=== PATIENT | female | born 1940 | race Caucasian/White ===

== ENCOUNTER → 2018-05-07 15:26 | Outpatient (REF) | payer MEDICARE, SELFPAY ==
[2018-05-07 20:48] LABS: Anion Gap 9.5 mmol/L (3-11); BUN 23 mg/dL (7-18); CO2 28.5 mmol/L (21.0-32.0); CREATININE 1.16 mg/dL (0.55-1.02); Calcium 9.3 mg/dL (8.5-10.1); Chloride 103 mmol/L (98-107); Estimated GFR 45.07 (mL/min/1.73m2); Glucose 185 mg/dL (70-100); Sodium 141 mmol/L (136-145); TSH (W/Ref FT4) 1.12 uIU/mL (0.358-3.74)
== END ==
LOC: NCHCN 15:26
PROVIDERS: PCP Family Medicine; Visit Provider Family Medicine
DX: I10 Essential (primary) hypertension (principal); E03.9 Hypothyroidism, unspecified; Z98.890 Other specified postprocedural states
CPT/HCPCS: 80048; 84443

== ENCOUNTER 2018-11-26 19:49 | Outpatient (REF) | payer MEDICARE, SELFPAY ==
[2018-11-26 20:04] LABS: Abs Immature Grans 0.03 k/cumm (0.0-0.09); Absolute Basophil Count 0.03 k/cumm (0.0-0.2); Absolute Eosinophil Count 0.17 k/cumm (0.0-0.7); Absolute Lymphocyte Count 1.95 k/cumm (1.2-3.4); Absolute Monocyte Count 0.57 k/cumm (0.11-0.7); Absolute Neutrophil Count 3.49 k/cumm (1.2-6.7); Basophils % 0.5; Eosinophils % 2.7; HCT 40.4 % (36.0-46.0); HGB 13.2 g/dL (12.0-15.5); Immature Grans % 0.5; Lymphocytes % 31.3; Mean Corp. HGB Concentration 32.7 g/dL (32.0-36.0); Mean Corpuscular Hemoglobin 30.3 pg (27.0-33.0); Mean Corpuscular Volume 92.7 fL (80-95); Mean Platelet Volume 10.7 fL (8.0-11.0); Monocytes % 9.1; Neutrophils % 55.9; Platelet Count 187 x1000/uL (130-400); RBC 4.36 m/cumm (4.00-5.20); RBC Distribution Width 14.1 % (11.7-14.6); White Blood Cell Count 6.24 k/cumm (4.4-10.8)
[2018-11-26 20:16] LABS: ALT 17 U/L (12-78); AST 20 U/L (15-37); Albumin 3.9 g/dL (3.4-5.0); Alkaline Phosphatase 79 U/L (46-116); Anion Gap 8.4 mmol/L (3-11); BUN 14 mg/dL (7-18); Bilirubin, Total 0.5 mg/dL (0.2-1.0); CO2 29.6 mmol/L (21.0-32.0); CREATININE 1.07 mg/dL (0.55-1.02); Calcium 9.6 mg/dL (8.5-10.1); Chloride 101 mmol/L (98-107); Estimated GFR 49.34 (mL/min/1.73m2); Glucose 105 mg/dL (70-100); Lipase 37 U/L (73-393); Potassium 3.7 mmol/L (3.5-5.1); Sodium 139 mmol/L (136-145); TSH (W/Ref FT4) 1.06 uIU/mL (0.358-3.74)
[2018-11-26 20:29] LABS: Hemoglobin A1C 4.9 % (4.5-6.2)
== END 2018-11-26 20:09 ==
LOC: NCHCN 19:49
PROVIDERS: PCP Family Medicine; Visit Provider Family Medicine
DX: E03.9 Hypothyroidism, unspecified (principal); R73.09 Other abnormal glucose; R11.0 Nausea
CPT/HCPCS: 80053; 83690; 83036; 84443; 85025

== ENCOUNTER 2019-10-16 11:03 | Outpatient (CLI) | payer MEDICARE, SELFPAY ==
--- NOTE | 2019-10-16 09:40 | DI.RAD_ITS ---
EXAM: XR SACRUM CLINICAL HISTORY: RT LEG PAIN, M79.604, H/O OSTEOPOROSIS, NEW RT BUTTOCKS/LEG PAIN X 1 MO TECHNIQUE: COMPARISON: No exams were available for comparison FINDINGS: AP and lateral view of the sacrum obtained. Mild DJD of the SI joints noted. No sacral fracture see n. Marked anterior spondylolisthesis versus pseudo spondylolisthesis L5 on S1 noted, this is estimat ed at 30 percent of the vertebral width and was and is much more easily seen on lateral view of the sacrum than on lumbar spine films. Additional evaluation with lumbar spine MR suggested. IMPRESSION:
--- NOTE | 2019-10-16 09:42 | DI.RAD_ITS ---
EXAM: XR LUMBAR SPINE COMPLETE CLINICAL HISTORY: RT LEG PAIN, M79.604, H/O OSTEOPOROSIS, NEW RT BUTTOCKS/LEG PAIN X 1 MO TECHNIQUE: COMPARISON: No exams were available for comparison FINDINGS: Four views were obtained. Note is made of an aorto bi iliac stent. Left renal artery component also appears to be present. There are prominent hypertrophic degenerative changes of the facet joints an d to a lesser degree the vertebral endplates in the lumbar spine. Question slight pseudo spondylolis thesis of L5 on S1. No gross compression fracture seen. Mild DJD of the SI joints noted. IMPRESSION: Degenerative changes as described above. No evidence of acute fracture. If there is a clinical susp icion of neural impingement additional evaluation with MR of the lumbar spine may be obtained.
== END 2019-10-16 11:23 ==
PROVIDERS: PCP Family Medicine; Visit Provider Family Medicine
DX: M79.604 Pain in right leg (principal); M81.0 Age-related osteoporosis without current pathological fracture; M53.3 Sacrococcygeal disorders, not elsewhere classified; M43.17 Spondylolisthesis, lumbosacral region; M47.817 Spondylosis without myelopathy or radiculopathy, lumbosacral region
CPT/HCPCS: 72110; 72220

== ENCOUNTER 2019-10-23 01:30 | Outpatient (CLI) | payer MEDICARE, SELFPAY ==
--- NOTE | 2019-10-23 11:28 | DI.MRI_ITS ---
EXAM: MR LUMBAR SPINE WO CLINICAL HISTORY: SPONDYLOLISTHESIS L5-S1 M43.10, SEVER BUTTOCK PAIN 1 MO.. TECHNIQUE: Multiplanar multisequence MRI was performed. COMPARISON: No exams were available for comparison FINDINGS: MR examination lumbar spine was attempted. Severe metal artifact precludes interpretation. The exam ination will not be charged to the patient. IMPRESSION:
== END 2019-10-23 01:50 ==
PROVIDERS: PCP Family Medicine; Visit Provider Family Medicine
DX: M43.16 Spondylolisthesis, lumbar region (principal); M79.18 Myalgia, other site; Z18.10 Retained metal fragments, unspecified
CPT/HCPCS: 72148

== ENCOUNTER 2020-04-05 22:34 | Outpatient (REF) | payer MEDICARE, SELFPAY ==
[2020-04-05 19:53] LABS: Anion Gap 8.1 mmol/L (3-11); BUN 19 mg/dL (7-18); CO2 28.9 mmol/L (21.0-32.0); CREATININE 1.01 mg/dL (0.55-1.02); Calcium 9.1 mg/dL (8.5-10.1); Chloride 103 mmol/L (98-107); Estimated GFR 52.61 (mL/min/1.73m2); Glucose 159 mg/dL (74-106); Sodium 140 mmol/L (136-145); TSH (W/Ref FT4) 1.17 uIU/mL (0.36-3.74)
== END 2020-04-05 22:54 ==
LOC: NCHCN 22:34
PROVIDERS: PCP Family Medicine; Visit Provider Family Medicine
DX: E03.9 Hypothyroidism, unspecified (principal); I10 Essential (primary) hypertension
CPT/HCPCS: 80048; 84443

== ENCOUNTER 2021-02-13 18:25 | Outpatient (REF) | payer MEDICARE, SELFPAY ==
[2021-02-13 16:09] LABS: Abs Immature Grans 0.05 10^3/uL (0.0-0.06); Absolute Basophil Count 0.04 10^3/uL (0.0-0.2); Absolute Eosinophil Count 0.14 10^3/uL (0.0-0.7); Absolute Monocyte Count 0.63 10^3/uL (0.1-0.8); Absolute Neutrophil Count 3.92 10^3/uL (1.2-6.7); Basophils % 0.6; Eosinophils % 2.1; HCT 38.4 % (36.0-46.0); HGB 12.9 g/dL (11.2-15.7); Immature Grans % 0.7; Lymphocytes % 29.5; MCH 30.6 pg (27.0-33.0); MCHC 33.6 % (32.0-36.0); MPV 10.1 fL (8.0-11.0); Monocytes % 9.3; Neutrophils % 57.8; Nucleated RBC 0 %; Platelet Count 191 10^3/uL (130-400); RBC 4.22 10^6/uL (3.93-5.22); RDW 13.8 % (11.7-14.6); WBC 6.78 10^3/uL (4.4-10.8)
[2021-02-13 17:03] LABS: ALT 18 U/L (14-59); AST 18 U/L (15-37); Albumin 3.9 g/dL (3.4-5.0); Alkaline Phosphatase 69 U/L (46-116); Anion Gap 8.5 mmol/L (3-11); BUN 15 mg/dL (7-18); Bilirubin, Total 0.5 mg/dL (0.2-1.0); CO2 29.5 mmol/L (21.0-32.0); CREATININE 1.1 mg/dL (0.55-1.02); Calcium 9.4 mg/dL (8.5-10.1); Chloride 105 mmol/L (98-107); Estimated GFR 47.55 (mL/min/1.73m2); Glucose 99 mg/dL (74-106); Potassium 4.3 mmol/L (3.5-5.1); Sodium 143 mmol/L (136-145); TSH (W/Ref FT4) 2.44 uIU/mL (0.36-3.74); Total Protein 7.1 g/dL (6.4-8.2)
[2021-02-14 14:28] LABS: COVID-19 RT-PCR Result Not Detected ((See Note))
== END 2021-02-13 18:26 | disposition home or self-care (01) ==
LOC: LBN 18:25
PROVIDERS: PCP Family Medicine; Visit Provider Family Medicine
DX: N18.30 Chronic kidney disease, stage 3 unspecified (principal); R11.0 Nausea; I10 Essential (primary) hypertension; E03.9 Hypothyroidism, unspecified; R53.81 Other malaise
CPT/HCPCS: 80053; U0003; 84443; 85025

== ENCOUNTER 2021-05-23 09:25 | Outpatient (REF) | payer MEDICARE, SELFPAY ==
[2021-05-23 14:46] LABS: Anion Gap 8.1 mmol/L (3-11); BUN 15 mg/dL (7-18); CO2 29.9 mmol/L (21.0-32.0); CREATININE 1.1 mg/dL (0.55-1.02); Calcium 9.4 mg/dL (8.5-10.1); Chloride 99 mmol/L (98-107); Estimated GFR 47.55 (mL/min/1.73m2); Glucose 113 mg/dL (74-106); Potassium 4.7 mmol/L (3.5-5.1); Sodium 137 mmol/L (136-145)
[2021-05-24 14:00] LABS: COVID-19 RT-PCR UVMMC Result Negative (Negative)
== END 2021-05-23 09:26 | disposition home or self-care (01) ==
LOC: NCHCN 09:25
PROVIDERS: PCP Family Medicine; Visit Provider Family Medicine
DX: Z20.822 Contact with and (suspected) exposure to COVID-19 (principal); I10 Essential (primary) hypertension
CPT/HCPCS: 80048; U0003; U0005

== ENCOUNTER 2021-08-15 18:15 | Outpatient (REF) | payer MEDICARE, SELFPAY | END 2021-08-15 18:16 | disposition home or self-care (01) | LOC: LBN 18:15 | PROVIDERS: PCP Family Medicine; Visit Provider Student in an Organized Health Care Education/Training Program | DX: J44.9 Chronic obstructive pulmonary disease, unspecified (principal); B37.9 Candidiasis, unspecified | CPT/HCPCS: 82784; 82785; 82787 ==

== ENCOUNTER 2021-08-18 09:41 | Outpatient (CLI) | payer MEDICARE, SELFPAY ==
--- NOTE | 2021-08-18 11:00 | DI.RAD_ITS ---
Exam(s) XR CHEST 2V PA LATERAL EXAM: XR CHEST 2V PA LATERAL CLINICAL HISTORY: Dyspnea, cough, COPD, J44.9 TECHNIQUE: 2D digital imaging was performed. COMPARISON: CR CHEST 2 VIEWS PA,LAT from 06/09/2010 CR CHEST 2 VIEWS PA,LAT from 06/09/2010 CR,RF BARIUM SWALLOW UGI PA CXR from 12/06/2010 CR ABDOMEN 2 VIEW FLAT, UPRIGHT from 03/05/2016 FINDINGS: MEDIASTINUM: Normal. HEART: Normal. Aorta tortuous. PULMONARY VASCULATURE: Normal. LUNGS: Clear. PLEURAL SPACE: No pleural effusion or pneumothorax. BONE:Unremarkable for age. Abdominal aortic stents noted. IMPRESSION: No acute abnormality. DATA REPOSITORY: RADIATION DOSE DELIVERED:
== END 2021-08-18 10:01 ==
PROVIDERS: PCP Family Medicine; Visit Provider Student in an Organized Health Care Education/Training Program
DX: J44.9 Chronic obstructive pulmonary disease, unspecified (principal); R05.8 Other specified cough; R06.00 Dyspnea, unspecified
CPT/HCPCS: 71046

== ENCOUNTER 2021-09-29 01:52 | Outpatient (CLI) | payer MEDICARE, SELFPAY ==
[2021-09-29] MEDS: Inhaler, Assist Device 1 EACH MC (08:55)
[2021-09-29] MEDS: Albuterol HFA 18 GM 200 PUFF INH IH (08:55)
--- NOTE | 2021-09-29 12:08 | W.PFT ---
Date of service: 09/29/21 Time of Service: 08:04 Pulmonary Function Test Result Requesting Provider Chloe Indications: TERRAZAS Interpretation Spirometry: There is no airflow limitation. There is no significant bronchodilator effect. Lung Volumes: Lung volumes are normal. Diffusion Capacity: Diffusion is reduced. Airway Pressure: Airways resistance is normal. Impression Reduced diffusing capacity, with otherwise normal pulmonary function testing. Clinical Correlation therefore is recommended.
== END 2021-09-29 01:53 | disposition home or self-care (01) ==
LOC: RT 01:52
PROVIDERS: PCP Family Medicine; Visit Provider Student in an Organized Health Care Education/Training Program
DX: R06.09 Other forms of dyspnea (principal); R94.2 Abnormal results of pulmonary function studies; J44.9 Chronic obstructive pulmonary disease, unspecified
CPT/HCPCS: 94060; 94726; 94729

== ENCOUNTER 2021-10-08 09:38 | Inpatient (IN) | payer MEDICARE, SELFPAY ==
[2021-10-08] VITALS (39 sets, daily range): BP systolic 110–203; BP diastolic 56–118; PULSE 57–83; RESP 12–22; TEMP 35.8–37.1; O2SAT 84–100; BMI 29.5
--- NOTE | 2021-10-08 09:48 | ED.GENADUL_ITS ---
Discharge Plan Disposition Patient Disposition: [facility] INPATIENT Condition: Stable Discharge Details Clinical Impression: Fracture of femoral neck, right Admit Date/Time: 10/08/21 12:28 Admit Provider: Junior Ornelas Attending Provider: Junior Ornelas Primary Care Provider: Carlos Trinidad ED Provider: Mary Gonzalez Discharge Data Discharge Date/Time-TO BE ENTERED AT DEPARTURE: 10/08/21 13:00 Medical Decision Making 81-year-old female with a history of COPD, chronic cough, CKD, hypertension, hyperlipidemia, GERD, osteoarthritis presents for right hip pain status post fall outside onto her right hip when he slipped on ice. Patient given fentanyl in route per EMS and now complaining of nausea and with continued pain. Right lower extremity shortened and externally rotated. No evidence of trauma to chest, abdomen or back. Will refer for x-rays, give a dose of Dilaudid and Zofran. Xrays note a right femoral neck fracture. Chest x-ray negative for acute disease. Pt has a history of chronic cough noted to have frequent coughing while dry heaving. COVID negative. Case discussed with Dr. Leon. Will take patient to the OR this afternoon. Case discussed with hospitalist who accepts patient for admission. Family updated regarding plan. Medical Records Medical records reviewed: Yes I reviewed the patient's medical records. Imaging Data Radiologic Study: Radiologist's impression: XR Right Hip Exam date and time: 10/08/2021 10:08 AM Age: 81 years old Clinical indication: Injury or trauma; Other: S/P fall, R/O acute disease; Fracture of pelvis \T\ hip; Right; Traumatic fracture; Neck of femur; Not specified TECHNIQUE: Imaging protocol: XR Right hip. Views: 2 or 3 views hip with pelvis when performed. COMPARISON: XR SACRUM 10/16/2019 9:40 AM FINDINGS: Bones/joints: Displaced intertrochanteric right hip fracture. Soft tissues: Soft tissue swelling of the right hip IMPRESSION: Displaced intertrochanteric right hip fracture. XR Right Femur Exam date and time: 10/08/2021 10:08 AM Age: 81 years old Clinical indication: Injury or trauma; Fall; Blunt trauma; Hip; Right TECHNIQUE: Imaging protocol: XR Right femur. Views: 2 views. COMPARISON: CR XR HIP RT COMPLETE AP PELVIS 10/08/2021 10:40 AM FINDINGS: Bones/joints: No femoral shaft fracture. Soft tissues: Unremarkable. IMPRESSION: No femoral shaft fracture. XR Chest Exam date and time: 10/08/2021 10:10 AM Age: 81 years old Clinical indication: Injury or trauma; Fall; Blunt trauma (contusions or hematomas) TECHNIQUE: Imaging protocol: XR of the chest. Views: 1 view. COMPARISON: CR XR CHEST 2V PA LATERAL 08/18/2021 10:51 AM FINDINGS: Lungs: Hyperexpanded lung huitron consistent with COPD. Pleural spaces: Unremarkable. No pleural effusion. No pneumothorax. Heart/Mediastinum: Unremarkable. No cardiomegaly. Bones/joints: Unremarkable. IMPRESSION: Hyperexpanded lung huitron consistent with COPD. Lab Data Lab results reviewed: Yes I reviewed the patient's lab results. Labs: Laboratory Tests Range/Units 10/08/21 10/08/21 10:28 10:28 WBC (4.4-10.8) 10^3/uL 9.30 RBC (3.93-5.22) 10^6/uL 4.00 Hgb (11.2-15.7) g/dL 12.2 Hct (36.0-46.0) % 37.9 MCV (80-95) fL 94.8 MCH (27.0-33.0) pg 30.5 MCHC (32.0-36.0) % 32.2 RDW (11.7-14.6) % 13.2 Plt Count (130-400) 10^3/uL 182 MPV (8.0-11.0) fL 9.4 Immature Gran % 0.8 Neutrophils % 69.4 Lymphocytes % 19.5 Monocytes % 7.0 Eosinophils % 2.8 Basophils % 0.5 Nucleated RBC % % 0 Absolute Neutrophils (1.2-6.7) 10^3/uL 6.46 Absolute Lymphocytes (1.2-3.4) 10^3/uL 1.81 Absolute Monocytes (0.1-0.8) 10^3/uL 0.65 Absolute Eosinophils (0.0-0.7) 10^3/uL 0.26 Absolute Basophils (0.0-0.2) 10^3/uL 0.05 Sodium (136-145) mmol/L 135 L Potassium (3.5-5.1) mmol/L 4.2 Chloride (98-107) mmol/L 102 Carbon Dioxide (21.0-32.0) mmol/L 25.6 Anion Gap (3-11) mmol/L 7.4 BUN (7-18) mg/dL 15 Creatinine (0.55-1.02) mg/dL 1.0 Estimated GFR/1.73 m2 (mL/min/1.73m2) 52.95 Glucose (74-106) mg/dL 213 H Calcium (8.5-10.1) mg/dL 8.5 Total Bilirubin (0.2-1.0) mg/dL 0.6 AST (15-37) U/L 16 ALT (14-59) U/L 19 Alkaline Phosphatase (46-116) U/L 79 Total Protein (6.4-8.2) g/dL 6.9 Albumin (3.4-5.0) g/dL 3.5 ECG Data Attestation: I personally reviewed and interpreted this ECG (s) as follows: Interpretation: rate of 72, sinus, no acute ST elevation or depression. ID [id number]. QRS 73. QTc 452. HPI General Mode of arrival: EMS . Date/Time Provider Initiated Documentation: 10/08/21 09:48 . Limitations to Documentation: no limitations . Information obtained by: patient . HPI Narrative: Patient is a 81-year-old female with a history of COPD and chronic cough, CKD, hypertension, GERD and arthritis who presents from home for right hip pain after fall today. Patient states she was outside walking her dog when she slipped on ice and fell onto her right hip. She was given 125 mcg of fentanyl per EMS and now complains of some nausea and continued pain. She denies any other injuries. She denies head injury, chest pain, abdominal pain, neck pain, back pain or any other extremity pain or injury. Related Data Home Medications Medication Instructions Recorded Confirmed levothyroxine [Synthroid] 137 mcg PO QAM 03/04/16 10/08/21 albuterol sulfate 90 mcg/actuation 2 puff INHALATION Q6H PRN 05/15/21 08/15/21 aerosol inhaler ascorbate calcium (vitamin C) 500 1,000 mg PO DAILY 05/15/21 10/08/21 mg tablet aspirin 81 mg tablet,delayed 81 mg PO QAM 05/15/21 10/08/21 release omeprazole 20 mg capsule,delayed 20 mg PO QAM 05/15/21 10/08/21 release propranolol 60 mg capsule,24 60 mg PO DAILY 05/15/21 10/08/21 hr,extended release simethicone 80 mg chewable tablet 80 mg PO QID PRN tab 05/15/21 08/30/21 simvastatin 40 mg tablet 40 mg PO QPM 05/15/21 10/08/21 tiotropium 2.5 mcg-olodaterol 2.5 2 puff INHALATION DAILY #4 g 08/21/21 08/30/21 mcg/actuation mist for inhalation calcium carbonate [Calcium 500] 1,000 mg PO QPM 10/08/21 10/08/21 fluticasone propion-salmeterol 1 inh INHALATION BID 10/08/21 10/08/21 [Advair Diskus] losartan 50 mg PO QAM 10/08/21 10/08/21 Previous Rx's Medication Instructions Recorded tiotropium 2.5 mcg-olodaterol 2.5 2 puff INHALATION DAILY #4 g 08/21/21 mcg/actuation mist for inhalation Allergies Allergy/AdvReac Type Severity Reaction Status Date / Time clopidogrel Allergy Verified 10/08/21 09:57 bisulfate Allergy Uncoded 10/08/21 09:57 Review of Systems All systems reviewed & are unremarkable except as noted in HPI and below Constitutional Constitutional: Reports as per HPI, Denies chills and Denies fever(s) Eyes Eyes: Denies blurry vision ENT Ears, Nose, Mouth, and Throat: Denies dizziness, Denies sore throat and Denies throat swelling Cardiovascular Cardiovascular: Denies chest pain and Denies dyspnea Respiratory Respiratory: Denies cough and Denies dyspnea Gastrointestinal Gastrointestinal: Denies abdominal pain, Denies diarrhea and Denies vomiting Genitourinary Genitourinary: Denies hematuria and Denies dysuria Musculoskeletal Musculoskeletal: Denies back pain, Denies numbness and Reports other (R hip pain) Integumentary/Breasts Skin/Breast: Denies lesions and Denies rash Neurologic Neurologic: Denies dizziness, Denies localized weakness and Denies numbness Allergic/Immunologic Allergic/Immunologic: Denies throat swelling PFSH All Active Problems (Updated 10/08/21 @ 19:10 by Mary Gonzalez DO) Fracture of femoral neck, right (Acute) Basicervical fracture of neck of right femur (Acute 10/08/21) Chronic laryngitis (Acute) Thrush (Acute) COPD (chronic obstructive pulmonary disease) (Acute) Chronic cough (Acute) Globus sensation (Acute) Eczema (Acute) Impaired fasting glucose (Acute) Spondylisthesis (Acute) Insomnia (Acute) CKD (chronic kidney disease) (Chronic) Lesion of skin of scalp (Acute) Hearing impaired person (Acute) Abdominal pain (Acute) Lactose intolerance (Acute) Hiatal hernia (Chronic) Dysphagia (Acute) Hyperlipidemia (Acute) Hypertension (Chronic) Abdominal aortic aneurysm (Acute) GERD (gastroesophageal reflux disease) (Chronic) Hypothyroidism (Chronic) Arthritis (Acute) Osteoarthritis (Chronic) Surgical History H/O aortic aneurysm repair H/O colonoscopy H/O hand surgery History of esophagogastroduodenoscopy (EGD) History of Nila fundoplication History of renal stent Family History Father Cancer Mother Aneurysm Pneumonia Son No problems noted. Social History Smoking/Tobacco Use Status: Former Tobacco Use Smoking risk assessment performed?: Yes Alcohol Intake: never Drug use: Never Do you feel safe at home: Yes Do you feel safe in your relationship?: Yes Exam Const General: cooperative and no acute distress HENMT Head: normal to inspection Face and sinus: normal facial exam Eyes General: appearance normal, both eyes and all related structures Pupils: PERRL EOM: EOM intact bilaterally Neck Neck: normal visual inspection and No submandibular swelling Lymphatic: no lymphadenopathy noted Chest Chest: normal inspection of the chest and no tenderness Resp Effort & Inspection: normal respiratory effort and able to speak in complete sentences Auscultation: clear to auscultation bilaterally Cardio Rate: regular rate Rhythm: regular rhythm GI Inspection: normal to inspection Palpation: soft, not firm, not rigid and nontender Auscultation: normal bowel sounds Back/Spine/Pelvis Thoracic/Lumbar Spine: thoracic and lumbar spine normal to inspection Skin General skin exam: no rashes or lesions noted Neuro General: patient alert, patient awake and patient oriented x3 Cognition: normal cognition Speech: speech normal Motor: muscle tone normal throughout Sensory Exam: no sensory deficits noted Extrem Right lower extremity: hip/thigh Details: abnormal to inspection Details: foreshortened and externally rotated and abnormal ROM Details: held in an abnormal fashion Details: in external rotation and pain with active ROM during, knee Details: normal to inspection; no tenderness and no swelling, lower leg Details: normal to inspection, ankle Details: normal to inspection and foot Details: normal to inspection and vascular exam Details: dorsalis pedis pulse present and posterior tibial pulse present Left lower extremity: foot Details: vascular exam Details: dorsalis pedis pulse present and posterior tibial pulse present Psych Appearance: grossly normal Mental Status: mental status grossly normal Speech and Movement: speech and movement normal Affect: normal affect
--- NOTE | 2021-10-08 10:00 | DI.RAD_ITS ---
Exam(s) XR HIP RT COMPLETE AP PELVIS EXAM: XR HIP RT COMPLETE AP PELVIS CLINICAL HISTORY: right hip pain s/p fall, r/o fx. TECHNIQUE: 2D digital imaging was performed. COMPARISON: No exams were available for comparison FINDINGS: There is a mildly displaced intertrochanteric fracture of the right hip.. No other pelvic fractures. Aortic EVAR noted. IMPRESSION: DATA REPOSITORY: RADIATION DOSE DELIVERED:
--- NOTE | 2021-10-08 10:00 | DI.RAD_ITS ---
Exam(s) XR CHEST 1V IN DI DEPT EXAM: XR CHEST 1V IN DI DEPT CLINICAL HISTORY: s/p fall, r/o acute disease. TECHNIQUE: 2D digital imaging was performed. COMPARISON: CR XR CHEST 2V PA LATERAL from 08/18/2021 FINDINGS: Heart size is upper normal. The mediastinum is not widened. Some hyperinflation is again noted but no infiltrates nor pleural effusions. No pulmonary edema. IMPRESSION: No acute pulmonary findings on this single AP portable view of the chest. DATA REPOSITORY: RADIATION DOSE DELIVERED: All CT scans at this facility use at least one of these dose optimization techniques: automated exposure control; mA and/or kV adjustment per patient size (includes targeted e xams where dose is matched to clinical indication); or iterative reconstruction.
--- NOTE | 2021-10-08 10:00 | DI.RAD_ITS ---
Exam(s) XR FEMUR RT EXAM: XR FEMUR RT CLINICAL HISTORY: s/p fall, r/o fx. TECHNIQUE: 2D digital imaging was performed. COMPARISON: CR,XR XR HIP RT COMPLETE AP PELVIS from 10/08/2021 FINDINGS: In this patient has a right hip fracture there are no fractures at and below the subtrochanteric zachery on of the femur. No knee joint effusion evident. There is moderate narrowing of the medial compartm ent of the right knee noted. IMPRESSION: No right femur fracture below the level of the hip Please note that this patient also has an aortic EVAR. DATA REPOSITORY: RADIATION DOSE DELIVERED:
--- NOTE | 2021-10-08 10:00 | RT.EKG_ITS ---
APPROVED REPORT Exam: Resting ECG Reason for Exam: pre-op Patient Location: E HR:72 bpm ECG Measurements Heart Rate 72 AXIS KS 172 P 67 QRSd 73 QRS 17 QT 414 T 29 QTc 452 Conclusion Sinus rhythm...normal P axis, V-rate 60- 99. Sinus. No STEMI. I have reviewed and interpreted ECG and agree with software generated interpretation.
[2021-10-08] MEDS: Ondansetron 4 MG/2 ML VIAL IVP (10:19)
[2021-10-08] MEDS: HYDROmorphone 2 MG/ML VIAL 0.5 MG IVP ×4 (10:20→22:52)
[2021-10-08 10:33] LABS: Abs Immature Grans 0.07 10^3/uL (0.0-0.06); Absolute Basophil Count 0.05 10^3/uL (0.0-0.2); Absolute Eosinophil Count 0.26 10^3/uL (0.0-0.7); Absolute Lymphocyte Count 1.81 10^3/uL (1.2-3.4); Absolute Monocyte Count 0.65 10^3/uL (0.1-0.8); Absolute Neutrophil Count 6.46 10^3/uL (1.2-6.7); Basophils % 0.5; Eosinophils % 2.8; HCT 37.9 % (36.0-46.0); HGB 12.2 g/dL (11.2-15.7); Immature Grans % 0.8; Lymphocytes % 19.5; MCH 30.5 pg (27.0-33.0); MCHC 32.2 % (32.0-36.0); MCV 94.8 fL (80-95); MPV 9.4 fL (8.0-11.0); Neutrophils % 69.4; Nucleated RBC 0 %; Platelet Count 182 10^3/uL (130-400); RDW 13.2 % (11.7-14.6); RDW-SD 45.7 fL
[2021-10-08 10:50] LABS: ALT 19 U/L (14-59); AST 16 U/L (15-37); Albumin 3.5 g/dL (3.4-5.0); Alkaline Phosphatase 79 U/L (46-116); Anion Gap 7.4 mmol/L (3-11); BUN 15 mg/dL (7-18); Bilirubin, Total 0.6 mg/dL (0.2-1.0); CO2 25.6 mmol/L (21.0-32.0); Calcium 8.5 mg/dL (8.5-10.1); Chloride 102 mmol/L (98-107); Estimated GFR 52.95 (mL/min/1.73m2); Glucose 213 mg/dL (74-106); Potassium 4.2 mmol/L (3.5-5.1); Sodium 135 mmol/L (136-145); Total Protein 6.9 g/dL (6.4-8.2)
--- NOTE | 2021-10-08 10:59 | DI.VRAD_ITS ---
PROCEDURE INFORMATION: Exam: XR Right Hip Exam date and time: 10/08/2021 10:08 AM Age: 81 years old Clinical indication: Injury or trauma; Other: S/P fall, R/O acute disease; Fracture of pelvis \T\ hip; Right; Traumatic fracture; Neck of femur; Not specified TECHNIQUE: Imaging protocol: XR Right hip. Views: 2 or 3 views hip with pelvis when performed. COMPARISON: XR SACRUM 10/16/2019 9:40 AM FINDINGS: Bones/joints: Displaced intertrochanteric right hip fracture. Soft tissues: Soft tissue swelling of the right hip IMPRESSION: Displaced intertrochanteric right hip fracture. Dictated and Authenticated by: Hammad Hoffman MD. Ordering:ROXI Hernandez MD
--- NOTE | 2021-10-08 11:01 | DI.VRAD_ITS ---
PROCEDURE INFORMATION: Exam: XR Chest Exam date and time: 10/08/2021 10:10 AM Age: 81 years old Clinical indication: Injury or trauma; Fall; Blunt trauma (contusions or hematomas) TECHNIQUE: Imaging protocol: XR of the chest. Views: 1 view. COMPARISON: CR XR CHEST 2V PA LATERAL 08/18/2021 10:51 AM FINDINGS: Lungs: Hyperexpanded lung huitron consistent with COPD. Pleural spaces: Unremarkable. No pleural effusion. No pneumothorax. Heart/Mediastinum: Unremarkable. No cardiomegaly. Bones/joints: Unremarkable. IMPRESSION: Hyperexpanded lung huitron consistent with COPD. Dictated and Authenticated by: Hammad Hoffman MD. Ordering:ROXI Hernandez MD
--- NOTE | 2021-10-08 11:02 | DI.VRAD_ITS ---
PROCEDURE INFORMATION: Exam: XR Right Femur Exam date and time: 10/08/2021 10:08 AM Age: 81 years old Clinical indication: Injury or trauma; Fall; Blunt trauma; Hip; Right TECHNIQUE: Imaging protocol: XR Right femur. Views: 2 views. COMPARISON: CR XR HIP RT COMPLETE AP PELVIS 10/08/2021 10:40 AM FINDINGS: Bones/joints: No femoral shaft fracture. Soft tissues: Unremarkable. IMPRESSION: No femoral shaft fracture. Dictated and Authenticated by: Hammad Hoffman MD. Ordering:ROXI Hernandez MD
--- NOTE | 2021-10-08 11:31 | ANES.PREOP_ITS ---
General Info Date of Service Date Performed: 10/08/21 Height: 5 ft 1 in Weight: 71 kg Body Mass Index (BMI): 29.5 Meds Allergies and Home Medications Allergies Allergy/AdvReac Type Severity Reaction Status Date / Time clopidogrel Allergy Verified 10/08/21 09:57 bisulfate Allergy Uncoded 10/08/21 09:57 Home Medication Medication Instructions Recorded levothyroxine [Synthroid] 137 mcg PO QAM 03/04/16 albuterol sulfate 90 mcg/actuation 2 puff INHALATION Q6H PRN 05/15/21 aerosol inhaler ascorbate calcium (vitamin C) 500 1,000 mg PO DAILY 05/15/21 mg tablet aspirin 81 mg tablet,delayed 81 mg PO QAM 05/15/21 release omeprazole 20 mg capsule,delayed 20 mg PO QAM 05/15/21 release propranolol 60 mg capsule,24 60 mg PO DAILY 05/15/21 hr,extended release simethicone 80 mg chewable tablet 80 mg PO QID PRN tab 05/15/21 simvastatin 40 mg tablet 40 mg PO QPM 05/15/21 tiotropium 2.5 mcg-olodaterol 2.5 2 puff INHALATION DAILY #4 g 08/21/21 mcg/actuation mist for inhalation calcium carbonate [Calcium 500] 1,000 mg PO QPM 10/08/21 fluticasone propion-salmeterol 1 inh INHALATION BID 10/08/21 [Advair Diskus] losartan 50 mg PO QAM 10/08/21 Current Visit Medications: Current Medications Generic Name Dose Route Start Last Admin Trade Name Freq PRN Reason Stop Dose Admin Levothyroxine Sodium 137 mcg 10/09/21 08:30 Levothyroxine 25 Mcg Tab PO QAM REPLACED BY [facility] Losartan Potassium 50 mg 10/09/21 08:30 Losartan 50 Mg Tab PO QAM REPLACED BY [facility] Non-Formulary Medication 1 inh 10/08/21 20:00 Fluticasone Propion-Salmeterol IH BID REPLACED BY [facility] Non-Formulary Medication 2 puff 10/09/21 08:30 Tiotropium-Olodaterol IH DAILY REPLACED BY [facility] Propranolol HCl 60 mg 10/09/21 08:30 Propranolol 60 Mg Capcr PO DAILY REPLACED BY [facility] Simvastatin 40 mg 10/08/21 20:00 Simvastatin 40 Mg Tab PO QPM REPLACED BY [facility] PFS Active Problems Active Problems: Problem Status Onset Code Basicervical fracture of neck of right femur 10/08/21 S72.041A Chronic laryngitis J37.0 Thrush B37.0 COPD (chronic obstructive pulmonary disease) J44.9 Chronic cough R05 Globus sensation R09.89 Eczema L30.9 Impaired fasting glucose R73.01 Spondylisthesis M43.10 Insomnia G47.00 CKD (chronic kidney disease) N18.9 Lesion of skin of scalp L98.9 Hearing impaired person H91.90 Abdominal pain R10.9 Lactose intolerance E73.9 Hiatal hernia K44.9 Dysphagia R13.10 Hyperlipidemia E78.5 Hypertension I10 Abdominal aortic aneurysm I71.4 GERD (gastroesophageal reflux disease) K21.9 Hypothyroidism E03.9 Arthritis M19.90 Osteoarthritis M19.90 Medical History Active Problem List Thrush (Acute) COPD (chronic obstructive pulmonary disease) (Acute) Chronic cough (Acute) Globus sensation (Acute) Eczema (Acute) Impaired fasting glucose (Acute) Spondylisthesis (Acute) Insomnia (Acute) CKD (chronic kidney disease) (Chronic) Lesion of skin of scalp (Acute) Hearing impaired person (Acute) Abdominal pain (Acute) Lactose intolerance (Acute) Hiatal hernia (Chronic) Dysphagia (Acute) Hyperlipidemia (Acute) Hypertension (Chronic) Abdominal aortic aneurysm (Acute) GERD (gastroesophageal reflux disease) (Chronic) Hypothyroidism (Chronic) Arthritis (Acute) Osteoarthritis (Chronic) Surgical History Surgical History H/O aortic aneurysm repair H/O colonoscopy H/O hand surgery History of esophagogastroduodenoscopy (EGD) History of Nila fundoplication History of renal stent Tobacco Smoking/Tobacco Use Status: Former Tobacco Use Alcohol Alcohol Intake: never Substance Use Substance use: Never Vital Signs and Lab Results Vital Signs Most Recent Vital Signs in EMR: Most Recent Vital Signs Temp Pulse Resp BP Pulse Ox 36.6 C 70 16 184/76 H 87 L 10/08/21 09:41 10/08/21 10:10 10/08/21 09:41 10/08/21 10:10 10/08/21 11:28 Lab Results Result Diagrams: 10/08/21 10:28 10/08/21 10:28 Blood Type / Crossmatch: No Data to Display Complete Blood Count: White Blood Count 9.30 10^3/uL (4.4-10.8) 10/08/21 10:10/08/21 Red Blood Count 4.00 10^6/uL (3.93-5.22) 10/08/21 10:10/08/21 Hemoglobin 12.2 g/dL (11.2-15.7) 10/08/21 10:10/08/21 Hematocrit 37.9 % (36.0-46.0) 10/08/21 10:10/08/21 Platelet Count 182 10^3/uL (130-400) 10/08/21 10:10/08/21 Complete Metabolic Panel: Sodium Level 135 mmol/L (136-145) L 10/08/21 10:10/08/21 Potassium Level 4.2 mmol/L (3.5-5.1) 10/08/21 10:10/08/21 Chloride Level 102 mmol/L (98-107) 10/08/21 10:10/08/21 Carbon Dioxide Level 25.6 mmol/L (21.0-32.0) 10/08/21 10:10/08/21 Blood Urea Nitrogen 15 mg/dL (7-18) 10/08/21 10:10/08/21 Creatinine 1.0 mg/dL (0.55-1.02) 10/08/21 10:10/08/21 Estimated GFR/1.73 m2 52.95 (mL/min/1.73m2) 10/08/21 10:10/08/21 Calcium Level 8.5 mg/dL (8.5-10.1) 10/08/21 10:10/08/21 Albumin 3.5 g/dL (3.4-5.0) 10/08/21 10:10/08/21 Glucose Level 213 mg/dL (74-106) H 10/08/21 10:10/08/21 Liver Function Panel: Alanine Aminotransferase (ALT/SGPT) 19 U/L (14-59) 10/08/21 10:10/08/21 Aspartate Amino Transf (AST/SGOT) 16 U/L (15-37) 10/08/21 10:28 10/08/21 Coagulation Panel: No Data to Display Cardiac Panel: No Data to Display Arterial Blood Gas: No Data to Display Venous Blood Gas: No Data to Display Pancreas Panel: No Data to Display Thyroid Panel: No Data to Display Infectious Disease: Coronavirus 2019 Source Pending 10/08/21 10:16 10/08/21 Blood Cultures: No Data to Display Toxicology Panel: No Data to Display Imaging and Studies Imaging and Studies Study information below may be from another EMR and interpreted by another provider. Please see original notes in EMR for more complete details. Pulmonary Function Summary: Date of service: 09/29/21 Time of Service: 08:04 Pulmonary Function Test Result Requesting Provider Chloe Indications: TERRAZAS Interpretation Spirometry: There is no airflow limitation. There is no significant bronchodilator effect. Lung Volumes: Lung volumes are normal. Diffusion Capacity: Diffusion is reduced. Airway Pressure: Airways resistance is normal. Impression Reduced diffusing capacity, with otherwise normal pulmonary function testing. Clinical Correlation therefore is recommended. Anesthesia Assessment and Plan Anesthesia History Personal History: No History of Anesthesia Complications Family History: No Family History of Anesthesia Complications Exercise Tolerance Exercise Tolerance: Metabolic Equivalents>4 Pertinent Negatives Pertinent Negatives: No Symptoms of GERD Cardiac & Pulmonary Exam Cardiac Exam: Normal S1/S2 Heart Sounds Pulmonary Exam: Clear Bilateral Breath Sounds Implantable Cardiac Device Does patient have a Pacemaker or an ICD?: No Airway Exam Known Difficult Airway: No Mallampati Class: 3 Mouth Opening: Normal (> 3cm) Thyromental Distance: Greater than 3 cm Neck Range of Motion: Full ROM Neck Circumference: Normal Teeth Condition: Removable Dentures/Plates Upper and Removable Dentures/Plates Lower ASA Classification ASA Score: ASA 2 Emergency Case?: No NPO Status NPO Status: NPO Clears >2 hours, Solids >8 hours (8 hours at 1530) Anesthesia Plan Resuscitation Status: Full Code Anesthesia Technique: General Anesthesia Airway Planned: LMA Monitors Used: Standard Monitors
[2021-10-08 11:39] LABS: Source Nasal/Nares
--- NOTE | 2021-10-08 12:15 | DI.RAD_ITS ---
Exam(s) XR HIP RT IN OR EXAM: XR HIP RT IN OR CLINICAL HISTORY: Basicervical fracture of neck of right femur. TECHNIQUE: 2D digital imaging was performed. COMPARISON: CR,XR XR CHEST 1V IN DI DEPT from 10/08/2021 CR,XR XR FEMUR RT from 10/08/2021 CR,XR XR HIP RT COMPLETE AP PELVIS from 10/08/2021 FINDINGS: Fluoroscopy was provided intraoperatively during orthopedic procedure on the right hip. See procedur e report for details. Total fluoroscopy time 107 seconds. Total cumulative dose= 15.55mGy IMPRESSION: DATA REPOSITORY: RADIATION DOSE DELIVERED:
[2021-10-08 12:20] LABS: COVID-19 PCR Negative (Negative)
[2021-10-08] MEDS: Normal Saline Flush 10 ML SYR (13:39)
--- NOTE | 2021-10-08 13:56 | W.PM.HP.N ---
Date of service: 10/08/21 Time of Service: 13:59 Assessment and Plan Assessment and plan (1) Basicervical fracture of neck of right femur: Status: Acute Assessment and plan: Surgical repair planned for today. Pain control with IV dilaudid prn. Qualifiers: Encounter type: initial encounter Fracture type: closed Fracture alignment: displaced Qualified Code(s): S72.041A - Displaced fracture of base of neck of right femur, initial encounter for closed fracture (2) COPD (chronic obstructive pulmonary disease): Status: Acute Assessment and plan: Cont home Stiolto. Duoneb treatment prior to surgery then TID. Albuterol neb Q2H prn. IS (3) Chronic cough: Status: Acute Assessment and plan: No current coughing paroxysms. (4) Impaired fasting glucose: Status: Acute Assessment and plan: Random glucose elevated. Check A1c Glucose monitoring ACHS and SS insulin (sensitive). (5) CKD (chronic kidney disease): Status: Chronic Assessment and plan: Creatinine 1.0. Est GFR 54. Baseline (6) Hyperlipidemia: Status: Acute Assessment and plan: Cont Simvistatin. (7) Hypertension: Status: Chronic Assessment and plan: Cont Losartan. Monitor. (8) GERD (gastroesophageal reflux disease): Status: Chronic Assessment and plan: Cont omeprazole. (9) Hypothyroidism: Status: Chronic Assessment and plan: Cont levothyroxine. History of Present Illness History of Present Illness Chief Complaint: Right hip pain Narrative: This is an 81 yo female with a PMH of COPD, CKD, HTN, HLK, OA, prediabetes, hypothyroidism, GERD. She presented to the ED after falling on the ice while walking her dog. She had immediate pain in the right hip and could not move. Her son-in-law heard her cries for help. EMS called and they administered fentanyl en route. Xray showed a right intertrochanteric fx. Orthopedics consulted and plan to repair the fx on the day of admission. She did develop nausea in the ED; treated with phenergan. WBC count and Hgb normal. Lytes and creatinine normal. Glucose 213. No head or neck pain. No CP/Palpitations. Denies LOC, presyncope, syncope. Review of Systems All systems reviewed & are unremarkable except as noted in HPI and below PFSH All Active Problems Fracture of right hip (Acute) Basicervical fracture of neck of right femur (Acute 10/08/21) Chronic laryngitis (Acute) Thrush (Acute) COPD (chronic obstructive pulmonary disease) (Acute) Chronic cough (Acute) Globus sensation (Acute) Eczema (Acute) Impaired fasting glucose (Acute) Spondylisthesis (Acute) Insomnia (Acute) CKD (chronic kidney disease) (Chronic) Lesion of skin of scalp (Acute) Hearing impaired person (Acute) Abdominal pain (Acute) Lactose intolerance (Acute) Hiatal hernia (Chronic) Dysphagia (Acute) Hyperlipidemia (Acute) Hypertension (Chronic) Abdominal aortic aneurysm (Acute) GERD (gastroesophageal reflux disease) (Chronic) Hypothyroidism (Chronic) Arthritis (Acute) Osteoarthritis (Chronic) Surgical History H/O aortic aneurysm repair H/O colonoscopy H/O hand surgery History of esophagogastroduodenoscopy (EGD) History of Nila fundoplication History of renal stent Family History Father Cancer Mother Aneurysm Pneumonia Son No problems noted. Social History Smoking/Tobacco Use Status: Former Tobacco Use Smoking risk assessment performed?: Yes Alcohol Intake: never Drug use: Never Do you feel safe at home: Yes Do you feel safe in your relationship?: Yes Meds Allergies and Home Medications Allergies Allergy/AdvReac Type Severity Reaction Status Date / Time clopidogrel Allergy Verified 10/08/21 09:57 bisulfate Allergy Uncoded 10/08/21 09:57 Home Medications Medication Instructions Recorded Confirmed Type levothyroxine [Synthroid] 137 mcg PO QAM 03/04/16 10/08/21 History albuterol sulfate 90 mcg/actuation 2 puff INHALATION Q6H PRN 05/15/21 08/15/21 History aerosol inhaler ascorbate calcium (vitamin C) 500 1,000 mg PO DAILY 05/15/21 10/08/21 History mg tablet aspirin 81 mg tablet,delayed 81 mg PO QAM 05/15/21 10/08/21 History release omeprazole 20 mg capsule,delayed 20 mg PO QAM 05/15/21 10/08/21 History release propranolol 60 mg capsule,24 60 mg PO DAILY 05/15/21 10/08/21 History hr,extended release simethicone 80 mg chewable tablet 80 mg PO QID PRN tab 05/15/21 08/30/21 History simvastatin 40 mg tablet 40 mg PO QPM 05/15/21 10/08/21 History tiotropium 2.5 mcg-olodaterol 2.5 2 puff INHALATION DAILY #4 g 08/21/21 08/30/21 Rx mcg/actuation mist for inhalation calcium carbonate [Calcium 500] 1,000 mg PO QPM 10/08/21 10/08/21 History fluticasone propion-salmeterol 1 inh INHALATION BID 10/08/21 10/08/21 History [Advair Diskus] losartan 50 mg PO QAM 10/08/21 10/08/21 History Exam Const General: cooperative and no acute distress HENMT Head: normal to inspection Face and sinus: normal facial exam Eyes General: appearance normal, both eyes and all related structures Sclera: sclerae normal EOM: EOM intact bilaterally Neck Neck: normal visual inspection, no JVD and No submandibular swelling Chest Chest: normal inspection of the chest and no tenderness Resp Effort & Inspection: normal respiratory effort and able to speak in complete sentences Auscultation: clear to auscultation bilaterally Cardio Rate: regular rate Rhythm: regular rhythm GI Inspection: normal to inspection Palpation: soft, not firm, not rigid and nontender Auscultation: normal bowel sounds Skin General skin exam: no rashes or lesions noted Neuro General: patient alert, patient awake and patient oriented x3 Cognition: normal cognition Speech: speech normal Motor: muscle tone normal throughout Sensory Exam: no sensory deficits noted Extrem Right lower extremity: hip/thigh Details: abnormal to inspection Details: foreshortened and externally rotated and abnormal ROM Details: held in an abnormal fashion Details: in external rotation and pain with active ROM during, knee Details: normal to inspection; no tenderness and no swelling, lower leg Details: normal to inspection, ankle Details: normal to inspection and foot Details: normal to inspection and vascular exam Details: dorsalis pedis pulse present and posterior tibial pulse present Left lower extremity: foot Psych Appearance: grossly normal Mental Status: mental status grossly normal Speech and Movement: speech and movement normal Affect: normal affect Results Labs Result diagrams: 10/08/21 10:28 10/08/21 10:28 Labs: Laboratory Results - last 24 hr 10/08/21 10/08/21 10/08/21 10:28 10:28 11:22 WBC 9.30 RBC 4.00 Hgb 12.2 Hct 37.9 MCV 94.8 MCH 30.5 MCHC 32.2 RDW 13.2 Plt Count 182 MPV 9.4 Immature Gran % 0.8 Neutrophils % 69.4 Lymphocytes % 19.5 Monocytes % 7.0 Eosinophils % 2.8 Basophils % 0.5 Nucleated RBC % 0 Absolute Neutrophils 6.46 Absolute Lymphocytes 1.81 Absolute Monocytes 0.65 Absolute Eosinophils 0.26 Absolute Basophils 0.05 Sodium 135 L Potassium 4.2 Chloride 102 Carbon Dioxide 25.6 Anion Gap 7.4 BUN 15 Creatinine 1.0 Estimated GFR/1.73 m2 52.95 Glucose 213 H Calcium 8.5 Total Bilirubin 0.6 AST 16 ALT 19 Alkaline Phosphatase 79 Total Protein 6.9 Albumin 3.5 COVID-19 Source Nasal/Nares SARS-CoV-2 (PCR) Negative Last Vital Signs Temp 36.2 C L 10/08/21 13:12 Pulse 58 L 10/08/21 13:12 Resp 22 10/08/21 13:12 BP 180/84 H 10/08/21 13:12 Pulse Ox 90 L 10/08/21 13:37
[2021-10-08 15:06] LABS: Lab Add On Test DONE
--- NOTE | 2021-10-08 15:27 | W.ORTHOCONSU ---
Date of service: 10/08/21 Time of Service: 15:25 History of Present Illness Narrative: Right hip pain, inability to bear weight after fall mechanical earlier today. No pre-existing hip issues. No prior hip fracture. Community ambulator. Lives with a daughter. Consult Reason Displaced right hip fracture Assessment and Plan Assessment and plan (1) Basicervical fracture of neck of right femur: Status: Acute Assessment and plan: 81 year old female with displaced Right hip basicervical fracture Medical admission and optimization for surgery: Right hip intramedullary nailing. The risks, benefits, and alternatives were thoroughly discussed. Patient was counseled regarding pain management, expected postoperative course, and recovery timeline. All questions were answered. Informed consent was obtained. Agree and understand treatment plan. Hold chemo dvt ppx pending OR. Bedrest, NWB RLE, TEDs or SCDs BLE, Paredes, NPO, and IVF. ABX configuration management specialist to OR. Plan for surgery today 10/08/21 Will d/w medical team Qualifiers: Encounter type: initial encounter Fracture alignment: displaced Fracture type: closed Qualified Code(s): S72.041A - Displaced fracture of base of neck of right femur, initial encounter for closed fracture Review of Systems All systems reviewed & are unremarkable except as noted in HPI and below PFSH All Active Problems Fracture of right hip (Acute) Basicervical fracture of neck of right femur (Acute 10/08/21) Chronic laryngitis (Acute) Thrush (Acute) COPD (chronic obstructive pulmonary disease) (Acute) Chronic cough (Acute) Globus sensation (Acute) Eczema (Acute) Impaired fasting glucose (Acute) Spondylisthesis (Acute) Insomnia (Acute) CKD (chronic kidney disease) (Chronic) Lesion of skin of scalp (Acute) Hearing impaired person (Acute) Abdominal pain (Acute) Lactose intolerance (Acute) Hiatal hernia (Chronic) Dysphagia (Acute) Hyperlipidemia (Acute) Hypertension (Chronic) Abdominal aortic aneurysm (Acute) GERD (gastroesophageal reflux disease) (Chronic) Hypothyroidism (Chronic) Arthritis (Acute) Osteoarthritis (Chronic) Surgical History H/O aortic aneurysm repair H/O colonoscopy H/O hand surgery History of esophagogastroduodenoscopy (EGD) History of Nila fundoplication History of renal stent Family History Father Cancer Mother Aneurysm Pneumonia Son No problems noted. Social History Smoking/Tobacco Use Status: Former Tobacco Use Smoking risk assessment performed?: Yes Alcohol Intake: never Drug use: Never Do you feel safe at home: Yes Do you feel safe in your relationship?: Yes Exam Narrative Exam Narrative: Resting comfortably in hospital stretcher Isolated discomfort about right hip. No significant bruising edema. Compartments soft. Distally neurovascular intact. Gently tested logroll axial load elicits right hip discomfort. Remainder of extremities without deformity and demonstrates intact range of motion without difficulty. Results Last Vital Signs Temp 97.9 F 10/08/21 09:41 Pulse 70 10/08/21 10:10 Resp 16 10/08/21 09:41 BP 184/76 H 10/08/21 10:10 Pulse Ox 97 10/08/21 09:41 Labs Result diagrams: 10/08/21 10:28 10/08/21 10:28 Labs: Laboratory Results - last 24 hr 10/08/21 10/08/21 10:28 10:28 WBC 9.30 RBC 4.00 Hgb 12.2 Hct 37.9 MCV 94.8 MCH 30.5 MCHC 32.2 RDW 13.2 Plt Count 182 MPV 9.4 Immature Gran % 0.8 Neutrophils % 69.4 Lymphocytes % 19.5 Monocytes % 7.0 Eosinophils % 2.8 Basophils % 0.5 Nucleated RBC % 0 Absolute Neutrophils 6.46 Absolute Lymphocytes 1.81 Absolute Monocytes 0.65 Absolute Eosinophils 0.26 Absolute Basophils 0.05 Sodium 135 L Potassium 4.2 Chloride 102 Carbon Dioxide 25.6 Anion Gap 7.4 BUN 15 Creatinine 1.0 Estimated GFR/1.73 m2 52.95 Glucose 213 H Calcium 8.5 Total Bilirubin 0.6 AST 16 ALT 19 Alkaline Phosphatase 79 Total Protein 6.9 Albumin 3.5
--- NOTE | 2021-10-08 15:27 | W.PM.PROGNOT ---
Date of Service Date of service: 10/08/21 Time of Service: 16:53 Assessment and Plan Assessment and plan (1) Basicervical fracture of neck of right femur: Status: Acute Assessment and plan: 81-year-old female postop day #0 status post right Hip IMN Complete 24 hours postoperative antibiotics Discontinue Paredes catheter postop day #1 Pain control-Multimodal Physical therapy ordered: Weightbearing as tolerated with assist device May start chemical DVT prophylaxis tomorrow assuming hemodynamically stable Continue mechanical DVT prophylaxis with SCDs and/or JEANIE hose Discharge when medical appropriate Follow-up with Dr. Leon outpatient [facility] in 2 to 3 weeks Appreciate medical management Qualifiers: Encounter type: initial encounter Fracture alignment: displaced Fracture type: closed Qualified Code(s): S72.041A - Displaced fracture of base of neck of right femur, initial encounter for closed fracture Subjective Subjective Interval history since last seen: No complaints Exam Narrative Exam Narrative: Resting comfortably in PACU. Right hip dressing clean dry intact. Compartments soft. No significant bruising or swelling. Distal pulse palpable Objective Last Vital Signs Temp 97.2 F L 10/08/21 13:12 Pulse 58 L 10/08/21 13:12 Resp 22 10/08/21 13:12 BP 180/84 H 10/08/21 13:12 Pulse Ox 90 L 10/08/21 13:37 Laboratory Results - last 24 hr 10/08/21 10/08/21 10/08/21 10:28 10:28 10:28 WBC 9.30 RBC 4.00 Hgb 12.2 Hct 37.9 MCV 94.8 MCH 30.5 MCHC 32.2 RDW 13.2 Plt Count 182 MPV 9.4 Immature Gran % 0.8 Neutrophils % 69.4 Lymphocytes % 19.5 Monocytes % 7.0 Eosinophils % 2.8 Basophils % 0.5 Nucleated RBC % 0 Absolute Neutrophils 6.46 Absolute Lymphocytes 1.81 Absolute Monocytes 0.65 Absolute Eosinophils 0.26 Absolute Basophils 0.05 Sodium 135 L Potassium 4.2 Chloride 102 Carbon Dioxide 25.6 Anion Gap 7.4 BUN 15 Creatinine 1.0 Estimated GFR/1.73 m2 52.95 Glucose 213 H Hemoglobin A1c Calcium 8.5 Total Bilirubin 0.6 AST 16 ALT 19 Alkaline Phosphatase 79 Total Protein 6.9 Albumin 3.5 COVID-19 Source SARS-CoV-2 (PCR) Add-On Test Request DONE 10/08/21 10/08/21 10:28 11:22 WBC RBC Hgb Hct MCV MCH MCHC RDW Plt Count MPV Immature Gran % Neutrophils % Lymphocytes % Monocytes % Eosinophils % Basophils % Nucleated RBC % Absolute Neutrophils Absolute Lymphocytes Absolute Monocytes Absolute Eosinophils Absolute Basophils Sodium Potassium Chloride Carbon Dioxide Anion Gap BUN Creatinine Estimated GFR/1.73 m2 Glucose Hemoglobin A1c 6.0 H Calcium Total Bilirubin AST ALT Alkaline Phosphatase Total Protein Albumin COVID-19 Source Nasal/Nares SARS-CoV-2 (PCR) Negative Add-On Test Request
[2021-10-08] MEDS: Lactated Ringers 1,000 ML 30 ML IV (15:28)
[2021-10-08] MEDS: ceFAZolin 2 GM/50 ML BAG 50 GM (15:28)
--- NOTE | 2021-10-08 16:15 | PDOC.CMIN ---
- If Service Date Differs Date of service: 10/08/21 Time of Service: 16:16 Care Management Initial Assess REASON FOR HOSPITALIZATION:: Right intertrochanteric hip fracture PAST MEDICAL HISTORY/PAST SURGICAL HISTORY:: All Active Problems . Fracture of right hip (Acute). Basicervical fracture of neck of right femur (Acute 10/08/21). Chronic laryngitis (Acute). Thrush (Acute). COPD (chronic obstructive pulmonary disease) (Acute). Chronic cough (Acute). Globus sensation (Acute). Eczema (Acute). Impaired fasting glucose (Acute). Spondylisthesis (Acute). Insomnia (Acute). CKD (chronic kidney disease) (Chronic). Lesion of skin of scalp (Acute). Hearing impaired person (Acute). Abdominal pain (Acute). Lactose intolerance (Acute). Hiatal hernia (Chronic). Dysphagia (Acute). Hyperlipidemia (Acute). Hypertension (Chronic). Abdominal aortic aneurysm (Acute). GERD (gastroesophageal reflux disease) (Chronic). Hypothyroidism (Chronic). Arthritis (Acute). Osteoarthritis (Chronic). Surgical History . H/O aortic aneurysm repair. H/O colonoscopy. H/O hand surgery. History of esophagogastroduodenoscopy (EGD). History of Nila fundoplication. History of renal stent
--- NOTE | 2021-10-08 16:52 | W.PM.OP ---
Date of service: 10/08/21 Time of Service: 16:50 Operative Note Operative Note DATE OF PROCEDURE: 10/08/21 PRE-OP DIAGNOSIS: Right hip displaced intertrochanteric fracture POST-OP DIAGNOSIS: same PROCEDURE: [Right] hip intramedullary nail, CPT #76415 SURGEON: Greg Leon SURGERY SCHEDULING COORDINATOR: None None ANESTHESIA TYPE: Local By Surgeon and General LMA/ETT Refer to Anesthesia Record ESTIMATED BLOOD LOSS: 30 COMPLICATIONS: None Patient was transported to: PACU Patient's condition: stable Implants: Synthes TFNA [id number] 130 deg, 95 mm TFNA helical blade, 34 mm 5.0mm distal locking screw Indications: Please see medical record for details Procedure Description: In the operating room, general anesthesia was induced. The patient was transferred and positioned supine on the fracture table. All bony prominences were well padded. Pre-operative antibiotics were administered. C-arm fluoroscopy was used to confirm appropriate provisional fracture reduction with traction and internal rotation. The correct patient, procedure, and side of the procedure were all verified prior to incision. It was challenging to fully reduce the lesser trochanter with traction, abduction, and rotation without causing distraction through the remainder of the fracture site. Reduction was optimized as best possible. Lateral view showed excellent reduction with some medial calcar step off, but no varus. C-arm fluoroscopy was used to locate the appropriate start point for the guide wire on the tip of the greater trochanter. There was a comminuted fracture about the greater trochanter making entry point difficult. This guide wire was advanced centrally down the proximal femur to the level of the lessor trochanter. Lateral images confirmed appropriate start point on the trochanter. Next the incision was extended about the guide wire to accommodate the nailing jig and this incision was carried down through the fascia and spread apart for ease of future instrument passage. The entry reamer was inserted along with the soft tissue protection tube and this reamer was used to open the proximal femur. The entry reamer, soft tissue protector, and guidewire were removed from the proximal femur. The appropriately selected nail was assembled on the back table to the jig and tested to ensure proper passage of the cephalomedullary drill. This implant was manually inserted into the proximal femur and advanced to the appropriate level for cephalomedullary fixation. Another incision was made laterally to accommodate the cephalomedullary aiming tube and trochar, which was advanced down to bone. The guide wire was then advanced into the femoral neck and adjusted on AP and lateral fluoroscopy until it was placed near subchondral bone in the center-center position in the femoral head. The depth gauge was used to measure the helical blade length accommodating for depth of guidewire insertion. Next, the drill was used to open the lateral cortex and the helical blade was advanced to the appropriate depth by gentle mallet blows. The set screw was engaged and backed off 180 degrees to allow for rotationally-controlled sliding and compression. Traction was released, and the fracture was compressed appropriately via the buttress and compression nut on the jig. The cephalomedullary aiming guide was removed. The distal locking screw guide was inserted through another small incision down the bone. The drill was used to drill for this static locking screw and measure the length. The appropriate length screw was then inserted bicortically. The jig was removed from the nail. Final AP and lateral fluoroscopic images were taken and confirmed appropriate fracture reduction and implant placement. All wounds were copiously irrigated. Subcutaneous tissue was closed using 2-0 monocryl in a buried interrupted fashion. Skin glue was applied to all incisions. Incisions were covered with Mepilex bandages. The patient awoke from anesthesia without complication and was transferred to the recovery room in stable condition.
--- NOTE | 2021-10-08 17:11 | W.ANESPOSTOP ---
Postoperative Evaluation Date, Time and Location Date Performed: 10/08/21 Time Performed: 17:11 Patient Location: PACU Vital Signs Most Recent Imported Vital Signs: Most Recent Vital Signs Temp Pulse Resp BP Pulse Ox 36.1 C L 69 13 152/63 H 96 10/08/21 17:03 10/08/21 17:03 10/08/21 17:03 10/08/21 17:03 10/08/21 17:03 Pain Score Most Recent Pain Score: Most Recent Pain Score Pain Level 10 10/08/21 17:03 Assessment Mental Status: Arousable with meaningful communication Airway and Respiratory Function: Patent airway with normal (patient baseline) respiratory exam Cardiovascular Function: Hemodynamically Stable Hydration Status: Adequately Hydrated Nausea & Vomiting: No Nausea or Vomiting Pain: Pain is Moderate or Severe (VS are stable at basline, pt. calmly states she is 10/10 and then quickly falls back asleep. We made a plan to wait for now until she is more awake and she agrees with that plan. ) Postoperative Pain Management: Ongoing pain, patient will be managed as an inpatient Peripheral Nerve Block: Patient did not receive a nerve block Postoperative Comments:: No Sinus pauses noted in PACU. Will notify hospitalist and let them determine course if additional diagnostics needed.
[2021-10-08] MEDS: Insulin Aspart 300 UNITS/3 ML PEN SC (18:19)
[2021-10-08] MEDS: Simvastatin 40 MG TAB PO (20:09)
[2021-10-08] MEDS: Albuterol/Ipratropium 3 ML UPD VIAL UPD (20:09)
[2021-10-08] MEDS: Normal Saline Flush 10 ML SYR IVP (20:10)
[2021-10-08] MEDS: Acetaminophen 325 MG TAB PO (21:35)
[2021-10-08] MEDS: ceFAZolin 1 GM/50 ML BAG IV (22:53)
[2021-10-09] MEDS: HYDROmorphone 2 MG/ML VIAL 0.5 MG IVP ×3 (04:20→13:50)
[2021-10-09] MEDS: Normal Saline Flush 10 ML SYR IVP ×5 (04:23→20:35)
--- NOTE | 2021-10-09 04:38 | NUR.NOTE ---
Pt awake alert and moving the right foot in bed. minimal pain. repositioned with left hip on a pillow. PT given a cup of coffee and chatted for a few minutes. pain increased to 6/10 medication given Nursing Note:
[2021-10-09] MEDS: ceFAZolin 1 GM/50 ML BAG IV ×2 (05:36→13:54)
[2021-10-09] MEDS: Acetaminophen 325 MG TAB PO ×2 (05:45→11:49)
[2021-10-09 07:31] LABS: Abs Immature Grans 0.07 10^3/uL (0.0-0.06); Absolute Basophil Count 0.02 10^3/uL (0.0-0.2); Absolute Lymphocyte Count 1.63 10^3/uL (1.2-3.4); Absolute Monocyte Count 0.91 10^3/uL (0.1-0.8); Basophils % 0.2; HCT 30.8 % (36.0-46.0); Immature Grans % 0.6; Lymphocytes % 13.4; MCH 30.8 pg (27.0-33.0); MCHC 32.5 % (32.0-36.0); MCV 94.8 fL (80-95); MPV 9.8 fL (8.0-11.0); Monocytes % 7.5; Neutrophils % 78.3; Nucleated RBC 0 %; Platelet Count 183 10^3/uL (130-400); RBC 3.25 10^6/uL (3.93-5.22); RDW 13.5 % (11.7-14.6); RDW-SD 47.1 fL; WBC 12.15 10^3/uL (4.4-10.8)
[2021-10-09 07:35] LABS: Absolute Neutrophil Count 9.51 10^3/uL (1.2-6.7)
[2021-10-09 07:48] VITALS: PULSE 81; RESP 1; RESP 16; RESP 8; O2SAT 95
[2021-10-09] MEDS: Tiotropium/Olodaterol 10 PUFF INHALER 2 PUFF IH (07:48)
[2021-10-09] MEDS: Albuterol/Ipratropium 3 ML UPD VIAL UPD ×3 (07:48→20:21)
[2021-10-09 07:49] VITALS: PULSE 85; RESP 1; RESP 16; RESP 8; O2SAT 99
[2021-10-09 07:50] LABS: ALT 17 U/L (14-59); AST 21 U/L (15-37); Alkaline Phosphatase 68 U/L (46-116); Anion Gap 8.5 mmol/L (3-11); BUN 27 mg/dL (7-18); Bilirubin, Total 0.4 mg/dL (0.2-1.0); CO2 25.5 mmol/L (21.0-32.0); CREATININE 1.6 mg/dL (0.55-1.02); Calcium 8.5 mg/dL (8.5-10.1); Chloride 102 mmol/L (98-107); Estimated GFR 30.78 (mL/min/1.73m2); Glucose 162 mg/dL (74-106); Potassium 4.6 mmol/L (3.5-5.1); Sodium 136 mmol/L (136-145); Total Protein 6.2 g/dL (6.4-8.2)
[2021-10-09 07:56] VITALS: BP 109/64; PULSE 81; RESP 14; TEMP 36.9; O2SAT 94
--- NOTE | 2021-10-09 08:02 | W.PM.PROGNOT ---
Date of Service Date of service: 10/09/21 Time of Service: 08:02 Assessment and Plan Assessment and plan (1) Basicervical fracture of neck of right femur: Status: Acute Assessment and plan: Post op intertrochanteric fx repair. Pain control with IV dilaudid prn. Will initiate IV NS for maintenance and give 500ml NS bolus. Qualifiers: Encounter type: initial encounter Fracture alignment: displaced Fracture type: closed Qualified Code(s): S72.041A - Displaced fracture of base of neck of right femur, initial encounter for closed fracture (2) COPD (chronic obstructive pulmonary disease): Status: Acute Assessment and plan: Cont home Stiolto. Duoneb treatment prior to surgery then TID. Albuterol neb Q2H prn. IS (3) Chronic cough: Status: Acute Assessment and plan: No current coughing paroxysms. (4) Impaired fasting glucose: Status: Acute Assessment and plan: Random glucose elevated. Check A1c Glucose monitoring ACHS and SS insulin (sensitive). Diabetic diet. (5) CKD (chronic kidney disease): Status: Chronic Assessment and plan: Creatinine 1.0. on admission. Est GFR 54. Creatinine now 1.6. IV NS bolus and maintenance fluids initiated (6) Hyperlipidemia: Status: Acute Assessment and plan: Cont Simvistatin. (7) Hypertension: Status: Chronic Assessment and plan: Cont Losartan. Monitor. (8) GERD (gastroesophageal reflux disease): Status: Chronic Assessment and plan: Cont omeprazole. (9) Hypothyroidism: Status: Chronic Assessment and plan: Cont levothyroxine. Subjective Subjective Patient reports: no new complaints, tolerating a regular diet (Oral intake though is poor), bowel movement and afebrile; denies nausea and vomiting Interval history since last seen: Post-op Day #1. Pain controlled while not moving. Exam Const General: cooperative and no acute distress HENMT Head: normal to inspection Face and sinus: normal facial exam Eyes General: appearance normal, both eyes and all related structures Sclera: sclerae normal EOM: EOM intact bilaterally Neck Neck: normal visual inspection, no JVD and No submandibular swelling Chest Chest: normal inspection of the chest and no tenderness Resp Effort & Inspection: normal respiratory effort and able to speak in complete sentences Auscultation: clear to auscultation bilaterally Cardio Rate: regular rate Rhythm: regular rhythm GI Inspection: normal to inspection Palpation: soft, not firm, not rigid and nontender Auscultation: normal bowel sounds Skin General skin exam: no rashes or lesions noted Neuro General: patient alert, patient awake and patient oriented x3 Cognition: normal cognition Speech: speech normal Motor: muscle tone normal throughout Sensory Exam: no sensory deficits noted Extrem Right lower extremity: hip/thigh, knee, lower leg, ankle and foot Details: vascular exam Left lower extremity: foot Psych Appearance: grossly normal Mental Status: mental status grossly normal Speech and Movement: speech and movement normal Affect: normal affect Objective Last Vital Signs Temp 36.9 C 10/09/21 07:56 Pulse 81 10/09/21 07:56 Resp 14 10/09/21 07:56 BP 109/64 10/09/21 07:56 Pulse Ox 94 10/09/21 07:56 Laboratory Results - last 24 hr 10/08/21 10/08/21 10/08/21 10:28 10:28 10:28 WBC 9.30 RBC 4.00 Hgb 12.2 Hct 37.9 MCV 94.8 MCH 30.5 MCHC 32.2 RDW 13.2 Plt Count 182 MPV 9.4 Immature Gran % 0.8 Neutrophils % 69.4 Lymphocytes % 19.5 Monocytes % 7.0 Eosinophils % 2.8 Basophils % 0.5 Nucleated RBC % 0 Absolute Neutrophils 6.46 Absolute Lymphocytes 1.81 Absolute Monocytes 0.65 Absolute Eosinophils 0.26 Absolute Basophils 0.05 Sodium 135 L Potassium 4.2 Chloride 102 Carbon Dioxide 25.6 Anion Gap 7.4 BUN 15 Creatinine 1.0 Estimated GFR/1.73 m2 52.95 Glucose 213 H Hemoglobin A1c Calcium 8.5 Total Bilirubin 0.6 AST 16 ALT 19 Alkaline Phosphatase 79 Total Protein 6.9 Albumin 3.5 COVID-19 Source SARS-CoV-2 (PCR) Add-On Test Request DONE 10/08/21 10/08/21 10/09/21 10:28 11:22 06:50 WBC RBC Hgb Hct MCV MCH MCHC RDW Plt Count MPV Immature Gran % Neutrophils % Lymphocytes % Monocytes % Eosinophils % Basophils % Nucleated RBC % Absolute Neutrophils Absolute Lymphocytes Absolute Monocytes Absolute Eosinophils Absolute Basophils Sodium 136 Potassium 4.6 Chloride 102 Carbon Dioxide 25.5 Anion Gap 8.5 BUN 27 H D Creatinine 1.6 H Estimated GFR/1.73 m2 30.78 Glucose 162 H Hemoglobin A1c 6.0 H Calcium 8.5 Total Bilirubin 0.4 AST 21 ALT 17 Alkaline Phosphatase 68 Total Protein 6.2 L Albumin 3.0 L COVID-19 Source Nasal/Nares SARS-CoV-2 (PCR) Negative Add-On Test Request 10/09/21 06:50 WBC 12.15 H D RBC 3.25 L Hgb 10.0 L D Hct 30.8 L MCV 94.8 MCH 30.8 MCHC 32.5 RDW 13.5 Plt Count 183 MPV 9.8 Immature Gran % 0.6 Neutrophils % 78.3 Lymphocytes % 13.4 Monocytes % 7.5 Eosinophils % 0.0 Basophils % 0.2 Nucleated RBC % 0 Absolute Neutrophils 9.51 H Absolute Lymphocytes 1.63 Absolute Monocytes 0.91 H Absolute Eosinophils 0.00 Absolute Basophils 0.02 Sodium Potassium Chloride Carbon Dioxide Anion Gap BUN Creatinine Estimated GFR/1.73 m2 Glucose Hemoglobin A1c Calcium Total Bilirubin AST ALT Alkaline Phosphatase Total Protein Albumin COVID-19 Source SARS-CoV-2 (PCR) Add-On Test Request
[2021-10-09] MEDS: Propranolol 60 MG CAPCR PO (08:15)
[2021-10-09] MEDS: Omeprazole 20 MG CAPCR PO (08:16)
[2021-10-09] MEDS: Insulin Aspart 300 UNITS/3 ML PEN SC ×3 (08:17→16:50)
[2021-10-09] MEDS: Normal Saline 1,000 ML 80 ML IV ×2 (08:17→17:56)
--- NOTE | 2021-10-09 10:07 | W.PALLCONSUL ---
Date of service: 10/09/21 Time of Service: 09:07 History of Present Illness History of Present Illness Chief Complaint: hip fx Narrative: Ammy is an 81-year-old woman who lives with her child. She tripped over a dog broke her hip. This was recently repaired. I was asked to come in to see Ammy to talk to her about her CODE STATUS. Ammy was very clear when I initially began my conversation she said I do not want to be resuscitated I do not want CPR. She said that she had an old advanced directive but clearly states that (I actually looked up the old advanced directive and it says that she does want CPR, but she states now she does not.) She is feeling so much better but really does like the pain medication as it does take the edge off. She is interested in physical therapy today. She plans to go home and feels that her family can help her care for herself Consults Consult date: 10/09/21 Requesting physician: Junior Ornelas Assessment and Plan Assessment and plan (1) Fracture of femoral neck, right: Status: Acute (2) COPD (chronic obstructive pulmonary disease): Status: Acute (3) Palliative care patient: Status: Acute Assessment and plan: Ammy was very very clear as to what she wanted. She does want to go home. She is very happy with her hip. She feels like she is getting excellent care. The hospital. At the same time she does not want resuscitation. She understood the words and actually said the words before I completed my introduction. She and I completed the COLST form together. She got the original and a copy will go to Dr. Deshpande. Review of Systems Narrative: She admits that she is in some pain. She just received a payment pill and plans to ask for it when pain escalates. She is hoping to get out of bed today. She feels like she is breathing fine. [facility] All Active Problems (Updated 10/09/21 @ 13:01 by Yeni Jensen MD, [place]) Palliative care patient (Acute) Fracture of femoral neck, right (Acute) Basicervical fracture of neck of right femur (Acute 10/08/21) Chronic laryngitis (Acute) Thrush (Acute) COPD (chronic obstructive pulmonary disease) (Acute) Chronic cough (Acute) Globus sensation (Acute) Eczema (Acute) Impaired fasting glucose (Acute) Spondylisthesis (Acute) Insomnia (Acute) CKD (chronic kidney disease) (Chronic) Lesion of skin of scalp (Acute) Hearing impaired person (Acute) Abdominal pain (Acute) Lactose intolerance (Acute) Hiatal hernia (Chronic) Dysphagia (Acute) Hyperlipidemia (Acute) Hypertension (Chronic) Abdominal aortic aneurysm (Acute) GERD (gastroesophageal reflux disease) (Chronic) Hypothyroidism (Chronic) Arthritis (Acute) Osteoarthritis (Chronic) Surgical History H/O aortic aneurysm repair H/O colonoscopy H/O hand surgery History of esophagogastroduodenoscopy (EGD) History of Nila fundoplication History of renal stent Family History Father Cancer Mother Aneurysm Pneumonia Son No problems noted. Social History Smoking/Tobacco Use Status: Former Tobacco Use Smoking risk assessment performed?: Yes Alcohol Intake: never Drug use: Never Do you feel safe at home: Yes Do you feel safe in your relationship?: Yes Exam Resp Effort & Inspection: normal respiratory effort and able to speak in complete sentences Auscultation: clear to auscultation bilaterally Cardio Rate: regular rate Heart Sounds: murmur Psych Mental Status: mental status grossly normal Speech and Movement: speech clear Results Last Vital Signs Temp 98.4 F 10/09/21 07:56 Pulse 81 10/09/21 07:56 Resp 14 10/09/21 07:56 BP 109/64 10/09/21 07:56 Pulse Ox 94 10/09/21 07:56 Labs Result diagrams: 10/09/21 06:50 10/09/21 06:50 Labs: Laboratory Results - last 24 hr 10/08/21 10/08/21 10/08/21 10:28 10:28 10:28 WBC 9.30 RBC 4.00 Hgb 12.2 Hct 37.9 MCV 94.8 MCH 30.5 MCHC 32.2 RDW 13.2 Plt Count 182 MPV 9.4 Immature Gran % 0.8 Neutrophils % 69.4 Lymphocytes % 19.5 Monocytes % 7.0 Eosinophils % 2.8 Basophils % 0.5 Nucleated RBC % 0 Absolute Neutrophils 6.46 Absolute Lymphocytes 1.81 Absolute Monocytes 0.65 Absolute Eosinophils 0.26 Absolute Basophils 0.05 Sodium 135 L Potassium 4.2 Chloride 102 Carbon Dioxide 25.6 Anion Gap 7.4 BUN 15 Creatinine 1.0 Estimated GFR/1.73 m2 52.95 Glucose 213 H Hemoglobin A1c Calcium 8.5 Total Bilirubin 0.6 AST 16 ALT 19 Alkaline Phosphatase 79 Total Protein 6.9 Albumin 3.5 COVID-19 Source SARS-CoV-2 (PCR) Add-On Test Request DONE 10/08/21 10/08/21 10/09/21 10:28 11:22 06:50 WBC RBC Hgb Hct MCV MCH MCHC RDW Plt Count MPV Immature Gran % Neutrophils % Lymphocytes % Monocytes % Eosinophils % Basophils % Nucleated RBC % Absolute Neutrophils Absolute Lymphocytes Absolute Monocytes Absolute Eosinophils Absolute Basophils Sodium 136 Potassium 4.6 Chloride 102 Carbon Dioxide 25.5 Anion Gap 8.5 BUN 27 H D Creatinine 1.6 H Estimated GFR/1.73 m2 30.78 Glucose 162 H Hemoglobin A1c 6.0 H Calcium 8.5 Total Bilirubin 0.4 AST 21 ALT 17 Alkaline Phosphatase 68 Total Protein 6.2 L Albumin 3.0 L COVID-19 Source Nasal/Nares SARS-CoV-2 (PCR) Negative Add-On Test Request 10/09/21 06:50 WBC 12.15 H D RBC 3.25 L Hgb 10.0 L D Hct 30.8 L MCV 94.8 MCH 30.8 MCHC 32.5 RDW 13.5 Plt Count 183 MPV 9.8 Immature Gran % 0.6 Neutrophils % 78.3 Lymphocytes % 13.4 Monocytes % 7.5 Eosinophils % 0.0 Basophils % 0.2 Nucleated RBC % 0 Absolute Neutrophils 9.51 H Absolute Lymphocytes 1.63 Absolute Monocytes 0.91 H Absolute Eosinophils 0.00 Absolute Basophils 0.02 Sodium Potassium Chloride Carbon Dioxide Anion Gap BUN Creatinine Estimated GFR/1.73 m2 Glucose Hemoglobin A1c Calcium Total Bilirubin AST ALT Alkaline Phosphatase Total Protein Albumin COVID-19 Source SARS-CoV-2 (PCR) Add-On Test Request
--- NOTE | 2021-10-09 11:11 | W.PM.PROGNOT ---
Date of Service Date of service: 10/09/21 Time of Service: 11:00 Assessment and Plan Assessment and plan (1) Basicervical fracture of neck of right femur: Status: Acute Assessment and plan: 81 year old female post-op day #1 s/p right hip TFNA. Doing well with no acute concerns. Pain well controlled - sore with motion - expresses feeling much better. Happy with and grateful for hospital care. Continue working with PT -WBAT with assistive device -Barriers at home are 13 stairs into home. Paredes Catheter was discontinued. Start DVT prophylaxis today as patient remains hemodynamically stable. Discharge when medical appropriate. Follow-up with Dr. Leon outpatient [facility] in 2 to 3 weeks Qualifiers: Encounter type: initial encounter Fracture alignment: displaced Fracture type: closed Qualified Code(s): S72.041A - Displaced fracture of base of neck of right femur, initial encounter for closed fracture Subjective Subjective Patient reports: no new complaints, feels better and pain is less Exam Const General: cooperative, healthy appearing and comfortable Nutritional Appearance: average body habitus Orientation: alert and awake Resp Effort & Inspection: normal respiratory effort, able to speak in complete sentences, no audible wheezes, no grunting, not labored and no nasal flaring Neuro General: patient alert, patient awake and moves all extremities Speech: speech normal Extrem Other: Right Hip Inspection: localized ecchymosis and edema to surgical area, bandage note removed - intact without drainage or signs of soiling. moves extremity in FF wiggles toes Distal brisk capillary refill, dorsalis pedis pulses intact and equal bilaterally. Psych Appearance: grossly normal Mental Status: mental status grossly normal Speech and Movement: speech and movement normal Affect: normal affect Attitude: cooperative Thought Process: normal Thought Content: normal Insight: insight good Judgment: judgment good Objective Last Vital Signs Temp 98.4 F 10/09/21 07:56 Pulse 81 10/09/21 07:56 Resp 14 10/09/21 07:56 BP 109/64 10/09/21 07:56 Pulse Ox 94 10/09/21 07:56 Laboratory Results - last 24 hr 10/08/21 10/08/21 10/08/21 10:28 10:28 11:22 WBC RBC Hgb Hct MCV MCH MCHC RDW Plt Count MPV Immature Gran % Neutrophils % Lymphocytes % Monocytes % Eosinophils % Basophils % Nucleated RBC % Absolute Neutrophils Absolute Lymphocytes Absolute Monocytes Absolute Eosinophils Absolute Basophils Sodium Potassium Chloride Carbon Dioxide Anion Gap BUN Creatinine Estimated GFR/1.73 m2 Glucose Hemoglobin A1c 6.0 H Calcium Total Bilirubin AST ALT Alkaline Phosphatase Total Protein Albumin COVID-19 Source Nasal/Nares SARS-CoV-2 (PCR) Negative Add-On Test Request DONE 10/09/21 10/09/21 06:50 06:50 WBC 12.15 H D RBC 3.25 L Hgb 10.0 L D Hct 30.8 L MCV 94.8 MCH 30.8 MCHC 32.5 RDW 13.5 Plt Count 183 MPV 9.8 Immature Gran % 0.6 Neutrophils % 78.3 Lymphocytes % 13.4 Monocytes % 7.5 Eosinophils % 0.0 Basophils % 0.2 Nucleated RBC % 0 Absolute Neutrophils 9.51 H Absolute Lymphocytes 1.63 Absolute Monocytes 0.91 H Absolute Eosinophils 0.00 Absolute Basophils 0.02 Sodium 136 Potassium 4.6 Chloride 102 Carbon Dioxide 25.5 Anion Gap 8.5 BUN 27 H D Creatinine 1.6 H Estimated GFR/1.73 m2 30.78 Glucose 162 H Hemoglobin A1c Calcium 8.5 Total Bilirubin 0.4 AST 21 ALT 17 Alkaline Phosphatase 68 Total Protein 6.2 L Albumin 3.0 L COVID-19 Source SARS-CoV-2 (PCR) Add-On Test Request
--- NOTE | 2021-10-09 11:48 | PDOC.CMIN ---
- If Service Date Differs Date of service: 10/09/21 Time of Service: 11:48 Care Management Initial Assess REASON FOR HOSPITALIZATION:: Right intertrochanteric hip fracture PAST MEDICAL HISTORY/PAST SURGICAL HISTORY:: All Active Problems. Fracture of right hip (Acute). Basicervical fracture of neck of right femur (Acute 10/08/21). Chronic laryngitis (Acute). Thrush (Acute). COPD (chronic obstructive pulmonary disease) (Acute). Chronic cough (Acute). Globus sensation (Acute). Eczema (Acute). Impaired fasting glucose (Acute). Spondylisthesis (Acute). Insomnia (Acute). CKD (chronic kidney disease) (Chronic). Lesion of skin of scalp (Acute). Hearing impaired person (Acute). Abdominal pain (Acute). Lactose intolerance (Acute). Hiatal hernia (Chronic). Dysphagia (Acute). Hyperlipidemia (Acute). Hypertension (Chronic). Abdominal aortic aneurysm (Acute). GERD (gastroesophageal reflux disease) (Chronic). Hypothyroidism (Chronic). Arthritis (Acute). Osteoarthritis (Chronic). Surgical History. H/O aortic aneurysm repair. H/O colonoscopy. H/O hand surgery. History of esophagogastroduodenoscopy (EGD). History of Nila fundoplication. History of renal stent PREVIOUS FUNCTIONAL STATUS/SOCIAL/FAMILY SUPPORTS:: Ammy lives with her daughter, Shena, and son in law, Grayson. Her other daughter, Gay is supportive and lives nearby. She is , and also lost her son last year, which was very traumatic for her. She is independent at baseline. CURRENT FUNCTIONAL STATUS:: Ammy was sitting up in her chair when CM met with her. She reported that she is still having a lot of pain today. CM discussed options for her discharge plan, and Ammy agreed to short term rehab, as PT is recommending it prior to returning home. CM will send referrals at her request. Ammy stated that she is thinking about changing her HCA, which CM can assist with. She will be seen by Palliative care this afternoon. CM will continue to follow. ADVANCE DIRECTIVES:: AD on file, Gay Harvey listed as agent. Has patient been provided with info about the portal/API?: Yes Did the patient sign up for the portal?: No CODE STATUS:: DNR/DNI INSURANCE COVERAGE / FINANCIAL ISSUES:: [facility]/ [employer] CURRENT HOME/COMMUNITY SERVICES/EQUIPMENT:: No known services or equipment. PRIMARY CARE PHYSICIAN:: Carlos Trinidad POTENTIAL DISCHARGE NEEDS:: Evaluations for further needs, follow up appointments. PATIENT/FAMILY EDUCATION NEEDS:: Review discharge instructions and limitations, discussion of self care needs including ask me three and goals of care. ANTICIPATED BARRIERS TO DISCHARGE:: None identified at this time. TRANSPORTATION:: Via private vehicle by family. PLAN:: Ammy went to the OR yesterday for a hip fx repair. Evaluations will determine her disposition, which will be home with HH services vs SNF for short term rehab if indicated. Her transportation will depend on her mobility at the time of discharge, likely via private vehicle by family. She will follow up with her PCP and discharge plan of care. CM will continue to follow.
--- NOTE | 2021-10-09 12:34 | IN_ITS ---
Date of service: 10/09/21 Time of Service: 09:36 PT Notes Visit Reasons: Right Intertrochanteric hip fracture Physical Therapy Inpatient Initial Evaluation Date: 10/09/21 Referring Doctor: Greg Leon MD PT Orders: PT CONSULT: s/p ortho surgery Precautions: Fall. Standard. WBAT right LE with assistive device Patient Profile/Admitting Diagnosis: Ammy is an 81 up female that fell outside of her home on ice yesterday resulting in basicervical fracture of right femoral neck. She underwent surgery for TFNA yesterday and is currently POD #1. Independent at baseline. PMHX: All Active Problems (Updated 10/08/21 @ 19:10 by Mary Gonzalez DO) Fracture of femoral neck, right (Acute) Basicervical fracture of neck of right femur (Acute 10/08/21) Chronic laryngitis (Acute) Thrush (Acute) COPD (chronic obstructive pulmonary disease) (Acute) Chronic cough (Acute) Globus sensation (Acute) Eczema (Acute) Impaired fasting glucose (Acute) Spondylisthesis (Acute) Insomnia (Acute) CKD (chronic kidney disease) (Chronic) Lesion of skin of scalp (Acute) Hearing impaired person (Acute) Abdominal pain (Acute) Lactose intolerance (Acute) Hiatal hernia (Chronic) Dysphagia (Acute) Hyperlipidemia (Acute) Hypertension (Chronic) Abdominal aortic aneurysm (Acute) GERD (gastroesophageal reflux disease) (Chronic) Hypothyroidism (Chronic) Arthritis (Acute) Osteoarthritis (Chronic) Surgical History H/O aortic aneurysm repair H/O colonoscopy H/O hand surgery History of esophagogastroduodenoscopy (EGD) History of Nila fundoplication History of renal stent Social History/Home Situation: Lives with daughter and son in law in 2 level home, [address]. She reports providing care for her daughter whom is home bound. Patient is typically independent and does not use assistive device. Equipment Owned/DME: None Subjective: Cleared by nursing to see patient and patient is agreeable to PT. Patient is resting in bed at time of consult and connected to IV and stoner catheter. She reports some dizziness and nausea with getting up. Pain in right hip. Objective: General Observation: Non distressed Mental Status: A&O x3 Pain: Right hip, not rated ROM: Right Upper Extremity: Shoulder Flexion WFL. Shoulder abduction WFL. Elbow flexion WFL. Wrist flexion WFL. Opening and closing of hand WFL. Left Upper Extremity: Shoulder Flexion WFL. Shoulder abduction WFL. Elbow flexion WFL. Wrist flexion WFL. Opening and closing of hand WFL. Right Lower Extremity: Hip flexion impaired. Hip abduction impaired. Knee flexion WFL. Ankle dorsiflexion WFL. Ankle plantarflexion WFL. Left Lower Extremity: Hip flexion WFL. Hip abduction WFL. Knee flexion WFL. Ankle dorsiflexion WFL. Ankle plantarflexion WFL. Strength: Right Upper Extremity: Shoulder flexors 5/5. Shoulder abductors 5/5. Elbow flexors 5/5. Elbow extensors 5/5. Systems Software Designer strong. Left Upper Extremity: Shoulder flexors 5/5. Shoulder abductors 5/5. Elbow fle xors 5/5. Elbow extensors 5/5. Systems Software Designer strong. Right Lower Extremity: Hip flexors 2+/5. Hip abductors 3/5. Knee flexors 4+/5. Knee extensors 4+/5. Ankle dorsiflexors 5/5. Ankle plantarflexors 5/5. Left Lower Extremity: Hip flexors 5/5. Hip abductors 5/5. Knee flexors 4+/5. Knee extensors 5/5. Ankle dorsiflexors 5/5. Ankle plantarflexors 5/5. Sensation: Intact as to pain and pressure on bilateral lower extremities. Bed Mobility/Transfers: Supine to sit: 2 person mod A Sit to stand: 2 person mod A initially, then min A Stand to sit: Min A Bed to chair: Min A - cues needed Gait: Ambulated 6 feet in room with FWW, CGA - WBAT - diminished weight on right LE, decreased step through on left Balance: Static Sitting: Fair Dynamic Sitting: Poor Static Standing: Poor Dynamic Standing: Poor Special Tests: Mobility Limitations Standardized Measure [facility] 6 clicks Basic Mobility Inpatient Short Form: Raw Score: 11 CMS Score: 72.57% Informed Consent/Education: Patient instructed in purpose of PT consult and plan of care. Assessment: Patient presents with clinical signs and symptoms consistent with current/admitting diagnoses that have resulted to mobility limitations, gait instability, generalized weakness, and impairment of motor control as demonstrated by the following impairment level findings: 1. Decreased strength to right lowe extremity major muscle groups 2. Impaired sitting/standing balance 3. Impaired activity tolerance 4. Limitation of joint range of motion in right hip Impairments are contributing to the following functional limitations: 1. Dependent bed mobility skills 2. Increased dependence with transfers 3. Inability to safely ambulate without assistive device and physical assistance 4. Increase completion time for mobility ADL performance 5. Increased fall risk 6. Inability to negotiate steps alone safely Patient is assessed as a Moderate complexity based on the following: History: 81 year old female with impairment level findings, functional limitations, and past medical history as indicated above Examination: Demonstrable impairment in strength, balance, and mobility level with underlying impairments and functional limitations as documented above Presentation: Evolving Decision Making: Moderate complexity Goals: Goals x1 week 1. Supine-Sit: independent 2. Sit-Supine: independent 3. Sit-Stand: independent 4. Stand-Sit: independent 5. Bed-Chair: independent 6. Chair-Bed: independent 7. Independent gait on level surface with use of least restrictive device for at least 50 feet without report of pain nor dyspnea 8. Independent stair negotiation while holding onto bilateral rails for at least 5 steps without report of pain nor dyspnea 9. Independent with home exercise program 10. Good static and dynamic standing balance/tolerance Plan of Care/Treatment Plan: 1-2x/day, 7 days/week x 1 week. Plan of care has been reviewed with the MEMBERSHIP SALES REPRESENTATIVE providing the service under Physical Therapy direction. Initiate Physical Therapy intervention for strengthening, bed mobility, transfers, gait, stairs, balance training, and use of assistive device. Discharge Plan DISCHARGE RECOMMENDATIONS: SNF for continued rehabilitation for safe independence at home VS home with assist and home health PT; will monitor progress TREATMENT CODE/TIME: 9:36-10:15 (39 minutes), [id number], [id number] Thank you for the opportunity to participate in the care of this patient. Judith Vuong, PT, DPT, OCS [facility] [place], [place]
--- NOTE | 2021-10-09 15:03 | PT.INTREAT ---
Date of service: 10/09/21 Time of Service: 14:23 PT Notes Visit Reasons: Right Intertrochanteric Hip Fracture Inpatient Physical Therapy Treatment Note [facility] Date: 10/09/2021 PRECAUTIONS: Fall, WBAT R SUBJECTIVE: Ammy states that she just got back to bed and is feeling very tired. She is agreeable to participating in bed-level exercises. OBJECTIVE: PAIN: Patient c/o R hip pain with ther ex BED MOBILITY/TRANSFERS/GAIT: Deferred THEREX: Patient was instructed in a LE strengthening and stabilization, completed in a supine position, as per flow sheet. ASSESSMENT: Patient tolerated ther ex program with c/o increased R hip pain. She was falling asleep and reportedly feeling drowsy due to medication she had received. PLAN: Continue with LE strengthening and gait and transfer training for improved mobility and activity tolerance. TREATMENT CODE/TIME: 10 minutes; [id number] (14:34)
[2021-10-09 16:35] VITALS: BP 116/66; PULSE 73; RESP 12; TEMP 36.5; O2SAT 92
[2021-10-09] MEDS: Normal Saline 500 ML IV (17:05)
[2021-10-09] MEDS: Simvastatin 40 MG TAB PO (20:05)
[2021-10-09] MEDS: Aspirin 81 MG CHEW PO (20:17)
[2021-10-10] VITALS: BP 102/78; PULSE 78; RESP 20; TEMP 36.7; O2SAT 92
--- NOTE | 2021-10-10 | DI.RAD_ITS ---
Exam(s) XR PORTABLE CHEST AP EXAM: XR PORTABLE CHEST AP CLINICAL HISTORY: post-op fever TECHNIQUE: COMPARISON: CR,XR XR CHEST 1V IN DI DEPT from 10/08/2021 FINDINGS: Portable upright chest at 2300 hours. The heart is not enlarged. There is mild obscuration of the l eft hemidiaphragm and there are questionable streaky and patchy subtle pulmonary radiodensities seen bilaterally most marked in the left lower lobe. No gross consolidation seen. No pleural effusion on this frontal film. IMPRESSION: Possible lower lobe pneumonia, predominantly on the left. Follow-up PA and lateral chest recommended . RADIATION DOSE DELIVERED: Total DLP
[2021-10-10] MEDS: HYDROmorphone 2 MG/ML VIAL 0.5 MG IVP ×2 (00:20→07:01)
[2021-10-10] MEDS: Ondansetron 4 MG/2 ML VIAL IVP ×2 (00:20→07:11)
[2021-10-10] MEDS: Normal Saline 1,000 ML 80 ML IV ×2 (07:01→19:56)
[2021-10-10] MEDS: Omeprazole 20 MG CAPCR PO (07:11)
[2021-10-10] MEDS: Normal Saline Flush 10 ML SYR IVP (07:12)
[2021-10-10 07:21] LABS: Abs Immature Grans 0.09 10^3/uL (0.0-0.06); Absolute Basophil Count 0.02 10^3/uL (0.0-0.2); Absolute Eosinophil Count 0.07 10^3/uL (0.0-0.7); Absolute Lymphocyte Count 1.92 10^3/uL (1.2-3.4); Absolute Monocyte Count 1.01 10^3/uL (0.1-0.8); Absolute Neutrophil Count 6.11 10^3/uL (1.2-6.7); Basophils % 0.2; Eosinophils % 0.8; HCT 25.4 % (36.0-46.0); HGB 8.2 g/dL (11.2-15.7); Lymphocytes % 20.8; MCH 30.6 pg (27.0-33.0); MCHC 32.3 % (32.0-36.0); MCV 94.8 fL (80-95); Neutrophils % 66.2; Nucleated RBC 0 %; Platelet Count 145 10^3/uL (130-400); RBC 2.68 10^6/uL (3.93-5.22); RDW 13.8 % (11.7-14.6); RDW-SD 47.9 fL; WBC 9.22 10^3/uL (4.4-10.8)
[2021-10-10 07:42] LABS: Anion Gap 6.5 mmol/L (3-11); BUN 23 mg/dL (7-18); CO2 25.5 mmol/L (21.0-32.0); CREATININE 1.3 mg/dL (0.55-1.02); Calcium 7.8 mg/dL (8.5-10.1); Chloride 102 mmol/L (98-107); Estimated GFR 39.12 (mL/min/1.73m2); Glucose 133 mg/dL (74-106); Sodium 134 mmol/L (136-145)
[2021-10-10 08:00] VITALS: BP 109/69; PULSE 84; RESP 18; TEMP 37.7; O2SAT 93
[2021-10-10] MEDS: Acetaminophen 325 MG TAB PO ×2 (08:15→13:14)
[2021-10-10] MEDS: Propranolol 60 MG CAPCR PO (08:15)
[2021-10-10] MEDS: Losartan 50 MG TAB PO (08:15)
[2021-10-10] MEDS: Aspirin 81 MG CHEW PO ×2 (08:15→19:55)
[2021-10-10] MEDS: Insulin Aspart 300 UNITS/3 ML PEN SC ×2 (08:16→11:48)
[2021-10-10] MEDS: Albuterol/Ipratropium 3 ML UPD VIAL UPD ×3 (08:17→19:55)
[2021-10-10] MEDS: Tiotropium/Olodaterol 10 PUFF INHALER 2 PUFF IH (11:06)
--- NOTE | 2021-10-10 13:35 | PGE_ITS ---
Date of Service Date of service: 10/10/21 Time of Service: 13:35 Assessment and Plan Assessment and plan (1) Basicervical fracture of neck of right femur: Status: Acute Assessment and plan: Post op intertrochanteric fx repair. Pain control; oxycodone 5mg Q6h prn and prn IV diluadid (dilaudid causes some excessive drowsiness). Oral intake poor and was started on IV NS for maintenance and given 500ml NS bolus yesterday. Urine output improved. Qualifiers: Encounter type: initial encounter Fracture type: closed Fracture alignment: displaced Qualified Code(s): S72.041A - Displaced fracture of base of neck of right femur, initial encounter for closed fracture (2) COPD (chronic obstructive pulmonary disease): Status: Acute Assessment and plan: Cont home Stiolto. Duoneb treatment prior to surgery then TID. Albuterol neb Q2H prn. IS (3) Chronic cough: Status: Acute Assessment and plan: No current coughing paroxysms. (4) Impaired fasting glucose: Status: Acute Assessment and plan: Random glucose elevated. Check A1c Glucose monitoring [facility] and insulin (sensitive). Diabetic diet. (5) CKD (chronic kidney disease): Status: Chronic Assessment and plan: Creatinine 1.0. on admission. Est GFR 54. Creatinine now 1.6; pre-renal d/t poor fluid intake. IV NS bolus and maintenance fluids initiated yesterday and creatinine now 1.3. Encourage oral intake. (6) Hyperlipidemia: Status: Acute Assessment and plan: Cont Simvistatin. (7) Hypertension: Status: Chronic Assessment and plan: Cont Losartan. Monitor. (8) GERD (gastroesophageal reflux disease): Status: Chronic Assessment and plan: Cont omeprazole. (9) Hypothyroidism: Status: Chronic Assessment and plan: Cont levothyroxine. (10) Discharge planning issues: Status: Acute Assessment and plan: When appropriate, plan to d/c to SNF for further rehab efforts. Subjective Subjective Patient reports: no new complaints, still having pain, tolerating a regular diet (appetite is poor) and afebrile; denies nausea, vomiting and shortness of breath Exam Const General: cooperative and no acute distress HENMT Head: normal to inspection Face and sinus: normal facial exam Eyes General: appearance normal, both eyes and all related structures Sclera: sclerae normal EOM: EOM intact bilaterally Neck Neck: normal visual inspection, no JVD and No submandibular swelling Chest Chest: normal inspection of the chest and no tenderness Resp Effort & Inspection: normal respiratory effort and able to speak in complete sentences Auscultation: clear to auscultation bilaterally Cardio Rate: regular rate Rhythm: regular rhythm GI Inspection: normal to inspection Palpation: soft, not firm, not rigid and nontender Auscultation: normal bowel sounds Skin General skin exam: no rashes or lesions noted Neuro General: patient alert, patient awake and patient oriented x3 Cognition: normal cognition Speech: speech normal Motor: muscle tone normal throughout Sensory Exam: no sensory deficits noted Extrem General: no pedal edema and no calf tenderness Right lower extremity: hip/thigh (surgical site clean/dry) Psych Appearance: grossly normal Mental Status: mental status grossly normal Speech and Movement: speech and movement normal Affect: normal affect Objective Last Vital Signs Temp 37.7 C H 10/10/21 08:00 Pulse 84 10/10/21 08:00 Resp 18 10/10/21 08:00 BP 109/69 10/10/21 08:00 Pulse Ox 93 10/10/21 08:00 Laboratory Results - last 24 hr 10/10/21 10/10/21 06:30 06:30 WBC 9.22 RBC 2.68 L Hgb 8.2 L Hct 25.4 L MCV 94.8 MCH 30.6 MCHC 32.3 RDW 13.8 Plt Count 145 MPV 10.0 Immature Gran % 1.0 Neutrophils % 66.2 Lymphocytes % 20.8 Monocytes % 11.0 Eosinophils % 0.8 Basophils % 0.2 Nucleated RBC % 0 Absolute Neutrophils 6.11 Absolute Lymphocytes 1.92 Absolute Monocytes 1.01 H Absolute Eosinophils 0.07 Absolute Basophils 0.02 Sodium 134 L Potassium 4.0 Chloride 102 Carbon Dioxide 25.5 Anion Gap 6.5 BUN 23 H Creatinine 1.3 H Estimated GFR/1.73 m2 39.12 Glucose 133 H Calcium 7.8 L
[2021-10-10 15:30] VITALS: BP 120/69; PULSE 82; RESP 16; TEMP 37.8; O2SAT 94
--- NOTE | 2021-10-10 15:39 | PT.INTREAT ---
Date of service: 10/10/21 Time of Service: 07:41 PT Notes Visit Reasons: Right Intertrochanteric Hip Fracture Inpatient Physical Therapy Treatment Note [facility] Date: 10/10/2021 PRECAUTIONS: Fall, WBAT R SUBJECTIVE: Ammy is pleasant and agreeable to participating in PT. She acknowledges that she will likely require SNF placement for ST rehab prior to returning to home. OBJECTIVE: PAIN: Patient c/o R hip pain with gait training, ther ex and transfers BED MOBILITY/TRANSFERS Supine-sit: Min A with HOB at 40 degrees in a.m.; SBA with use of leg airplane flight attendant and HOB at 40 degrees in p.m. Sit-stand: CGA x2 Stand-sit: CGA x2 Bed-chair: Min A + CGA in a.m.; CGA x2 in p.m. GAIT Assistive Device: FWW Weight bearing: WBAT R Assist: Min A-CGA in a.m.; CGA in p.m. Distance: 6' in a.m.; 10' in p.m. Deviation: Assist with L foot advancement in a.m., cueing and assist for FWW management, increased pain THEREX: Patient was instructed in a LE strengthening program, completed in a long-sitting position in both a.m. and p.m., as per flow sheet. ASSESSMENT: Patient tolerated session with c/o increased R hip pain with gait training, ther ex and transfers. She utilizes a step-to gait pattern and requires assist with FWW management and L foot advancement due to pain. PLAN: Continue with LE strengthening and gait and transfer training for improved mobility and activity tolerance. TREATMENT CODE/TIME: Session 1: 26 minutes; [id number], [id number] (07:41) Session 2: 28 minutes; [id number], [id number] (13:12)
--- NOTE | 2021-10-10 16:32 | CMPROGNOTE_ITS ---
- If Service Date Differs Date of service: 10/10/21 Time of Service: 16:32 Care Management Progress Note S/O: Ammy was sitting up in bed when CM met with her. She reported that she worked with PT, but does not think she is improving quickly. CM discussed discharge options, including short term rehab, and at that time she reported that she does not want to go to a rehab facility. She stated that she lives with her daughter and son in law, and they can care for her at home. CM encouraged her to discuss this with her family, as her care needs will have greatly increased since her surgery. Later, BRIDGETTE met with Ammy after she spoke to her family, and she stated that she will go to short term rehab, as she knows that she needs to be stronger in order to return home. CM sent a referral to [facility], at her request, and she was offered a bed, once she is medically cleared. CM will continue to follow. A: Ammy is an 81 year old female admitted to [facility] on 10/09/21 for R hip fracture. P: Ammy will go to SNF for short term rehab prior to returning home. She has a bed offer at [facility]. She will likely transport via facility w/c van. She will follow up with her PCP and discharge plan of care. CM will continue to follow.
--- NOTE | 2021-10-10 16:52 | CHAPLAIN ---
Ammy had a visitor when I stopped in. It was a brief visit. Ammy was up in her chair. I introduced myself, explained role and offered support.
[2021-10-10 17:30] VITALS: TEMP 37.7
[2021-10-10] MEDS: oxyCODONE 5 MG TAB PO (19:55)
[2021-10-10] MEDS: Simvastatin 40 MG TAB PO (19:56)
[2021-10-10 23:20] VITALS: BP 117/71; PULSE 64; RESP 19; TEMP 38.4; O2SAT 91
[2021-10-11] VITALS (10 sets, daily range): BP systolic 98–103; BP diastolic 60–65; PULSE 73–78; RESP 16–18; TEMP 36.6–38.8; O2SAT 91–96
[2021-10-11] MEDS: Acetaminophen 325 MG TAB PO ×2 (00:10→04:52)
--- NOTE | 2021-10-11 00:22 | DI.VRAD_ITS ---
PROCEDURE INFORMATION: Exam: XR Chest Exam date and time: 10/10/2021 11:47 PM Age: 81 years old Clinical indication: Other: P/o fever TECHNIQUE: Imaging protocol: XR of the chest. Views: 1 view. COMPARISON: XR CHEST 1V IN DI DEPT 10/08/2021 10:42 AM FINDINGS: Lungs: Mild multifocal airspace opacity is present, new or increased from previous. Mild opacity obscures the left lung base. Pleural spaces: Unremarkable. No pleural effusion. No pneumothorax. Heart/Mediastinum: Unremarkable. No cardiomegaly. Bones/joints: Unremarkable. IMPRESSION: Multifocal pneumonia and/or edema, progressed from previous. Dictated and Authenticated by: Jag Last MD. Ordering:ROBIN Hall MD
[2021-10-11 01:02] LABS: Bilirubin Negative (Negative); Blood Moderate (Negative); Clarity Clear (Clear); Glucose Negative (Negative); Ketones Negative (Negative); Leukocyte Esterase Negative (Negative); Nitrite Negative (Negative); Urobilinogen 0.2 EU/dL (Up TO 0.2); pH 5.5 (5-8)
[2021-10-11 01:15] LABS: Epithelial Cells Negative HPF (Negative); WBC 0-2 HPF (0-5)
[2021-10-11 01:16] LABS: Bacteria Rare HPF (Negative); C & S Indicated? No; Casts Negative LPF (Negative); Crystals Negative HPF (Negative); Mucus Negative (Negative)
[2021-10-11 02:45] LABS: Source Nasopharynx
[2021-10-11 03:13] LABS: NT-proBNP 1499 pg/mL (<300)
[2021-10-11 03:21] LABS: Procalcitonin < 0.1 ng/mL
[2021-10-11 03:28] LABS: COVID-19 PCR Negative (Negative); Influenza A PCR Negative (Negative); Influenza B PCR Negative (Negative); RSV PCR Negative (Negative)
[2021-10-11] MEDS: PIPERACILLIN/TAZO 3.375 GM in Normal Saline 50 ML IVPB (04:44)
[2021-10-11] MEDS: VANCOMYCIN 1,000 MG in Normal Saline 250 ML 166.6666 MG IVPB (05:49)
[2021-10-11] MEDS: Losartan 50 MG TAB PO (07:00)
[2021-10-11 07:10] LABS: Abs Immature Grans 0.08 10^3/uL (0.0-0.06); Absolute Basophil Count 0.03 10^3/uL (0.0-0.2); Absolute Lymphocyte Count 1.85 10^3/uL (1.2-3.4); Absolute Monocyte Count 1.05 10^3/uL (0.1-0.8); Absolute Neutrophil Count 5.62 10^3/uL (1.2-6.7); Basophils % 0.3; Eosinophils % 1.1; HCT 23.8 % (36.0-46.0); HGB 7.6 g/dL (11.2-15.7); Immature Grans % 0.9; Lymphocytes % 21.2; MCH 30.6 pg (27.0-33.0); MCHC 31.9 % (32.0-36.0); MPV 9.8 fL (8.0-11.0); Neutrophils % 64.5; Nucleated RBC 0 %; Platelet Count 136 10^3/uL (130-400); RBC 2.48 10^6/uL (3.93-5.22); RDW 14.1 % (11.7-14.6); RDW-SD 49.1 fL; WBC 8.73 10^3/uL (4.4-10.8)
[2021-10-11] MEDS: Furosemide 20 MG/2 ML VIAL IVP (07:12)
[2021-10-11] MEDS: Albuterol/Ipratropium 3 ML UPD VIAL UPD ×3 (07:12→19:38)
[2021-10-11] MEDS: Aspirin 81 MG CHEW PO ×2 (07:13→19:38)
[2021-10-11] MEDS: Omeprazole 20 MG CAPCR PO (07:13)
[2021-10-11] MEDS: Propranolol 60 MG CAPCR PO (07:13)
[2021-10-11] MEDS: oxyCODONE 5 MG TAB PO (07:13)
[2021-10-11] MEDS: Normal Saline Flush 10 ML SYR IVP ×2 (07:13→19:38)
[2021-10-11 07:20] LABS: Anion Gap 6.9 mmol/L (3-11); BUN 16 mg/dL (7-18); CO2 24.1 mmol/L (21.0-32.0); CREATININE 1.2 mg/dL (0.55-1.02); Calcium 7.9 mg/dL (8.5-10.1); Chloride 106 mmol/L (98-107); Glucose 132 mg/dL (74-106); Magnesium 1.9 mg/dL (1.8-2.4); Potassium 4.2 mmol/L (3.5-5.1); Sodium 137 mmol/L (136-145)
[2021-10-11 07:33] LABS: Diff Comment Diff Reviewed; Hypochromasia 2+; Polychromasia Present
[2021-10-11 07:57] LABS: C-Reactive Protein 12.17 mg/dL (0.0-0.3)
[2021-10-11 08:19] LABS: Ferritin 77 ng/mL (8-252)
[2021-10-11] MEDS: Tiotropium/Olodaterol 10 PUFF INHALER 2 PUFF IH (09:28)
[2021-10-11] MEDS: Ondansetron 4 MG/2 ML VIAL IVP (10:06)
[2021-10-11] MEDS: Acetaminophen 325 MG TAB 650 MG PO ×3 (10:07→22:56)
[2021-10-11] MEDS: Milk of Magnesia 30 ML CUP PO (11:26)
[2021-10-11] MEDS: Polyethylene Glycol 3350 17 GM PACKET PO ×2 (11:27→19:38)
[2021-10-11] MEDS: Senna TAB 2 TAB PO (12:35)
--- NOTE | 2021-10-11 13:28 | W.PM.PROGNOT ---
Date of Service Date of service: 10/11/21 Time of Service: 13:29 Assessment and Plan Assessment and plan (1) Basicervical fracture of neck of right femur: Status: Acute Assessment and plan: Post op intertrochanteric fx repair. Pain control; oxycodone 5mg Q6h prn and prn IV diluadid (dilaudid causes some excessive drowsiness). Oral intake poor and was started on IV NS for maintenance and given 500ml NS bolus yesterday. Urine output improved. Qualifiers: Encounter type: initial encounter Fracture type: closed Fracture alignment: displaced Qualified Code(s): S72.041A - Displaced fracture of base of neck of right femur, initial encounter for closed fracture (2) COPD (chronic obstructive pulmonary disease): Status: Acute Assessment and plan: Cont home Stiolto. Duoneb treatment prior to surgery then TID. Albuterol neb Q2H prn. IS (3) Chronic cough: Status: Acute Assessment and plan: No current coughing paroxysms. (4) Impaired fasting glucose: Status: Acute Assessment and plan: Random glucose elevated. Check A1c Glucose monitoring [facility] and insulin (sensitive). Diabetic diet. (5) CKD (chronic kidney disease): Status: Chronic Assessment and plan: Creatinine 1.0. on admission. Est GFR 54. Creatinine increased to 1.6; pre-renal d/t poor fluid intake. Creatinine improved to 1.2. IV NS bolus and maintenance fluids initiated yesterday and creatinine now 1.3. Encourage oral intake. Given lasix 20mg po last PM for questionable pulmonary edema vs atelectasis. Basal NS was d/c'd. (6) Hyperlipidemia: Status: Acute Assessment and plan: Cont Simvistatin. (7) Hypertension: Status: Chronic Assessment and plan: Cont Losartan. Monitor. (8) GERD (gastroesophageal reflux disease): Status: Chronic Assessment and plan: Cont omeprazole. (9) Hypothyroidism: Status: Chronic Assessment and plan: Cont levothyroxine. (10) Discharge planning issues: Status: Acute Assessment and plan: When appropriate, plan to d/c to SNF for further rehab efforts. (11) Fever: Status: Acute Assessment and plan: Tem 38.3 last PM CXR showed atelectesis vs pulmonary edema. Lasix 20mg IV given last PM. IS use encouraged. Procal negative. WBC count normal. Doubt pneumonia. (12) Constipation: Status: Acute Assessment and plan: Nausea today. No BM since admission. MIralax given this AM. Administer 2 senna tabs. Increase Miralax to BID. Encouraging ambulation. Subjective Subjective Patient reports: nausea and afebrile; denies diarrhea, vomiting and shortness of breath Interval history since last seen: She endorses no BM since admission. Exam Narrative Exam Narrative: Sitting in chair. Const General: cooperative and no acute distress HENCT Head: normal to inspection Face and sinus: normal facial exam Eyes General: appearance normal, both eyes and all related structures Sclera: sclerae normal Neck Neck: normal visual inspection, no JVD and No submandibular swelling Chest Chest: normal inspection of the chest and no tenderness Resp Effort & Inspection: normal respiratory effort and able to speak in complete sentences Auscultation: clear to auscultation bilaterally Cardio Rate: regular rate Rhythm: regular rhythm GI Inspection: normal to inspection Palpation: soft, not firm, not rigid and nontender Auscultation: normal bowel sounds Skin General skin exam: no rashes or lesions noted Neuro General: patient alert, patient awake and patient oriented x3 Cognition: normal cognition Speech: speech normal Motor: muscle tone normal throughout Sensory Exam: no sensory deficits noted Extrem General: no pedal edema and no calf tenderness Right lower extremity: hip/thigh (surgical site clean/dry) Psych Appearance: grossly normal Mental Status: mental status grossly normal Speech and Movement: speech and movement normal Affect: normal affect Objective Last Vital Signs Temp 36.6 C 10/11/21 10:08 Pulse 78 10/11/21 10:08 Resp 16 10/11/21 10:08 BP 103/65 10/11/21 10:08 Pulse Ox 94 10/11/21 10:08 Laboratory Results - last 24 hr 10/11/21 10/11/21 10/11/21 00:30 01:27 02:25 WBC RBC Hgb Hct MCV MCH MCHC RDW Plt Count MPV Immature Gran % Neutrophils % Lymphocytes % Monocytes % Eosinophils % Basophils % Nucleated RBC % Absolute Neutrophils Absolute Lymphocytes Absolute Monocytes Absolute Eosinophils Absolute Basophils RBC Morphology Polychromasia Hypochromasia Sodium Potassium Chloride Carbon Dioxide Anion Gap BUN Creatinine Estimated GFR/1.73 m2 Glucose Calcium Magnesium Ferritin C-Reactive Protein NT-Pro-B Natriuret Pep 1499 H Procalcitonin Urine Color Yellow Urine Clarity Clear Urine pH 5.5 Ur Specific [place] 1.020 Urine Protein Negative Urine Ketones Negative Urine Blood Moderate H Urine Nitrite Negative Urine Bilirubin Negative Urine Urobilinogen 0.2 Ur Leukocyte Esterase Negative Urine RBC 5-10 H Urine WBC 0-2 Ur Epithelial Cells Negative Urine Crystals Negative Urine Bacteria Rare Urine Casts Negative Urine Mucus Negative Ur Culture Indicated? No Urine Glucose Negative COVID-19 Source Nasopharynx SARS-CoV-2 (PCR) Negative Influenza Type A (PCR) Negative Influenza Type B (PCR) Negative RSV (PCR) Negative 10/11/21 10/11/21 10/11/21 02:25 05:35 06:35 WBC RBC Hgb Hct MCV MCH MCHC RDW Plt Count MPV Immature Gran % Neutrophils % Lymphocytes % Monocytes % Eosinophils % Basophils % Nucleated RBC % Absolute Neutrophils Absolute Lymphocytes Absolute Monocytes Absolute Eosinophils Absolute Basophils RBC Morphology Polychromasia Hypochromasia Sodium Potassium Chloride Carbon Dioxide Anion Gap BUN Creatinine Estimated GFR/1.73 m2 Glucose Calcium Magnesium Ferritin 77 C-Reactive Protein 12.17 H NT-Pro-B Natriuret Pep Cancelled Procalcitonin < 0.1 Urine Color Urine Clarity Urine pH Ur Specific [place] Urine Protein Urine Ketones Urine Blood Urine Nitrite Urine Bilirubin Urine Urobilinogen Ur Leukocyte Esterase Urine RBC Urine WBC Ur Epithelial Cells Urine Crystals Urine Bacteria Urine Casts Urine Mucus Ur Culture Indicated? Urine Glucose COVID-19 Source SARS-CoV-2 (PCR) Influenza Type A (PCR) Influenza Type B (PCR) RSV (PCR) 10/11/21 10/11/21 06:40 06:40 WBC 8.73 RBC 2.48 L Hgb 7.6 L Hct 23.8 L MCV 96.0 H MCH 30.6 MCHC 31.9 L RDW 14.1 Plt Count 136 MPV 9.8 Immature Gran % 0.9 Neutrophils % 64.5 Lymphocytes % 21.2 Monocytes % 12.0 Eosinophils % 1.1 Basophils % 0.3 Nucleated RBC % 0 Absolute Neutrophils 5.62 Absolute Lymphocytes 1.85 Absolute Monocytes 1.05 H Absolute Eosinophils 0.10 Absolute Basophils 0.03 RBC Morphology See Below Polychromasia Present Hypochromasia 2+ Sodium 137 Potassium 4.2 Chloride 106 Carbon Dioxide 24.1 Anion Gap 6.9 BUN 16 D Creatinine 1.2 H Estimated GFR/1.73 m2 42.90 Glucose 132 H Calcium 7.9 L Magnesium 1.9 Ferritin C-Reactive Protein NT-Pro-B Natriuret Pep Procalcitonin Urine Color Urine Clarity Urine pH Ur Specific [place] Urine Protein Urine Ketones Urine Blood Urine Nitrite Urine Bilirubin Urine Urobilinogen Ur Leukocyte Esterase Urine RBC Urine WBC Ur Epithelial Cells Urine Crystals Urine Bacteria Urine Casts Urine Mucus Ur Culture Indicated? Urine Glucose COVID-19 Source SARS-CoV-2 (PCR) Influenza Type A (PCR) Influenza Type B (PCR) RSV (PCR)
--- NOTE | 2021-10-11 14:37 | PT.INTREAT ---
Date of service: 10/11/21 Time of Service: 10:50 PT Notes Visit Reasons: Right Intertrochanteric Hip Fracture Inpatient Physical Therapy Treatment Note [facility] Date: 10/11/2021 PRECAUTIONS: Fall, WBAT R SUBJECTIVE: Ammy is pleasant and agreeable to participating in PT. She reports that she hasn't been feeling well. She states that she did not sleep well overnight due to nausea and continues to have an upset stomach this morning and into the afternoon. OBJECTIVE: PAIN: Patient c/o R hip pain with gait training, ther ex and transfers BED MOBILITY/TRANSFERS Supine-sit: S with use of leg money room supervisor with HOB at 40 degrees Sit-supine: Min A with use of leg money room supervisor with HOB flat Sit-stand: CGA Stand-sit: SBA Bed-chair: CGA Chair-ed: SBA GAIT Assistive Device: FWW Weight bearing: WBAT R Assist: CGA Distance: 6' in a.m.; 6' in p.m. Deviation: Decreased pain in R hip compared to previous sessions, slow, minimal weight bearing through R LE. THEREX: Patient was instructed in a LE strengthening program, completed in a long-sitting position in a.m. and in a seated position in p.m., as per flow sheet. She requires assist with exercises due to R hip pain and weakness. ASSESSMENT: Patient tolerated session with c/o increased R hip pain with gait training, ther ex and transfers. She utilizes a step-to gait pattern although no longer requires assist with FWW management and L foot advancement. PLAN: Continue with LE strengthening and gait and transfer training for improved mobility and activity tolerance. Recommend SNF placement for ST rehab when medically cleared. TREATMENT CODE/TIME: Session 1: 19 minutes; 46354 (10:50) Session 2: 15 minutes; [id number] (13:49)
--- NOTE | 2021-10-11 15:43 | CMPROGNOTE_ITS ---
- If Service Date Differs Date of service: 10/11/21 Time of Service: 15:43 Care Management Progress Note S/O: Ammy was sitting up in her chair when CM met with her. She stated that she did not feel well today. Per report, she had a fever overnight. CM met with her and her daughter, Gay, again, later in the day, and they asked that her referral also be sent to [facility]. Ammy's grand daughter works as an RN in [place], and would like her close by, if possible. Ammy is agreeable to accepting the bed offer at [facility] if [facility] is not available. CM sent the referral today. CM will continue to follow. A: Ammy is an 81 year old female admitted to [facility] on 10/09/21 for R hip fracture. P: Ammy will go to SNF for short term rehab prior to returning home. She has a bed offer at [facility], and a pending referral at [facility]. She will likely transport via facility w/c van. She will follow up with her PCP and discharge plan of care. CM will continue to follow.
[2021-10-11] MEDS: Simvastatin 40 MG TAB PO (19:38)
[2021-10-12] MEDS: Acetaminophen 325 MG TAB 650 MG PO ×3 (05:53→17:01)
[2021-10-12 07:31] VITALS: BP 111/69; PULSE 83; RESP 16; TEMP 37.2; O2SAT 90
[2021-10-12] MEDS: oxyCODONE 5 MG TAB PO ×2 (07:41→14:04)
[2021-10-12] MEDS: Albuterol/Ipratropium 3 ML UPD VIAL UPD ×3 (08:16→20:04)
[2021-10-12] MEDS: Aspirin 81 MG CHEW PO ×2 (08:16→20:05)
[2021-10-12] MEDS: Losartan 50 MG TAB PO (08:16)
[2021-10-12] MEDS: Polyethylene Glycol 3350 17 GM PACKET PO ×2 (08:16→20:05)
[2021-10-12] MEDS: Omeprazole 20 MG CAPCR PO (08:17)
[2021-10-12] MEDS: Propranolol 60 MG CAPCR PO (08:17)
[2021-10-12] MEDS: Normal Saline Flush 10 ML SYR IVP ×2 (08:17→16:16)
[2021-10-12] MEDS: Insulin Aspart 300 UNITS/3 ML PEN SC ×3 (08:18→17:01)
[2021-10-12] MEDS: Tiotropium/Olodaterol 10 PUFF INHALER 2 PUFF IH (08:18)
[2021-10-12 08:46] VITALS: RESP 1
[2021-10-12 09:01] LABS: Abs Immature Grans 0.15 10^3/uL (0.0-0.06); Absolute Basophil Count 0.04 10^3/uL (0.0-0.2); Absolute Eosinophil Count 0.27 10^3/uL (0.0-0.7); Absolute Lymphocyte Count 1.87 10^3/uL (1.2-3.4); Absolute Monocyte Count 0.75 10^3/uL (0.1-0.8); Absolute Neutrophil Count 7.01 10^3/uL (1.2-6.7); Basophils % 0.4; Eosinophils % 2.7; HGB 8.2 g/dL (11.2-15.7); Immature Grans % 1.5; Lymphocytes % 18.5; MCH 31.1 pg (27.0-33.0); MCHC 31.5 % (32.0-36.0); MCV 98.5 fL (80-95); MPV 9.3 fL (8.0-11.0); Monocytes % 7.4; Neutrophils % 69.5; Nucleated RBC 0 %; Platelet Count 175 10^3/uL (130-400); RBC 2.64 10^6/uL (3.93-5.22); RDW-SD 50.3 fL; WBC 10.09 10^3/uL (4.4-10.8)
--- NOTE | 2021-10-12 14:12 | PT.INTREAT ---
Date of service: 10/12/21 Time of Service: 10:59 PT Notes Visit Reasons: Right Intertrochanteric Hip Fracture Inpatient Physical Therapy Treatment Note [facility] Date: 10/12/2021 PRECAUTIONS: Fall, WBAT R SUBJECTIVE: Ammy is pleasant and agreeable to participating in PT. She states that she is feeling better this morning, and that she is moving better. OBJECTIVE: PAIN: Patient c/o R hip pain with gait training and ther ex BED MOBILITY/TRANSFERS Sit-stand: SBA Stand-sit: SBA GAIT Assistive Device: FWW Weight bearing: WBAT R Assist: SBA Distance: 12' in a.m.; 30' in p.m. Deviation: C/o R hip pain, step-to pattern, slow, minimal weight bearing through R LE. THEREX: Patient was instructed in a LE strengthening program, completed in a seated position in both a.m. and p.m., as per flow sheet. She requires assist with some exercises to complete full ROM due to R hip pain and weakness. ASSESSMENT: Patient tolerated session with c/o increased R hip pain with gait training and ther ex. She utilizes a step-to gait pattern although no longer requires assist with FWW management and L foot advancement. PLAN: Continue with LE strengthening and gait and transfer training for improved mobility and activity tolerance. Recommend SNF placement for ST rehab when medically cleared. TREATMENT CODE/TIME: Session 1: 16 minutes; [id number] (10:59) Session 2: 17 minutes; [id number] (14:30)
--- NOTE | 2021-10-12 14:25 | W.PM.PROGNOT ---
Date of Service Date of service: 10/12/21 Time of Service: 14:25 Assessment and Plan Assessment and plan (1) Basicervical fracture of neck of right femur: Status: Acute Assessment and plan: Post op intertrochanteric fx repair. Pain control; oxycodone 5mg Q6h prn and prn IV diluadid (dilaudid causes some excessive drowsiness). Now on minimal pain meds; states acetaminophen has been helpful. Qualifiers: Encounter type: initial encounter Fracture type: closed Fracture alignment: displaced Qualified Code(s): S72.041A - Displaced fracture of base of neck of right femur, initial encounter for closed fracture (2) COPD (chronic obstructive pulmonary disease): Status: Acute Assessment and plan: Cont home Stiolto. Duoneb treatment prior to surgery then TID. Albuterol neb Q2H prn. IS (3) Chronic cough: Status: Acute Assessment and plan: No current coughing paroxysms. (4) Impaired fasting glucose: Status: Acute Assessment and plan: A1c 6.0 Glucose monitoring [facility] and insulin (sensitive). Diabetic diet. (5) CKD (chronic kidney disease): Status: Chronic Assessment and plan: Creatinine 1.0. on admission. Est GFR 54. Creatinine increased to 1.6; pre-renal d/t poor fluid intake. Creatinine improved to 1.2. Encouraging oral intake. Given lasix 20mg po last PM for questionable pulmonary edema vs atelectasis. Basal NS was d/c'd. (6) Hyperlipidemia: Status: Acute Assessment and plan: Cont Simvistatin. (7) Hypertension: Status: Chronic Assessment and plan: Cont Losartan. Monitor. (8) GERD (gastroesophageal reflux disease): Status: Chronic Assessment and plan: Cont omeprazole. (9) Hypothyroidism: Status: Chronic Assessment and plan: Cont levothyroxine. (10) Discharge planning issues: Status: Acute Assessment and plan: When appropriate, plan to d/c to SNF for further rehab efforts. (11) Fever: Status: Acute Assessment and plan: Tem 38.3 last PM CXR showed atelectesis vs pulmonary edema. Lasix 20mg IV given last PM. IS use encouraged. Procal negative. WBC count normal. Doubt pneumonia. (12) Constipation: Status: Acute Assessment and plan: Nausea today. No BM since admission. MIralax given this AM. Administer 2 senna tabs. Increase Miralax to BID. Encouraging ambulation. (13) DVT (deep venous thrombosis): Status: Chronic Assessment and plan: ASA 81mg BID per ortho recommendation for post-op. Subjective Subjective Patient reports: no new complaints and feels better; denies nausea and vomiting Exam Narrative Exam Narrative: Sitting in chair. Const General: cooperative and no acute distress HENMT Head: normal to inspection Face and sinus: normal facial exam Eyes General: appearance normal, both eyes and all related structures Sclera: sclerae normal Neck Neck: normal visual inspection and no JVD Resp Effort & Inspection: normal respiratory effort and able to speak in complete sentences Auscultation: clear to auscultation bilaterally Cardio Rate: regular rate Rhythm: regular rhythm GI Inspection: normal to inspection Palpation: soft, not firm, not rigid and nontender Auscultation: normal bowel sounds Skin General skin exam: no rashes or lesions noted Neuro General: patient alert, patient awake and patient oriented x3 Cognition: normal cognition Speech: speech normal Extrem General: no pedal edema and no calf tenderness Right lower extremity: hip/thigh (surgical site clean/dry) Details: abnormal to inspection Details: foreshortened and externally rotated and abnormal ROM Details: held in an abnormal fashion Details: in external rotation and pain with active ROM during Left lower extremity: foot Psych Appearance: grossly normal Mental Status: mental status grossly normal Speech and Movement: speech and movement normal Affect: normal affect Objective Last Vital Signs Temp 37.2 C 10/12/21 07:31 Pulse 83 10/12/21 07:31 Resp 16 10/12/21 07:31 BP 111/69 10/12/21 07:31 Pulse Ox 90 L 10/12/21 07:31 Laboratory Results - last 24 hr 10/12/21 08:55 WBC 10.09 RBC 2.64 L Hgb 8.2 L Hct 26.0 L MCV 98.5 H MCH 31.1 MCHC 31.5 L RDW 14.0 Plt Count 175 MPV 9.3 Immature Gran % 1.5 Neutrophils % 69.5 Lymphocytes % 18.5 Monocytes % 7.4 Eosinophils % 2.7 Basophils % 0.4 Nucleated RBC % 0 Absolute Neutrophils 7.01 H Absolute Lymphocytes 1.87 Absolute Monocytes 0.75 Absolute Eosinophils 0.27 Absolute Basophils 0.04
[2021-10-12 14:33] VITALS: RESP 1
[2021-10-12 15:10] VITALS: BP 129/72; PULSE 77; RESP 17; TEMP 37; O2SAT 94
--- NOTE | 2021-10-12 16:06 | CMPROGNOTE_ITS ---
- If Service Date Differs Date of service: 10/12/21 Time of Service: 16:06 Care Management Progress Note S/O: Ammy was sitting up in her chair when CM met with her. She reported that she was feeling better today than yesterday, but she still had not had a bowel movement. CM contacted [facility] today to determine if they have offered her a bed, with no response. Per MD, she is not yet medically cleared, but likely will be tomorrow. Ammy has a bed offer at [facility], if [facility] is not able to accept her for tomorrow. CM will continue to follow. A: Ammy is an 81 year old female admitted to [facility] on 10/09/21 for R hip fracture. P: Ammy will go to SNF for short term rehab prior to returning home. She has a bed offer at [facility], and a pending referral at [facility]. She will likely transport via facility w/c van. She will follow up with her PCP and discharge plan of care. CM will continue to follow.
[2021-10-12] MEDS: Ondansetron 4 MG/2 ML VIAL IVP (16:16)
[2021-10-12] MEDS: Bisacodyl 10 MG SUPP PR (18:11)
[2021-10-12] MEDS: Simvastatin 40 MG TAB PO (20:05)
[2021-10-12 23:00] VITALS: BP 102/63; PULSE 78; RESP 17; TEMP 37.9; O2SAT 91
[2021-10-12 23:05] VITALS: TEMP 36.5
[2021-10-13] MEDS: Acetaminophen 325 MG TAB 650 MG PO ×3 (00:20→11:17)
[2021-10-13] MEDS: Milk of Magnesia 30 ML CUP PO (06:04)
[2021-10-13 07:40] VITALS: BP 123/76; PULSE 80; RESP 17; TEMP 37.5; O2SAT 93
[2021-10-13] MEDS: Aspirin 81 MG CHEW PO (07:43)
[2021-10-13] MEDS: Losartan 50 MG TAB PO (07:44)
[2021-10-13] MEDS: Omeprazole 20 MG CAPCR PO (07:44)
[2021-10-13] MEDS: Polyethylene Glycol 3350 17 GM PACKET PO (07:45)
[2021-10-13] MEDS: Propranolol 60 MG CAPCR PO (07:45)
[2021-10-13] MEDS: Insulin Aspart 300 UNITS/3 ML PEN SC ×2 (07:55→11:18)
[2021-10-13 08:53] VITALS: RESP 2; RESP 20; RESP 8; O2SAT 93
[2021-10-13] MEDS: Albuterol/Ipratropium 3 ML UPD VIAL UPD (08:53)
[2021-10-13] MEDS: Tiotropium/Olodaterol 10 PUFF INHALER 2 PUFF IH (08:54)
[2021-10-13] MEDS: Senna TAB 1 TAB PO (09:36)
[2021-10-13] MEDS: Ondansetron 4 MG/2 ML VIAL IVP (10:08)
[2021-10-13] MEDS: oxyCODONE 5 MG TAB PO (10:08)
--- NOTE | 2021-10-13 11:01 | PT.INTREAT ---
Date of service: 10/13/21 Time of Service: 10:40 PT Notes Visit Reasons: Right Intertrochanteric Hip Fracture Inpatient Physical Therapy Treatment Note [facility] Date: 10/13/2021 PRECAUTIONS: Fall, WBAT R SUBJECTIVE: Ammy states that she is nauseous again today. She reports having a significant BM this morning. She is agreeable to seated exercise, but reports that she has been walking a lot this morning to and from the bathroom. OBJECTIVE: PAIN: Patient c/o R hip pain ther ex BED MOBILITY/TRANSFERS/GAIT: Declined to perform THEREX: Patient was instructed in a LE strengthening program, completed in a seated position, as per flow sheet. She was able to tolerate a slight progression in her ther ex program today, tolerating increased reps. ASSESSMENT: Patient tolerated session with c/o increased R hip pain with ther ex. Session was limited due to upset stomach. PLAN: Patient will discharge to SNF-level rehab later today, per provider. TREATMENT CODE/TIME: 15 minutes; [id number] (10:40)
--- NOTE | 2021-10-13 11:05 | W.PM.DS.N ---
Date of service: 10/13/21 Time of Service: 11:05 DS: Diagnosis Discharge Diagnosis (1) Basicervical fracture of neck of right femur: Status: Acute (2) COPD (chronic obstructive pulmonary disease): Status: Acute (3) Chronic cough: Status: Acute (4) Impaired fasting glucose: Status: Acute (5) CKD (chronic kidney disease): Status: Chronic (6) Hyperlipidemia: Status: Acute (7) Hypertension: Status: Chronic (8) GERD (gastroesophageal reflux disease): Status: Chronic (9) Hypothyroidism: Status: Chronic (10) Discharge planning issues: Status: Acute (11) Fever: Status: Acute (12) Constipation: Status: Acute (13) DVT (deep venous thrombosis): Status: Chronic Discharge Plan Disposition Patient Disposition: SNF (LEVEL 1) HL & REHAB Condition: Stable Discharge Details Reason For Visit: Right Intertrochanteric Hip Fracture Admit Date/Time: 10/08/21 11:28 Admit Provider: Junior Ornelas Attending Provider: Junior Ornelas Primary Care Provider: Carlos Trinidad [facility] Course Hospital Course: This is an 81 yo female with a PMH of COPD, CKD, HTN, HLK, OA, prediabetes, hypothyroidism, GERD. She presented to the ED after falling on the ice while walking her dog. She had immediate pain in the right hip and could not move. Her son-in-law heard her cries for help. EMS called and they administered fentanyl en route. Xray showed a right intertrochanteric fx. Orthopedics consulted and plan to repair the fx on the day of admission. She did develop nausea in the ED; treated with phenergan. WBC count and Hgb normal. Lytes and creatinine normal. Glucose 213. No head or neck pain. No CP/Palpitations. Denies LOC, presyncope, syncope. She underwent a successful repair of her fx. She underwent physical therapy and was advancing. Pain controlled with acetaminophen and occasional oxycodone. Her blood glucose levels were controlled with small prn correction doses of insulin. Glipizide 2.5 ER initiated. Recommend a carb controlled diet. Follow up with Dr Leon in 2-3 weeks. Home Meds and New Rx's Prescriptions: New Acetaminophen [Tylenol] 650 mg PO Q6H Qty: 0 RF: 0 ipratropium-albuterol 0.5 mg-3 mg(2.5 mg base)/3 mL Solution For Nebulization 3 ml UPD Q6H PRN PRNQty: 0 RF: 0 polyethylene glycol 3350 17 gram Powder In Packet 17 g PO BID Qty: 0 RF: 0 aspirin 81 mg Tablet,Chewable 81 mg PO BID 30 Days Qty: 0 RF: 0 Stiolto Respimat 2.5-2.5 mcg/actuation Mist 2 puff inhalation DAILY Qty: 4 RF: 0 oxycodone 5 mg Tablet 5 mg PO Q6H PRN PRNQty: 10 RF: 0 glipizide 2.5 mg tablet extended release 24 hr 2.5 mg PO DAILY Qty: 30 RF: 0 Continued simvastatin 40 mg tablet 40 mg PO QPM RF: 0 albuterol sulfate 90 mcg/actuation HFA aerosol inhaler 1 - 2 puff inhalation Q6H PRN PRNRF: 0 omeprazole 20 mg capsule,delayed release(DR/EC) 20 mg PO QAM RF: 0 simethicone [Gas Relief (simethicone)] 80 mg tablet,chewable 80 mg PO QID PRNRF: 0 propranolol [Inderal LA] 60 mg capsule,extended release 24 hr 60 mg PO DAILY RF: 0 ascorbate calcium (vitamin C) 500 mg tablet 1,000 mg PO DAILY RF: 0 levothyroxine [Synthroid] 25 MCG tablet 68.5 mcg PO QAM RF: 0 losartan 50 mg tablet 50 mg PO QAM RF: 0 calcium carbonate 500 mg calcium (1,250 mg) Tablet 1,000 mg PO QPM RF: 0 Anoro Ellipta 62.5-25 mcg/actuation blister with device 1 inh INHALATION DAILY RF: 0 Discontinued aspirin [Adult Aspirin Regimen] 81 mg tablet,delayed release (DR/EC) 81 mg PO QAM RF: 0 Discharge Instructions Instructions: Constipation (DC), Deep Vein Thrombosis (DC) Stand Alone Forms: Nursing Discharge Form Referrals: Carlos Trinidad [Primary Care Provider] - (Call for an Appointment in the next 2-3 weeks ) Activity:: per PT Equipment/Supplies:: No Equipment Needed Diet:: diabetic diet Discharge Orders Discharge Orders: Discharge Order (Routine); Ordered 10/13/21 Ordered By: Junior Ornelas DS: Summary Time Spent with Patient providing and/or coordinating discharge services: Greater than 30 minutes Status at Discharge Functional status at discharge: uses cane/walker Overall status at discharge: patient is progressing back to baseline Mental Status: mental status grossly normal Speech and Movement: speech and movement normal Mood: congruent mood Affect: normal affect Exam Narrative Exam Narrative: Sitting in chair. Const General: cooperative and no acute distress HENMT Head: normal to inspection Face and sinus: normal facial exam Eyes General: appearance normal, both eyes and all related structures Sclera: sclerae normal EOM: EOM intact bilaterally Neck Neck: normal visual inspection and no JVD Chest Chest: normal inspection of the chest and no tenderness Resp Effort & Inspection: normal respiratory effort and able to speak in complete sentences Auscultation: clear to auscultation bilaterally Cardio Rate: regular rate Rhythm: regular rhythm GI Inspection: normal to inspection Palpation: soft, not firm, not rigid and nontender Auscultation: normal bowel sounds Skin General skin exam: no rashes or lesions noted Neuro General: patient alert, patient awake and patient oriented x3 Cognition: normal cognition Speech: speech normal Motor: muscle tone normal throughout Sensory Exam: no sensory deficits noted Extrem General: no pedal edema and no calf tenderness Right lower extremity: hip/thigh (surgical site clean/dry) Details: abnormal to inspection Details: foreshortened and externally rotated and abnormal ROM Details: held in an abnormal fashion Details: in external rotation and pain with active ROM during Left lower extremity: foot Psych Appearance: grossly normal Mental Status: mental status grossly normal Speech and Movement: speech and movement normal Mood: congruent mood Affect: normal affect DS: Data Vitals/I&O Vitals and I&O: Vital Signs Temperature 37.5 C 10/13/21 07:40 Temperature Source Tympanic 10/13/21 07:40 Pulse 80 10/13/21 07:40 Pulse Rhythm Regular 10/13/21 09:38 Respiratory Rate 20 10/13/21 08:53 Respiratory Effort Non-Labored 10/13/21 09:38 Respiratory Depth Normal 10/13/21 09:38 Respiratory Pattern Normal 10/13/21 09:38 Blood Pressure 123/76 10/13/21 07:40 Blood Pressure Mean 79 10/08/21 12:16 Pulse Oximetry 93 10/13/21 08:53 Respiratory End-tidal CO2 30 10/08/21 17:18 Oxygen Delivery Method Room Air 10/13/21 08:53 Oxygen Flow Rate 0 10/13/21 08:53 Fraction of Inspired Oxygen (FIO2) 21 10/13/21 08:53 Pain Level 0 10/13/21 07:40 Comment 10/12/21 23:05 Intake & Output 10/12/21 10/12/21 10/13/21 11:59 23:59 11:59 Intake Total 480 / 850 370 / 850 Output Total 200 / 750 550 / 750 1150 / 1150 Balance 280 / 100 -180 / 100 -1150 / -1150 Intake: Oral 480 / 850 370 / 850 Output: Urine 200 / 750 550 / 750 1150 / 1150 Other: Urine Color Light Rachel Pale Yellow Straw Urine Appearance Clear Clear Sediment Stool Size Copious Stool Characteristics Liquid Data Completed and Pending Labs on day of discharge: Preliminary micro results at discharge 10/11/21 02:35 Blood Culture - Preliminary Blood NO GROWTH 48 HOURS 10/11/21 02:25 Blood Culture - Preliminary Blood NO GROWTH 48 HOURS PFSH All Active Problems DVT (deep venous thrombosis) (Chronic) Constipation (Acute) Fever (Acute) Discharge planning issues (Acute) Palliative care patient (Acute) Fracture of femoral neck, right (Acute) Basicervical fracture of neck of right femur (Acute 10/08/21) Chronic laryngitis (Acute) Thrush (Acute) COPD (chronic obstructive pulmonary disease) (Acute) Chronic cough (Acute) Globus sensation (Acute) Eczema (Acute) Impaired fasting glucose (Acute) Spondylisthesis (Acute) Insomnia (Acute) CKD (chronic kidney disease) (Chronic) Lesion of skin of scalp (Acute) Hearing impaired person (Acute) Abdominal pain (Acute) Lactose intolerance (Acute) Hiatal hernia (Chronic) Dysphagia (Acute) Hyperlipidemia (Acute) Hypertension (Chronic) Abdominal aortic aneurysm (Acute) GERD (gastroesophageal reflux disease) (Chronic) Hypothyroidism (Chronic) Arthritis (Acute) Osteoarthritis (Chronic) Surgical History H/O aortic aneurysm repair H/O colonoscopy H/O hand surgery History of esophagogastroduodenoscopy (EGD) History of Nila fundoplication History of renal stent Family History Father Cancer Mother Aneurysm Pneumonia Son No problems noted. Social History Smoking/Tobacco Use Status: Former Tobacco Use Smoking risk assessment performed?: Yes Alcohol Intake: never Drug use: Never Do you feel safe at home: Yes Do you feel safe in your relationship?: Yes
--- NOTE | 2021-10-13 13:58 | INDS_ITS ---
Date of service: 10/13/21 PT Notes Visit Reasons: Right Intertrochanteric Hip Fracture Physical Therapy Inpatient Discharge Summary Date: 10/13/21 Dates of service: 10/09/2019 through 10/12/2021 This is a clinical summary of care provided for the duration of dates listed abo ve. No charge was made in the completion of this documentation. Referring Doctor: Greg Leon MD PT Orders: PT CONSULT: s/p ortho surgery Precautions: Fall. Standard. WBAT right LE with assistive device Patient Profile/Admitting Diagnosis: Ammy is an 81 up female that fell outside of her home on ice yesterday resulting in basicervical fracture of right femoral neck. She underwent surgery for TFNA yesterday and is currently POD #1. Independent at baseline. PMHX: All Active Problems (Updated 10/08/21 @ 19:10 by Mary Gonzalez DO) Fracture of femoral neck, right (Acute) Basicervical fracture of neck of right femur (Acute 10/08/21) Chronic laryngitis (Acute) Thrush (Acute) COPD (chronic obstructive pulmonary disease) (Acute) Chronic cough (Acute) Globus sensation (Acute) Eczema (Acute) Impaired fasting glucose (Acute) Spondylisthesis (Acute) Insomnia (Acute) CKD (chronic kidney disease) (Chronic) Lesion of skin of scalp (Acute) Hearing impaired person (Acute) Abdominal pain (Acute) Lactose intolerance (Acute) Hiatal hernia (Chronic) Dysphagia (Acute) Hyperlipidemia (Acute) Hypertension (Chronic) Abdominal aortic aneurysm (Acute) GERD (gastroesophageal reflux disease) (Chronic) Hypothyroidism (Chronic) Arthritis (Acute) Osteoarthritis (Chronic) Surgical History H/O aortic aneurysm repair H/O colonoscopy H/O hand surgery History of esophagogastroduodenoscopy (EGD) History of Nial fundoplication History of renal stent Social History/Home Situation: Lives with daughter and son in law in 2 level home, [address]. She reports providing care for her daughter whom is home bound. Patient is typically independent and does not use assistive device. Equipment Owned/DME: None Subjective: NT. See most recent PROJECT SYSTEMS ENGINEER notes. Objective: General Observation: NT. See most recent PROJECT SYSTEMS ENGINEER notes. Mental Status: NT. See most recent PROJECT SYSTEMS ENGINEER notes. Pain: NT. See most recent PROJECT SYSTEMS ENGINEER notes. ROM: Right Upper Extremity: Shoulder Flexion WFL. Shoulder abduction WFL. Elbow flexion WFL. Wrist flexion WFL. Opening and closing of hand WFL. Left Upper Extremity: Shoulder Flexion WFL. Shoulder abduction WFL. Elbow flexion WFL. Wrist flexion WFL. Opening and closing of hand WFL. Right Lower Extremity: Hip flexion impaired. Hip abduction impaired. Knee flexion WFL. Ankle dorsiflexion WFL. Ankle plantarflexion WFL. Left Lower Extremity: Hip flexion WFL. Hip abduction WFL. Knee flexion WFL. Ankle dorsiflexion WFL. Ankle plantarflexion WFL. Strength: Right Upper Extremity: Shoulder flexors 5/5. Shoulder abductors 5/5. Elbow flexors 5/5. Elbow extensors 5/5. Blanket Cutter Hand strong. Left Upper Extremity: Shoulder flexors 5/5. Shoulder abductors 5/5. Elbow flexors 5/5. Elbow extensors 5/5. Blanket Cutter Hand strong. Right Lower Extremity: Hip flexors 2+/5. Hip abductors 3/5. Knee flexors 4+/5. Knee extensors 4+/5. Ankle dorsiflexors 5/5. Ankle plantarflexors 5/5. Left Lower Extremity: Hip flexors 5/5. Hip abductors 5/5. Knee flexors 4+/5. Knee extensors 5/5. Ankle dorsiflexors 5/5. Ankle plantarflexors 5/5. Sensation: Intact as to pain and pressure on bilateral lower extremities. Bed Mobility/Transfers: Supine to sit: stand by assist Sit to stand: stand by assist Stand to sit: stand by assist Bed to chair: stand by assist Gait: Ambulated 30 feet in room with FWW, SBA - WBAT - diminished weight on right LE, decreased step through on left. Decreased nithin. Balance: Static Sitting: Fair Dynamic Sitting: Poor Static Standing: Poor Dynamic Standing: Poor Assessment: Patient presents with clinical signs and symptoms consistent with current/admitting diagnoses that have resulted to mobility limitations, gait instability, generalized weakness, and impairment of motor control as demonstrated by the following impairment level findings: 1. Decreased strength to right lowe extremity major muscle groups 2. Impaired sitting/standing balance 3. Impaired activity tolerance 4. Limitation of joint range of motion in right hip Impairments are contributing to the following functional limitations: 1. Dependent bed mobility skills 2. Increased dependence with transfers 3. Inability to safely ambulate without assistive device and physical assistance 4. Increase completion time for mobility ADL performance 5. Increased fall risk 6. Inability to negotiate steps alone safely Goals: Goals x1 week 1. Supine-Sit: independent NOT MET 2. Sit-Supine: independent NOT MET 3. Sit-Stand: independent NOT MET 4. Stand-Sit: independent NOT MET 5. Bed-Chair: independent NOT MET 6. Chair-Bed: independent NOT MET 7. Independent gait on level surface with use of least restrictive device for at least 50 feet without report of pain nor dyspnea NOT MET 8. Independent stair negotiation while holding onto bilateral rails for at least 5 steps without report of pain nor dyspnea NOT MET 9. Independent with home exercise program NOT MET 10. Good static and dynamic standing balance/tolerance NOT MET Discharge Plan DISCHARGE RECOMMENDATIONS: SNF for continued rehabilitation for safe independence at home VS home with assist and home health PT; will monitor progress TREATMENT CODE/TIME: NC Thank you for the opportunity to participate in the care of this patient. Josette Moffett PT, DPT, CLT [facility] [place], [place]
--- NOTE | 2021-10-13 16:37 | PDOC.CMDIS ---
- If Service Date Differs Date of service: 10/13/21 Time of Service: 16:37 LACE Index Scoring Tool - Questions: Length of Stay (in days): 4 - 6 Acuity (Admit via E.D.?): Yes Comorbidities: Chronic Pulmonary Disease, Liver or Renal Disease E.D. Visits: 1 - Answers: Total Score: 13 Risk of Readmission: High Risk Care Management Discharge Reason for Hospitalization: Right intertrochanteric hip fracture Discharge Plan: Ammy transferred to [facility] for short term rehab prior to returning home. Her daugther transported her via private vehicle. She will follow up with her PCP and discharge plan of care. She is happy to have rehab, and is looking forward to returning home as soon as she is able. Patient/Family Education Needs: Review discharge instructions regarding activity levels and medications, discussion of self care needs including ask me three. Services Needed at Discharge: [facility] ([facility])
== END 2021-10-13 11:58 | disposition skilled nursing facility (03) | DRG 482 ==
LOC: ER 11:47 → MS 12:59
PROVIDERS: Internal Medicine; Student in an Organized Health Care Education/Training Program; Admitting Provider Family Medicine; Emergency Provider Physician Assistant; PCP Family Medicine; Visit Provider Family Medicine
PROC: 0QS606Z Reposition Right Upper Femur with Intramedullary Internal Fixation Device, Open Approach (ICD-10-PCS; CPT 27236; principal; 2021-10-08 15:30)
DX: S72.041A Displaced fracture of base of neck of right femur, initial encounter for closed fracture (principal); J44.9 Chronic obstructive pulmonary disease, unspecified; R05.3 Chronic cough; N18.9 Chronic kidney disease, unspecified; I12.9 Hypertensive chronic kidney disease with stage 1 through stage 4 chronic kidney disease, or unspecified chronic kidney disease; E78.5 Hyperlipidemia, unspecified; K21.9 Gastro-esophageal reflux disease without esophagitis; E03.9 Hypothyroidism, unspecified; K59.00 Constipation, unspecified; R50.9 Fever, unspecified; R73.03 Prediabetes; W00.0XXA Fall on same level due to ice and snow, initial encounter; J37.0 Chronic laryngitis; L30.9 Dermatitis, unspecified; M43.10 Spondylolisthesis, site unspecified; G47.00 Insomnia, unspecified; K44.9 Diaphragmatic hernia without obstruction or gangrene; I71.4 Abdominal aortic aneurysm, without rupture
CPT/HCPCS: 27236; 36410; 36415; 73552; 80048; 80053; 84145; 87040; 87081; 87635; 87637; 93005; 94640; 96365; 96375; 97110; 97162; 97530; 99222; 99285; 71045; 73501; 73502; 81003; 81015; 82728; 83036; 83735; 83880; 85025; 86140; 87086; 93010; 99223; 99232; 99233; 99239; J0690; J1100; J1885; J1941; J2405; J2543; J3490; J7620

== ENCOUNTER 2021-11-01 10:18 | Outpatient (CLI) | payer MEDICARE, SELFPAY ==
--- NOTE | 2021-11-01 09:45 | DI.RAD_ITS ---
Exam(s) XR HIP RT AP LAT ONLY EXAM: XR HIP RT AP LAT ONLY CLINICAL HISTORY: post op. TECHNIQUE: 2D digital imaging was performed. COMPARISON: No previous exams were available for comparison FINDINGS: There has been open reduction internal fixation of low femoral neck-intertrochanteric fracture. Fracture fragments appear to be in satisfactory position. Fracture line still faintly visible. On one of the images there is a nondisplaced fracture line evident in the medullary cavity of the fe mur at and extending for a distance of 4 cm below the inferior stem component IMPRESSION: DATA REPOSITORY: RADIATION DOSE DELIVERED:
== END 2021-11-01 10:19 | disposition home or self-care (01) ==
LOC: DIORS 10:18
PROVIDERS: PCP Family Medicine; Referring Provider Family Medicine; Visit Provider Student in an Organized Health Care Education/Training Program
DX: S72.041A Displaced fracture of base of neck of right femur, initial encounter for closed fracture; X58.XXXA Exposure to other specified factors, initial encounter
CPT/HCPCS: 73502

== ENCOUNTER 2021-11-29 11:46 | Outpatient (CLI) | payer MEDICARE, SELFPAY ==
--- NOTE | 2021-11-29 10:00 | DI.RAD_ITS ---
Exam(s) XR HIP RT AP LAT ONLY EXAM: XR HIP RT AP LAT ONLY CLINICAL HISTORY: femur fx f/u TECHNIQUE: COMPARISON: CR XR HIP RT AP LAT ONLY from 11/01/2021 FINDINGS: Three views were obtained. Previously described gamma nail is again noted in position in the right f emur. Previously described femoral fracture again noted, no gross interval change in alignment in co mparison with examination of November 01. Linear lucency is again noted extending distal to the joseluis ma nail in mid femur. IMPRESSION: RADIATION DOSE DELIVERED: Total DLP
== END 2021-11-29 11:47 | disposition home or self-care (01) ==
LOC: DIORS 11:46
PROVIDERS: PCP Family Medicine; Referring Provider Family Medicine; Visit Provider Student in an Organized Health Care Education/Training Program
DX: S72.041D Displaced fracture of base of neck of right femur, subsequent encounter for closed fracture with routine healing; M97.8XXD Periprosthetic fracture around other internal prosthetic joint, subsequent encounter; X58.XXXD Exposure to other specified factors, subsequent encounter; Z96.641 Presence of right artificial hip joint
CPT/HCPCS: 73502

== ENCOUNTER 2021-12-26 11:38 | Outpatient (CLI) | payer MEDICARE, SELFPAY ==
--- NOTE | 2021-12-26 11:15 | DI.RAD_ITS ---
Exam(s) XR HIP RT AP LAT ONLY EXAM: XR HIP RT AP LAT ONLY CLINICAL HISTORY: RIGHT HIP FX F/U. TECHNIQUE: 2D digital imaging was performed of the right hip. Three images were obtained. AP and la teral views were obtained. COMPARISON: CR XR HIP RT AP LAT ONLY from 11/29/2021 FINDINGS: BONES: There has been no change in alignment of the intertrochanteric fracture of the right femur or the intramedullary sierra transfixing the fracture. No new fractures identified. No bony destructive l esion is seen. JOINTS: No dislocation present. SOFT TISSUE: Normal. IMPRESSION: Stable postsurgical changes of the right femur. DATA REPOSITORY: RADIATION DOSE DELIVERED:
== END 2021-12-26 11:39 | disposition home or self-care (01) ==
LOC: DIORS 11:38
PROVIDERS: PCP Family Medicine; Referring Provider Family Medicine; Visit Provider Student in an Organized Health Care Education/Training Program
DX: S72.041D Displaced fracture of base of neck of right femur, subsequent encounter for closed fracture with routine healing (principal); M97.8XXD Periprosthetic fracture around other internal prosthetic joint, subsequent encounter; X58.XXXD Exposure to other specified factors, subsequent encounter; Z96.641 Presence of right artificial hip joint
CPT/HCPCS: 73502

== ENCOUNTER 2022-01-02 10:31 | Outpatient (REF) | payer MEDICARE, SELFPAY ==
[2022-01-02 15:58] LABS: Abs Immature Grans 0.07 10^3/uL (0.0-0.06); Absolute Basophil Count 0.07 10^3/uL (0.0-0.2); Absolute Eosinophil Count 0.41 10^3/uL (0.0-0.7); Absolute Lymphocyte Count 2.31 10^3/uL (1.2-3.4); Absolute Monocyte Count 0.73 10^3/uL (0.1-0.8); Absolute Neutrophil Count 3.85 10^3/uL (1.2-6.7); Basophils % 0.9; Eosinophils % 5.5; HCT 37.7 % (36.0-46.0); HGB 12.3 g/dL (11.2-15.7); Immature Grans % 0.9; MCH 30.4 pg (27.0-33.0); MCHC 32.6 % (32.0-36.0); MCV 93.1 fL (80-95); MPV 10.3 fL (8.0-11.0); Monocytes % 9.8; Neutrophils % 51.9; Nucleated RBC 0 %; Platelet Count 209 10^3/uL (130-400); RBC 4.05 10^6/uL (3.93-5.22); RDW 13.8 % (11.7-14.6); RDW-SD 47.6 fL; WBC 7.44 10^3/uL (4.4-10.8)
[2022-01-02 16:35] LABS: ALT 18 U/L (14-59); AST 17 U/L (15-37); Albumin 3.9 g/dL (3.4-5.0); Alkaline Phosphatase 94 U/L (46-116); Anion Gap 10.8 mmol/L (3-11); BUN 20 mg/dL (7-18); Bilirubin, Total 0.5 mg/dL (0.2-1.0); CO2 25.2 mmol/L (21.0-32.0); Calcium 9.6 mg/dL (8.5-10.1); Chloride 100 mmol/L (98-107); Estimated GFR 52.95 (mL/min/1.73m2); Glucose 116 mg/dL (74-106); Potassium 4.8 mmol/L (3.5-5.1); Sodium 136 mmol/L (136-145); TSH (W/Ref FT4) 3.65 uIU/mL (0.36-3.74); Total Protein 6.9 g/dL (6.4-8.2)
== END 2022-01-02 10:32 | disposition home or self-care (01) ==
LOC: NCHCN 10:31
PROVIDERS: PCP Family Medicine; Visit Provider Family Medicine
DX: E03.9 Hypothyroidism, unspecified (principal); D50.0 Iron deficiency anemia secondary to blood loss (chronic); R06.02 Shortness of breath; N18.30 Chronic kidney disease, stage 3 unspecified
CPT/HCPCS: 80053; 84443; 85025

== ENCOUNTER 2022-01-05 00:23 | Outpatient (CLI) | payer MEDICARE, SELFPAY ==
--- NOTE | 2022-01-05 15:30 | DI.CT_ITS ---
Exam(s) CT CHEST W EXAM: CT CHEST W CLINICAL HISTORY: SHORTNESS OF BREATH, R06.02, RECURRENT BOUTS, WHEEZING, COUGH TECHNIQUE: Imaging Protocol: Axial computed tomography images with coronal and sagittal reformatted images were created and reviewed CONTRAST MATERIAL: Intravenous: Omnipaque 350 Contrast volume:70 mL. COMPARISON: CR,XR XR PORTABLE CHEST AP from 10/10/2021 FINDINGS: Tracheobronchial tree: Patent where visualized. Pulmonary parenchyma: There is a 1 x 1.3 cm nodule in the right middle lobe. There is a 0.8 x 0.8 cm nodule in the left upper lobe. There is a 0.9 cm peripheral nodule in the right lower lobe. There is a 2.4 x 2.0 cm mass in the anterior medial aspect of the left upper lobe. Mild emphysematous mcguire ges. Mediastinum and Anita: No dominant adenopathy or fluid collection. The esophagus is unremarkable. Sma ll hiatal hernia. Thyroid gland: Unremarkable. Pleura: No effusion or pneumothorax. Heart: The heart is not dilated. Coronary artery calcifications are present. No pericardial effusion . Aorta: Ectasia of the thoracic aorta. Atherosclerosis is present. Pulmonary arteries: The pulmonary arteries are inadequately opacified for evaluation of pulmonary emb quincy. Upper abdomen: Right renal cysts. The proximal portion of an endovascular aortic stent is seen. Th ere is fatty atrophy of the pancreas. Lymph nodes: Mildly enlarged lymph nodes are seen in the left axilla. The largest measures 2.1 x 1.3 . Bones: Within normal limits for the patient's age. Soft tissues: There is moderate thickening of the scan of the left breast. There is a 2.6 x 1.6 cm m ass in the inferior left breast. IMPRESSION: 1. 2.6 x 1.6 cm mass in the inferior left breast. There is some thickening of the skin of the left b reast. Mildly enlarged lymph nodes are seen in the left axilla. Findings raise a question of breast carcinoma. Follow-up as clinically appropriate. 2. Several pulmonary nodules. The findings are suspicious for metastatic disease. 3. Mild pulmonary emphysema. RADIATION DOSE DELIVERED: 504.53mGy.cm Total DLP DATA REPOSITORY: All CT scans at this facility are submitted to the National Radiology Data Registry (NRDR) Dose Index Registry (DIR) with the [employer] (ACR). RADIATION OPTIMIZATION: All CT scans at this facility use at least one of these dose optimization te chniques: automated exposure control; mA and/or kV adjustment per patient size (includes targeted exa ms where dose is matched to clinical indication); or iterative reconstruction.
[2022-01-05] MEDS: Omnipaque 350 MG/ML 100 ML BTL 70 ML IJ (15:38)
[2022-01-05] MEDS: Normal Saline Flush 10 ML SYR IVP (15:39)
== END 2022-01-05 00:43 ==
PROVIDERS: PCP Family Medicine; Visit Provider Family Medicine
DX: R06.02 Shortness of breath (principal); R06.2 Wheezing; R05.8 Other specified cough; R91.8 Other nonspecific abnormal finding of lung field; R59.0 Localized enlarged lymph nodes; N63.20 Unspecified lump in the left breast, unspecified quadrant; J43.8 Other emphysema
CPT/HCPCS: 71260; J3490

== ENCOUNTER 2022-01-26 01:37 | Outpatient (CLI) | payer MEDICARE, SELFPAY ==
[2022-01-26] MEDS: Gastrografin 120 ML BTL PO (07:14)
[2022-01-26] MEDS: Breeza Beverage 473 ML BTL PO ×2 (07:14→07:15)
--- NOTE | 2022-01-26 08:45 | DI.CT_ITS ---
Exam(s) CT ABDOMEN PELVIS W EXAM: CT ABDOMEN PELVIS W CLINICAL HISTORY: LT BREAST CA, C50.912, Z17.0; LUNG NODULE ON CHEST CT 01/05/22, R91.1. TECHNIQUE: Imaging Protocol: Axial computed tomography images with coronal and sagittal reformatted images were created and reviewed CONTRAST MATERIAL: Intravenous: Omnipaque 100cc Oral: Yes COMPARISON: CT CT CHEST W from 01/05/2022 FINDINGS: VISUALIZED LUNG BASES: Appears to be a biopsy marker in a left breast nodule.. Uppermost images this abdominal study reveal 12 millimeters subpleural nodule in the lateral segment of the right middle lobe which has slightly increased in size 15 is suspicious for metastatic disease . Other finding seen on prior chest CT scan are above the level of the field of view of this abdomin al study. There are no pleural effusions ABDOMEN: There is no ascites. LIVER: There is focal hypodensity in the right hepatic lobe subcapsular just above the gallbladder fo ssa region. This possibly represents focal fatty change, possible hemangioma, or possibly cannot rul e out metastatic disease. GALLBLADDER/BILIARY: Subtle density in the gallbladder lumen are probably gallstones. CBD is not dil ated. PANCREAS: Pancreas is somewhat atrophic. There is no discrete focal pancreatic mass nor dilatation o f the pancreatic duct. SPLEEN: Spleen is not enlarged. No obvious intrasplenic lesions. Splenic and portal veins are paten t. ADRENALS: There are no significant adrenal masses. KIDNEYS:There is 2.6 cm benign cyst in the superior pole the right kidney. No other focal renal find ings. No solid lesions, calculi, or hydronephrosis. No hydroureter. Urinary bladder is collapsed.. ABDOMINAL AORTA: There is an aortic EVAR. There is also left renal ostial stent. Cannot active asse ss for EVAR endoleak on this type of study. There is also aneurysmal dilatation upper abdominal aort a above the EVAR level, exhibiting diameter of 3.5 cm at this level above the celiac takeoff point LYMPH NODES:There is no retroperitoneal nor paraaortic adenopathy. ABDOMINAL WALL: No evidence of significant anterior abdominal wall nor inguinal hernia. GI: There is no evidence of bowel obstruction, free air, nor abscess. PELVIS: GI: No evidence of appendicitis.There is extensive sigmoid diverticulosis. No obvious acute divertic ulitis. LYMPH NODES: There is no intrapelvic nor inguinal adenopathy. REPRODUCTIVE: Age appropriate. No abnormal adnexal masses free fluid pelvis URINARY BLADDER: Collapsed and difficult to evaluate but no radiopaque calculi seen therein. OSSEOUS: No significant osseous lesions. Right hip hardware. Advanced disc space narrowing at L5-S1 level and degenerative anterolisthesis of L5 upon S1. IMPRESSION: 1. Uppermost images of this abdominal study reveal a 12 millimeter enlarging nodule in the right midd le lobe which is suspicious for metastatic disease. No pleural effusions. 2. Cholelithiasis. No obvious acute cholecystitis. No dilatation of the biliary tree, both intra an d extrahepatic. 3. Aortic EVAR, as described above. 3.5 cm aneurysmal dilatation above this level. 4. Extensive sigmoid diverticulosis. No obvious acute diverticulitis. Degenerative anterolisthesis L5 upon S1. No lytic osseous lesions identified. RADIATION DOSE DELIVERED: 885.08mGy.cm Total DLP DATA REPOSITORY: All CT scans at this facility are submitted to the National Radiology Data Registry (NRDR) Dose Index Registry (DIR) with the [employer] (ACR). RADIATION OPTIMIZATION: All CT scans at this facility use at least one of these dose optimization te chniques: automated exposure control; mA and/or kV adjustment per patient size (includes targeted exa ms where dose is matched to clinical indication); or iterative reconstruction.
[2022-01-26] MEDS: Omnipaque 350 MG/ML 100 ML BTL IJ (08:48)
== END 2022-01-26 01:57 ==
PROVIDERS: PCP Family Medicine; Visit Provider Internal Medicine Medical Oncology
DX: C50.912 Malignant neoplasm of unspecified site of left female breast (principal); Z17.0 Estrogen receptor positive status [ER+]; R91.1 Solitary pulmonary nodule; K76.89 Other specified diseases of liver; K80.20 Calculus of gallbladder without cholecystitis without obstruction; N28.1 Cyst of kidney, acquired; K57.30 Diverticulosis of large intestine without perforation or abscess without bleeding
CPT/HCPCS: 74177; J3490

== ENCOUNTER 2022-02-21 14:34 | Outpatient (CLI) | payer MEDICARE, SELFPAY ==
--- NOTE | 2022-02-21 14:30 | DI.RAD_ITS ---
Exam(s) XR HIP RT AP LAT ONLY EXAM: XR HIP RT AP LAT ONLY CLINICAL HISTORY: femur fx f/u TECHNIQUE: COMPARISON: CR XR HIP RT AP LAT ONLY from 12/26/2021 FINDINGS: Five views were obtained. Note is again made of a previously described intertrochanteric fracture of femur with gamma nail in place. Alignment appears essentially unchanged comparison with prior exami nation of December 26. IMPRESSION: RADIATION DOSE DELIVERED: Total DLP
== END 2022-02-21 14:35 | disposition home or self-care (01) ==
LOC: DIORS 14:34
PROVIDERS: PCP Family Medicine; Referring Provider Family Medicine; Visit Provider Student in an Organized Health Care Education/Training Program
DX: M97.8XXA Periprosthetic fracture around other internal prosthetic joint, initial encounter (principal); S72.041A Displaced fracture of base of neck of right femur, initial encounter for closed fracture; Z96.649 Presence of unspecified artificial hip joint; X58.XXXA Exposure to other specified factors, initial encounter
CPT/HCPCS: 99213; 73502

== ENCOUNTER 2022-04-04 11:04 | Outpatient (CLI) | payer MEDICARE, SELFPAY ==
--- NOTE | 2022-04-04 10:45 | DI.RAD_ITS ---
Exam(s) XR HIP RT AP LAT ONLY EXAM: XR HIP RT AP LAT ONLY CLINICAL HISTORY: FEMUR FX F/U. TECHNIQUE: 2D digital imaging was performed. COMPARISON: CR XR HIP RT AP LAT ONLY from 02/21/2022 FINDINGS: Two views Stable position alignment of the hardware. Intertrochanteric fracture site is stable, unchanged from 02/21/2022. No radiographic evidence hardware loosening nor osteomyelitis. IMPRESSION: DATA REPOSITORY: RADIATION DOSE DELIVERED:
== END 2022-04-04 11:05 | disposition home or self-care (01) ==
LOC: DIORS 11:04
PROVIDERS: PCP Family Medicine; Referring Provider Family Medicine; Visit Provider Student in an Organized Health Care Education/Training Program
DX: M97.8XXA Periprosthetic fracture around other internal prosthetic joint, initial encounter (principal); Z96.649 Presence of unspecified artificial hip joint
CPT/HCPCS: 99213; 73502

== ENCOUNTER 2022-06-26 09:04 | Outpatient (CLI) | payer MEDICARE, SELFPAY ==
--- NOTE | 2022-06-26 09:00 | DI.RAD_ITS ---
Exam(s) XR FEMUR RT EXAM: XR FEMUR RT CLINICAL HISTORY: Right femur f/u. TECHNIQUE: 2D digital imaging was performed. COMPARISON: CR,XR XR FEMUR RT from 10/08/2021 XR HIP RT IN OR from 10/08/2021 FINDINGS: Five views: Stable positional of the right hip hardware comprised of a compression screw secured by intramedullar y sierra. The intertrochanteric fracture site appears relatively stable. No hardware loosening. No ra diographic evidence of osteomyelitis. Remainder of the femur appears unremarkable. No knee joint ef fusion noted. Vascular calcification noted in the popliteal artery. IMPRESSION: Stable appearance DATA REPOSITORY: RADIATION DOSE DELIVERED:
== END 2022-06-26 09:05 | disposition home or self-care (01) ==
LOC: DIORS 09:04
PROVIDERS: PCP Family Medicine; Referring Provider Family Medicine; Visit Provider Student in an Organized Health Care Education/Training Program
DX: M97.8XXA Periprosthetic fracture around other internal prosthetic joint, initial encounter (principal); Z96.641 Presence of right artificial hip joint; S72.041A Displaced fracture of base of neck of right femur, initial encounter for closed fracture; X58.XXXA Exposure to other specified factors, initial encounter
CPT/HCPCS: 73552; 99213

== ENCOUNTER → 2022-07-04 01:44 | Outpatient (CLI) | payer MEDICARE, SELFPAY ==
--- NOTE | 2022-07-04 07:00 | DI.CT_ITS ---
Exam(s) CT LOWER EXTREMITY RT WO EXAM: CT LOWER EXTREMITY RT WO CLINICAL HISTORY: Continued pain hip thigh,PERIPROSTHETIC FX,BASICERVICAL FX,M97.8XXA, TECHNIQUE: COMPARISON: CT CT ABDOMEN PELVIS W from 01/26/2022 CR XR HIP RT AP LAT ONLY from 04/04/2022 FINDINGS: CT examination of the right femur was performed. There is gamma nail in place transfixing fracture f ragments proximal femoral fracture which is comminuted. Comparison with prior abdominal pelvic CT of January 26 shows no significant interval change in alignmen t of the fracture fragments or the hardware in comparison with the prior examination. No new fractur e identified. No evidence of loosening of the fixation components. IMPRESSION: Stable appearance of gamma nail fixated proximal right femoral comminuted fracture. RADIATION DOSE DELIVERED: 513.71mGy.cm Total DLP !Error CTDIvol DATA REPOSITORY: All CT scans at this facility are submitted to the National Radiology Data Registry (NRDR) Dose Index Registry (DIR) with the [employer] (ACR). RADIATION OPTIMIZATION: All CT scans at this facility use at least one of these dose optimization te chniques: automated exposure control; mA and/or kV adjustment per patient size (includes targeted exa ms where dose is matched to clinical indication); or iterative reconstruction.
== END ==
PROVIDERS: PCP Family Medicine; Visit Provider Student in an Organized Health Care Education/Training Program
DX: M97.8XXA Periprosthetic fracture around other internal prosthetic joint, initial encounter (principal); S72.041A Displaced fracture of base of neck of right femur, initial encounter for closed fracture
CPT/HCPCS: 73700

== ENCOUNTER → 2022-07-10 14:03 | Outpatient (BNVA) | payer MEDICARE, SELFPAY | PROVIDERS: PCP Family Medicine; Referring Provider Family Medicine; Visit Provider Student in an Organized Health Care Education/Training Program | DX: X58.XXXD Exposure to other specified factors, subsequent encounter (principal); Z96.641 Presence of right artificial hip joint; S72.401K Unspecified fracture of lower end of right femur, subsequent encounter for closed fracture with nonunion | CPT/HCPCS: 99214 ==

== ENCOUNTER 2022-07-25 04:08 | Outpatient (CLI) | payer MEDICARE, SELFPAY ==
[2022-07-25 11:32] LABS: ESR 16 mm/hr (0-30)
[2022-07-25 11:33] LABS: Abs Immature Grans 0.11 10^3/uL (0.0-0.06); Absolute Basophil Count 0.07 10^3/uL (0.0-0.2); Absolute Eosinophil Count 0.27 10^3/uL (0.0-0.7); Absolute Lymphocyte Count 1.98 10^3/uL (1.2-3.4); Absolute Monocyte Count 0.81 10^3/uL (0.1-0.8); Absolute Neutrophil Count 4.14 10^3/uL (1.2-6.7); Basophils % 0.9; Eosinophils % 3.7; HCT 35.3 % (36.0-46.0); HGB 11.3 g/dL (11.2-15.7); Immature Grans % 1.5; Lymphocytes % 26.8; MCH 30.1 pg (27.0-33.0); MCV 94 fL (80-95); MPV 9.1 fL (8.0-11.0); Neutrophils % 56.1; Platelet Count 212 10^3/uL (130-400); RBC 3.76 10^6/uL (3.93-5.22); RDW 13.9 % (11.7-14.6); RDW-SD 46.5 fL; WBC 7.38 10^3/uL (4.4-10.8)
[2022-07-25 12:11] LABS: ALT 10 U/L (14-59); AST 14 U/L (15-37); Albumin 3.8 g/dL (3.4-5.0); Alkaline Phosphatase 86 U/L (46-116); Anion Gap 5.7 mmol/L (3-11); BUN 19 mg/dL (7-18); Bilirubin, Total 0.4 mg/dL (0.2-1.0); C-Reactive Protein 0.15 mg/dL (0.0-0.3); CO2 29.3 mmol/L (21.0-32.0); CREATININE 1.2 mg/dL (0.55-1.02); Calcium 9.3 mg/dL (8.5-10.1); Chloride 103 mmol/L (98-107); Estimated GFR 44.91 (mL/min/1.73m2); Glucose 98 mg/dL (74-106); Magnesium 1.9 mg/dL (1.8-2.4); PHOSPHORUS 3.8 mg/dL (2.6-4.7); Potassium 3.9 mmol/L (3.5-5.1); Sodium 138 mmol/L (136-145); Total Protein 7.4 g/dL (6.4-8.2)
[2022-07-25 12:31] LABS: Vitamin D 25 Total 20.4 ng/mL (30-100)
[2022-07-25 19:08] LABS: Parathyroid Hormone,Intact 55 pg/mL (19-88)
== END 2022-07-25 04:09 | disposition home or self-care (01) ==
LOC: LBO 04:08
PROVIDERS: PCP Family Medicine; Visit Provider Student in an Organized Health Care Education/Training Program
DX: S72.041 Displaced fracture of base of neck of right femur; R09.89 Other specified symptoms and signs involving the circulatory and respiratory systems
CPT/HCPCS: 36415; 80053; 82306; 85652; 83735; 83970; 84100; 84443; 85025; 86140

== ENCOUNTER → 2022-10-02 09:15 | Outpatient (BNVA) | payer MEDICARE, SELFPAY | PROVIDERS: PCP Family Medicine; Visit Provider Student in an Organized Health Care Education/Training Program ==

== ENCOUNTER 2022-11-12 02:28 | Outpatient (RCR) | payer MEDICARE, SELFPAY ==
[2022-11-12 09:27] LABS: Abs Immature Grans 0.04 10^3/uL (0.0-0.06); Absolute Basophil Count 0.05 10^3/uL (0.0-0.2); Absolute Eosinophil Count 0.25 10^3/uL (0.0-0.7); Absolute Lymphocyte Count 1.39 10^3/uL (1.2-3.4); Absolute Monocyte Count 0.42 10^3/uL (0.1-0.8); Absolute Neutrophil Count 3.35 10^3/uL (1.2-6.7); Basophils % 0.9; Eosinophils % 4.5; HCT 36.2 % (36.0-46.0); HGB 11.7 g/dL (11.2-15.7); Immature Grans % 0.7; Lymphocytes % 25.3; MCH 29.8 pg (27.0-33.0); MCHC 32.3 % (32.0-36.0); MCV 92 fL (80-95); MPV 9.3 fL (8.0-11.0); Monocytes % 7.6; Platelet Count 153 10^3/uL (130-400); RBC 3.92 10^6/uL (3.93-5.22); RDW 14.6 % (11.7-14.6); RDW-SD 48.8 fL
[2022-11-12] MEDS: Normal Saline Flush 10 ML SYR IVP (09:27)
[2022-11-12 09:50] LABS: ALT 14 U/L (14-59); AST 17 U/L (15-37); Albumin 3.9 g/dL (3.4-5.0); Alkaline Phosphatase 83 U/L (46-116); Anion Gap 8.8 mmol/L (3-11); BUN 18 mg/dL (7-18); Bilirubin, Total 0.6 mg/dL (0.2-1.0); CO2 27.2 mmol/L (21.0-32.0); CREATININE 1.2 mg/dL (0.55-1.02); Calcium 9.4 mg/dL (8.5-10.1); Chloride 103 mmol/L (98-107); Estimated GFR 44.64 (mL/min/1.73m2); Glucose 151 mg/dL (74-106); Magnesium 1.8 mg/dL (1.8-2.4); Potassium 4.1 mmol/L (3.5-5.1); Sodium 139 mmol/L (136-145); TSH 3.35 uIU/mL (0.36-3.74); Total Protein 7.2 g/dL (6.4-8.2)
== END 2022-11-20 23:59 | disposition home or self-care (01) ==
LOC: INF 02:28
PROVIDERS: PCP Family Medicine; Visit Provider Internal Medicine Medical Oncology
DX: C50.812 Malignant neoplasm of overlapping sites of left female breast (principal); Z79.899 Other long term (current) drug therapy
CPT/HCPCS: 36591; 80053; 83735; 84439; 84443; 85025

== ENCOUNTER 2022-11-12 16:38 | Outpatient (REF) | payer MEDICARE, SELFPAY ==
[2022-11-12 11:57] LABS: Bilirubin Negative (Negative); Blood Moderate (Negative); Clarity Sl Cloudy (Clear); Glucose Negative (Negative); Ketones Trace mg/dL (Negative); Leukocyte Esterase Large (Negative); Nitrite Positive (Negative); Specific Gravity 1.025 (1.005-1.025)
[2022-11-12 12:04] LABS: Bacteria Moderate HPF (Negative); C & S Indicated? Yes; Casts Negative LPF (Negative); Crystals Few Calcium Oxalate HPF (Negative); Epithelial Cells Few HPF (Negative); Mucus Trace (Negative); WBC 20-50 HPF (0-5)
== END 2022-11-12 16:39 | disposition home or self-care (01) ==
LOC: LBN 16:38
PROVIDERS: PCP Family Medicine; Visit Provider Nurse Practitioner Family
DX: R35.0 Frequency of micturition (principal)
CPT/HCPCS: 87077; 81003; 81015; 87086; 87186

== ENCOUNTER 2022-11-23 00:54 | Outpatient (CLI) | payer MEDICARE, SELFPAY ==
--- NOTE | 2022-11-23 09:30 | DI.DEXA_ITS ---
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 COMPARISON: CT CT ABDOMEN PELVIS W from 01/26/2022 Prior DEXA scan performed May 2007 FINDINGS: Performed on a [employer] unit. Lateral image: No compression fracture evident. Anterolisthesis L5 upon S1 and disc space narrowing at this level noted. This was also evident on abdominal CT scan January 2022. Aortic EVAR also again no jose. Lumbar Spine total T-score: -1.1. Previous 2006 reading was -3.2 Hip total T-score:-1.8. Previous reading in 2006 was -1.7 Independent reading at the level of the femoral neck yields T-score of -2.2 Forearm total T-score: -3.8 IMPRESSION: Bone mineral density measures in the osteopenia-osteoporosis range. Spine and hip readings are in os teopenia range. Forearm reading is in osteoporosis range. Fracture risk is moderate-high. Note: Any spine fracture indicates 5x risk for subsequent spine fracture and 2x risk for subsequent h ip fracture. World Health Organization criteria for BMD interpretation classify patients: Normal...... T- Score at or above -1.0 Osteopenic... T- Score between -1.0 and -2.5 Osteoporosis... T-Score at or below -2.5"
== END 2022-11-23 01:14 ==
LOC: DI 00:55
PROVIDERS: PCP Family Medicine; Visit Provider Student in an Organized Health Care Education/Training Program
DX: Z79.811 Long term (current) use of aromatase inhibitors (principal); C50.812 Malignant neoplasm of overlapping sites of left female breast; M81.0 Age-related osteoporosis without current pathological fracture; M85.88 Other specified disorders of bone density and structure, other site
CPT/HCPCS: 77080

== ENCOUNTER 2022-12-21 01:04 | Outpatient (CLI) | payer MEDICARE, SELFPAY ==
[2022-12-21] MEDS: Normal Saline - Diluent 50 ML VIAL IJ (08:19)
[2022-12-21] MEDS: Omnipaque 350 MG/ML 500 ML BTL-Imaging package IJ (08:45)
[2022-12-21] MEDS: Normal Saline Flush 10 ML SYR IJ (08:48)
--- NOTE | 2022-12-21 08:56 | DI.CT_ITS ---
Exam(s) CT CHEST W EXAM: CT CHEST W CLINICAL HISTORY: STAGE IV LUNG CA, RT, C34.91, METASTATIC, ASSESS TREATMENT TECHNIQUE: Imaging Protocol: Axial computed tomography images with coronal and sagittal reformatted images were created and reviewed CONTRAST MATERIAL: Intravenous: Omnipaque 350 Contrast volume:70 ml. COMPARISON: CT CT CHEST W from 01/05/2022 FINDINGS: Pulmonary parenchyma: Improvement in previously noted multiple of densities in the medial left upper lobe which now has the appearance of mild nodular scarring. No significant change in nodule posterio r right lower lobe. Marked decreased in size lateral right middle lobe nodule. Underlying mild emph ysematous changes. Tracheobronchial tree: No bronchiectasis or mucous plugging. Mediastinum and Anita: No dominant adenopathy or fluid collection. Pleura: No effusion or pneumothorax. Heart: The heart is not dilated. Moderate coronary artery calcifications are seen. Aorta: Thoracic aorta non-dilated. Heavily calcified at arch and upper abdomen. Stent noted and up per abdominal aorta.. Upper abdomen: Atrophic pancreas. Right renal cyst. Small hiatal hernia. Bones: Mild degenerative changes. No compression fractures or lytic or blastic lesions. Soft tissues: Port over left upper chest. Now status post left mastectomy. Previously noted left ax illary lymph nodes no longer present. Likely axillary dissection. IMPRESSION: Marked interval improvement in previously noted bilateral pulmonary nodules. Status post left mastectomy. RADIATION DOSE DELIVERED: 446.79mGy.cm Total DLP DATA REPOSITORY: All CT scans at this facility are submitted to the National Radiology Data Registry (NRDR) Dose Index Registry (DIR) with the [employer] (ACR). RADIATION OPTIMIZATION: All CT scans at this facility use at least one of these dose optimization te chniques: automated exposure control; mA and/or kV adjustment per patient size (includes targeted exa ms where dose is matched to clinical indication); or iterative reconstruction.
== END 2022-12-21 01:24 ==
LOC: DI 01:04
PROVIDERS: PCP Family Medicine; Visit Provider Nurse Practitioner Family
DX: J43.8 Other emphysema; Z90.12 Acquired absence of left breast and nipple; C34.31 Malignant neoplasm of lower lobe, right bronchus or lung
CPT/HCPCS: 36591; 80053; 71260; 83735; 84439; 84443; 85025

== ENCOUNTER 2022-12-21 08:00 | Outpatient (RCR) | payer MEDICARE, SELFPAY ==
[2022-12-03] MEDS: Normal Saline Flush 10 ML SYR IVP (08:59)
[2022-12-03 09:20] LABS: Abs Immature Grans 0.04 10^3/uL (0.0-0.06); Absolute Basophil Count 0.04 10^3/uL (0.0-0.2); Absolute Eosinophil Count 0.35 10^3/uL (0.0-0.7); Absolute Lymphocyte Count 1.42 10^3/uL (1.2-3.4); Absolute Monocyte Count 0.53 10^3/uL (0.1-0.8); Absolute Neutrophil Count 2.76 10^3/uL (1.2-6.7); Basophils % 0.8; Eosinophils % 6.8; HCT 34.6 % (36.0-46.0); HGB 11.8 g/dL (11.2-15.7); Immature Grans % 0.8; Lymphocytes % 27.6; MCH 31.1 pg (27.0-33.0); MCHC 34.1 % (32.0-36.0); MCV 91 fL (80-95); MPV 9.2 fL (8.0-11.0); Monocytes % 10.3; Neutrophils % 53.7; Platelet Count 156 10^3/uL (130-400); RBC 3.79 10^6/uL (3.93-5.22); RDW 14.7 % (11.7-14.6); WBC 5.14 10^3/uL (4.4-10.8)
[2022-12-03 09:46] LABS: ALT 18 U/L (14-59); AST 14 U/L (15-37); Albumin 3.8 g/dL (3.4-5.0); Alkaline Phosphatase 74 U/L (46-116); Anion Gap 8.1 mmol/L (3-11); BUN 18 mg/dL (7-18); Bilirubin, Total 0.5 mg/dL (0.2-1.0); CO2 28.9 mmol/L (21.0-32.0); CREATININE 1.3 mg/dL (0.55-1.02); Calcium 9.5 mg/dL (8.5-10.1); Chloride 100 mmol/L (98-107); Estimated GFR 40.55 (mL/min/1.73m2); FREE T4 1.19 ng/dL (0.76-1.46); Glucose 136 mg/dL (74-106); Magnesium 1.8 mg/dL (1.8-2.4); Sodium 137 mmol/L (136-145); TSH 4.11 uIU/mL (0.36-3.74); Total Protein 7.1 g/dL (6.4-8.2)
[2022-12-21 08:23] LABS: Abs Immature Grans 0.05 10^3/uL (0.0-0.06); Absolute Basophil Count 0.05 10^3/uL (0.0-0.2); Absolute Eosinophil Count 0.31 10^3/uL (0.0-0.7); Absolute Lymphocyte Count 1.26 10^3/uL (1.2-3.4); Absolute Monocyte Count 0.45 10^3/uL (0.1-0.8); Absolute Neutrophil Count 2.98 10^3/uL (1.2-6.7); Eosinophils % 6.1; HCT 35.9 % (36.0-46.0); Lymphocytes % 24.7; MCH 30.9 pg (27.0-33.0); MCHC 33.4 % (32.0-36.0); MCV 93 fL (80-95); MPV 9.3 fL (8.0-11.0); Monocytes % 8.8; Neutrophils % 58.4; Platelet Count 158 10^3/uL (130-400); RBC 3.88 10^6/uL (3.93-5.22); RDW 14.2 % (11.7-14.6); RDW-SD 48.1 fL
[2022-12-21] MEDS: Normal Saline Flush 10 ML SYR IVP (08:29)
[2022-12-21 08:56] LABS: ALT 15 U/L (14-59); AST 16 U/L (15-37); Albumin 3.9 g/dL (3.4-5.0); Alkaline Phosphatase 69 U/L (46-116); Anion Gap 8.1 mmol/L (3-11); BUN 17 mg/dL (7-18); Bilirubin, Total 0.5 mg/dL (0.2-1.0); CO2 26.9 mmol/L (21.0-32.0); CREATININE 1.1 mg/dL (0.55-1.02); Calcium 9.3 mg/dL (8.5-10.1); Chloride 101 mmol/L (98-107); Estimated GFR 49.55 (mL/min/1.73m2); FREE T4 1.23 ng/dL (0.76-1.46); Glucose 159 mg/dL (74-106); Magnesium 1.8 mg/dL (1.8-2.4); Potassium 3.9 mmol/L (3.5-5.1); Sodium 136 mmol/L (136-145); TSH 4.59 uIU/mL (0.36-3.74); Total Protein 7.2 g/dL (6.4-8.2)
== END 2022-12-21 23:59 | disposition home or self-care (01) ==
LOC: INF 08:00
PROVIDERS: PCP Family Medicine; Visit Provider Internal Medicine Medical Oncology
DX: Z79.899 Other long term (current) drug therapy (principal); C50.812 Malignant neoplasm of overlapping sites of left female breast; Z45.2 Encounter for adjustment and management of vascular access device
CPT/HCPCS: 36591; 80053; 83735; 84439; 84443; 85025

== ENCOUNTER 2023-01-14 01:16 | Outpatient (RCR) | payer MEDICARE, SELFPAY ==
[2023-01-14] MEDS: Normal Saline Flush 10 ML SYR IVP (09:02)
[2023-01-14 09:13] LABS: Abs Immature Grans 0.05 10^3/uL (0.0-0.06); Absolute Basophil Count 0.06 10^3/uL (0.0-0.2); Absolute Eosinophil Count 0.29 10^3/uL (0.0-0.7); Absolute Lymphocyte Count 1.33 10^3/uL (1.2-3.4); Absolute Monocyte Count 0.49 10^3/uL (0.1-0.8); Absolute Neutrophil Count 4.97 10^3/uL (1.2-6.7); Basophils % 0.8; HCT 36.3 % (36.0-46.0); HGB 12.2 g/dL (11.2-15.7); Immature Grans % 0.7; Lymphocytes % 18.5; MCH 30.7 pg (27.0-33.0); MCHC 33.6 % (32.0-36.0); MCV 91 fL (80-95); MPV 8.5 fL (8.0-11.0); Monocytes % 6.8; Neutrophils % 69.2; Platelet Count 156 10^3/uL (130-400); RBC 3.98 10^6/uL (3.93-5.22); RDW 13.7 % (11.7-14.6); RDW-SD 46.5 fL; WBC 7.19 10^3/uL (4.4-10.8)
[2023-01-14 09:36] LABS: ALT 18 U/L (14-59); AST 13 U/L (15-37); Albumin 3.9 g/dL (3.4-5.0); Alkaline Phosphatase 72 U/L (46-116); Anion Gap 7.7 mmol/L (3-11); BUN 17 mg/dL (7-18); Bilirubin, Total 0.5 mg/dL (0.2-1.0); CO2 26.3 mmol/L (21.0-32.0); CREATININE 1.3 mg/dL (0.55-1.02); Calcium 9.7 mg/dL (8.5-10.1); Chloride 98 mmol/L (98-107); Estimated GFR 40.55 (mL/min/1.73m2); FREE T4 1.33 ng/dL (0.76-1.46); Glucose 162 mg/dL (74-106); Magnesium 1.8 mg/dL (1.8-2.4); Potassium 4.4 mmol/L (3.5-5.1); Sodium 132 mmol/L (136-145); TSH 2.37 uIU/mL (0.36-3.74); Total Protein 7.4 g/dL (6.4-8.2)
== END 2023-01-20 23:59 | disposition home or self-care (01) ==
LOC: INF 01:16
PROVIDERS: PCP Family Medicine; Visit Provider Internal Medicine Medical Oncology
DX: Z79.899 Other long term (current) drug therapy (principal); C50.812 Malignant neoplasm of overlapping sites of left female breast; Z45.2 Encounter for adjustment and management of vascular access device
CPT/HCPCS: 36591; 80053; 83735; 84439; 84443; 85025

== ENCOUNTER 2023-01-15 10:04 | Outpatient (CLI) | payer MEDICARE, SELFPAY ==
--- NOTE | 2023-01-15 09:00 | DI.RAD_ITS ---
Exam(s) XR HIP RT AP LAT ONLY EXAM: XR HIP RT AP LAT ONLY CLINICAL HISTORY: f/u fx. TECHNIQUE: 2D digital imaging was performed of the right hip. Two images were obtained. AP pelvis a nd lateral right hip views were obtained. COMPARISON: CR,XR XR HIP RT COMPLETE AP PELVIS from 10/08/2021 CR,XR XR FEMUR RT from 10/08/2021 CR XR HIP RT AP LAT ONLY from 12/26/2021 CR XR HIP RT AP LAT ONLY from 02/21/2022 CR XR HIP RT AP LAT ONLY from 04/04/2022 FINDINGS: BONES: There is again seen an intramedullary sierra and screw transfixing the right femoral fracture. T he fracture line appears to be well healed. No new fracture or dislocation is seen. No lucencies ar e seen in or about the orthopedic hardware. No bony destructive lesion is seen. JOINTS: No dislocation present. SOFT TISSUE: Normal. IMPRESSION: Findings of a healed right femoral fracture. No acute abnormality. DATA REPOSITORY: RADIATION DOSE DELIVERED:
== END 2023-01-15 10:05 | disposition home or self-care (01) ==
LOC: DIORS 10:04
PROVIDERS: PCP Family Medicine; Referring Provider Family Medicine; Visit Provider Student in an Organized Health Care Education/Training Program
DX: S72.041D Displaced fracture of base of neck of right femur, subsequent encounter for closed fracture with routine healing (principal); Z96.641 Presence of right artificial hip joint; X58.XXXD Exposure to other specified factors, subsequent encounter; M70.61 Trochanteric bursitis, right hip; M97.8XXD Periprosthetic fracture around other internal prosthetic joint, subsequent encounter
CPT/HCPCS: 20610; 99213; 73502; J1030

== ENCOUNTER 2023-02-06 02:38 | Outpatient (RCR) | payer MEDICARE, SELFPAY ==
[2023-02-06] MEDS: Normal Saline Flush 10 ML SYR IVP (10:32)
[2023-02-06 10:44] LABS: Abs Immature Grans 0.04 10^3/uL (0.0-0.06); Absolute Basophil Count 0.04 10^3/uL (0.0-0.2); Absolute Eosinophil Count 0.17 10^3/uL (0.0-0.7); Absolute Lymphocyte Count 0.91 10^3/uL (1.2-3.4); Absolute Monocyte Count 0.42 10^3/uL (0.1-0.8); Absolute Neutrophil Count 2.99 10^3/uL (1.2-6.7); Basophils % 0.9; Eosinophils % 3.7; HCT 35.3 % (36.0-46.0); HGB 12.1 g/dL (11.2-15.7); Immature Grans % 0.9; Lymphocytes % 19.9; MCH 31.2 pg (27.0-33.0); MCHC 34.3 % (32.0-36.0); MCV 91 fL (80-95); MPV 8.7 fL (8.0-11.0); Monocytes % 9.2; Neutrophils % 65.4; Platelet Count 174 10^3/uL (130-400); RBC 3.88 10^6/uL (3.93-5.22); RDW 13.9 % (11.7-14.6); RDW-SD 46.5 fL; WBC 4.57 10^3/uL (4.4-10.8)
[2023-02-06 11:13] LABS: ALT 19 U/L (14-59); AST 16 U/L (15-37); Albumin 3.8 g/dL (3.4-5.0); Alkaline Phosphatase 72 U/L (46-116); Anion Gap 7.3 mmol/L (3-11); BUN 15 mg/dL (7-18); Bilirubin, Total 0.5 mg/dL (0.2-1.0); CO2 26.7 mmol/L (21.0-32.0); CREATININE 1.2 mg/dL (0.55-1.02); Calcium 9.5 mg/dL (8.5-10.1); Chloride 96 mmol/L (98-107); Estimated GFR 44.64 (mL/min/1.73m2); FREE T4 1.25 ng/dL (0.76-1.46); Glucose 124 mg/dL (74-106); Magnesium 1.8 mg/dL (1.8-2.4); Potassium 4.4 mmol/L (3.5-5.1); Sodium 130 mmol/L (136-145); TSH 2.14 uIU/mL (0.36-3.74)
== END 2023-02-20 23:59 | disposition home or self-care (01) ==
LOC: INF 02:38
PROVIDERS: PCP Family Medicine; Visit Provider Internal Medicine Medical Oncology
DX: Z79.899 Other long term (current) drug therapy (principal); C50.812 Malignant neoplasm of overlapping sites of left female breast; Z45.2 Encounter for adjustment and management of vascular access device
CPT/HCPCS: 36591; 80053; 83735; 84439; 84443; 85025

== ENCOUNTER 2023-02-22 00:48 | Outpatient (CLI) | payer MEDICARE, SELFPAY ==
--- NOTE | 2023-02-22 | DI.CT_ITS ---
Exam(s) CT CHEST W EXAM: CT CHEST W CLINICAL HISTORY: RT LUNG CA,C34.81,ASSESS TREATMENT RESPONSE TECHNIQUE: Imaging Protocol: Axial computed tomography images with coronal and sagittal reformatted images were created and reviewed CONTRAST MATERIAL: Intravenous: Omnipaque 350 Contrast volume:100 ml. COMPARISON: CT CT CHEST W from 12/21/2022 FINDINGS: Pulmonary parenchyma: No consolidation. Stable area of nodularity the at the posterior right lower lo be. Areas of mild residual scarring seen in the right upper lobe. Scarring with mild nodularity aga in noted in the anterior left upper lobe. Scarring lateral right middle lobe. No new masses. Under lying mild emphysematous changes. Tracheobronchial tree: No bronchiectasis or mucous plugging. Mediastinum and Anita: No dominant adenopathy or fluid collection. Pleura: No effusion or pneumothorax. Heart: The heart is not dilated. Moderate coronary artery calcifications are seen. Stent upper abdo yuridia aorta Aorta: Thoracic aorta non-dilated. Atherosclerotic calcifications. Upper abdomen: Pancreas is atrophic. Small hiatal hernia. Right renal cyst. Bones: Mild degenerative changes. Soft tissues: Port over left upper chest. Status post left mastectomy. IMPRESSION: Continued improvement of appearance of previously noted nodules, now with residual scarring. No new abnormalities. RADIATION DOSE DELIVERED: 385.25mGy.cm Total DLP DATA REPOSITORY: All CT scans at this facility are submitted to the National Radiology Data Registry (NRDR) Dose Index Registry (DIR) with the [employer] (ACR). RADIATION OPTIMIZATION: All CT scans at this facility use at least one of these dose optimization te chniques: automated exposure control; mA and/or kV adjustment per patient size (includes targeted exa ms where dose is matched to clinical indication); or iterative reconstruction.
[2023-02-22] MEDS: Omnipaque 350 MG/ML 100 ML BTL IJ (09:18)
[2023-02-22] MEDS: Normal Saline - Diluent 50 ML VIAL IJ (09:18)
== END 2023-02-22 01:08 ==
LOC: DI 00:48
PROVIDERS: PCP Family Medicine; Visit Provider Nurse Practitioner Family
DX: C34.81 Malignant neoplasm of overlapping sites of right bronchus and lung (principal)
CPT/HCPCS: 36591; 80053; 71260; 83735; 84439; 84443; 85025; J3490

== ENCOUNTER 2023-03-18 02:49 | Outpatient (RCR) | payer MEDICARE, SELFPAY ==
[2023-02-22] MEDS: Normal Saline Flush 10 ML SYR IVP (09:07)
[2023-02-22] MEDS: Heparin 500 UNITS/5 ML SYRINGE IV (09:07)
[2023-02-22 09:16] LABS: Abs Immature Grans 0.04 10^3/uL (0.0-0.06); Absolute Basophil Count 0.04 10^3/uL (0.0-0.2); Absolute Eosinophil Count 0.18 10^3/uL (0.0-0.7); Absolute Lymphocyte Count 1.15 10^3/uL (1.2-3.4); Absolute Monocyte Count 0.47 10^3/uL (0.1-0.8); Absolute Neutrophil Count 3.01 10^3/uL (1.2-6.7); Basophils % 0.8; Eosinophils % 3.7; HCT 35.8 % (36.0-46.0); HGB 12.2 g/dL (11.2-15.7); Immature Grans % 0.8; Lymphocytes % 23.5; MCH 31.2 pg (27.0-33.0); MCHC 34.1 % (32.0-36.0); MCV 92 fL (80-95); MPV 8.8 fL (8.0-11.0); Monocytes % 9.6; Neutrophils % 61.6; Platelet Count 158 10^3/uL (130-400); RBC 3.91 10^6/uL (3.93-5.22); RDW 14.2 % (11.7-14.6); RDW-SD 47.6 fL; WBC 4.89 10^3/uL (4.4-10.8)
[2023-02-22 09:40] LABS: ALT 20 U/L (14-59); AST 17 U/L (15-37); Alkaline Phosphatase 68 U/L (46-116); Anion Gap 7.5 mmol/L (3-11); BUN 14 mg/dL (7-18); Bilirubin, Total 0.6 mg/dL (0.2-1.0); CO2 26.5 mmol/L (21.0-32.0); CREATININE 1.1 mg/dL (0.55-1.02); Calcium 9.3 mg/dL (8.5-10.1); Chloride 98 mmol/L (98-107); Estimated GFR 49.55 (mL/min/1.73m2); FREE T4 1.45 ng/dL (0.76-1.46); Glucose 170 mg/dL (74-106); Magnesium 1.8 mg/dL (1.8-2.4); Potassium 3.6 mmol/L (3.5-5.1); Sodium 132 mmol/L (136-145); TSH 3.88 uIU/mL (0.36-3.74); Total Protein 7.2 g/dL (6.4-8.2)
[2023-03-18 14:20] LABS: Abs Immature Grans 0.05 10^3/uL (0.0-0.06); Absolute Basophil Count 0.05 10^3/uL (0.0-0.2); Absolute Eosinophil Count 0.32 10^3/uL (0.0-0.7); Absolute Lymphocyte Count 1.28 10^3/uL (1.2-3.4); Absolute Neutrophil Count 3.52 10^3/uL (1.2-6.7); Basophils % 0.9; Eosinophils % 5.7; HCT 33.7 % (36.0-46.0); HGB 11.3 g/dL (11.2-15.7); Immature Grans % 0.9; Lymphocytes % 22.8; MCH 31.3 pg (27.0-33.0); MCHC 33.5 % (32.0-36.0); MCV 93 fL (80-95); MPV 8.9 fL (8.0-11.0); Monocytes % 7.1; Neutrophils % 62.6; Platelet Count 154 10^3/uL (130-400); RBC 3.61 10^6/uL (3.93-5.22); RDW-SD 47.7 fL; WBC 5.62 10^3/uL (4.4-10.8)
[2023-03-18 14:53] LABS: ALT 17 U/L (14-59); AST 15 U/L (15-37); Albumin 3.6 g/dL (3.4-5.0); Alkaline Phosphatase 79 U/L (46-116); Anion Gap 10.7 mmol/L (3-11); BUN 18 mg/dL (7-18); Bilirubin, Total 0.6 mg/dL (0.2-1.0); CO2 26.3 mmol/L (21.0-32.0); CREATININE 1.2 mg/dL (0.55-1.02); Chloride 102 mmol/L (98-107); Estimated GFR 44.64 (mL/min/1.73m2); FREE T4 1.33 ng/dL (0.76-1.46); Glucose 147 mg/dL (74-106); Magnesium 1.7 mg/dL (1.8-2.4); Potassium 3.8 mmol/L (3.5-5.1); Sodium 139 mmol/L (136-145); TSH 2.22 uIU/mL (0.36-3.74); Total Protein 6.8 g/dL (6.4-8.2)
== END 2023-03-22 23:59 | disposition home or self-care (01) ==
LOC: INF 02:49
PROVIDERS: PCP Family Medicine; Visit Provider Internal Medicine Medical Oncology
DX: Z79.899 Other long term (current) drug therapy (principal); Z45.2 Encounter for adjustment and management of vascular access device; C50.812 Malignant neoplasm of overlapping sites of left female breast
CPT/HCPCS: 36591; 80053; 83735; 84439; 84443; 85025

== ENCOUNTER 2023-03-18 18:24 | Outpatient (REF) | payer MEDICARE, SELFPAY | END 2023-03-18 18:25 | disposition home or self-care (01) | LOC: LBN 18:24 | PROVIDERS: PCP Family Medicine; Visit Provider Family Medicine | DX: R39.15 Urgency of urination (principal) | CPT/HCPCS: 87077; 87086; 87186 ==

== ENCOUNTER 2023-04-08 04:02 | Outpatient (RCR) | payer MEDICARE, SELFPAY ==
[2023-04-08] MEDS: Normal Saline Flush 10 ML SYR IVP (07:43)
[2023-04-08 07:44] LABS: Abs Immature Grans 0.05 10^3/uL (0.0-0.06); Absolute Basophil Count 0.04 10^3/uL (0.0-0.2); Absolute Eosinophil Count 0.33 10^3/uL (0.0-0.7); Absolute Lymphocyte Count 1.32 10^3/uL (1.2-3.4); Absolute Monocyte Count 0.44 10^3/uL (0.1-0.8); Absolute Neutrophil Count 2.57 10^3/uL (1.2-6.7); Basophils % 0.8; Eosinophils % 6.9; HGB 11.1 g/dL (11.2-15.7); Immature Grans % 1.1; Lymphocytes % 27.8; MCH 31.3 pg (27.0-33.0); MCHC 33.6 % (32.0-36.0); MCV 93 fL (80-95); MPV 9.1 fL (8.0-11.0); Monocytes % 9.3; Neutrophils % 54.1; Platelet Count 148 10^3/uL (130-400); RBC 3.55 10^6/uL (3.93-5.22); RDW 13.9 % (11.7-14.6); RDW-SD 47.6 fL; WBC 4.75 10^3/uL (4.4-10.8)
[2023-04-08 08:08] LABS: ALT 16 U/L (14-59); AST 15 U/L (15-37); Albumin 3.7 g/dL (3.4-5.0); Alkaline Phosphatase 73 U/L (46-116); Anion Gap 8.3 mmol/L (3-11); BUN 16 mg/dL (7-18); Bilirubin, Total 0.5 mg/dL (0.2-1.0); CO2 27.7 mmol/L (21.0-32.0); CREATININE 1.1 mg/dL (0.55-1.02); Calcium 9.2 mg/dL (8.5-10.1); Chloride 103 mmol/L (98-107); Estimated GFR 49.55 (mL/min/1.73m2); Glucose 124 mg/dL (74-106); Magnesium 1.8 mg/dL (1.8-2.4); Sodium 139 mmol/L (136-145); TSH 1.95 uIU/mL (0.36-3.74); Total Protein 6.8 g/dL (6.4-8.2)
== END 2023-04-22 23:59 | disposition home or self-care (01) ==
LOC: INF 04:02
PROVIDERS: PCP Family Medicine; Visit Provider Internal Medicine Medical Oncology
DX: Z79.899 Other long term (current) drug therapy (principal); C50.812 Malignant neoplasm of overlapping sites of left female breast; Z45.2 Encounter for adjustment and management of vascular access device
CPT/HCPCS: 36591; 80053; 83735; 84439; 84443; 85025

== ENCOUNTER → 2023-04-29 01:33 | Outpatient (CLI) | payer MEDICARE, SELFPAY ==
--- NOTE | 2023-04-29 | DI.CT_ITS ---
Exam(s) CT CHEST W EXAM: CT CHEST W CLINICAL HISTORY: LUNG CANCER C34.91 ASSESS TREATMENT RESPONSE TECHNIQUE: Imaging Protocol: Axial computed tomography images with coronal and sagittal reformatted images were created and reviewed CONTRAST MATERIAL: Intravenous: Omnipaque 350 Contrast volume:70 ml. COMPARISON: CT CT CHEST W from 01/05/[address] CHEST W from 02/22/2023 FINDINGS: Pulmonary parenchyma: Stable minimal scarring anterior right upper lobe. Stable peripheral nodule po sterior right lower lobe. Stable tiny areas of nodularity in the lateral right middle lobe. Areas o f scarring on in the anterior left upper lobe peripherally appear unchanged. Scarring left lung base . No new nodules. No consolidation. Mild underlying emphysematous changes. Tracheobronchial tree: No bronchiectasis or mucous plugging. Mediastinum and Anita: No dominant adenopathy or fluid collection. Pleura: No effusion or pneumothorax. Heart: The heart is not dilated. Moderate coronary artery calcifications are seen. Aorta: Thoracic aorta non-dilated. Heavily calcified. Stent upper abdominal aorta. Upper abdomen: Pancreas again appears atrophic. Small hiatal hernia. Stable right renal cyst. Bones: Degenerative changes in the spine. Soft tissues: Port over upper left chest. Status post left mastectomy. IMPRESSION: Stable appearance of bilateral mild areas of residual scarring and small nodules. No new abnormaliti es. RADIATION DOSE DELIVERED: 424.2mGy.cm Total DLP DATA REPOSITORY: All CT scans at this facility are submitted to the National Radiology Data Registry (NRDR) Dose Index Registry (DIR) with the [employer] (ACR). RADIATION OPTIMIZATION: All CT scans at this facility use at least one of these dose optimization te chniques: automated exposure control; mA and/or kV adjustment per patient size (includes targeted exa ms where dose is matched to clinical indication); or iterative reconstruction.
[2023-04-29] MEDS: Omnipaque 350 MG/ML 100 ML BTL IJ (11:18)
[2023-04-29] MEDS: Normal Saline - Diluent 50 ML VIAL IJ (11:19)
[2023-04-29] MEDS: Normal Saline Flush 10 ML SYR IVP (11:20)
== END ==
PROVIDERS: PCP Family Medicine; Visit Provider Nurse Practitioner Family
DX: C34.91 Malignant neoplasm of unspecified part of right bronchus or lung (principal)
CPT/HCPCS: 36591; 80053; 71260; 83735; 84439; 84443; 85025; J3490

== ENCOUNTER 2023-05-20 02:05 | Outpatient (RCR) | payer MEDICARE, SELFPAY ==
[2023-04-29] MEDS: Normal Saline Flush 10 ML SYR IVP (11:19)
[2023-04-29 11:32] LABS: Abs Immature Grans 0.06 10^3/uL (0.0-0.06); Absolute Basophil Count 0.05 10^3/uL (0.0-0.2); Absolute Eosinophil Count 0.31 10^3/uL (0.0-0.7); Absolute Lymphocyte Count 1.49 10^3/uL (1.2-3.4); Absolute Monocyte Count 0.52 10^3/uL (0.1-0.8); Absolute Neutrophil Count 3.51 10^3/uL (1.2-6.7); Basophils % 0.8; Eosinophils % 5.2; HCT 34.2 % (36.0-46.0); HGB 11.5 g/dL (11.2-15.7); Lymphocytes % 25.1; MCH 31.3 pg (27.0-33.0); MCHC 33.6 % (32.0-36.0); MCV 93 fL (80-95); MPV 9.2 fL (8.0-11.0); Monocytes % 8.8; Neutrophils % 59.1; Platelet Count 169 10^3/uL (130-400); RBC 3.68 10^6/uL (3.93-5.22); RDW 13.4 % (11.7-14.6); RDW-SD 45.5 fL; WBC 5.94 10^3/uL (4.4-10.8)
[2023-04-29 12:00] LABS: ALT 16 U/L (14-59); AST 15 U/L (15-37); Albumin 3.7 g/dL (3.4-5.0); Alkaline Phosphatase 75 U/L (46-116); Anion Gap 7.5 mmol/L (3-11); BUN 18 mg/dL (7-18); Bilirubin, Total 0.7 mg/dL (0.2-1.0); CO2 27.5 mmol/L (21.0-32.0); Calcium 9.3 mg/dL (8.5-10.1); Chloride 102 mmol/L (98-107); Estimated GFR 55.55 (mL/min/1.73m2); FREE T4 1.11 ng/dL (0.76-1.46); Glucose 112 mg/dL (74-106); Magnesium 1.9 mg/dL (1.8-2.4); Potassium 4.4 mmol/L (3.5-5.1); Sodium 137 mmol/L (136-145); TSH 2.85 uIU/mL (0.36-3.74)
[2023-05-20] MEDS: Normal Saline Flush 10 ML SYR IVP (12:41)
[2023-05-20 12:52] LABS: Abs Immature Grans 0.07 10^3/uL (0.0-0.06); Absolute Basophil Count 0.04 10^3/uL (0.0-0.2); Absolute Eosinophil Count 0.36 10^3/uL (0.0-0.7); Absolute Monocyte Count 0.59 10^3/uL (0.1-0.8); Basophils % 0.6; Eosinophils % 5.6; HCT 34.4 % (36.0-46.0); HGB 11.5 g/dL (11.2-15.7); Immature Grans % 1.1; Lymphocytes % 26.3; MCH 31.3 pg (27.0-33.0); MCHC 33.4 % (32.0-36.0); MCV 94 fL (80-95); MPV 9.1 fL (8.0-11.0); Monocytes % 9.1; Neutrophils % 57.3; Platelet Count 168 10^3/uL (130-400); RBC 3.68 10^6/uL (3.93-5.22); RDW 13.4 % (11.7-14.6); RDW-SD 46.1 fL; WBC 6.46 10^3/uL (4.4-10.8)
[2023-05-20 13:16] LABS: ALT 14 U/L (14-59); AST 14 U/L (15-37); Albumin 3.8 g/dL (3.4-5.0); Alkaline Phosphatase 78 U/L (46-116); Anion Gap 9.8 mmol/L (3-11); BUN 23 mg/dL (7-18); Bilirubin, Total 0.4 mg/dL (0.2-1.0); CO2 25.2 mmol/L (21.0-32.0); CREATININE 1.2 mg/dL (0.55-1.02); Calcium 9.3 mg/dL (8.5-10.1); Chloride 103 mmol/L (98-107); Estimated GFR 44.64 (mL/min/1.73m2); FREE T4 1.14 ng/dL (0.76-1.46); Glucose 100 mg/dL (74-106); Potassium 4.2 mmol/L (3.5-5.1); Sodium 138 mmol/L (136-145); TSH 3.35 uIU/mL (0.36-3.74)
== END 2023-05-23 23:59 | disposition home or self-care (01) ==
LOC: INF 02:05
PROVIDERS: PCP Family Medicine; Visit Provider Internal Medicine Medical Oncology
DX: C50.812 Malignant neoplasm of overlapping sites of left female breast (principal); Z17.0 Estrogen receptor positive status [ER+]; Z79.899 Other long term (current) drug therapy; Z45.2 Encounter for adjustment and management of vascular access device
CPT/HCPCS: 36591; 80053; 83735; 84439; 84443; 85025

== ENCOUNTER 2023-06-10 04:11 | Outpatient (RCR) | payer MEDICARE, SELFPAY ==
[2023-06-10] MEDS: Normal Saline Flush 10 ML SYR IVP (08:43)
[2023-06-10 08:53] LABS: Abs Immature Grans 0.07 10^3/uL (0.0-0.06); Absolute Basophil Count 0.05 10^3/uL (0.0-0.2); Absolute Eosinophil Count 0.34 10^3/uL (0.0-0.7); Absolute Lymphocyte Count 1.36 10^3/uL (1.2-3.4); Absolute Monocyte Count 0.41 10^3/uL (0.1-0.8); Absolute Neutrophil Count 3.61 10^3/uL (1.2-6.7); Basophils % 0.9; Eosinophils % 5.8; HCT 35.8 % (36.0-46.0); Immature Grans % 1.2; Lymphocytes % 23.3; MCH 31.2 pg (27.0-33.0); MCHC 33.5 % (32.0-36.0); MCV 93 fL (80-95); MPV 8.7 fL (8.0-11.0); Neutrophils % 61.8; Platelet Count 154 10^3/uL (130-400); RBC 3.85 10^6/uL (3.93-5.22); RDW 13.4 % (11.7-14.6); RDW-SD 45.9 fL; WBC 5.84 10^3/uL (4.4-10.8)
[2023-06-10 09:20] LABS: ALT 16 U/L (14-59); AST 18 U/L (15-37); Albumin 3.7 g/dL (3.4-5.0); Alkaline Phosphatase 77 U/L (46-116); Anion Gap 8.5 mmol/L (3-11); BUN 19 mg/dL (7-18); Bilirubin, Total 0.4 mg/dL (0.2-1.0); CO2 27.5 mmol/L (21.0-32.0); CREATININE 1.2 mg/dL (0.55-1.02); Calcium 10.3 mg/dL (8.5-10.1); Chloride 96 mmol/L (98-107); Estimated GFR 44.64 (mL/min/1.73m2); FREE T4 1.13 ng/dL (0.76-1.46); Glucose 184 mg/dL (74-106); Magnesium 1.8 mg/dL (1.8-2.4); Potassium 4.3 mmol/L (3.5-5.1); Sodium 132 mmol/L (136-145); TSH 4.65 uIU/mL (0.36-3.74); Total Protein 7.2 g/dL (6.4-8.2)
== END 2023-06-22 23:59 | disposition home or self-care (01) ==
LOC: INF 04:11
PROVIDERS: PCP Family Medicine; Visit Provider Internal Medicine Medical Oncology
DX: C50.812 Malignant neoplasm of overlapping sites of left female breast (principal); Z79.899 Other long term (current) drug therapy; Z17.0 Estrogen receptor positive status [ER+]; Z45.2 Encounter for adjustment and management of vascular access device
CPT/HCPCS: 36591; 80053; 83735; 84439; 84443; 85025

== ENCOUNTER 2023-07-22 03:00 | Outpatient (RCR) | payer MEDICARE, SELFPAY ==
[2023-07-03] MEDS: Normal Saline Flush 10 ML SYR IVP (09:26)
[2023-07-03 09:38] LABS: Abs Immature Grans 0.04 10^3/uL (0.0-0.06); Absolute Basophil Count 0.05 10^3/uL (0.0-0.2); Absolute Eosinophil Count 0.48 10^3/uL (0.0-0.7); Absolute Lymphocyte Count 1.12 10^3/uL (1.2-3.4); Absolute Monocyte Count 0.58 10^3/uL (0.1-0.8); Absolute Neutrophil Count 4.21 10^3/uL (1.2-6.7); Basophils % 0.8; Eosinophils % 7.4; HCT 34.3 % (36.0-46.0); HGB 11.7 g/dL (11.2-15.7); Immature Grans % 0.6; Lymphocytes % 17.3; MCH 31.2 pg (27.0-33.0); MCHC 34.1 % (32.0-36.0); MCV 92 fL (80-95); MPV 8.8 fL (8.0-11.0); Neutrophils % 64.9; Platelet Count 175 10^3/uL (130-400); RBC 3.75 10^6/uL (3.93-5.22); RDW 13.5 % (11.7-14.6); RDW-SD 45.8 fL; WBC 6.48 10^3/uL (4.4-10.8)
[2023-07-03 10:05] LABS: ALT 18 U/L (14-59); AST 18 U/L (15-37); Albumin 3.6 g/dL (3.4-5.0); Alkaline Phosphatase 77 U/L (46-116); Anion Gap 8.6 mmol/L (3-11); BUN 13 mg/dL (7-18); Bilirubin, Total 0.5 mg/dL (0.2-1.0); CO2 25.4 mmol/L (21.0-32.0); CREATININE 1.2 mg/dL (0.55-1.02); Chloride 95 mmol/L (98-107); Estimated GFR 44.64 (mL/min/1.73m2); FREE T4 1.16 ng/dL (0.76-1.46); Glucose 168 mg/dL (74-106); Magnesium 1.8 mg/dL (1.8-2.4); Potassium 4.1 mmol/L (3.5-5.1); Sodium 129 mmol/L (136-145); TSH 4.99 uIU/mL (0.36-3.74); Total Protein 7.4 g/dL (6.4-8.2)
[2023-07-22] MEDS: Normal Saline Flush 10 ML SYR IVP (09:04)
[2023-07-22 09:28] LABS: Abs Immature Grans 0.08 10^3/uL (0.0-0.06); Absolute Basophil Count 0.07 10^3/uL (0.0-0.2); Absolute Eosinophil Count 0.33 10^3/uL (0.0-0.7); Absolute Lymphocyte Count 1.17 10^3/uL (1.2-3.4); Absolute Monocyte Count 0.58 10^3/uL (0.1-0.8); Absolute Neutrophil Count 4.46 10^3/uL (1.2-6.7); Eosinophils % 4.9; HCT 35.6 % (36.0-46.0); HGB 11.9 g/dL (11.2-15.7); Immature Grans % 1.2; Lymphocytes % 17.5; MCH 30.5 pg (27.0-33.0); MCHC 33.4 % (32.0-36.0); MCV 91 fL (80-95); MPV 8.8 fL (8.0-11.0); Monocytes % 8.7; Neutrophils % 66.7; Platelet Count 213 10^3/uL (130-400); RDW 13.6 % (11.7-14.6); RDW-SD 45.4 fL; WBC 6.69 10^3/uL (4.4-10.8)
[2023-07-22 09:59] LABS: ALT 19 U/L (14-59); AST 18 U/L (15-37); Albumin 3.6 g/dL (3.4-5.0); Alkaline Phosphatase 86 U/L (46-116); BUN 14 mg/dL (7-18); Bilirubin, Total 0.7 mg/dL (0.2-1.0); CREATININE 1.1 mg/dL (0.55-1.02); Calcium 10.2 mg/dL (8.5-10.1); Chloride 97 mmol/L (98-107); Estimated GFR 49.55 (mL/min/1.73m2); FREE T4 1.54 ng/dL (0.76-1.46); Glucose 140 mg/dL (74-106); Potassium 4.2 mmol/L (3.5-5.1); Sodium 133 mmol/L (136-145); TSH 1.26 uIU/mL (0.36-3.74); Total Protein 7.5 g/dL (6.4-8.2)
== END 2023-07-23 23:59 | disposition home or self-care (01) ==
LOC: INF 03:00
PROVIDERS: PCP Family Medicine; Visit Provider Internal Medicine Medical Oncology
DX: C50.812 Malignant neoplasm of overlapping sites of left female breast (principal); Z79.899 Other long term (current) drug therapy; Z17.0 Estrogen receptor positive status [ER+]; Z45.2 Encounter for adjustment and management of vascular access device
CPT/HCPCS: 36591; 80053; 83735; 84439; 84443; 85025

== ENCOUNTER → 2023-08-07 01:43 | Outpatient (CLI) | payer MEDICARE, SELFPAY ==
--- NOTE | 2023-08-07 | DI.CT_ITS ---
Exam(s) CT CHEST W EXAM: CT CHEST W CLINICAL HISTORY: METASTATIC LUNG CA,ON IMMUNOTHERAPY,RESTAGING EXAM. TECHNIQUE: Multi planar reconstructions were performed. CONTRAST MATERIAL: Omnipaque 350; 75 cc COMPARISON: CT CT CHEST W from 04/29/2023 FINDINGS: CHEST: Again noted is evidence of prior left mastectomy. LUNGS: Sub pleural infiltrate in the anterior aspect of the left upper lobe has increased from previo us. This may be related to radiation therapy for ipsilateral breast cancer. No other new significan t left lung findings. In the opposite-right lung there is a stable small stellate nodular infiltrate in the upper lobe. In the posterior aspect of the right lower lobe there is an unchanged partially cavitated subpleural no dular infiltrate measuring approximately 1.2 x 1.2 cm. Other subpleural stellate density in the late ral segment of the right middle lobe appears slightly larger than previous, presently measuring appro ximately 7 mm and previously measuring 5 mm. No pleural effusions. MEDIASTINUM: There is no hilar nor mediastinal adenopathy. CARDIAC: Heart size is normal. There is no pericardial effusion.Caliber of the thoracic aorta is wit hin normal limits. VISUALIZED UPPER ABDOMEN:Thickening of the adrenal glands is unchanged. Aortic and left renal artery stents again noted. Benign cyst in superior pole right kidney again noted. No ascites. OSSEOUS: No new significant osseous lesions. No fractures. IMPRESSION: 1. Compared to prior CT scan of 04/29/2023 there has been increase in subpleural infiltrate in the an terior segment of the left upper lobe, this subjacent to the left mastectomy site and possibly relate d to radiation treatment. 2. Other lung findings are stable with the exception of a small stellate nodular density in the later al segment of the right middle lobe which appears to have slightly increased in size, presently measu ring 7 mm and previously measured 5 mm. 3. No pleural effusions nor intrathoracic adenopathy. RADIATION DOSE DELIVERED: Total DLP DATA REPOSITORY: All CT scans at this facility are submitted to the National Radiology Data Registry (NRDR) Dose Index Registry (DIR) with the [employer] (ACR). RADIATION OPTIMIZATION: All CT scans at this facility use at least one of these dose optimization te chniques: automated exposure control; mA and/or kV adjustment per patient size (includes targeted exa ms where dose is matched to clinical indication); or iterative reconstruction.
[2023-08-07] MEDS: Omnipaque 350 MG/ML 100 ML BTL IJ (13:10)
[2023-08-07] MEDS: Normal Saline - Diluent 50 ML VIAL IJ (13:12)
[2023-08-07] MEDS: Normal Saline Flush 10 ML SYR IVP (13:14)
== END ==
PROVIDERS: PCP Family Medicine; Visit Provider Internal Medicine Medical Oncology
DX: C34.91 Malignant neoplasm of unspecified part of right bronchus or lung (principal)
CPT/HCPCS: 96523; 71260; J1642; J3490

== ENCOUNTER 2023-08-12 03:58 | Outpatient (RCR) | payer MEDICARE, SELFPAY ==
[2023-08-07] MEDS: Heparin 500 UNITS/5 ML SYRINGE IV (12:47)
[2023-08-07] MEDS: Normal Saline Flush 10 ML SYR IVP (12:47)
[2023-08-12 10:49] LABS: Abs Immature Grans 0.05 10^3/uL (0.0-0.06); Absolute Basophil Count 0.05 10^3/uL (0.0-0.2); Absolute Eosinophil Count 0.32 10^3/uL (0.0-0.7); Absolute Lymphocyte Count 1.31 10^3/uL (1.2-3.4); Absolute Monocyte Count 0.66 10^3/uL (0.1-0.8); Absolute Neutrophil Count 4.56 10^3/uL (1.2-6.7); Basophils % 0.7; Eosinophils % 4.6; HCT 36.7 % (36.0-46.0); HGB 12.3 g/dL (11.2-15.7); Immature Grans % 0.7; Lymphocytes % 18.8; MCH 30.4 pg (27.0-33.0); MCHC 33.5 % (32.0-36.0); MCV 91 fL (80-95); MPV 9.1 fL (8.0-11.0); Monocytes % 9.5; Neutrophils % 65.7; Platelet Count 195 10^3/uL (130-400); RBC 4.05 10^6/uL (3.93-5.22); RDW 13.5 % (11.7-14.6); RDW-SD 44.8 fL; WBC 6.95 10^3/uL (4.4-10.8)
[2023-08-12 11:19] LABS: ALT 23 U/L (14-59); AST 21 U/L (15-37); Albumin 3.5 g/dL (3.4-5.0); Alkaline Phosphatase 77 U/L (46-116); Anion Gap 4.8 mmol/L (3-11); BUN 16 mg/dL (7-18); Bilirubin, Total 0.6 mg/dL (0.2-1.0); CO2 27.2 mmol/L (21.0-32.0); Calcium 9.1 mg/dL (8.5-10.1); Chloride 101 mmol/L (98-107); Estimated GFR 55.55 (mL/min/1.73m2); FREE T4 1.45 ng/dL (0.76-1.46); Glucose 112 mg/dL (74-106); Magnesium 2.1 mg/dL (1.8-2.4); Potassium 4.3 mmol/L (3.5-5.1); Sodium 133 mmol/L (136-145); TSH 1.37 uIU/mL (0.36-3.74); Total Protein 7.1 g/dL (6.4-8.2)
[2023-08-12] MEDS: Normal Saline Flush 10 ML SYR IVP (11:44)
== END 2023-08-22 23:59 | disposition home or self-care (01) ==
LOC: INF 03:58
PROVIDERS: PCP Family Medicine; Visit Provider Internal Medicine Medical Oncology
DX: C50.812 Malignant neoplasm of overlapping sites of left female breast (principal); Z17.0 Estrogen receptor positive status [ER+]; Z79.899 Other long term (current) drug therapy; Z45.2 Encounter for adjustment and management of vascular access device
CPT/HCPCS: 36591; 80053; 96523; 83735; 84439; 84443; 85025; J1642

== ENCOUNTER 2023-09-02 04:01 | Outpatient (RCR) | payer MEDICARE, SELFPAY ==
[2023-09-02] MEDS: Normal Saline Flush 10 ML SYR IVP (09:07)
[2023-09-02 09:21] LABS: Abs Immature Grans 0.03 10^3/uL (0.0-0.06); Absolute Basophil Count 0.05 10^3/uL (0.0-0.2); Absolute Eosinophil Count 0.39 10^3/uL (0.0-0.7); Absolute Lymphocyte Count 1.21 10^3/uL (1.2-3.4); Absolute Monocyte Count 0.58 10^3/uL (0.1-0.8); Absolute Neutrophil Count 3.07 10^3/uL (1.2-6.7); Basophils % 0.9; Eosinophils % 7.3; HCT 34.9 % (36.0-46.0); HGB 11.6 g/dL (11.2-15.7); Immature Grans % 0.6; Lymphocytes % 22.7; MCHC 33.2 % (32.0-36.0); MCV 90 fL (80-95); MPV 8.6 fL (8.0-11.0); Monocytes % 10.9; Neutrophils % 57.6; Platelet Count 162 10^3/uL (130-400); RBC 3.87 10^6/uL (3.93-5.22); RDW 13.6 % (11.7-14.6); RDW-SD 44.6 fL; WBC 5.33 10^3/uL (4.4-10.8)
[2023-09-02 09:48] LABS: ALT 20 U/L (14-59); AST 18 U/L (15-37); Albumin 3.4 g/dL (3.4-5.0); Alkaline Phosphatase 76 U/L (46-116); Anion Gap 6.3 mmol/L (3-11); BUN 15 mg/dL (7-18); Bilirubin, Total 0.6 mg/dL (0.2-1.0); CO2 28.7 mmol/L (21.0-32.0); CREATININE 1.1 mg/dL (0.55-1.02); Calcium 9.5 mg/dL (8.5-10.1); Chloride 100 mmol/L (98-107); Estimated GFR 49.55 (mL/min/1.73m2); Glucose 131 mg/dL (74-106); Magnesium 1.8 mg/dL (1.8-2.4); Potassium 4.3 mmol/L (3.5-5.1); Sodium 135 mmol/L (136-145); TSH 0.03 uIU/mL (0.36-3.74); Total Protein 7.1 g/dL (6.4-8.2)
== END 2023-09-22 23:59 | disposition home or self-care (01) ==
LOC: INF 04:01
PROVIDERS: PCP Family Medicine; Visit Provider Internal Medicine Medical Oncology
DX: C34.91 Malignant neoplasm of unspecified part of right bronchus or lung (principal); C50.812 Malignant neoplasm of overlapping sites of left female breast; Z79.899 Other long term (current) drug therapy; Z17.0 Estrogen receptor positive status [ER+]; Z45.2 Encounter for adjustment and management of vascular access device
CPT/HCPCS: 36591; 80053; 83735; 84439; 84443; 85025

== ENCOUNTER → 2023-10-01 01:47 | Outpatient (CLI) | payer MEDICARE, SELFPAY ==
--- NOTE | 2023-10-01 | DI.US_ITS ---
APPROVED REPORT EXAM: Comprehensive 2D, Doppler, and color-flow Echocardiogram Patient Location: Out-Patient Dance Professor: Jose L Gilbert RDCS (AE) Other Information Study Quality: Good Conclusion 1.Mildly dilated left atrium,other chambers normal sizes 2. Normal LV systolic function without wall motion abnormality,EF 55-60%.Normal RV systolic function. 3.Anatomically normal valves, Mild to moderate MR,TR.No pulmonary hypertension. 4.No intracardiac shunt. 5.No pericardial effusion. Wall motion Left Ventricle The left ventricle is normal size. Left ventricular systolic function is borderline. There is normal left ventricular wall thickness. There is mild global hypokinesis of the left ventricle. There is no ventricular septal defect visualized. LVEF is 47-52%. Right Ventricle The right ventricle is normal size. Right ventricular systolic function is grossly normal. Atria The left atrium size is normal. The right atrium size is normal. The interatrial septum is intact wit h no evidence for an atrial septal defect. Aortic Valve The Aortic valve is sclerotic. There is no aortic valvular stenosis. No aortic regurgitation is prese nt. Mitral Valve The mitral valve is normal in structure. No evidence of mitral valve stenosis. Moderate mitral regurg itation. Tricuspid Valve The tricuspid valve is normal in structure. There is no tricuspid valve stenosis. Moderate tricuspid regurgitation. The RVSP is 23.6 mmHg. Pulmonic Valve The pulmonary valve is normal in structure. There is no pulmonic valvular stenosis. Mild pulmonic reg urgitation. Great Vessels The aortic root is normal in size. The ascending aorta is normal in size. Aortic arch is not well vis ualized. IVC is normal in size and collapses >50% with inspiration. Pericardium There is no pericardial effusion. 2D Dimensions IVSD d PLAX 0.73 cm F: 0.6-1.0 Ao Root d 2.74 cm F: 2.7 - 3.3 LVPW d PLAX 0.76 cm F: 0.6 - 1.0 Ao Asc Diam d 3.07 cm F: 2.3 - 3.1 LVID d PLAX 4.31 cm F: 3.8 - 5.2 LVDs 3.19 cm F: 2.2 - 3.5 LV EF Teichholz 51.5 % FS 26.12 % LV EDV (Teich) 83.7 mL LV ESV (Teich) 40.5 mL Stroke Vol Index (Teich) 26.30 M-Mode TAPSE 1.58 cm (M/F) >1.7 Auto EF LV EDV A4C 76.8 mL LV EDV A2C 52.5 mL LV EDV BP LV ESV A4C 40.6 mL LV ESV A2C 26.2 mL LV ESV BP LVEF(%) A4C 47.2 % LVEF(%) A2C 50.2 % LVEF(%) BP LV SV A4C 36.2 ml LV SV A2C 26.4 ml LV SV BP LV CO A4C 2.3 L/min LV CO A2C 1.8 L/min LV CO BP HR A4C 62.40 BPM HR A2C 66.77 BPM LV EDV Index (BP) LA Volume LA Length A4C 5.5 cm LA Length A2C 5.3 cm LA Area A4C s 8.65 cm2 LA Area A2C s 16.93 cm2 LA Vol A4C A-L 11.52 mL LA Vol A2C A-L 45.92 mL LA Vol Biplane A-L 23.5 mL LA Vol/BSA A4C A-L LA Vol/BSA A2C A-L LA Vol/BSA BP A-L 14.3 mL/m2 LA Vol A4C MOD 10.8 mL LA Vol A2C MOD 43.6 mL LA Vol BP MOD 22.0 mL RA Volume RA Area A4C 11.1 cm2 RA ESV A4C (A-L) 27.0mL RA Vol/BSA A4C A-L RA Length A4C 3.9 cm RA ESV A4C (MOD) 25.4mL LV Diastology MV E' medial 0.046 (>0.07 m/s) MV E Vmax 0.70 (0.4-1.3 m/s) MV E/E' MED 15.15 (<14) MV A Vmax 1.15 (0.4-1.3 m/s) MV E' lateral 0.074 (>0.1 m/s) E/A Ratio 0.6 MV E/E' LAT 9.38 (<14) MV E' Average 0.060 m/s MV E/E'(average) 11.59 Aortic Valve AoV Vmax 1.47 m/s LVOT Vmax 1.00 m/s AoV Peak Grad 8.6 mmHg LVOT Peak Grad 4.0 mmHg AoV Area (Vmax) 1.17 cm2 LVOT VTI 0.245 m AoV VTI 0.352 m LVOT Mean Grad 2.2 mmHg AoV Mean Elder. 1.04 m/s LVOT SV 41.86 mL AoV Mean Grad 4.8 mmHg LVOT Diam s 1.45 cm AoV Area (VTI) 1.19 cm2 Velocity Ratio 0.68 Mitral Valve MV DT 358 (160-240 msec) MV Vmax TIPS 1.01 m/s MV Mean Grad 1.3 (<2mmHg) MV VTI 0.319 m Pulmonary Valve PV Vmax 0.80 (0.5-1.5 m/s) RVOT Vmax 0.51 m/s PV Peak Grad 2.5 mmHg RVOT Peak Gr. 1.0 mmHg PV Mean Elder 0.55 m/s RVOT VTI 0.124 m PV Mean Grad 1.4 mmHg RVOT Mean Gr. 0.6 mmHg Tricuspid Valve RA Pressure 3.00 mmHg TR Vmax 2.27 m/s TR Peak Grad 20.6 mmHg RVSP (TR) 23.6 mmHg
== END ==
PROVIDERS: PCP Family Medicine; Visit Provider Internal Medicine Medical Oncology
DX: Z79.899 Other long term (current) drug therapy (principal)
CPT/HCPCS: 93306

== ENCOUNTER 2023-10-14 03:44 | Outpatient (RCR) | payer MEDICARE, SELFPAY ==
[2023-09-24] MEDS: Normal Saline Flush 10 ML SYR IVP (11:02)
[2023-09-24 11:18] LABS: Abs Immature Grans 0.04 10^3/uL (0.0-0.06); Absolute Basophil Count 0.04 10^3/uL (0.0-0.2); Absolute Eosinophil Count 0.48 10^3/uL (0.0-0.7); Absolute Lymphocyte Count 1.18 10^3/uL (1.2-3.4); Absolute Monocyte Count 0.65 10^3/uL (0.1-0.8); Absolute Neutrophil Count 4.25 10^3/uL (1.2-6.7); Basophils % 0.6; Eosinophils % 7.2; HCT 34.8 % (36.0-46.0); HGB 11.4 g/dL (11.2-15.7); Immature Grans % 0.6; Lymphocytes % 17.8; MCH 28.9 pg (27.0-33.0); MCHC 32.8 % (32.0-36.0); MCV 88 fL (80-95); MPV 9.1 fL (8.0-11.0); Monocytes % 9.8; Platelet Count 176 10^3/uL (130-400); RBC 3.94 10^6/uL (3.93-5.22); RDW 13.6 % (11.7-14.6); RDW-SD 44.2 fL; WBC 6.64 10^3/uL (4.4-10.8)
[2023-09-24 11:45] LABS: ALT 23 U/L (14-59); AST 24 U/L (15-37); Albumin 3.1 g/dL (3.4-5.0); Alkaline Phosphatase 73 U/L (46-116); Anion Gap 8.7 mmol/L (3-11); BUN 15 mg/dL (7-18); Bilirubin, Total 0.7 mg/dL (0.2-1.0); CO2 25.3 mmol/L (21.0-32.0); CREATININE 0.9 mg/dL (0.55-1.02); Calcium 8.7 mg/dL (8.5-10.1); Chloride 101 mmol/L (98-107); Estimated GFR 62.65 (mL/min/1.73m2); FREE T4 2.02 ng/dL (0.76-1.46); Glucose 127 mg/dL (74-106); Magnesium 1.8 mg/dL (1.8-2.4); Potassium 4.2 mmol/L (3.5-5.1); Sodium 135 mmol/L (136-145); TSH 0.02 uIU/mL (0.36-3.74); Total Protein 6.4 g/dL (6.4-8.2)
[2023-10-14] MEDS: Normal Saline Flush 10 ML SYR IVP (09:56)
[2023-10-14 10:26] LABS: Abs Immature Grans 0.04 10^3/uL (0.0-0.06); Absolute Basophil Count 0.04 10^3/uL (0.0-0.2); Absolute Eosinophil Count 0.51 10^3/uL (0.0-0.7); Absolute Lymphocyte Count 1.22 10^3/uL (1.2-3.4); Absolute Monocyte Count 0.51 10^3/uL (0.1-0.8); Absolute Neutrophil Count 3.47 10^3/uL (1.2-6.7); Basophils % 0.7; Eosinophils % 8.8; HCT 34.8 % (36.0-46.0); HGB 11.5 g/dL (11.2-15.7); Immature Grans % 0.7; Lymphocytes % 21.1; MCV 88 fL (80-95); MPV 8.6 fL (8.0-11.0); Monocytes % 8.8; Neutrophils % 59.9; Platelet Count 173 10^3/uL (130-400); RBC 3.96 10^6/uL (3.93-5.22); RDW 13.8 % (11.7-14.6); RDW-SD 44.7 fL; WBC 5.79 10^3/uL (4.4-10.8)
[2023-10-14 10:55] LABS: ALT 17 U/L (14-59); AST 18 U/L (15-37); Albumin 3.4 g/dL (3.4-5.0); Alkaline Phosphatase 77 U/L (46-116); Anion Gap 9.1 mmol/L (3-11); BUN 13 mg/dL (7-18); Bilirubin, Total 0.6 mg/dL (0.2-1.0); CO2 26.9 mmol/L (21.0-32.0); Calcium 9.5 mg/dL (8.5-10.1); Chloride 100 mmol/L (98-107); Estimated GFR 55.21 (mL/min/1.73m2); FREE T4 1.86 ng/dL (0.76-1.46); Glucose 125 mg/dL (74-106); Magnesium 1.8 mg/dL (1.8-2.4); Potassium 4.2 mmol/L (3.5-5.1); Sodium 136 mmol/L (136-145); TSH 0.01 uIU/mL (0.36-3.74); Total Protein 6.9 g/dL (6.4-8.2)
== END 2023-10-23 23:59 | disposition home or self-care (01) ==
LOC: INF 03:44
PROVIDERS: Nurse Practitioner Family; PCP Family Medicine; Visit Provider Internal Medicine Medical Oncology
DX: C34.91 Malignant neoplasm of unspecified part of right bronchus or lung (principal); C50.812 Malignant neoplasm of overlapping sites of left female breast; Z17.0 Estrogen receptor positive status [ER+]; Z79.899 Other long term (current) drug therapy; Z45.2 Encounter for adjustment and management of vascular access device
CPT/HCPCS: 36591; 80053; 83735; 84439; 84443; 85025

== ENCOUNTER → 2023-10-29 02:55 | Outpatient (CLI) | payer MEDICARE, SELFPAY ==
[2023-10-29] MEDS: Omnipaque 350 MG/ML 100 ML BTL 70 ML IJ (10:24)
[2023-10-29] MEDS: Normal Saline - Diluent 50 ML VIAL IJ (10:24)
--- NOTE | 2023-10-29 10:40 | DI.CT_ITS ---
Exam(s) CT CHEST W EXAM: CT CHEST W CLINICAL HISTORY: C34.91 RT LUNG CA, ASSESS TREATMENT RESPONSE TECHNIQUE: Imaging Protocol: Axial computed tomography images with coronal and sagittal reformatted images were created and reviewed CONTRAST MATERIAL: Intravenous: Omnipaque 350 Contrast volume:structured data ml. COMPARISON: CT CT CHEST W from 02/22/[address] CHEST W from 08/07/2023 FINDINGS: Pulmonary parenchyma: No consolidation. Interstitial changes again noted. Subpleural scarring anterio r left upper lobe.Stable densities at anterior left lung base. Stable 6 millimeter nodule anterior right upper lobe. Stable nodule with small cavity posterior right lower lobe. Slight interval increase in size of peripheral right middle lobe nodule, now measuring 6 x 9 millimeters compared to 7 millimeters on prior. Tracheobronchial tree: No bronchiectasis or mucous plugging. Mediastinum and Anita: Stable small mediastinal lymph nodes. Pleura: No effusion. No pneumothorax. Heart: The heart is not dilated. Severe coronary artery calcifications are seen. Aorta: Thoracic aorta non-dilated. Severe atherosclerotic changes. Stent in upper abdominal aorta. Upper abdomen: No acute findings.. Small hiatal hernia. Bones: Mild degenerative changes in the spine. No lytic or blastic lesions. Soft tissues: Left mastectomy. Skin thickening right breast, similar to prior. Port over right ch est. IMPRESSION: Mild interval increase in size of right middle lobe nodule. Remaining lung findings are stable. RADIATION DOSE DELIVERED: 447.53mGy.cm Total DLP DATA REPOSITORY: All CT scans at this facility are submitted to the National Radiology Data Registry (NRDR) Dose Index Registry (DIR) with the [employer] (ACR). RADIATION OPTIMIZATION: All CT scans at this facility use at least one of these dose optimization te chniques: automated exposure control; mA and/or kV adjustment per patient size (includes targeted exa ms where dose is matched to clinical indication); or iterative reconstruction.
== END ==
PROVIDERS: PCP Family Medicine; Visit Provider Nurse Practitioner Family
DX: R91.1 Solitary pulmonary nodule (principal)
CPT/HCPCS: 96523; 71260; J3490

== ENCOUNTER 2023-11-04 02:35 | Outpatient (RCR) | payer MEDICARE, SELFPAY ==
[2023-10-29] MEDS: Normal Saline Flush 10 ML SYR IVP (10:25)
[2023-11-04] MEDS: Normal Saline Flush 10 ML SYR IVP (10:01)
[2023-11-04 10:06] LABS: Abs Immature Grans 0.05 10^3/uL (0.0-0.06); Absolute Basophil Count 0.06 10^3/uL (0.0-0.2); Absolute Eosinophil Count 0.61 10^3/uL (0.0-0.7); Absolute Lymphocyte Count 1.31 10^3/uL (1.2-3.4); Absolute Monocyte Count 0.57 10^3/uL (0.1-0.8); Absolute Neutrophil Count 4.07 10^3/uL (1.2-6.7); Basophils % 0.9; Eosinophils % 9.1; HCT 35.5 % (36.0-46.0); HGB 11.7 g/dL (11.2-15.7); Immature Grans % 0.7; Lymphocytes % 19.6; MCH 28.7 pg (27.0-33.0); MCV 87 fL (80-95); MPV 9.4 fL (8.0-11.0); Monocytes % 8.5; Neutrophils % 61.2; Platelet Count 171 10^3/uL (130-400); RBC 4.07 10^6/uL (3.93-5.22); RDW 14.1 % (11.7-14.6); RDW-SD 44.9 fL; WBC 6.67 10^3/uL (4.4-10.8)
[2023-11-04 10:30] LABS: ALT 28 U/L (14-59); AST 24 U/L (15-37); Albumin 3.3 g/dL (3.4-5.0); Alkaline Phosphatase 94 U/L (46-116); Anion Gap 9.4 mmol/L (3-11); BUN 13 mg/dL (7-18); Bilirubin, Total 0.6 mg/dL (0.2-1.0); CO2 25.6 mmol/L (21.0-32.0); CREATININE 1.1 mg/dL (0.55-1.02); Calcium 9.2 mg/dL (8.5-10.1); Chloride 100 mmol/L (98-107); Estimated GFR 49.24 (mL/min/1.73m2); FREE T4 1.34 ng/dL (0.76-1.46); Glucose 168 mg/dL (74-106); Magnesium 1.9 mg/dL (1.8-2.4); Potassium 4.4 mmol/L (3.5-5.1); Sodium 135 mmol/L (136-145); TSH 0.07 uIU/mL (0.36-3.74); Total Protein 6.8 g/dL (6.4-8.2)
== END 2023-11-21 23:59 | disposition home or self-care (01) ==
LOC: INF 02:35
PROVIDERS: PCP Family Medicine; Visit Provider Internal Medicine Medical Oncology
DX: C34.91 Malignant neoplasm of unspecified part of right bronchus or lung (principal); C50.812 Malignant neoplasm of overlapping sites of left female breast; Z17.0 Estrogen receptor positive status [ER+]; Z79.899 Other long term (current) drug therapy; Z45.2 Encounter for adjustment and management of vascular access device
CPT/HCPCS: 36591; 80053; 96523; 83735; 84439; 84443; 85025

== ENCOUNTER 2023-12-18 04:30 | Outpatient (RCR) | payer MEDICARE, SELFPAY ==
[2023-12-09] MEDS: Normal Saline Flush 10 ML SYR IVP (09:21)
[2023-12-09 09:39] LABS: Abs Immature Grans 0.06 10^3/uL (0.0-0.06); Absolute Basophil Count 0.07 10^3/uL (0.0-0.2); Absolute Eosinophil Count 0.61 10^3/uL (0.0-0.7); Absolute Lymphocyte Count 1.46 10^3/uL (1.2-3.4); Absolute Monocyte Count 0.49 10^3/uL (0.1-0.8); Absolute Neutrophil Count 3.57 10^3/uL (1.2-6.7); Basophils % 1.1; Eosinophils % 9.7; HCT 36.7 % (36.0-46.0); Lymphocytes % 23.3; MCH 28.8 pg (27.0-33.0); MCHC 32.7 % (32.0-36.0); MCV 88 fL (80-95); Monocytes % 7.8; Neutrophils % 57.1; Platelet Count 158 10^3/uL (130-400); RBC 4.16 10^6/uL (3.93-5.22); RDW-SD 47.9 fL; WBC 6.26 10^3/uL (4.4-10.8)
[2023-12-09 10:14] LABS: ALT 25 U/L (14-59); AST 25 U/L (15-37); Albumin 3.4 g/dL (3.4-5.0); Alkaline Phosphatase 101 U/L (46-116); Anion Gap 8.1 mmol/L (3-11); BUN 17 mg/dL (7-18); Bilirubin, Total 0.6 mg/dL (0.2-1.0); CO2 26.9 mmol/L (21.0-32.0); CREATININE 1.3 mg/dL (0.55-1.02); Chloride 100 mmol/L (98-107); FREE T4 1.45 ng/dL (0.76-1.46); Glucose 144 mg/dL (74-106); Magnesium 2.1 mg/dL (1.8-2.4); Potassium 4.4 mmol/L (3.5-5.1); Sodium 135 mmol/L (136-145); TSH 0.26 uIU/Ml (0.36-3.74); Total Protein 6.9 g/dL (6.4-8.2)
[2023-12-18 08:24] LABS: Abs Immature Grans 0.16 10^3/uL (0.0-0.06); Absolute Basophil Count 0.07 10^3/uL (0.0-0.2); Absolute Eosinophil Count 0.44 10^3/uL (0.0-0.7); Absolute Lymphocyte Count 1.35 10^3/uL (1.2-3.4); Absolute Monocyte Count 0.65 10^3/uL (0.1-0.8); Absolute Neutrophil Count 7.04 10^3/uL (1.2-6.7); Basophils % 0.7; Eosinophils % 4.5; HCT 36.8 % (36.0-46.0); HGB 12.3 g/dL (11.2-15.7); Immature Grans % 1.6; Lymphocytes % 13.9; MCH 29.1 pg (27.0-33.0); MCHC 33.4 % (32.0-36.0); MCV 87 fL (80-95); MPV 9.3 fL (8.0-11.0); Monocytes % 6.7; Neutrophils % 72.6; Platelet Count 162 10^3/uL (130-400); RBC 4.23 10^6/uL (3.93-5.22); RDW 15.3 % (11.7-14.6); RDW-SD 48.6 fL; WBC 9.71 10^3/uL (4.4-10.8)
[2023-12-18 08:54] LABS: ALT 27 U/L (14-59); AST 23 U/L (15-37); Albumin 3.2 g/dL (3.4-5.0); Alkaline Phosphatase 93 U/L (46-116); Anion Gap 8.1 mmol/L (3-11); BUN 20 mg/dL (7-18); Bilirubin, Total 0.8 mg/dL (0.2-1.0); CO2 25.9 mmol/L (21.0-32.0); CREATININE 1.2 mg/dL (0.55-1.02); Calcium 8.8 mg/dL (8.5-10.1); Chloride 98 mmol/L (98-107); Estimated GFR 44.36 (mL/min/1.73m2); FREE T4 1.35 ng/dL (0.76-1.46); Glucose 156 mg/dL (74-106); Magnesium 2.1 mg/dL (1.8-2.4); Potassium 4.3 mmol/L (3.5-5.1); Sodium 132 mmol/L (136-145); TSH 0.97 uIU/Ml (0.36-3.74); Total Protein 6.8 g/dL (6.4-8.2)
[2023-12-18] MEDS: Normal Saline Flush 10 ML SYR IVP (10:12)
== END 2023-12-22 23:59 | disposition home or self-care (01) ==
LOC: INF 04:30
PROVIDERS: Nurse Practitioner Family; PCP Family Medicine; Visit Provider Internal Medicine Medical Oncology
DX: C34.91 Malignant neoplasm of unspecified part of right bronchus or lung (principal); C50.812 Malignant neoplasm of overlapping sites of left female breast; Z79.899 Other long term (current) drug therapy; Z17.0 Estrogen receptor positive status [ER+]; Z45.2 Encounter for adjustment and management of vascular access device
CPT/HCPCS: 36591; 80053; 83735; 84439; 84443; 85025

== ENCOUNTER → 2024-01-14 03:47 | Outpatient (CLI) | payer MEDICARE, SELFPAY ==
--- NOTE | 2024-01-14 | DI.US_ITS ---
APPROVED REPORT EXAM: Comprehensive 2D, Doppler, and color-flow Echocardiogram Patient Location: Out-Patient Canal Boat Captain: Erlinda Washington RDCS ([facility]) Indications: Breast Cancer, High risk medication use, s/p Chemo Other Information Study Quality: Adequate Conclusion Normal left ventricular wall thickness and chamber size. EF is 52 %. There are no segmental wall trevor on abnormalities Normal right ventricular size and function Both atria are normal in sizwe The aorti cvalve is sclerotic and trileaflet without stenosis or regurgitation Mild mitral and tricuspid regurgitation Estimated right ventricular systolic pressure is 32 mmHg Wall motion Left Ventricle The left ventricle is normal size. The left ventricular systolic function is normal. The left ventric ular ejection fraction is within the normal range. There is normal left ventricular wall thickness. T here is normal LV segmental wall motion. There is no ventricular septal defect visualized. LVEF is 52 %. Right Ventricle The right ventricle is normal size. The right ventricular systolic function is normal. Atria The left atrium size is normal. The right atrium size is normal. The interatrial septum is intact wit h no evidence for an atrial septal defect. Aortic Valve The Aortic valve is sclerotic. Aortic valve is trileaflet. There is no aortic valvular stenosis. No a ortic regurgitation is present. Mitral Valve The mitral valve is normal in structure. No evidence of mitral valve stenosis. Mild mitral regurgitat ion. Tricuspid Valve The tricuspid valve is normal in structure. There is no tricuspid valve stenosis. Mild tricuspid regu rgitation. The RVSP is 32.6 mmHg. Pulmonic Valve The pulmonary valve is normal in structure. There is no pulmonic valvular stenosis. Trace pulmonic re gurgitation. Great Vessels The aortic root is normal in size. The ascending aorta is normal Aortic arch is normal in caliber. IV C is normal in size and collapses >50% with inspiration. Pericardium There is no pericardial effusion. 2D Dimensions IVSD d PLAX 0.60 cm F: 0.6-1.0 Ao Root d 2.74 cm F: 2.7 - 3.3 LVPW d PLAX 0.65 cm F: 0.6 - 1.0 Ao Asc Diam d 3.25 cm F: 2.3 - 3.1 LVID d PLAX 4.47 cm F: 3.8 - 5.2 LVDs 3.29 cm F: 2.2 - 3.5 LV EF Teichholz 52.0 % FS 26.48 % LV EDV (Teich) 91.0 mL LV ESV (Teich) 43.7 mL M-Mode TAPSE 2.34 cm (M/F) >1.7 Auto EF LV EDV A4C 82.2 mL LV EDV A2C 58.9 mL LV EDV BP 71.8 mL LV ESV A4C 40.6 mL LV ESV A2C 29.3 mL LV ESV BP 34.5 mL LVEF(%) A4C 50.6 % LVEF(%) A2C 50.2 % LVEF(%) BP 51.9 % LV SV A4C 41.6 ml LV SV A2C 29.5 ml LV SV BP 37.3 ml LV CO A4C 2.8 L/min LV CO A2C 1.9 L/min LV CO BP 2.4 L/min HR A4C 67.30 BPM HR A2C 65.94 BPM LV EDV Index (BP) LV Strain Long Pk Overal Avg (s) 16.35 RV Strain Global Peak Long. Strain A4C 21.95 Global Peak Long. Strain A4C FW 29.57 LA Volume LA Length A4C 5.5 cm LA Length A2C 4.4 cm LA Area A4C s 15.55 cm2 LA Area A2C s 11.59 cm2 LA Vol A4C A-L 37.58 mL LA Vol A2C A-L 26.09 mL LA Vol Biplane A-L 35.0 mL LA Vol/BSA A4C A-L LA Vol/BSA A2C A-L LA Vol/BSA BP A-L 21.3 mL/m2 LA Vol A4C MOD 33.4 mL LA Vol A2C MOD 24.5 mL LA Vol BP MOD 31.8 mL RA Volume RA Area A4C 15.2 cm2 RA ESV A4C (A-L) 45.0mL RA Vol/BSA A4C A-L RA Length A4C 4.4 cm RA ESV A4C (MOD) 42.1mL LV Diastology MV E' medial 0.079 (>0.07 m/s) MV E Vmax 0.84 (0.4-1.3 m/s) MV E/E' MED 10.74 (<14) MV A Vmax 1.20 (0.4-1.3 m/s) MV E' lateral 0.108 (>0.1 m/s) E/A Ratio 0.7 MV E/E' LAT 7.81 (<14) MV E' Average 0.093 m/s MV E/E'(average) 9.04 Aortic Valve AoV Vmax 1.50 m/s LVOT Vmax 1.23 m/s AoV Peak Grad 9.0 mmHg LVOT Peak Grad 6.0 mmHg AoV Area (Vmax) 2.55 cm2 LVOT VTI 0.251 m AoV VTI 0.277 m LVOT Mean Grad 2.9 mmHg AoV Mean Elder. 1.01 m/s LVOT SV 78.21 mL AoV Mean Grad 4.7 mmHg LVOT Diam s 1.95 cm AoV Area (VTI) 2.82 cm2 Velocity Ratio 0.82 Mitral Valve MV DT 313 (160-240 msec) MV Vmax TIPS 1.26 m/s MV Mean Grad 2.6 (<2mmHg) MV VTI 0.323 m Pulmonary Valve PV Vmax 0.72 (0.5-1.5 m/s) RVOT Vmax 0.44 m/s PV Peak Grad 2.1 mmHg RVOT Peak Gr. 0.8 mmHg PV Mean Elder 0.53 m/s RVOT VTI 0.102 m PV Mean Grad 1.3 mmHg RVOT Mean Gr. 0.5 mmHg Tricuspid Valve RA Pressure 3.00 mmHg TR Vmax 2.72 m/s TV S' 0.12 m/s TR Peak Grad 29.5 mmHg RVSP (TR) 32.6 mmHg
--- NOTE | 2024-01-14 | DI.NM_ITS ---
Exam(s) NM BONE SCAN WHOLE BODY GRP EXAM: NM BONE SCAN WHOLE BODY GRP CLINICAL HISTORY: LUNG CANCER C34.91 BREAST CANCER C50.919. TECHNIQUE: Injected Dose: 25 mCi Tc-99m MDP Delayed Images: 2-3 hours. COMPARISON: CT CT LOWER EXTREMITY RT WO from 07/04/2022 CR XR HIP RT AP LAT ONLY from 01/15/[address] CHEST W from 10/29/2023 FINDINGS: There is focal uptake in the right-side of the midcervical spine which is probably degenerative. Jason e focal uptake is seen at the 1st carpometacarpal joints in both hands-wrist consistent with degenera tive changes. There is normal uptake in the region of the right hip which is probably related to the hardware at th is level/repair of intertrochanteric fracture. Most prominent uptake in the right hip is at the leve l of the lesser trochanter and this was fractured, as seen on prior CT scan. No abnormal uptake else where in the skeleton. There is some increased uptake seen in the right breast. Left chest reflects prior left mastectomy IMPRESSION: 1. No evidence of obvious metastatic disease. The uptake seen in the right hip is most probably relat ed to the healing intertrochanteric fracture site. 2. Noted in the right breast diffusely which may be in the skin-subcutaneous tissues. Correlation w ith clinical findings recommended. There appears to been previous left mastectomy. DATA REPOSITORY:
== END ==
PROVIDERS: PCP Family Medicine; Visit Provider Nurse Practitioner Family
DX: Z79.899 Other long term (current) drug therapy (principal); C50.919 Malignant neoplasm of unspecified site of unspecified female breast; Z92.21 Personal history of antineoplastic chemotherapy; C34.91 Malignant neoplasm of unspecified part of right bronchus or lung
CPT/HCPCS: 78306; 93306

== ENCOUNTER → 2024-01-16 04:08 | Outpatient (CLI) | payer MEDICARE, SELFPAY ==
--- NOTE | 2024-01-16 | DI.CT_ITS ---
Exam(s) CT CHEST/ABD/PEL W EXAM: CT CHEST/ABD/PEL W CLINICAL HISTORY: LUNG CA,C34.91,BREAST CA. TECHNIQUE: Imaging Protocol: Axial computed tomography images with coronal and sagittal reformatted images were created and reviewed CONTRAST MATERIAL: Intravenous: Omnipaque 350 Contrast volume:100 ml Oral: Yes. Oral contrast was also administered for bowel opacification. COMPARISON: CT CT ABDOMEN PELVIS W from 01/26/[address] CHEST W from 10/29/2023 FINDINGS: CHEST: LUNGS: Previously described pleural based chronic appearing infiltrate in the anterior segment of th e left upper lobe remains unchanged and is probably related to post radiation changes in this patient who has had prior left mastectomy. Mild increased markings in the inferior lingular segment left cameron ng again noted. There are no new focal left lung findings. No pleural effusion. In the opposite-right lung there are 3 findings again noted. The size of the peripherally located right middle lobe nodule nodular spiculated infiltrate is unchan ged from 10/29/2023. The spiculated nodular density in the right upper lobe measures 7-8 mm, also similar to the previous 10/29/2023 study. The subpleural nodular infiltrate in the right lower lobe also exhibits similar size. There are no n ew right lung nodules and there is no pleural effusion. MEDIASTINUM: There are few slightly prominent lymph nodes in the right hilum. Left hilum unremarkabl e. No subcarinal adenopathy. No adenopathy in the anterior mediastinal fat. CARDIAC: Heart size is normal. There is no pericardial effusion.Caliber of the thoracic aorta is wit hin normal limits. OSSEOUS: No significant osseous lesions.No fractures. ABDOMEN: There is no ascites. LIVER: There is again noted an area of focal hypodensity in the right hepatic lobe subcapsular area j ust above the gallbladder fossa region, similar to 01/26/2022. Suspect that this is either focal fat ty change or benign lesion such as hemangioma, given that it has not increased in size, presently aria suring approximately 2.3 by 1.3 cm. No new a for lesions identified. No dilated intrahepatic ducts. GALLBLADDER/BILIARY: No obvious acute gallbladder pathology. CBD is not dilated. PANCREAS: Atrophic appearing pancreas again noted. No pancreatic mass evident. No dilatation of the pancreatic duct. SPLEEN: Spleen is not enlarged. There are no intrasplenic lesions. Splenic and portal veins are pascual nt. ADRENALS: There are no significant new adrenal masses. KIDNEYS: Left kidney unremarkable. Benign cyst again noted in superior pole of the right kidney doug uring 3 by 2.5 cm, not requiring further workup.. No solid renal masses nor calculi nor hydronephros is on either side and no obvious findings in the urinary bladder, realizing the bladder is mostly col lapsed making evaluation of the bladder lumen difficult. ABDOMINAL AORTA: There is an aortic EVAR endo graft again noted as well as a left renal artery ostial stent again evident. The size of the chitina aortic sac is unchanged, with maximum diameter 3.2 cm,. Cannot assess for EVAR endoleak on this type of study. No evidence of obvious anastomosis (iliac l evel) leak. LYMPH NODES: There is no retroperitoneal nor paraaortic adenopathy. ABDOMINAL WALL: No evidence of significant anterior abdominal wall nor inguinal hernia. GI: There is no evidence of bowel obstruction.There are no ischemic appearing bowel loops. PELVIS: LYMPH NODES: There is no intrapelvic nor inguinal adenopathy. GI: No evidence of appendicitis.No evidence of sigmoid diverticulitis. URINARY BLADDER: No calculi nor masses evident REPRODUCTIVE: Age-appropriate. There are some dilated left periuterine veins which drain into a prominent nonthrombosed left gonadal vein which itself drains into the pre aortic left renal vein. OSSEOUS: Right hip ORIF hardware. No fractures. No significant osseous lesions there is degenerativ e anterolisthesis L5 upon S1 as well as advanced disc space narrowing at this level. Other disc exhi bit normal height and no slippage. There are no pars defects evident. IMPRESSION: 1. Three nodular infiltrates in the right lung are unchanged from CT scan of 10/29/2023. No new lung nodules, infiltrates, nor pleural effusions in either lung field. 2. Stable appearance of area of abnormal hypodensity in the liver adjacent to the gallbladder fossa. This finding is most probably benign given absence of change from CT scan of 2021. 3. Stable appearance of the aortic EVAR. No increasing size of the surrounding chitina aortic sac 4. Other findings as above. RADIATION DOSE DELIVERED: 1,321.25mGy.cm Total DLP DATA REPOSITORY: All CT scans at this facility are submitted to the National Radiology Data Registry (NRDR) Dose Index Registry (DIR) with the [employer] (ACR). RADIATION OPTIMIZATION: All CT scans at this facility use at least one of these dose optimization te chniques: automated exposure control; mA and/or kV adjustment per patient size (includes targeted exa ms where dose is matched to clinical indication); or iterative reconstruction.
[2024-01-16] MEDS: Barium Sulfate 2% W/V-Berry Smoothie 450 ML BTL PO ×2 (09:42→09:43)
[2024-01-16] MEDS: Normal Saline - Diluent 50 ML VIAL IJ (11:14)
[2024-01-16] MEDS: Omnipaque 350 MG/ML 500 ML BTL-Imaging package IJ (11:15)
== END ==
PROVIDERS: PCP Family Medicine; Visit Provider Nurse Practitioner Family
DX: R91.1 Solitary pulmonary nodule (principal); R93.2 Abnormal findings on diagnostic imaging of liver and biliary tract; I71.40 Abdominal aortic aneurysm, without rupture, unspecified
CPT/HCPCS: 74177; 96523; 71260

== ENCOUNTER 2024-01-20 05:26 | Outpatient (RCR) | payer MEDICARE, SELFPAY ==
[2024-01-16] MEDS: Normal Saline Flush 10 ML SYR IVP (08:38)
[2024-01-20] MEDS: Normal Saline Flush 10 ML SYR IVP (10:36)
[2024-01-20 11:21] LABS: Abs Immature Grans 0.06 10^3/uL (0.0-0.06); Absolute Basophil Count 0.07 10^3/uL (0.0-0.2); Absolute Eosinophil Count 0.69 10^3/uL (0.0-0.7); Absolute Monocyte Count 0.53 10^3/uL (0.1-0.8); Absolute Neutrophil Count 3.61 10^3/uL (1.2-6.7); Basophils % 1.1; Eosinophils % 10.7; HCT 36.6 % (36.0-46.0); HGB 12.1 g/dL (11.2-15.7); Immature Grans % 0.9; Lymphocytes % 23.2; MCH 29.1 pg (27.0-33.0); MCHC 33.1 % (32.0-36.0); MCV 88 fL (80-95); MPV 9.1 fL (8.0-11.0); Monocytes % 8.2; Neutrophils % 55.9; Platelet Count 167 10^3/uL (130-400); RBC 4.16 10^6/uL (3.93-5.22); RDW 15.3 % (11.7-14.6); RDW-SD 49.3 fL; WBC 6.46 10^3/uL (4.4-10.8)
[2024-01-20 12:06] LABS: ALT 28 U/L (14-59); AST 26 U/L (15-37); Albumin 3.5 g/dL (3.4-5.0); Alkaline Phosphatase 95 U/L (46-116); Anion Gap 8.6 mmol/L (3-11); BUN 13 mg/dL (7-18); Bilirubin, Total 0.5 mg/dL (0.2-1.0); CO2 25.4 mmol/L (21.0-32.0); CREATININE 1.1 mg/dL (0.55-1.02); Calcium 8.9 mg/dL (8.5-10.1); Chloride 98 mmol/L (98-107); Estimated GFR 49.24 (mL/min/1.73m2); FREE T4 1.25 ng/dL (0.76-1.46); Glucose 146 mg/dL (74-106); Potassium 4.6 mmol/L (3.5-5.1); Sodium 132 mmol/L (136-145); TSH 1.88 uIU/Ml (0.36-3.74); Total Protein 7.1 g/dL (6.4-8.2)
== END 2024-01-21 23:59 | disposition home or self-care (01) ==
LOC: INF 05:26
PROVIDERS: PCP Family Medicine; Visit Provider Internal Medicine Medical Oncology
DX: C34.91 Malignant neoplasm of unspecified part of right bronchus or lung (principal); E03.9 Hypothyroidism, unspecified
CPT/HCPCS: 36591; 80053; 96523; 83735; 84439; 84443; 85025

== ENCOUNTER 2024-02-19 04:56 | Outpatient (RCR) | payer MEDICARE, SELFPAY ==
[2024-02-19] MEDS: Normal Saline Flush 10 ML SYR IVP (08:22)
[2024-02-19 08:43] LABS: Abs Immature Grans 0.04 10^3/uL (0.0-0.06); Absolute Basophil Count 0.04 10^3/uL (0.0-0.2); Absolute Lymphocyte Count 1.28 10^3/uL (1.2-3.4); Absolute Monocyte Count 0.47 10^3/uL (0.1-0.8); Absolute Neutrophil Count 3.48 10^3/uL (1.2-6.7); Basophils % 0.7 %; Eosinophils % 10.2 %; HCT 36.6 % (36.0-46.0); Immature Grans % 0.7 %; Lymphocytes % 21.7 %; MCH 28.7 pg (27.0-33.0); MCHC 32.8 % (32.0-36.0); MCV 88 fL (80-95); MPV 8.8 fL (8.0-11.0); Neutrophils % 58.7 %; Platelet Count 163 10^3/uL (130-400); RBC 4.18 10^6/uL (3.93-5.22); RDW 14.9 % (11.7-14.6); WBC 5.91 10^3/uL (4.4-10.8)
[2024-02-19 09:07] LABS: ALT 28 U/L (14-59); AST 21 U/L (15-37); Albumin 3.4 g/dL (3.4-5.0); Alkaline Phosphatase 91 U/L (46-116); Anion Gap 9.1 mmol/L (3-11); BUN 11 mg/dL (7-18); Bilirubin, Total 0.6 mg/dL (0.2-1.0); CO2 24.9 mmol/L (21.0-32.0); CREATININE 1.1 mg/dL (0.55-1.02); Calcium 8.9 mg/dL (8.5-10.1); Chloride 98 mmol/L (98-107); Estimated GFR 49.24 (mL/min/1.73m2); FREE T4 1.32 ng/dL (0.76-1.46); Glucose 140 mg/dL (74-106); Magnesium 1.8 mg/dL (1.8-2.4); Potassium 4.5 mmol/L (3.5-5.1); Sodium 132 mmol/L (136-145); TSH 1.52 uIU/Ml (0.36-3.74); Total Protein 6.8 g/dL (6.4-8.2)
== END 2024-02-21 23:59 | disposition home or self-care (01) ==
LOC: INF 04:56
PROVIDERS: Nurse Practitioner Family; PCP Family Medicine; Visit Provider Internal Medicine Medical Oncology
DX: C34.91 Malignant neoplasm of unspecified part of right bronchus or lung (principal); E03.9 Hypothyroidism, unspecified; Z79.899 Other long term (current) drug therapy; Z45.2 Encounter for adjustment and management of vascular access device
CPT/HCPCS: 36591; 80053; 83735; 84439; 84443; 85025

== ENCOUNTER → 2024-03-10 03:05 | Outpatient (CLI) | payer MEDICARE, SELFPAY ==
--- NOTE | 2024-03-10 | DI.CT_ITS ---
Exam(s) CT CHEST/ABD/PEL W EXAM: CT CHEST/ABD/PEL W CLINICAL HISTORY: Stage IV rt lung CA, C34.91, Lt breast malignant neoplasm, overlapping site. 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 No pleural effusion. Small nodular infiltrate laterally in the left upper lobe is also unchanged. In the opposite-right lung the spiculated nodular density in the right upper lobe again measures 7 mm , unchanged. The pleural based nodular infiltrate in the right lower lobe also appears unchanged as does the subpleural nodular infiltrate in the lateral segment of the right middle lobe. There are no new right lung findings and no pleural effusion. MEDIASTINUM: No new hilar nor mediastinal adenopathy. These areas appear stable. There is no axilla ry adenopathy. There is no supraclavicular adenopathy. CARDIAC: Heart size upper normal. There is no pericardial effusion.Caliber of the thoracic aorta is within normal limits with the exception of the lower most thoracic aorta which again becomes aneurysm al at the level of the diaphragm sondra. OSSEOUS: No significant osseous lesions.No fractures.. ABDOMEN: ABDOMINAL AORTA: There is again noted is abdominal aortic evar which starts just below the takeoff po int of the and superior mesenteric artery. There is a left renal artery ostial stent also seen. The maximum diameter of the [place] aortic sac is unchanged, at 3.2 cm. Cannot assess accurately for end oleak on this type of study. LIVER: The previously described subcapsular area of hypodensity in the liver just above the gallbladd er fossa is again noted, and still unchanged from January 2022. Probably represent benign process such as focal fatty change or hemangioma given its lack of change. There are no dilated intrahepatic ducts. GALLBLADDER/BILIARY: There are small gallstones now on noted on the dependent wall the gallbladder. No gallbladder wall edema nor pericholecystic fluid. CBD is not dilated. PANCREAS: Pancreas is again noted to be atrophic. No evidence of mass. No peripancreatic fluid breann ection. SPLEEN: Spleen is not enlarged. There are no intrasplenic lesions. Splenic and portal veins are pascual nt. ADRENALS: There are no significant adrenal masses. KIDNEYS: Benign cyst in the superior pole of the right kidney measuring 3 cm again noted. Does not r equire further workup. No other focal renal findings. No calculi. No hydronephrosis nor hydrourete r.. LYMPH NODES: There is no retroperitoneal nor paraaortic adenopathy. ABDOMINAL WALL: No evidence of significant anterior abdominal wall nor inguinal hernia. GI: There is no evidence of bowel obstruction. PELVIS: LYMPH NODES: There is no intrapelvic nor inguinal adenopathy. GI: No evidence of appendicitis.Sigmoid diverticulosis but without evidence of acute diverticulitis. URINARY BLADDER: No calculi nor masses evident REPRODUCTIVE: Uterus and adnexal regions unremarkable the exception of some pelvic congestion syndrom e dilated veins in both adnexal regions. No free fluid in the pelvis. OSSEOUS: No significant osseous lesions. No fractures. There is degenerative anterolisthesis of L5 upon S1 by approximately 1 cm and there is significant disc space narrowing at this level. Right hip ORIF hardware noted. IMPRESSION: 1. No new intrathoracic findings. Previously described nodular densities bilaterally as well subpleu ral infiltrate in the anterior segment of the left upper lobes adjacent to the mastectomy site are un changed. There are no new lung nodules, new infiltrates nor pleural effusions. No new intrathoracic adenopathy. 2. Cholelithiasis evident. Small gallstones are seen layering on the dependent wall the gallbladder. There is no evidence of acute cholecystitis nor dilatation of the CBD and intrahepatic ducts. 3. Stable appearance of area of abnormal hypodensity in the liver adjacent to the gallbladder fossa, most probably a benign process given that is unchanged from CT scan of 2021. 4. Stable appearance of the aortic EVAR and left renal artery stent, as well as no increasing size of the surrounding [place] aortic sac. 5. Other findings as above. RADIATION DOSE DELIVERED: 1,518.64mGy.cm Total DLP DATA REPOSITORY: All CT scans at this facility are submitted to the National Radiology Data Registry (NRDR) Dose Index Registry (DIR) with the [employer] (ACR). RADIATION OPTIMIZATION: All CT scans at this facility use at least one of these dose optimization te chniques: automated exposure control; mA and/or kV adjustment per patient size (includes targeted exa ms where dose is matched to clinical indication); or iterative reconstruction.
[2024-03-10] MEDS: Barium Sulfate 2% W/V-Berry Smoothie 450 ML BTL PO (11:58)
[2024-03-10] MEDS: Barium Sulfate 2% W/V-Creamy Vanilla Smoothie 450 ML BTL PO (11:59)
[2024-03-10] MEDS: Omnipaque 350 MG/ML 100 ML BTL IJ (12:56)
[2024-03-10] MEDS: Normal Saline - Diluent 50 ML VIAL IJ (12:57)
== END ==
PROVIDERS: PCP Family Medicine; Visit Provider Nurse Practitioner Family
DX: C34.91 Malignant neoplasm of unspecified part of right bronchus or lung (principal)
CPT/HCPCS: 74177; 96523; 71260; J3490

== ENCOUNTER 2024-03-16 02:44 | Outpatient (RCR) | payer MEDICARE, SELFPAY ==
[2024-03-10] MEDS: Normal Saline Flush 10 ML SYR IVP (10:37)
[2024-03-16] MEDS: Normal Saline Flush 10 ML SYR IVP (08:31)
[2024-03-16 08:55] LABS: Abs Immature Grans 0.09 10^3/uL (0.0-0.06); Absolute Basophil Count 0.07 10^3/uL (0.0-0.2); Absolute Eosinophil Count 0.63 10^3/uL (0.0-0.7); Absolute Lymphocyte Count 1.15 10^3/uL (1.2-3.4); Absolute Monocyte Count 0.49 10^3/uL (0.1-0.8); Basophils % 1.2 %; Eosinophils % 10.4 %; HCT 35.8 % (36.0-46.0); HGB 11.6 g/dL (11.2-15.7); Immature Grans % 1.5 %; Lymphocytes % 19.1 %; MCH 28.9 pg (27.0-33.0); MCHC 32.4 % (32.0-36.0); MCV 89 fL (80-95); MPV 8.9 fL (8.0-11.0); Monocytes % 8.1 %; Neutrophils % 59.7 %; Platelet Count 156 10^3/uL (130-400); RBC 4.01 10^6/uL (3.93-5.22); WBC 6.03 10^3/uL (4.4-10.8)
[2024-03-16 09:25] LABS: ALT 24 U/L (14-59); AST 22 U/L (15-37); Albumin 3.5 g/dL (3.4-5.0); Alkaline Phosphatase 88 U/L (46-116); Anion Gap 8.5 mmol/L (3-11); BUN 15 mg/dL (7-18); Bilirubin, Total 0.48 mg/dL (0.2-1.0); CO2 26.5 mmol/L (21.0-32.0); CREATININE 1.3 mg/dL (0.55-1.02); Chloride 102 mmol/L (98-107); FREE T4 1.37 ng/dL (0.76-1.46); Glucose 126 mg/dL (74-106); Magnesium 1.9 mg/dL (1.8-2.4); Potassium 4.5 mmol/L (3.5-5.1); Sodium 137 mmol/L (136-145); TSH 1.08 uIU/Ml (0.36-3.74); Total Protein 6.6 g/dL (6.4-8.2)
== END 2024-03-22 23:59 | disposition home or self-care (01) ==
LOC: INF 02:44
PROVIDERS: Nurse Practitioner Family; PCP Family Medicine; Visit Provider Internal Medicine Medical Oncology
DX: E03.9 Hypothyroidism, unspecified (principal); Z45.2 Encounter for adjustment and management of vascular access device; C34.91 Malignant neoplasm of unspecified part of right bronchus or lung
CPT/HCPCS: 36591; 80053; 96523; 83735; 84439; 84443; 85025

== ENCOUNTER 2024-04-13 01:35 | Outpatient (RCR) | payer MEDICARE, SELFPAY ==
[2024-04-13] MEDS: Normal Saline Flush 10 ML SYR IVP (09:06)
[2024-04-13 09:30] LABS: Abs Immature Grans 0.07 10^3/uL (0.0-0.06); Absolute Basophil Count 0.06 10^3/uL (0.0-0.2); Absolute Eosinophil Count 0.56 10^3/uL (0.0-0.7); Absolute Lymphocyte Count 1.33 10^3/uL (1.2-3.4); Absolute Monocyte Count 0.47 10^3/uL (0.1-0.8); Eosinophils % 9.2 %; HCT 35.6 % (36.0-46.0); HGB 11.6 g/dL (11.2-15.7); Immature Grans % 1.1 %; Lymphocytes % 21.8 %; MCH 29.2 pg (27.0-33.0); MCHC 32.6 % (32.0-36.0); MCV 90 fL (80-95); MPV 8.9 fL (8.0-11.0); Monocytes % 7.7 %; Neutrophils % 59.2 %; Platelet Count 145 10^3/uL (130-400); RBC 3.97 10^6/uL (3.93-5.22); RDW 15.2 % (11.7-14.6); RDW-SD 49.5 fL; WBC 6.09 10^3/uL (4.4-10.8)
[2024-04-13 09:52] LABS: ALT 27 U/L (14-59); AST 27 U/L (15-37); Albumin 3.4 g/dL (3.4-5.0); Alkaline Phosphatase 86 U/L (46-116); Anion Gap 9.9 mmol/L (3-11); BUN 13 mg/dL (7-18); Bilirubin, Total 0.57 mg/dL (0.2-1.0); CO2 26.1 mmol/L (21.0-32.0); CREATININE 1.3 mg/dL (0.55-1.02); Calcium 9.3 mg/dL (8.5-10.1); Chloride 99 mmol/L (98-107); FREE T4 1.35 ng/dL (0.76-1.46); Glucose 173 mg/dL (74-106); Magnesium 1.8 mg/dL (1.8-2.4); Potassium 4.4 mmol/L (3.5-5.1); Sodium 135 mmol/L (136-145); TSH 1.73 uIU/Ml (0.36-3.74); Total Protein 6.8 g/dL (6.4-8.2)
== END 2024-04-22 23:59 | disposition home or self-care (01) ==
LOC: INF 01:35
PROVIDERS: Nurse Practitioner Family; PCP Family Medicine; Visit Provider Internal Medicine Medical Oncology
DX: E03.9 Hypothyroidism, unspecified (principal); C34.91 Malignant neoplasm of unspecified part of right bronchus or lung; Z45.2 Encounter for adjustment and management of vascular access device
CPT/HCPCS: 36591; 80053; 83735; 84439; 84443; 85025

== ENCOUNTER 2024-05-11 03:12 | Outpatient (RCR) | payer MEDICARE, SELFPAY ==
[2024-05-11 09:21] LABS: Abs Immature Grans 0.08 10^3/uL (0.0-0.06); Absolute Basophil Count 0.05 10^3/uL (0.0-0.2); Absolute Eosinophil Count 0.46 10^3/uL (0.0-0.7); Absolute Lymphocyte Count 1.14 10^3/uL (1.2-3.4); Absolute Monocyte Count 0.48 10^3/uL (0.1-0.8); Absolute Neutrophil Count 3.93 10^3/uL (1.2-6.7); Basophils % 0.8 %; Eosinophils % 7.5 %; HCT 36.8 % (36.0-46.0); HGB 12.1 g/dL (11.2-15.7); Immature Grans % 1.3 %; Lymphocytes % 18.6 %; MCH 29.5 pg (27.0-33.0); MCHC 32.9 % (32.0-36.0); MCV 90 fL (80-95); MPV 9.2 fL (8.0-11.0); Monocytes % 7.8 %; Platelet Count 163 10^3/uL (130-400); RDW 15.1 % (11.7-14.6); RDW-SD 49.4 fL; WBC 6.14 10^3/uL (4.4-10.8)
[2024-05-11 09:44] LABS: ALT 22 U/L (14-59); AST 24 U/L (15-37); Albumin 3.5 g/dL (3.4-5.0); Alkaline Phosphatase 88 U/L (46-116); BUN 12 mg/dL (7-18); Bilirubin, Total 0.62 mg/dL (0.2-1.0); CREATININE 1.2 mg/dL (0.55-1.02); Calcium 9.4 mg/dL (8.5-10.1); Chloride 98 mmol/L (98-107); Estimated GFR 44.36 (mL/min/1.73m2); FREE T4 1.42 ng/dL (0.76-1.46); Glucose 147 mg/dL (74-106); Magnesium 1.9 mg/dL (1.8-2.4); Potassium 4.6 mmol/L (3.5-5.1); Sodium 133 mmol/L (136-145); TSH 3.45 uIU/Ml (0.36-3.74); Total Protein 7.1 g/dL (6.4-8.2)
== END 2024-05-23 23:59 | disposition home or self-care (01) ==
LOC: INF 03:12
PROVIDERS: PCP Family Medicine; Visit Provider Internal Medicine Medical Oncology
DX: C34.91 Malignant neoplasm of unspecified part of right bronchus or lung (principal); E03.9 Hypothyroidism, unspecified; Z45.2 Encounter for adjustment and management of vascular access device
CPT/HCPCS: 36591; 80053; 83735; 84439; 84443; 85025

== ENCOUNTER 2024-05-28 08:06 | Outpatient (REF) | payer MEDICARE, SELFPAY ==
[2024-05-28 13:31] LABS: Bilirubin Negative (Negative); Blood Moderate (Negative); Clarity Cloudy (Clear); Glucose Negative (Negative); Ketones Negative (Negative); Leukocyte Esterase Moderate (Negative); Nitrite Positive (Negative); pH 7.5 (5-8)
[2024-05-28 13:34] LABS: C & S Indicated? No
[2024-05-28 13:38] LABS: WBC >50 HPF (0-5)
== END 2024-05-28 08:07 | disposition home or self-care (01) ==
LOC: LBN 08:06
PROVIDERS: PCP Family Medicine; Visit Provider Nurse Practitioner Family
DX: R30.0 Dysuria (principal)
CPT/HCPCS: 87077; 81003; 81015; 87086; 87186

== ENCOUNTER 2024-06-05 00:34 | Outpatient (CLI) | payer MEDICARE, SELFPAY ==
--- NOTE | 2024-06-05 08:30 | DI.US_ITS ---
APPROVED REPORT EXAM: Comprehensive 2D, Doppler, and color-flow Echocardiogram Patient Location: Out-Patient Jet Man: Erlinda Washington RDCS (AE) Other Information Study Quality: Adequate. Technically limited study due to body habitus. Conclusion Normal left ventricular wall thickness and chamber size. Ejection fraction is 50% Normal right ventricular size and function Both atria are normal in size Aortic valve is sclerotic and trileaflet without stenosis or regurgitation Normal mitral valve with mild to moderate regurgitation Wall motion Left Ventricle The left ventricle is normal size. Left ventricular systolic function is mildly decreased. The left ventricular systolic function is mildly reduced There is normal left ventricular wall thickness. No segmental wall motion abnormalities There is no ventricular septal defect visualized. LVEF is 50%. Right Ventricle The right ventricle is normal size. The right ventricular systolic function is normal. Atria The left atrium size is normal. The right atrium size is normal. The interatrial septum is intact wit h no evidence for an atrial septal defect. Aortic Valve The Aortic valve is sclerotic. Aortic valve is trileaflet. There is no aortic valvular stenosis. No a ortic regurgitation is present. Mitral Valve The mitral valve is normal in structure. No evidence of mitral valve stenosis. Mild to moderate bethel l regurgitation. Tricuspid Valve The tricuspid valve is normal in structure. There is no tricuspid valve stenosis. Mild tricuspid regu rgitation. The RVSP is 27.4 mmHg. Pulmonic Valve The pulmonary valve is normal in structure. There is no pulmonic valvular stenosis. Trace pulmonic re gurgitation. Great Vessels The aortic root is normal in size. The ascending aorta is normal in size. Aortic arch is not well vis ualized. IVC is normal in size and collapses >50% with inspiration. Pericardium There is no pericardial effusion. 2D Dimensions IVSD d PLAX 0.59 cm F: 0.6-1.0 Ao Root d 2.86 cm F: 2.7 - 3.3 LVPW d PLAX 0.59 cm F: 0.6 - 1.0 Ao Asc Diam d 3.17 cm F: 2.3 - 3.1 LVID d PLAX 4.56 cm F: 3.8 - 5.2 LVDs 3.54 cm F: 2.2 - 3.5 LV EF Teichholz 45.2 % FS 22.36 % LV EDV (Teich) 95.2 mL LV ESV (Teich) 52.2 mL M-Mode TAPSE 1.76 cm (M/F) >1.7 Auto EF LV EDV A4C 78.3 mL LV EDV A2C 77.5 mL LV EDV BP 78.2 mL LV ESV A4C 48.1 mL LV ESV A2C 44.1 mL LV ESV BP 45.5 mL LVEF(%) A4C 38.6 % LVEF(%) A2C 43.2 % LVEF(%) BP 41.8 % LV SV A4C 30.2 ml LV SV A2C 33.5 ml LV SV BP 32.7 ml LV CO A4C 1.9 L/min LV CO A2C 2.2 L/min LV CO BP 2.0 L/min HR A4C 61.96 BPM HR A2C 64.99 BPM LV EDV Index (BP) LV Strain Long Pk Overal Avg (s) 16.05 LA Volume LA Length A4C 5.6 cm LA Length A2C 5.1 cm LA Area A4C s 18.39 cm2 LA Area A2C s 15.73 cm2 LA Vol A4C A-L 51.01 mL LA Vol A2C A-L 40.94 mL LA Vol Biplane A-L 47.9 mL LA Vol/BSA A4C A-L LA Vol/BSA A2C A-L LA Vol/BSA BP A-L 29.2 mL/m2 LA Vol A4C MOD 45.7 mL LA Vol A2C MOD 38.6 mL LA Vol BP MOD 43.8 mL RA Volume RA Area A4C 15.1 cm2 RA ESV A4C (A-L) 41.1mL RA Vol/BSA A4C A-L RA Length A4C 4.7 cm RA ESV A4C (MOD) 39.5mL LV Diastology MV E' medial 0.054 (>0.07 m/s) MV E Vmax 0.73 (0.4-1.3 m/s) MV E/E' MED 13.65 (<14) MV A Vmax 1.05 (0.4-1.3 m/s) MV E' lateral 0.062 (>0.1 m/s) E/A Ratio 0.7 MV E/E' LAT 11.87 (<14) MV E' Average 0.058 m/s MV E/E'(average) 12.69 Aortic Valve AoV Vmax 1.31 m/s LVOT Vmax 1.04 m/s AoV Peak Grad 6.9 mmHg LVOT Peak Grad 4.3 mmHg AoV Area (Vmax) 2.14 cm2 LVOT VTI 0.226 m AoV VTI 0.324 m LVOT Mean Grad 2.5 mmHg AoV Mean Elder. 0.95 m/s LVOT SV 60.78 mL AoV Mean Grad 4.1 mmHg LVOT Diam s 1.85 cm AoV Area (VTI) 1.87 cm2 AV Regurg Peak Gr. 6.87 mmHg Velocity Ratio 0.79 Mitral Valve MV DT 205 (160-240 msec) MV Vmax TIPS 1.13 m/s MV Mean Grad 2.4 (<2mmHg) MV VTI 0.312 m Pulmonary Valve PV Vmax 0.75 (0.5-1.5 m/s) RVOT Vmax 0.52 m/s PV Peak Grad 2.2 mmHg RVOT Peak Gr. 1.1 mmHg PV Mean Elder 0.53 m/s RVOT VTI 0.131 m PV Mean Grad 1.3 mmHg RVOT Mean Gr. 0.7 mmHg Tricuspid Valve RA Pressure 3.00 mmHg TR Vmax 2.47 m/s TV S' 0.08 m/s TR Peak Grad 24.3 mmHg RVSP (TR) 27.4 mmHg
[2024-06-05] MEDS: Barium Sulfate 2% W/V-Berry Smoothie 450 ML BTL PO ×2 (11:31→11:33)
[2024-06-05] MEDS: Normal Saline - Diluent 50 ML VIAL IJ (11:34)
[2024-06-05] MEDS: Omnipaque 350 MG/ML 100 ML BTL IJ (11:36)
--- NOTE | 2024-06-05 11:44 | DI.CT_ITS ---
Exam(s) CT CHEST/ABD/PEL W EXAM: CT CHEST/ABD/PEL W CLINICAL HISTORY: STAGE IV LUNG CA, RECURRENT BREAST CA, C34.91, C50.919. TECHNIQUE: Imaging Protocol: Axial computed tomography images with coronal and sagittal reformatted images were created and reviewed CONTRAST MATERIAL: Intravenous: Omnipaque 350 Contrast volume:100 ml Oral: yes / COMPARISON: CT CT CHEST/ABD/PEL W from 03/10/2024 FINDINGS: CHEST: Tracheobronchial tree: Patent. Pulmonary parenchyma: Interval increase in size of right upper lobe nodule, now 9 millimeter diameter . Stable small nodular densities anterior lateral left upper lobe. Mild increase in size of posteri or right lower lobe mass now measuring 17 x 12 millimeters compared to 14 x 10 prior exam. There is now significant atelectasis involving the right middle lobe. The previously noted mass in the right middle lobe is obscured by the atelectasis. Postradiation changes again noted in the anterior left u pper lobe. Pleura: No effusion or pneumothorax. Mediastinum: Small hiatal hernia. Aorta: Thoracic portion non-dilated. Atherosclerotic changes. Pulmonary arteries: No visible emboli. Heart: Moderately enlarged. No pericardial effusion. Bones: Unremarkable for age. No lytic or blastic lesions.No compression fractures. Soft tissues: Left mastectomy. Port over right chest. ABDOMEN and PELVIS: Liver: Normal density. Stable low-density lesion at the inferior anterior right lobe of the liver. Gallbladder and biliary tract: Small gallstones. No biliary dilatation. Pancreas: Atrophic. No abnormal calcifications or inflammatory process. Spleen: Normal. Kidneys: Normal size, contour and axis. No radiodense stones. No obstructive uropathy. Stable cyst upper pole right kidney. No suspicious masses seen. Left renal artery stent Adrenal glands: No masses seen. Vasculature:: EVAR. Bilateral common iliac artery stents. Left renal stent. Lymph nodes: Within normal limits. Soft tissues: Unremarkable. Bladder: Unremarkable. Sigmoid diverticulosis. Bowel: No obstruction or bowel wall thickening. Large quantity of stool seen from cecum through spl enic flexure. Peritoneal cavity: No ascites. No focal collection. No mesenteric inflammatory response. No free ai r. Bones: Hardware right femur. Degenerative changes greatest at L5-S1. Reproductive organs: Within normal limits. Prominent pelvic veins again noted. IMPRESSION: Mild interval increase in size of the pulmonary nodules. There is now atelectasis of the right midd le lobe. Stable liver lesion. RADIATION DOSE DELIVERED: 431.35mGy.cm Total DLP DATA REPOSITORY: All CT scans at this facility are submitted to the National Radiology Data Registry (NRDR) Dose Index Registry (DIR) with the [employer] (ACR). RADIATION OPTIMIZATION: All CT scans at this facility use at least one of these dose optimization te chniques: automated exposure control; mA and/or kV adjustment per patient size (includes targeted exa ms where dose is matched to clinical indication); or iterative reconstruction.
== END 2024-06-05 00:54 ==
LOC: DI 00:34
PROVIDERS: PCP Family Medicine; Visit Provider Nurse Practitioner Family
DX: Z51.81 Encounter for therapeutic drug level monitoring (principal); C34.91 Malignant neoplasm of unspecified part of right bronchus or lung; C50.912 Malignant neoplasm of unspecified site of left female breast
CPT/HCPCS: 36591; 74177; 80053; 93306; 71260; 83735; 84439; 84443; 85025; J3490

== ENCOUNTER 2024-06-05 01:04 | Outpatient (RCR) | payer MEDICARE, SELFPAY ==
[2024-06-05] MEDS: Normal Saline Flush 10 ML SYR IVP (08:05)
[2024-06-05 08:52] LABS: Abs Immature Grans 0.06 10^3/uL (0.0-0.06); Absolute Basophil Count 0.05 10^3/uL (0.0-0.2); Absolute Eosinophil Count 0.55 10^3/uL (0.0-0.7); Absolute Lymphocyte Count 1.41 10^3/uL (1.2-3.4); Absolute Monocyte Count 0.41 10^3/uL (0.1-0.8); Absolute Neutrophil Count 4.15 10^3/uL (1.2-6.7); Basophils % 0.8 %; Eosinophils % 8.3 %; HCT 35.8 % (36.0-46.0); HGB 12.1 g/dL (11.2-15.7); Immature Grans % 0.9 %; Lymphocytes % 21.3 %; MCH 30.3 pg (27.0-33.0); MCHC 33.8 % (32.0-36.0); MCV 90 fL (80-95); MPV 9.2 fL (8.0-11.0); Monocytes % 6.2 %; Neutrophils % 62.5 %; Platelet Count 173 10^3/uL (130-400); RDW 14.8 % (11.7-14.6); RDW-SD 48.2 fL; WBC 6.63 10^3/uL (4.4-10.8)
[2024-06-05 09:25] LABS: ALT 24 U/L (14-59); AST 24 U/L (15-37); Albumin 3.5 g/dL (3.4-5.0); Alkaline Phosphatase 90 U/L (46-116); Anion Gap 6.7 mmol/L (3-11); BUN 13 mg/dL (7-18); Bilirubin, Total 0.58 mg/dL (0.2-1.0); CO2 27.3 mmol/L (21.0-32.0); CREATININE 1.1 mg/dL (0.55-1.02); Calcium 9.7 mg/dL (8.5-10.1); Chloride 101 mmol/L (98-107); Estimated GFR 49.24 (mL/min/1.73m2); FREE T4 1.22 ng/dL (0.76-1.46); Glucose 121 mg/dL (74-106); Potassium 4.2 mmol/L (3.5-5.1); Sodium 135 mmol/L (136-145); TSH 2.53 uIU/Ml (0.36-3.74); Total Protein 7.2 g/dL (6.4-8.2)
== END 2024-06-22 23:59 | disposition home or self-care (01) ==
LOC: INF 01:04
PROVIDERS: PCP Family Medicine; Visit Provider Internal Medicine Medical Oncology
DX: C34.91 Malignant neoplasm of unspecified part of right bronchus or lung (principal); E03.9 Hypothyroidism, unspecified
CPT/HCPCS: 36591; 80053; 83735; 84439; 84443; 85025

== ENCOUNTER 2024-06-16 09:45 | Outpatient (CLI) | payer MEDICARE, SELFPAY ==
[2024-06-16 10:03] LABS: Anion Gap 8.8 mmol/L (3-11); BUN 11 mg/dL (7-18); CO2 28.2 mmol/L (21.0-32.0); CREATININE 1.2 mg/dL (0.55-1.02); Calcium 9.5 mg/dL (8.5-10.1); Chloride 99 mmol/L (98-107); Estimated GFR 44.36 (mL/min/1.73m2); Glucose 120 mg/dL (74-106); Potassium 4.3 mmol/L (3.5-5.1); Sodium 136 mmol/L (136-145)
[2024-06-16 10:36] LABS: D-Dimer > 7500 ng/mlFEU (<500)
[2024-06-16 12:03] LABS: TSH (W/Ref FT4) 2.73 uIU/mL (0.36-3.74)
== END 2024-06-16 09:46 | disposition home or self-care (01) ==
LOC: LBO 09:46
PROVIDERS: PCP Family Medicine; Visit Provider Student in an Organized Health Care Education/Training Program
DX: E03.9 Hypothyroidism, unspecified (principal)
CPT/HCPCS: 36415; 80048; 83735; 84443; 85379

== ENCOUNTER 2024-06-16 10:59 | Emergency (ER) | payer MEDICARE, SELFPAY ==
[2024-06-16 11:01] VITALS: BP 137/73; PULSE 73; RESP 18; TEMP 34.4; O2SAT 94
--- NOTE | 2024-06-16 11:15 | DI.US_ITS ---
Exam(s) US LOWER EXTREMITY VENOUS LT EXAM: US LOWER EXTREMITY VENOUS LT CLINICAL HISTORY: elevated dimer, pain TECHNIQUE: Left lower extremity venous ultrasound performed using grayscale, color-flow, and spectra l Doppler analysis. COMPARISON: No exams were available for comparison FINDINGS: The left common femoral, femoral and popliteal veins demonstrate normal compressibility, augmentation , and color Doppler. The posterior tibial veins are patent. The saphenofemoral junction is unremarka ble. There is no evidence of a Feliz cyst. The soft tissues are unremarkable. IMPRESSION: No evidence of a left lower extremity DVT. DATA REPOSITORY:
[2024-06-16 11:18] VITALS: RESP 14
[2024-06-16 11:25] VITALS: TEMP 36.7
[2024-06-16] MEDS: Omnipaque 350 MG/ML 100 ML BTL IJ (12:01)
[2024-06-16] MEDS: Normal Saline - Diluent 50 ML VIAL IJ (12:02)
--- NOTE | 2024-06-16 12:02 | DI.CT_ITS ---
Exam(s) CT ABD AORTA CTA W RUNOFF EXAM: CT ABD AORTA CTA W RUNOFF CLINICAL HISTORY: cool extremities, no pt pulses palp, evar hx. TECHNIQUE: Imaging Protocol: Axial CT angiography was performed with multi-slice acquisition and mu lti-planar and/or 3D reconstructions. CONTRAST MATERIAL: Intravenous: Omnipaque 350 Contrast volume:100 mL Oral: No COMPARISON: CT CT LOWER EXTREMITY RT WO from 07/04/[address] CHEST/ABD/PEL W from 06/05/2024 FINDINGS: Vascular Structures: Abdomen and pelvis: Celiac Cordova/SMA: No evidence of occlusion or significant stenosis. Renal Arteries: No evidence of occlusion or significant stenosis. Aorta: There is a aorta bi-iliac stent. Atherosclerotic calcification is present. There is an infr arenal abdominal aortic aneurysm. No dissection. Iliac Arteries: No evidence of occlusion or significant stenosis. Atherosclerotic calcification is p resent. Lower extremities: Right: Femoral: No evidence of occlusion or significant stenosis. Mild atherosclerotic calcification. Deep Femoral Artery: No evidence of occlusion or significant stenosis. Popliteal: Atherosclerotic calcification is seen in the popliteal artery. There is resultant 70-80 p ercent stenosis. Knee Trifurcation: No evidence of occlusion or significant stenosis. Anterior Tibial: No evidence of occlusion or significant stenosis. Posterior Tibial: No evidence of occlusion or significant stenosis. Peroneal:Peroneal artery is visualized until just proximal to the ankle joint. Dorsalis Pedis: No evidence of occlusion or significant stenosis. Left: Femoral: No evidence of occlusion or significant stenosis. Deep femoral artery: No evidence of occlusion or significant stenosis. Popliteal: No evidence ofocclusion or significant stenosis. Knee Trifurcation: No evidence of occlusion or significant stenosis. Anterior tibial: No evidence of occlusion or significant stenosis. Posterior Tibial: No evidence of occlusion or significant stenosis. Peroneal: The peroneal artery is visualized and tilt just proximal to the ankle joint. Dorsalis Pedis: No evidence of occlusion or significant stenosis. Soft Tissues: Lung bases: The areas of nodularity in the lower lobes are unchanged. No new infiltrates are seen in the lung bases. Liver: Normal density. The previously seen area of decreased attenuation in the caudal aspect of the liver is not well visualized on this current examination. No discrete hepatic mass is seen currently . Gallbladder and biliary tract: There is a gallstone. No biliary ductal dilatation is seen. Pancreas: There is diffuse fatty infiltration of the pancreas. No pancreatic mass or peripancreatic fluid collection is present. Spleen: Normal. Kidneys: Normal size, contour and axis. No radiodense stones or obstructive uropathy. There is a stab le cyst in the superior pole of the right kidney. No follow-up is recommended. Adrenal glands: No masses seen. Aorta: Atherosclerotic calcification is present. There is an aorto bi-iliac stent in place. The yfn nt appears intact. Atherosclerotic calcification is present. Bladder: The urinary bladder is grossly unremarkable. Portions of the bladder are obscured by artifa ct from the patient's right femoral intramedullary sierra. Bowel: There is diverticulosis of the colon. No evidence of acute diverticulitis is present. The mary jo wel shows no evidence of obstruction or bowel wall thickening. No evidence of appendicitis. Peritoneal cavity: No ascites, collection or mesenteric inflammatory response. No free air. Bones: Within normal limits for the patient's age. There is an intramedullary sierra again seen in the proximal right femur. IMPRESSION: 1. The distal peroneal arteries are not visualized bilaterally. There are visualized until just prox imal to the ankle joints bilaterally. 2. 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 3. Incidental findings in the abdomen and pelvis as described above. 4. No acute abdominal or pelvic process. 5. Stable findings in the lung bases. 6. Distal abdominal aortic aneurysm with endovascular aorto bi-iliac stent. RADIATION DOSE DELIVERED: 649.8mGy.cm Total DLP 649.8mGy.cm Total DLP DATA REPOSITORY: All CT scans at this facility are submitted to the National Radiology Data Registry (NRDR) Dose Index Registry (DIR) with the [employer] (ACR). RADIATION OPTIMIZATION: All CT scans at this facility use at least one of these dose optimization te chniques: automated exposure control; mA and/or kV adjustment per patient size (includes targeted exa ms where dose is matched to clinical indication); or iterative reconstruction.
[2024-06-16 12:06] LABS: Abs Immature Grans 0.04 10^3/uL (0.0-0.06); Absolute Basophil Count 0.05 10^3/uL (0.0-0.2); Absolute Eosinophil Count 0.45 10^3/uL (0.0-0.7); Absolute Lymphocyte Count 1.34 10^3/uL (1.2-3.4); Absolute Monocyte Count 0.45 10^3/uL (0.1-0.8); Absolute Neutrophil Count 3.27 10^3/uL (1.2-6.7); Basophils % 0.9 %; HCT 37.1 % (36.0-46.0); HGB 12.1 g/dL (11.2-15.7); Immature Grans % 0.7 %; Lymphocytes % 23.9 %; MCH 29.8 pg (27.0-33.0); MCHC 32.6 % (32.0-36.0); MCV 91 fL (80-95); Neutrophils % 58.5 %; Platelet Count 168 10^3/uL (130-400); RBC 4.06 10^6/uL (3.93-5.22); RDW 14.7 % (11.7-14.6); RDW-SD 49.4 fL
[2024-06-16 12:29] LABS: ALT 23 U/L (14-59); AST 22 U/L (15-37); Albumin 3.5 g/dL (3.4-5.0); Alkaline Phosphatase 92 U/L (46-116); Bilirubin, Total 0.57 mg/dL (0.2-1.0); Total Protein 7.1 g/dL (6.4-8.2)
[2024-06-16 13:01] LABS: Bilirubin, Direct 0.2 mg/dL (0.0-0.2)
--- NOTE | 2024-06-16 14:28 | W.ED.GENAD ---
Discharge Plan Disposition Patient Disposition: Home Discharge Details Clinical Impression: Peripheral neuropathy, Popliteal artery stenosis, right Primary Care Provider: Carlos Trinidad ED Provider: Melanie Spann Home Meds and New Rx's Prescriptions: New gabapentin [Neurontin] 100 mg capsule 200 mg PO QHS Qty: 14 0RF Continued simvastatin 40 mg tablet 40 mg PO QPM omeprazole 20 mg capsule,delayed release(DR/EC) 20 mg PO QAM simethicone [Gas Relief (simethicone)] 80 mg tablet,chewable 80 mg PO QID PRN propranolol [Inderal LA] 60 mg capsule,extended release 24 hr 60 mg PO DAILY ascorbate calcium (vitamin C) 500 mg tablet 1,000 mg PO DAILY Bevespi Aerosphere 9-4.8 mcg HFA aerosol inhaler 2 puff inhalation BID Qty: 10.7 5RF levothyroxine [Synthroid] 25 mcg tablet 137 mcg PO QAM losartan 50 mg tablet 50 mg PO QAM Patient Comments: TAKE 1 TABLET BY MOUTH EVERY DAY calcium carbonate 500 mg calcium (1,250 mg) Tablet 1,000 mg PO QPM Acetaminophen [Tylenol] 650 mg PO Q6H Qty: 0 0RF ipratropium-albuterol 0.5 mg-3 mg(2.5 mg base)/3 mL Solution For Nebulization 3 ml UPD Q6H PRN PRNQty: 0 0RF glipizide 2.5 mg tablet extended release 24 hr 2.5 mg PO DAILY Qty: 30 0RF metoprolol succinate 50 mg tablet extended release 24 hr 50 mg PO DAILY Patient Comments: Take 1 tablet by mouth once a day for blood pressure and tremor letrozole 2.5 mg tablet 2.5 mg PO DAILY aspirin [Adult Low Dose Aspirin] 81 mg tablet,delayed release (DR/EC) 81 mg PO DAILY Discharge Instructions Instructions: Peripheral Neuropathy (DC) Additional Instructions: Please follow-up with the vascular doctor at [facility] for some narrowing you have in your popliteal artery in your right leg Take 2 tablets of the Neurontin at night as needed for discomfort, this medication can make you tired so use caution with ambulating Please follow-up with your primary care physician in 24 to 48 hours for reassessment and return earlier should you have any new or worsening complaints Referrals: Carlos Trinidad [Primary Care Provider] - 1 day HPI General Date/Time Provider Initiated Documentation: 06/16/24 11:17. HPI Narrative: This 83-year-old female presenting in no acute distress. States she has had pain for the past few months that is worsening in bilateral lower extremities. History of breast cancer and receiving monthly infusions of immunotherapy per patient. Denies any falls or injuries. Denies history of coagulopathy in the past. Denies chest pain or shortness of breath. Denies any dizziness weakness or headaches. Related Data Home Medications ?Medication ?Instructions ?Recorded ?Confirmed ascorbate calcium (vitamin C) 500 1,000 mg PO DAILY 05/15/21 06/16/24 mg tablet omeprazole 20 mg capsule,delayed 20 mg PO QAM 05/15/21 06/16/24 release propranolol 60 mg capsule,24 60 mg PO DAILY 05/15/21 01/15/23 hr,extended release (Inderal LA) simethicone 80 mg chewable tablet 80 mg PO QID PRN 05/15/21 01/15/23 (Gas Relief (simethicone)) simvastatin 40 mg tablet 40 mg PO QPM 05/15/21 06/16/24 calcium carbonate 1,000 mg PO QPM 10/08/21 06/16/24 losartan 50 mg tablet 50 mg PO QAM 10/08/21 06/16/24 Acetaminophen [Tylenol] 650 mg PO Q6H ##0 10/13/21 06/16/24 glipizide 2.5 mg tablet, extended 2.5 mg PO DAILY #30 tabs 10/13/21 06/16/24 release 24 hr ipratropium 0.5 mg-albuterol 3 mg 3 ml UPD Q6H PRN PRN #0 mL 10/13/21 06/16/24 (2.5 mg base)/3 mL nebulization soln levothyroxine 25 mcg tablet 137 mcg PO QAM 11/01/21 06/16/24 (Synthroid) glycopyrrolate 9 mcg-formoterol 2 puff inhalation BID #10.7 grams 11/21/21 06/16/24 4.8 mcg HFA aerosol inhaler (Bevespi Aerosphere) aspirin 81 mg tablet,delayed 81 mg PO DAILY 06/16/24 06/16/24 release (Adult Low Dose Aspirin) gabapentin 100 mg capsule 200 mg (2 x 100 mg) PO QHS #14 caps 06/16/24 (Neurontin) letrozole 2.5 mg tablet 2.5 mg PO DAILY 06/16/24 06/16/24 metoprolol succinate 50 mg 50 mg PO DAILY 06/16/24 06/16/24 tablet,extended release 24 hr Previous Rx's ?Medication ?Instructions ?Recorded Acetaminophen [Tylenol] 650 mg PO Q6H ##0 10/13/21 glipizide 2.5 mg tablet, extended 2.5 mg PO DAILY #30 tabs 10/13/21 release 24 hr ipratropium 0.5 mg-albuterol 3 mg 3 ml UPD Q6H PRN PRN #0 mL 10/13/21 (2.5 mg base)/3 mL nebulization soln glycopyrrolate 9 mcg-formoterol 2 puff inhalation BID #10.7 grams 11/21/21 4.8 mcg HFA aerosol inhaler (Bevespi Aerosphere) gabapentin 100 mg capsule 200 mg (2 x 100 mg) PO QHS #14 caps 06/16/24 (Neurontin) Allergies Allergy/AdvReac Type Severity Reaction Status Date / Time clopidogrel Allergy Unknown Verified 06/16/24 11:04 bisulfate Allergy Unknown Uncoded 06/16/24 11:04 General Stated Complaint: Vascular HARPER: 3 Exam Narrative Exam Narrative: This 83-year-old female is presenting with bilateral lower foot pain, dorsalis pedis pulses intact bilaterally but unable to palpate posterior tibialis pulses. Diffuse tenderness and cool bilateral feet. Cap refill slightly delayed, left calf tenderness, mild swelling. No abdominal tenderness, bilateral upper extremity pulses intact, cardiac rate rhythm regular, lungs clear to auscultation, alert and oriented x 4, no acute distress Course Vital Signs Vital signs: Vital Signs Temperature 34.4 C L 06/16/24 11:01 Pulse 73 06/16/24 11:01 Respiratory Rate 18 06/16/24 11:01 Blood Pressure 137/73 06/16/24 11:01 Pulse Oximetry 94 06/16/24 11:01 Temperature 36.7 C 06/16/24 11:25 Temperature Source Oral 06/16/24 11:25 Pulse 73 06/16/24 11:01 Respiratory Rate 14 06/16/24 11:18 Respiratory Effort Normal, Non-Labored 06/16/24 11:18 Respiratory Depth Normal 06/16/24 11:18 Respiratory Pattern Normal 06/16/24 11:18 Blood Pressure 137/73 06/16/24 11:01 Blood Pressure Position Sitting 06/16/24 11:01 Pulse Oximetry 94 06/16/24 11:01 Oxygen Delivery Method Room Air 06/16/24 11:01 Oxygen Flow Rate 0 06/16/24 11:01 Lab/Test Results Lab/Test Results: Laboratory Tests Range/Units 06/16/24 06/16/24 06/16/24 11:28 11:40 11:45 WBC (4.4-10.8) 10^3/uL 5.60 RBC (3.93-5.22) 10^6/uL 4.06 Hgb (11.2-15.7) g/dL 12.1 Hct (36.0-46.0) % 37.1 MCV (80-95) fL 91 MCH (27.0-33.0) pg 29.8 MCHC (32.0-36.0) % 32.6 RDW (11.7-14.6) % 14.7 H Plt Count (130-400) 10^3/uL 168 MPV (8.0-11.0) fL 9.0 Immature Gran % % 0.7 Neutrophils % % 58.5 Lymphocytes % % 23.9 Monocytes % % 8.0 Eosinophils % % 8.0 Basophils % % 0.9 Nucleated RBC % (0.0-0.3) % 0.0 Absolute Neutrophils (1.2-6.7) 10^3/uL 3.27 Absolute Lymphocytes (1.2-3.4) 10^3/uL 1.34 Absolute Monocytes (0.1-0.8) 10^3/uL 0.45 Absolute Eosinophils (0.0-0.7) 10^3/uL 0.45 Absolute Basophils (0.0-0.2) 10^3/uL 0.05 Sodium Cancelled Potassium Cancelled Chloride Cancelled Carbon Dioxide Cancelled Anion Gap Cancelled BUN Cancelled Creatinine Cancelled Est GFR (CKD-EPI 2020) Cancelled Glucose Cancelled Calcium Cancelled Magnesium Cancelled Total Bilirubin Cancelled 0.57 Conjugated Bilirubin (0.0-0.2) mg/dL 0.2 AST Cancelled 22 ALT Cancelled 23 Alkaline Phosphatase Cancelled 92 Total Protein Cancelled 7.1 Albumin Cancelled 3.5 Medical Decision Making 83-year-old female presenting in no acute distress. Bilateral lower extremity tenderness, CTA was ordered secondary to diminished pulses and cool extremities, there is evidence of right popliteal stenosis 70 to 80%, patient's endovascular aortic aneurysm repair appears to be patent, she is referred to vascular at [facility] for reassessment of the stenosis however I do not suspect is necessarily contributing to her symptoms today. Her ultrasound DVT of her left lower extremity does not show evidence of DVT, I am unsure as to why her D-dimer is elevated however I have low suspicion that this is a pulmonary embolism. She is given 200 mg of Neurontin that she may take at night as needed for pain to treat as though she has peripheral neuropathy which could very well be occurring in the presence of immunotherapy dosing. She is encouraged to follow-up with primary care physician in the outpatient setting and return immediately should she have new or worsening complaints. Discharged home in stable condition with stable vitals with return precautions reviewed. Quality:SDOH Health Related Social Needs: No Data to Display PFSH All Active Problems (Updated 06/16/24 @ 14:31 by DANIELA Meyers) Popliteal artery stenosis, right (Acute) Peripheral neuropathy (Acute) Trochanteric bursitis, right hip (Acute) corticosteroid injection 01/15/23 No-show for appointment (Acute) Periprosthetic fracture of femur at tip of prosthesis (Acute) Basicervical fracture of neck of right femur (Acute 10/08/21) Chronic laryngitis (Acute) Thrush (Acute) COPD (chronic obstructive pulmonary disease) (Acute) Chronic cough (Acute) Globus sensation (Acute) Eczema (Acute) Impaired fasting glucose (Acute) Spondylisthesis (Acute) Insomnia (Acute) CKD (chronic kidney disease) (Chronic) Lesion of skin of scalp (Acute) Hearing impaired person (Acute) Abdominal pain (Acute) Lactose intolerance (Acute) Hiatal hernia (Chronic) Dysphagia (Acute) Hyperlipidemia (Acute) Hypertension (Chronic) Abdominal aortic aneurysm (Acute) GERD (gastroesophageal reflux disease) (Chronic) Hypothyroidism (Chronic) Arthritis (Acute) Osteoarthritis (Chronic) Medical History (Updated 06/16/24 @ 14:31 by DANIELA Meyers) Palliative care patient Surgical History H/O colonoscopy History of esophagogastroduodenoscopy (EGD) History of renal stent H/O aortic aneurysm repair H/O hand surgery History of Nila fundoplication Family History Father Cancer Mother Aneurysm Pneumonia Son No problems noted. Social History Smoking/Tobacco Use Status: Former Tobacco Use Smoking risk assessment performed?: Yes Alcohol Intake: never Drug use: Never Substance use type: does not use Current gender identity: female Do you feel safe at home: Yes Do you feel safe in your relationship?: Yes
[2024-06-16 14:52] VITALS: BP 148/78; PULSE 71; RESP 20; O2SAT 97
== END 2024-06-16 15:03 | disposition home or self-care (01) ==
PROVIDERS: Emergency Provider Physician Assistant; PCP Family Medicine
DX: G62.9 Polyneuropathy, unspecified (principal); I70.219 Atherosclerosis of native arteries of extremities with intermittent claudication, unspecified extremity; I10 Essential (primary) hypertension; E78.5 Hyperlipidemia, unspecified; Z79.84 Long term (current) use of oral hypoglycemic drugs; Z79.82 Long term (current) use of aspirin; Z87.891 Personal history of nicotine dependence
CPT/HCPCS: 36415; 75635; 80048; 80053; 80076; 99285; 83735; 84443; 85025; 85379; 93971; 99284; J3490

== ENCOUNTER 2024-06-19 19:06 | Outpatient (REF) | payer MEDICARE, SELFPAY ==
[2024-06-19 16:02] LABS: C & S Indicated? C&S Done As Ordered; WBC >50 HPF (0-5)
== END 2024-06-19 19:07 | disposition home or self-care (01) ==
LOC: LBN 19:06
PROVIDERS: PCP Family Medicine; Visit Provider Physician Assistant Medical
DX: N39.0 Urinary tract infection, site not specified (principal); B96.29 Other Escherichia coli [E. coli] as the cause of diseases classified elsewhere; R82.89 Other abnormal findings on cytological and histological examination of urine
CPT/HCPCS: 87077; 81015; 87086; 87186

== ENCOUNTER 2024-07-06 02:17 | Outpatient (RCR) | payer MEDICARE, SELFPAY ==
[2024-07-06 10:18] LABS: Abs Immature Grans 0.05 10^3/uL (0.0-0.06); Absolute Basophil Count 0.07 10^3/uL (0.0-0.2); Absolute Lymphocyte Count 1.49 10^3/uL (1.2-3.4); Absolute Monocyte Count 0.53 10^3/uL (0.1-0.8); Basophils % 1.1 %; Eosinophils % 9.3 %; HCT 36.6 % (36.0-46.0); HGB 12.1 g/dL (11.2-15.7); Immature Grans % 0.8 %; Lymphocytes % 23.1 %; MCH 29.8 pg (27.0-33.0); MCHC 33.1 % (32.0-36.0); MCV 90 fL (80-95); Monocytes % 8.2 %; Neutrophils % 57.5 %; Platelet Count 173 10^3/uL (130-400); RBC 4.06 10^6/uL (3.93-5.22); RDW 14.3 % (11.7-14.6); RDW-SD 47.6 fL; WBC 6.44 10^3/uL (4.4-10.8)
[2024-07-06] MEDS: Normal Saline Flush 10 ML SYR IVP (10:26)
[2024-07-06 10:41] LABS: ALT 23 U/L (14-59); AST 23 U/L (15-37); Albumin 3.3 g/dL (3.4-5.0); Alkaline Phosphatase 102 U/L (46-116); Anion Gap 7.1 mmol/L (3-11); BUN 11 mg/dL (7-18); Bilirubin, Total 0.54 mg/dL (0.2-1.0); CO2 27.9 mmol/L (21.0-32.0); CREATININE 1.2 mg/dL (0.55-1.02); Calcium 9.5 mg/dL (8.5-10.1); Chloride 99 mmol/L (98-107); Estimated GFR 44.36 (mL/min/1.73m2); FREE T4 1.02 ng/dL (0.76-1.46); Glucose 147 mg/dL (74-106); Magnesium 1.9 mg/dL (1.8-2.4); Potassium 4.5 mmol/L (3.5-5.1); Sodium 134 mmol/L (136-145); TSH 6.56 uIU/mL (0.36-3.74)
== END 2024-07-23 23:59 | disposition home or self-care (01) ==
LOC: INF 02:17
PROVIDERS: Nurse Practitioner Family; PCP Student in an Organized Health Care Education/Training Program; Visit Provider Internal Medicine Medical Oncology
DX: C34.91 Malignant neoplasm of unspecified part of right bronchus or lung (principal); E03.9 Hypothyroidism, unspecified; Z45.2 Encounter for adjustment and management of vascular access device
CPT/HCPCS: 36591; 80053; 96523; 83735; 84439; 84443; 85025

== ENCOUNTER 2024-08-03 10:07 | Outpatient (RCR) | payer MEDICARE, SELFPAY ==
[2024-08-03] MEDS: Normal Saline Flush 10 ML SYR IVP (10:24)
[2024-08-03 10:37] LABS: Abs Immature Grans 0.05 10^3/uL (0.0-0.06); Absolute Basophil Count 0.04 10^3/uL (0.0-0.2); Absolute Eosinophil Count 0.09 10^3/uL (0.0-0.7); Absolute Lymphocyte Count 1.37 10^3/uL (1.2-3.4); Absolute Monocyte Count 0.34 10^3/uL (0.1-0.8); Absolute Neutrophil Count 5.12 10^3/uL (1.2-6.7); Basophils % 0.6 %; Eosinophils % 1.3 %; HCT 33.6 % (36.0-46.0); HGB 11.1 g/dL (11.2-15.7); Immature Grans % 0.7 %; Lymphocytes % 19.5 %; MCH 29.5 pg (27.0-33.0); MCV 89 fL (80-95); MPV 8.9 fL (8.0-11.0); Monocytes % 4.9 %; Platelet Count 158 10^3/uL (130-400); RBC 3.76 10^6/uL (3.93-5.22); RDW 14.9 % (11.7-14.6); RDW-SD 48.7 fL; WBC 7.01 10^3/uL (4.4-10.8)
[2024-08-03 11:03] LABS: ALT 23 U/L (14-59); AST 22 U/L (15-37); Albumin 3.3 g/dL (3.4-5.0); Alkaline Phosphatase 93 U/L (46-116); Anion Gap 8.9 mmol/L (3-11); BUN 15 mg/dL (7-18); Bilirubin, Total 0.61 mg/dL (0.2-1.0); CO2 27.1 mmol/L (21.0-32.0); CREATININE 1.2 mg/dL (0.55-1.02); Calcium 9.2 mg/dL (8.5-10.1); Chloride 98 mmol/L (98-107); Estimated GFR 44.36 (mL/min/1.73m2); Glucose 168 mg/dL (74-106); Magnesium 1.9 mg/dL (1.8-2.4); Potassium 4.6 mmol/L (3.5-5.1); Sodium 134 mmol/L (136-145); TSH 2.26 uIU/mL (0.36-3.74)
[2024-08-03 11:21] LABS: FREE T4 1.04 ng/dL (0.76-1.46)
== END 2024-08-22 23:59 | disposition home or self-care (01) ==
LOC: INF 10:07
PROVIDERS: Nurse Practitioner Family; PCP Student in an Organized Health Care Education/Training Program; Visit Provider Internal Medicine Medical Oncology
DX: C34.91 Malignant neoplasm of unspecified part of right bronchus or lung (principal); E03.9 Hypothyroidism, unspecified; Z45.2 Encounter for adjustment and management of vascular access device
CPT/HCPCS: 36591; 80053; 83735; 84439; 84443; 85025

== ENCOUNTER 2024-09-15 03:22 | Outpatient (RCR) | payer MEDICARE, SELFPAY ==
[2024-08-31] MEDS: Normal Saline Flush 10 ML SYR IVP (09:25)
[2024-08-31 10:20] LABS: Abs Immature Grans 0.05 10^3/uL (0.0-0.06); Absolute Basophil Count 0.06 10^3/uL (0.0-0.2); Absolute Eosinophil Count 0.43 10^3/uL (0.0-0.7); Absolute Lymphocyte Count 1.36 10^3/uL (1.2-3.4); Absolute Neutrophil Count 3.64 10^3/uL (1.2-6.7); Eosinophils % 7.1 %; HCT 36.4 % (36.0-46.0); Immature Grans % 0.8 %; Lymphocytes % 22.5 %; MCH 29.5 pg (27.0-33.0); MCV 89 fL (80-95); MPV 9.1 fL (8.0-11.0); Monocytes % 8.3 %; Neutrophils % 60.3 %; Platelet Count 176 10^3/uL (130-400); RBC 4.07 10^6/uL (3.93-5.22); RDW 15.4 % (11.7-14.6); WBC 6.04 10^3/uL (4.4-10.8)
[2024-08-31 10:49] LABS: ALT 19 U/L (14-59); AST 21 U/L (15-37); Albumin 3.1 g/dL (3.4-5.0); Alkaline Phosphatase 88 U/L (46-116); Anion Gap 7.9 mmol/L (3-11); BUN 13 mg/dL (7-18); Bilirubin, Total 0.65 mg/dL (0.2-1.0); CO2 30.1 mmol/L (21.0-32.0); CREATININE 1.4 mg/dL (0.55-1.02); Chloride 97 mmol/L (98-107); Estimated GFR 36.87 (mL/min/1.73m2); FREE T4 1.19 ng/dL (0.76-1.46); Glucose 174 mg/dL (74-106); Magnesium 1.8 mg/dL (1.8-2.4); Potassium 4.2 mmol/L (3.5-5.1); Sodium 135 mmol/L (136-145); TSH 8.15 uIU/mL (0.36-3.74); Total Protein 6.9 g/dL (6.4-8.2)
[2024-09-07] MEDS: Normal Saline Flush 10 ML SYR IVP (09:55)
[2024-09-07 10:15] LABS: Abs Immature Grans 0.41 10^3/uL (0.0-0.06); Absolute Basophil Count 0.06 10^3/uL (0.0-0.2); Absolute Eosinophil Count 0.15 10^3/uL (0.0-0.7); Absolute Lymphocyte Count 1.55 10^3/uL (1.2-3.4); Absolute Monocyte Count 0.52 10^3/uL (0.1-0.8); Absolute Neutrophil Count 8.03 10^3/uL (1.2-6.7); Basophils % 0.6 %; Eosinophils % 1.4 %; HCT 38.4 % (36.0-46.0); HGB 12.9 g/dL (11.2-15.7); Immature Grans % 3.8 %; Lymphocytes % 14.5 %; MCH 29.7 pg (27.0-33.0); MCHC 33.6 % (32.0-36.0); MCV 89 fL (80-95); MPV 8.9 fL (8.0-11.0); Monocytes % 4.9 %; Neutrophils % 74.8 %; Platelet Count 210 10^3/uL (130-400); RBC 4.34 10^6/uL (3.93-5.22); RDW 15.8 % (11.7-14.6); RDW-SD 50.2 fL; WBC 10.72 10^3/uL (4.4-10.8)
[2024-09-07 10:45] LABS: ALT 29 U/L (14-59); AST 25 U/L (15-37); Albumin 3.4 g/dL (3.4-5.0); Alkaline Phosphatase 88 U/L (46-116); Anion Gap 10.5 mmol/L (3-11); BUN 19 mg/dL (7-18); Bilirubin, Total 0.65 mg/dL (0.2-1.0); CO2 26.5 mmol/L (21.0-32.0); CREATININE 1.2 mg/dL (0.55-1.02); Calcium 9.3 mg/dL (8.5-10.1); Chloride 97 mmol/L (98-107); Estimated GFR 44.08 (mL/min/1.73m2); FREE T4 1.02 ng/dL (0.76-1.46); Glucose 154 mg/dL (74-106); Potassium 4.6 mmol/L (3.5-5.1); Sodium 134 mmol/L (136-145); TSH 7.71 uIU/mL (0.36-3.74); Total Protein 6.8 g/dL (6.4-8.2)
[2024-09-15 10:32] LABS: Abs Immature Grans 0.09 10^3/uL (0.0-0.06); Absolute Basophil Count 0.04 10^3/uL (0.0-0.2); Absolute Eosinophil Count 0.29 10^3/uL (0.0-0.7); Absolute Lymphocyte Count 1.52 10^3/uL (1.2-3.4); Absolute Monocyte Count 0.51 10^3/uL (0.1-0.8); Absolute Neutrophil Count 4.43 10^3/uL (1.2-6.7); Basophils % 0.6 %; Eosinophils % 4.2 %; HGB 11.8 g/dL (11.2-15.7); Immature Grans % 1.3 %; Lymphocytes % 22.1 %; MCH 29.8 pg (27.0-33.0); MCHC 32.8 % (32.0-36.0); MCV 91 fL (80-95); MPV 8.5 fL (8.0-11.0); Monocytes % 7.4 %; Neutrophils % 64.4 %; Platelet Count 115 10^3/uL (130-400); RBC 3.96 10^6/uL (3.93-5.22); RDW 17.5 % (11.7-14.6); WBC 6.88 10^3/uL (4.4-10.8)
[2024-09-15 11:00] LABS: ALT 21 U/L (14-59); AST 23 U/L (15-37); Albumin 3.1 g/dL (3.4-5.0); Alkaline Phosphatase 88 U/L (46-116); Anion Gap 7.1 mmol/L (3-11); BUN 10 mg/dL (7-18); Bilirubin, Total 0.62 mg/dL (0.2-1.0); CO2 27.9 mmol/L (21.0-32.0); CREATININE 1.2 mg/dL (0.55-1.02); Calcium 9.3 mg/dL (8.5-10.1); Chloride 102 mmol/L (98-107); Estimated GFR 44.08 (mL/min/1.73m2); FREE T4 1.02 ng/dL (0.76-1.46); Glucose 153 mg/dL (74-106); Magnesium 1.8 mg/dL (1.8-2.4); Potassium 3.8 mmol/L (3.5-5.1); Sodium 137 mmol/L (136-145); TSH 11.87 uIU/mL (0.36-3.74); Total Protein 6.4 g/dL (6.4-8.2)
== END 2024-09-22 23:59 | disposition home or self-care (01) ==
LOC: INF 03:22
PROVIDERS: Nurse Practitioner Family; PCP Student in an Organized Health Care Education/Training Program; Visit Provider Internal Medicine Medical Oncology
DX: C34.91 Malignant neoplasm of unspecified part of right bronchus or lung (principal); E03.9 Hypothyroidism, unspecified; Z45.2 Encounter for adjustment and management of vascular access device
CPT/HCPCS: 36591; 80053; 83735; 84439; 84443; 85025

== ENCOUNTER 2024-10-12 01:48 | Outpatient (RCR) | payer MEDICARE, SELFPAY ==
[2024-09-28] MEDS: Normal Saline Flush 10 ML SYR IVP (10:11)
[2024-09-28 10:29] LABS: Abs Immature Grans 0.06 10^3/uL (0.0-0.06); Absolute Basophil Count 0.05 10^3/uL (0.0-0.2); Absolute Eosinophil Count 0.33 10^3/uL (0.0-0.7); Absolute Lymphocyte Count 1.62 10^3/uL (1.2-3.4); Absolute Monocyte Count 0.63 10^3/uL (0.1-0.8); Basophils % 0.7 %; Eosinophils % 4.3 %; HCT 35.6 % (36.0-46.0); HGB 11.7 g/dL (11.2-15.7); Immature Grans % 0.8 %; Lymphocytes % 21.1 %; MCH 30.9 pg (27.0-33.0); MCHC 32.9 % (32.0-36.0); MCV 94 fL (80-95); MPV 8.5 fL (8.0-11.0); Monocytes % 8.2 %; Neutrophils % 64.9 %; Platelet Count 156 10^3/uL (130-400); RBC 3.79 10^6/uL (3.93-5.22); RDW 19.8 % (11.7-14.6); RDW-SD 66.5 fL; WBC 7.69 10^3/uL (4.4-10.8)
[2024-09-28 11:07] LABS: ALT 16 U/L (14-59); AST 20 U/L (15-37); Albumin 3.3 g/dL (3.4-5.0); Alkaline Phosphatase 93 U/L (46-116); Anion Gap 5.2 mmol/L (3-11); BUN 12 mg/dL (7-18); Bilirubin, Total 0.66 mg/dL (0.2-1.0); CO2 30.8 mmol/L (21.0-32.0); CREATININE 1.4 mg/dL (0.55-1.02); Chloride 104 mmol/L (98-107); Estimated GFR 36.64 (mL/min/1.73m2); FREE T4 1.03 ng/dL (0.76-1.46); Glucose 149 mg/dL (74-106); Magnesium 1.6 mg/dL (1.8-2.4); Potassium 3.7 mmol/L (3.5-5.1); Sodium 140 mmol/L (136-145); Total Protein 6.5 g/dL (6.4-8.2)
[2024-10-12] MEDS: Normal Saline Flush 10 ML SYR IVP (12:32)
[2024-10-12 12:51] LABS: Abs Immature Grans 0.12 10^3/uL (0.0-0.06); Absolute Basophil Count 0.09 10^3/uL (0.0-0.2); Absolute Eosinophil Count 0.58 10^3/uL (0.0-0.7); Absolute Monocyte Count 0.65 10^3/uL (0.1-0.8); Absolute Neutrophil Count 4.92 10^3/uL (1.2-6.7); Eosinophils % 6.3 %; HCT 35.6 % (36.0-46.0); HGB 11.7 g/dL (11.2-15.7); Immature Grans % 1.3 %; Lymphocytes % 30.6 %; MCH 31.6 pg (27.0-33.0); MCHC 32.9 % (32.0-36.0); MCV 96 fL (80-95); MPV 8.5 fL (8.0-11.0); Monocytes % 7.1 %; Neutrophils % 53.7 %; Platelet Count 154 10^3/uL (130-400); RDW 21.1 % (11.7-14.6); RDW-SD 72.7 fL; WBC 9.16 10^3/uL (4.4-10.8)
[2024-10-12 13:13] LABS: ALT 18 U/L (14-59); AST 18 U/L (15-37); Albumin 3.7 g/dL (3.4-5.0); Alkaline Phosphatase 93 U/L (46-116); Anion Gap 7.3 mmol/L (3-11); BUN 13 mg/dL (7-18); Bilirubin, Total 0.72 mg/dL (0.2-1.0); CO2 28.7 mmol/L (21.0-32.0); CREATININE 1.4 mg/dL (0.55-1.02); Calcium 9.5 mg/dL (8.5-10.1); Chloride 104 mmol/L (98-107); Diff Comment Diff Reviewed; Estimated GFR 36.64 (mL/min/1.73m2); FREE T4 1.01 ng/dL (0.76-1.46); Glucose 100 mg/dL (74-106); Magnesium 1.9 mg/dL (1.8-2.4); Potassium 4.2 mmol/L (3.5-5.1); Sodium 140 mmol/L (136-145); TSH 15.11 uIU/mL (0.36-3.74); Total Protein 6.9 g/dL (6.4-8.2)
[2024-10-12 13:14] LABS: Anisocytosis 2+
== END 2024-10-23 23:59 | disposition home or self-care (01) ==
LOC: INF 01:48
PROVIDERS: Nurse Practitioner Family; PCP Student in an Organized Health Care Education/Training Program; Visit Provider Internal Medicine Medical Oncology
DX: C34.91 Malignant neoplasm of unspecified part of right bronchus or lung (principal); C50.919 Malignant neoplasm of unspecified site of unspecified female breast; Z17.31 Human epidermal growth factor receptor 2 positive status; Z79.899 Other long term (current) drug therapy
CPT/HCPCS: 36591; 80053; 83735; 84439; 84443; 85025

== ENCOUNTER 2024-11-09 01:49 | Outpatient (RCR) | payer MEDICARE, SELFPAY ==
[2024-11-09] MEDS: Normal Saline Flush 10 ML SYR IVP (11:37)
[2024-11-09 12:09] LABS: Abs Immature Grans 0.04 10^3/uL (0.0-0.06); Absolute Basophil Count 0.05 10^3/uL (0.0-0.2); Absolute Eosinophil Count 0.53 10^3/uL (0.0-0.7); Absolute Lymphocyte Count 2.18 10^3/uL (1.2-3.4); Absolute Monocyte Count 0.52 10^3/uL (0.1-0.8); Absolute Neutrophil Count 3.36 10^3/uL (1.2-6.7); Basophils % 0.7 %; Eosinophils % 7.9 %; HCT 35.6 % (36.0-46.0); Immature Grans % 0.6 %; Lymphocytes % 32.6 %; MCH 32.9 pg (27.0-33.0); MCHC 33.7 % (32.0-36.0); MCV 98 fL (80-95); MPV 8.7 fL (8.0-11.0); Monocytes % 7.8 %; Neutrophils % 50.4 %; Platelet Count 156 10^3/uL (130-400); RBC 3.65 10^6/uL (3.93-5.22); RDW 20.5 % (11.7-14.6); WBC 6.68 10^3/uL (4.4-10.8)
[2024-11-09 12:34] LABS: Diff Comment RBC Morph Reviewed
[2024-11-09 12:35] LABS: Anisocytosis 2+
[2024-11-09 12:40] LABS: ALT 20 U/L (14-59); AST 18 U/L (15-37); Albumin 3.6 g/dL (3.4-5.0); Alkaline Phosphatase 84 U/L (46-116); Anion Gap 4.9 mmol/L (3-11); BUN 13 mg/dL (7-18); Bilirubin, Total 0.75 mg/dL (0.2-1.0); CO2 29.1 mmol/L (21.0-32.0); CREATININE 1.2 mg/dL (0.55-1.02); Chloride 102 mmol/L (98-107); Estimated GFR 44.08 (mL/min/1.73m2); FREE T4 1.16 ng/dL (0.76-1.46); Glucose 146 mg/dL (74-106); Sodium 136 mmol/L (136-145); TSH 7.64 uIU/mL (0.36-3.74); Total Protein 7.1 g/dL (6.4-8.2)
== END 2024-11-20 23:59 | disposition home or self-care (01) ==
LOC: INF 01:49
PROVIDERS: Nurse Practitioner Family; PCP Student in an Organized Health Care Education/Training Program; Visit Provider Internal Medicine Medical Oncology
DX: Z79.899 Other long term (current) drug therapy (principal); C34.91 Malignant neoplasm of unspecified part of right bronchus or lung; C50.919 Malignant neoplasm of unspecified site of unspecified female breast; Z17.31 Human epidermal growth factor receptor 2 positive status
CPT/HCPCS: 36591; 80053; 83735; 84439; 84443; 85025

== ENCOUNTER → 2024-11-13 13:17 | Outpatient (BNVA) | payer MEDICARE, SELFPAY | PROVIDERS: PCP Student in an Organized Health Care Education/Training Program; Referring Provider Student in an Organized Health Care Education/Training Program; Visit Provider Physical Therapy Assistant | DX: S21.102D Unspecified open wound of left front wall of thorax without penetration into thoracic cavity, subsequent encounter (principal); X58.XXXD Exposure to other specified factors, subsequent encounter | CPT/HCPCS: 97597 ==

== ENCOUNTER 2024-11-16 09:39 | Emergency (ER) | payer MEDICARE, SELFPAY ==
[2024-11-16] VITALS (20 sets, daily range): BP systolic 94–130; BP diastolic 63–68; PULSE 72–89; RESP 5–20; TEMP 36.6–36.9; O2SAT 93–100
--- NOTE | 2024-11-16 09:30 | RT.EKG_ITS ---
APPROVED REPORT Exam: Resting ECG Reason for Exam: SOB Patient Location: E HR:88 bpm ECG Measurements Heart Rate 88 AXIS IA 178 P 39 QRSd 72 QRS -21 QT 369 T 18 QTc 447 Conclusion Sinus rhythm 88 no stemi
--- NOTE | 2024-11-16 10:15 | DI.RAD_ITS ---
Exam(s) XR CHEST 2V PA LATERAL EXAM: XR CHEST 2V PA LATERAL CLINICAL HISTORY: SOB TECHNIQUE: 2D digital imaging was performed. Two views. COMPARISON: CR XR CHEST 2V PA LATERAL from 08/18/[address] CHEST/ABD/PEL W from 03/10/[address] CHEST/ABD/PEL W from 06/05/2024 FINDINGS: HEART: Normal size. Aorta: Not dilated. Tortuous and calcified PULMONARY VASCULATURE: Normal. MEDIASTINUM: Unremarkable. LUNGS: Right-sided volume loss with basilar scarring. No superimposed infiltrate. PLEURAL SPACE: No pleural effusion or pneumothorax. BONE:Unremarkable for age. SOFT TISSUES: Port over right chest. IMPRESSION: No acute abnormality. stable right-sided volume loss and right lower lobe scarring. DATA REPOSITORY: RADIATION DOSE DELIVERED:
[2024-11-16 10:49] LABS: Abs Immature Grans 0.03 10^3/uL (0.0-0.06); Absolute Basophil Count 0.05 10^3/uL (0.0-0.2); Absolute Eosinophil Count 0.24 10^3/uL (0.0-0.7); Absolute Lymphocyte Count 1.42 10^3/uL (1.2-3.4); Absolute Monocyte Count 0.47 10^3/uL (0.1-0.8); Absolute Neutrophil Count 3.27 10^3/uL (1.2-6.7); Basophils % 0.9 %; Eosinophils % 4.4 %; HCT 36.1 % (36.0-46.0); HGB 11.9 g/dL (11.2-15.7); Immature Grans % 0.5 %; Lymphocytes % 25.9 %; MCV 100 fL (80-95); MPV 8.6 fL (8.0-11.0); Monocytes % 8.6 %; Neutrophils % 59.7 %; Platelet Count 117 10^3/uL (130-400); RBC 3.61 10^6/uL (3.93-5.22); RDW 19.9 % (11.7-14.6); WBC 5.48 10^3/uL (4.4-10.8)
[2024-11-16] MEDS: Albuterol/Ipratropium 3 ML UPD VIAL UPD (11:03)
[2024-11-16 11:21] LABS: ALT 17 U/L (14-59); AST 19 U/L (15-37); Albumin 3.5 g/dL (3.4-5.0); Alkaline Phosphatase 80 U/L (46-116); BUN 14 mg/dL (7-18); Bilirubin, Total 0.72 mg/dL (0.2-1.0); CREATININE 1.5 mg/dL (0.55-1.02); Calcium 9.9 mg/dL (8.5-10.1); Chloride 100 mmol/L (98-107); Estimated GFR 33.73 (mL/min/1.73m2); Glucose 154 mg/dL (74-106); NT-proBNP 220 pg/mL (<300); Potassium 4.4 mmol/L (3.5-5.1); Sodium 136 mmol/L (136-145); Total Protein 6.9 g/dL (6.4-8.2); Troponin I 6 ng/L (<or=51)
[2024-11-16 12:01] LABS: Troponin I 5 ng/L (<or=51)
--- NOTE | 2024-11-16 15:50 | ED.GENADUL_ITS ---
Discharge Plan Disposition Patient Disposition: Home Condition: Stable Discharge Details Clinical Impression: Chronic shortness of breath Primary Care Provider: Elmer Murphy ED Provider: Ruth Ann Ross Home Meds and New Rx's Prescriptions: No Action simvastatin 40 mg tablet 40 mg PO QPM omeprazole 20 mg capsule,delayed release(DR/EC) 20 mg PO QAM propranolol [Inderal LA] 60 mg capsule,extended release 24 hr 60 mg PO DAILY ascorbate calcium (vitamin C) 500 mg tablet 1,000 mg PO DAILY levothyroxine [Synthroid] 25 mcg tablet 137 mcg PO QAM albuterol sulfate 90 mcg/actuation HFA aerosol inhaler 2 puff INHALATION PRN Patient Comments: INHALE TWO PUFFS BY MOUTH EVERY 4 HOURS NEEDED FOR WHEEZING - USE WITH SPACER mirtazapine 7.5 mg tablet 7.5 mg PO .bedtime Patient Comments: TAKE ONE TABLET BY MOUTH AT BEDTIME FOR SLEEP codeine-guaifenesin 10-100 mg/5 mL liquid 10 ml PO 3XD Patient Comments: TAKE 5 TO 10ML BY MOUTH THREE TIMES A DAY NEEDED FOR COUGH losartan 50 mg tablet 50 mg PO QAM Patient Comments: TAKE 1 TABLET BY MOUTH EVERY DAY calcium carbonate 500 mg calcium (1,250 mg) Tablet 1,000 mg PO QPM Acetaminophen [Tylenol] 650 mg PO Q6H Qty: 0 0RF ipratropium-albuterol 0.5 mg-3 mg(2.5 mg base)/3 mL Solution For Nebulization 3 ml UPD Q6H PRN PRNQty: 0 0RF metoprolol succinate 50 mg tablet extended release 24 hr 50 mg PO DAILY Patient Comments: Take 1 tablet by mouth once a day for blood pressure and tremor letrozole 2.5 mg tablet 2.5 mg PO DAILY aspirin [Adult Low Dose Aspirin] 81 mg tablet,delayed release (DR/EC) 81 mg PO DAILY Discharge Instructions Additional Instructions: Lab work and x-ray today are unremarkable for any acute process. You have been referred to pulmonology for follow-up and pulmonary function testing. They should contact you for your follow-up appointment Discharge Data Discharge Date/Time-TO BE ENTERED AT DEPARTURE: 11/16/24 12:32 HPI General Date/Time Provider Initiated Documentation: 11/16/24 09:54 . Limitations to Documentation: no limitations . Information obtained by: patient . HPI Narrative: 84-year-old female with past medical history of CKD, questionable history of COPD, hypertension presents for evaluation of shortness of breath. She reports that she has been having shortness of breath for years. She states that she has no lung diagnosis. She states that she does smoke but stopped smoking 40 years ago. She does not use inhalers or any breathing treatments at home. She reports that over the last month she feels like her symptoms are worse. She coughs a lot more at nighttime. She is not have a cough productive of mucus. S he does not have any fevers or chest pain. She reports that she came to the emergency department today because she has not been able to get into her PCP. Related Data Home Medications ?Medication ?Instructions ?Recorded ?Confirmed ascorbate calcium (vitamin C) 500 1,000 mg PO DAILY 05/15/21 11/16/24 mg tablet omeprazole 20 mg capsule,delayed 20 mg PO QAM 05/15/21 11/16/24 release propranolol 60 mg capsule,24 60 mg PO DAILY 05/15/21 11/16/24 hr,extended release (Inderal LA) simvastatin 40 mg tablet 40 mg PO QPM 05/15/21 11/16/24 calcium carbonate 1,000 mg PO QPM 10/08/21 11/16/24 losartan 50 mg tablet 50 mg PO QAM 10/08/21 11/16/24 Acetaminophen [Tylenol] 650 mg PO Q6H ##0 10/13/21 11/16/24 ipratropium 0.5 mg-albuterol 3 mg 3 ml UPD Q6H PRN PRN #0 mL 10/13/21 06/16/24 (2.5 mg base)/3 mL nebulization soln levothyroxine 25 mcg tablet 137 mcg PO QAM 11/01/21 11/16/24 (Synthroid) aspirin 81 mg tablet,delayed 81 mg PO DAILY 06/16/24 11/16/24 release (Adult Low Dose Aspirin) letrozole 2.5 mg tablet 2.5 mg PO DAILY 06/16/24 06/16/24 metoprolol succinate 50 mg 50 mg PO DAILY 06/16/24 11/16/24 tablet,extended release 24 hr albuterol sulfate 90 mcg/actuation 2 puff inhalation PRN 11/16/24 11/16/24 aerosol inhaler codeine 10 mg-guaifenesin 100 mg/5 10 ml PO 3XD 11/16/24 11/16/24 mL oral liquid mirtazapine 7.5 mg tablet 7.5 mg PO .bedtime 11/16/24 11/16/24 Previous Rx's ?Medication ?Instructions ?Recorded Acetaminophen [Tylenol] 650 mg PO Q6H ##0 10/13/21 ipratropium 0.5 mg-albuterol 3 mg 3 ml UPD Q6H PRN PRN #0 mL 10/13/21 (2.5 mg base)/3 mL nebulization soln Allergies Allergy/AdvReac Type Severity Reaction Status Date / Time clopidogrel Allergy Unknown Verified 11/16/24 09:54 bisulfate Allergy Unknown Uncoded 11/16/24 09:54 General Stated Complaint: SOB HARPER: 3 Exam Narrative Exam Narrative: Review of Systems: All systems reviewed & are unremarkable except as noted in HPI and below Well-developed, no acute distress Afebrile NCAT PERRL, normal conjunctiva RRR chest wall with Wound over left mastectomy site secondary to radiation Prolonged expiratory phase with some mild expiratory wheezing, no hypoxia tachypnea or increased work of breathing Nondistended abdomen Extremities w/o edema No rashes or lesions. no focal neurologic deficits Appropriate mood and affect Course Vital Signs Vital signs: Vital Signs Temperature 36.9 C 11/16/24 09:44 Pulse 87 11/16/24 09:44 Respiratory Rate 20 11/16/24 09:44 Blood Pressure 126/66 11/16/24 09:44 Pulse Oximetry 96 11/16/24 09:44 Temperature 36.6 C 11/16/24 12:32 Temperature Source Oral 11/16/24 10:18 Pulse 72 11/16/24 12:32 Pulse 80 11/16/24 12:10 Respiratory Rate 20 11/16/24 12:32 Respiratory Effort Short of Breath 11/16/24 11:25 Respiratory Depth Normal 11/16/24 11:25 Respiratory Pattern Normal 11/16/24 11:25 Blood Pressure 130/68 11/16/24 12:32 Blood Pressure Mean 78 11/16/24 10:31 Blood Pressure Position Supine 11/16/24 09:44 Pulse Oximetry 98 11/16/24 12:32 Oxygen Delivery Method Room Air 11/16/24 10:18 Oxygen Flow Rate 0 11/16/24 09:44 Lab/Test Results Lab/Test Results: Laboratory Tests Range/Units 11/16/24 11/16/24 10:44 11:29 WBC (4.4-10.8) 10^3/uL 5.48 RBC (3.93-5.22) 10^6/uL 3.61 L Hgb (11.2-15.7) g/dL 11.9 Hct (36.0-46.0) % 36.1 MCV (80-95) fL 100 H MCH (27.0-33.0) pg 33.0 MCHC (32.0-36.0) % 33.0 RDW (11.7-14.6) % 19.9 H Plt Count (130-400) 10^3/uL 117 L MPV (8.0-11.0) fL 8.6 Immature Gran % % 0.5 Neutrophils % % 59.7 Lymphocytes % % 25.9 Monocytes % % 8.6 Eosinophils % % 4.4 Basophils % % 0.9 Nucleated RBC % (0.0-0.3) % 0.0 Absolute Neutrophils (1.2-6.7) 10^3/uL 3.27 Absolute Lymphocytes (1.2-3.4) 10^3/uL 1.42 Absolute Monocytes (0.1-0.8) 10^3/uL 0.47 Absolute Eosinophils (0.0-0.7) 10^3/uL 0.24 Absolute Basophils (0.0-0.2) 10^3/uL 0.05 Sodium (136-145) mmol/L 136 Potassium (3.5-5.1) mmol/L 4.4 Chloride (98-107) mmol/L 100 Carbon Dioxide (21.0-32.0) mmol/L 28.0 Anion Gap (3-11) mmol/L 8.0 BUN (7-18) mg/dL 14 Creatinine (0.55-1.02) mg/dL 1.5 H Est GFR (CKD-EPI 2020) (mL/min/1.73m2) 33.73 Glucose (74-106) mg/dL 154 H Calcium (8.5-10.1) mg/dL 9.9 Magnesium (1.8-2.4) mg/dL 2.0 Total Bilirubin (0.2-1.0) mg/dL 0.72 AST (15-37) U/L 19 ALT (14-59) U/L 17 Alkaline Phosphatase (46-116) U/L 80 Troponin I (<or=51) ng/L 6 5 NT-Pro-B Natriuret Pep (<300) pg/mL 220 Total Protein (6.4-8.2) g/dL 6.9 Albumin (3.4-5.0) g/dL 3.5 Medical Decision Making Emergent evaluation of chronic shortness of breath. She reports shortness of breath for years. She does not have any acute change in her shortness of breath. She does not have any acute signs of respiratory failure or respiratory distress requiring airway intervention. She does have some wheezing. She denies any pulmonary history to me but it is noted that she is a prior smoker and does have a history of COPD documented in her chart though she does not say that she uses any bronchodilators or other inhaled therapy at home. Initial concerns for reactive airway, COPD, pneumonia, viral illness. The patient does have a remote history of mastectomy, radiation treatment. She also does have a history of DVT. She is not currently on an anticoagulant, she does take a baby aspirin daily. I have a low suspicion of a pulmonary embolism given her hemodynamics and duration of symptoms do not feel that a CTA is indicated at this time. Lab work was obtained, there is no leukocytosis or anemia. Her creatinine is 1.5 which is only slightly above what her baseline is been I suspect is worsening of ongoing renal disease. Her BNP is not elevated. Her troponin x 2 is negative. A chest x-ray was obtained there is some scarring noted in the right lung, but no acute infiltrate or abnormality noted. At this time she was given a albuterol treatment, which she states did nothing to improve her symptoms of shortness of breath. Will refer to pulmonology for outpatient workup of chronic dyspnea. Return precautions advised. Discharged in good condition. Quality:SDOH Health Related Social Needs: No Data to Display PFSH All Active Problems (Updated 11/16/24 @ 12:21 by Ruth Ann Ross MD) Chronic shortness of breath (Acute) Trochanteric bursitis, right hip (Acute) corticosteroid injection 01/15/23 No-show for appointment (Acute) Periprosthetic fracture of femur at tip of prosthesis (Acute) Basicervical fracture of neck of right femur (Acute 10/08/21) Chronic laryngitis (Acute) Thrush (Acute) COPD (chronic obstructive pulmonary disease) (Acute) Chronic cough (Acute) Globus sensation (Acute) Eczema (Acute) Impaired fasting glucose (Acute) Spondylisthesis (Acute) Insomnia (Acute) CKD (chronic kidney disease) (Chronic) Lesion of skin of scalp (Acute) Hearing impaired person (Acute) Abdominal pain (Acute) Lactose intolerance (Acute) Hiatal hernia (Chronic) Dysphagia (Acute) Hyperlipidemia (Acute) Hypertension (Chronic) Abdominal aortic aneurysm (Acute) GERD (gastroesophageal reflux disease) (Chronic) Hypothyroidism (Chronic) Arthritis (Acute) Osteoarthritis (Chronic) Medical History (Updated 11/16/24 @ 12:21 by Ruth Ann Ross MD) Palliative care patient Surgical History H/O colonoscopy History of esophagogastroduodenoscopy (EGD) History of renal stent H/O aortic aneurysm repair H/O hand surgery History of Nila fundoplication Family History Father Cancer Mother Aneurysm Pneumonia Son No problems noted. Social History Smoking/Tobacco Use Status: Former Tobacco Use Smoking risk assessment performed?: Yes Alcohol Intake: never Drug use: Never Substance use type: does not use Current gender identity: female Do you feel safe at home: Yes Do you feel safe in your relationship?: Yes
== END 2024-11-16 12:32 | disposition home or self-care (01) ==
PROVIDERS: Emergency Provider Emergency Medicine; PCP Student in an Organized Health Care Education/Training Program
DX: R06.02 Shortness of breath (principal); R06.2 Wheezing
CPT/HCPCS: 80053; 93005; 94640; 99283; 71046; 83735; 83880; 84484; 85025; 93010; 99284; J7620

== ENCOUNTER → 2024-11-17 11:42 | Outpatient (BNVA) | payer MEDICARE, SELFPAY | PROVIDERS: PCP Student in an Organized Health Care Education/Training Program; Referring Provider Student in an Organized Health Care Education/Training Program; Visit Provider Physical Therapy Assistant | DX: S21.102D Unspecified open wound of left front wall of thorax without penetration into thoracic cavity, subsequent encounter (principal); X58.XXXD Exposure to other specified factors, subsequent encounter | CPT/HCPCS: 99213 ==

== ENCOUNTER → 2024-11-20 12:49 | Outpatient (BNVA) | payer MEDICARE, SELFPAY | PROVIDERS: PCP Student in an Organized Health Care Education/Training Program; Visit Provider Physical Therapy Assistant | DX: S21.102D Unspecified open wound of left front wall of thorax without penetration into thoracic cavity, subsequent encounter (principal); X58.XXXD Exposure to other specified factors, subsequent encounter | CPT/HCPCS: 99213 ==

== ENCOUNTER → 2024-11-23 09:51 | Outpatient (BNVA) | payer MEDICARE, SELFPAY | PROVIDERS: PCP Student in an Organized Health Care Education/Training Program; Referring Provider Student in an Organized Health Care Education/Training Program; Visit Provider Surgery | DX: S21.102D Unspecified open wound of left front wall of thorax without penetration into thoracic cavity, subsequent encounter (principal); X58.XXXD Exposure to other specified factors, subsequent encounter | CPT/HCPCS: 97607 ==

== ENCOUNTER → 2024-11-25 07:50 | Outpatient (BNVA) | payer MEDICARE, SELFPAY | PROVIDERS: PCP Student in an Organized Health Care Education/Training Program; Referring Provider Student in an Organized Health Care Education/Training Program; Visit Provider Surgery | DX: S21.102D Unspecified open wound of left front wall of thorax without penetration into thoracic cavity, subsequent encounter (principal); X58.XXXD Exposure to other specified factors, subsequent encounter | CPT/HCPCS: 97607 ==

== ENCOUNTER → 2024-12-02 08:53 | Outpatient (BNVA) | payer MEDICARE, SELFPAY | PROVIDERS: PCP Student in an Organized Health Care Education/Training Program; Visit Provider Surgery | DX: S21.102D Unspecified open wound of left front wall of thorax without penetration into thoracic cavity, subsequent encounter (principal); X58.XXXD Exposure to other specified factors, subsequent encounter ==

== ENCOUNTER → 2024-12-07 08:20 | Outpatient (BNVA) | payer MEDICARE, SELFPAY | PROVIDERS: PCP Student in an Organized Health Care Education/Training Program; Referring Provider Student in an Organized Health Care Education/Training Program; Visit Provider Surgery | DX: S21.102D Unspecified open wound of left front wall of thorax without penetration into thoracic cavity, subsequent encounter (principal); X58.XXXD Exposure to other specified factors, subsequent encounter | CPT/HCPCS: 36591; 80053; 99211; 83735; 84439; 84443; 85025 ==

== ENCOUNTER → 2024-12-14 08:22 | Outpatient (BNVA) | payer MEDICARE, SELFPAY | PROVIDERS: PCP Student in an Organized Health Care Education/Training Program; Visit Provider Surgery | DX: Z51.89 Encounter for other specified aftercare (principal); S21.102D Unspecified open wound of left front wall of thorax without penetration into thoracic cavity, subsequent encounter; X58.XXXD Exposure to other specified factors, subsequent encounter | CPT/HCPCS: 99213 ==

== ENCOUNTER 2024-12-21 01:33 | Outpatient (RCR) | payer MEDICARE, SELFPAY ==
[2024-12-07 09:24] LABS: Abs Immature Grans 0.04 10^3/uL (0.0-0.06); Absolute Basophil Count 0.06 10^3/uL (0.0-0.2); Absolute Eosinophil Count 0.54 10^3/uL (0.0-0.7); Absolute Lymphocyte Count 1.54 10^3/uL (1.2-3.4); Absolute Monocyte Count 0.55 10^3/uL (0.1-0.8); Absolute Neutrophil Count 3.66 10^3/uL (1.2-6.7); Basophils % 0.9 %; Eosinophils % 8.5 %; HCT 35.7 % (36.0-46.0); Immature Grans % 0.6 %; Lymphocytes % 24.1 %; MCHC 33.6 % (32.0-36.0); MCV 101 fL (80-95); MPV 8.8 fL (8.0-11.0); Monocytes % 8.6 %; Neutrophils % 57.3 %; Platelet Count 112 10^3/uL (130-400); RBC 3.53 10^6/uL (3.93-5.22); RDW 18.8 % (11.7-14.6); RDW-SD 70.2 fL; WBC 6.39 10^3/uL (4.4-10.8)
[2024-12-07 09:50] LABS: ALT 18 U/L (14-59); AST 19 U/L (15-37); Albumin 3.6 g/dL (3.4-5.0); Alkaline Phosphatase 78 U/L (46-116); Anion Gap 8.2 mmol/L (3-11); BUN 19 mg/dL (7-18); Bilirubin, Total 0.9 mg/dL (0.2-1.0); CO2 26.8 mmol/L (21.0-32.0); CREATININE 1.3 mg/dL (0.55-1.02); Calcium 10.3 mg/dL (8.5-10.1); Chloride 101 mmol/L (98-107); Estimated GFR 40.05 (mL/min/1.73m2); Glucose 149 mg/dL (74-106); Potassium 4.3 mmol/L (3.5-5.1); Sodium 136 mmol/L (136-145); TSH 5.82 uIU/mL (0.36-3.74); Total Protein 7.1 g/dL (6.4-8.2)
[2024-12-07] MEDS: Normal Saline Flush 10 ML SYR IVP (09:59)
[2024-12-07 17:17] LABS: T4, Free 1.2 ng/dL (0.8-2.2)
[2024-12-21] MEDS: Normal Saline Flush 10 ML SYR IVP (07:40)
[2024-12-21 07:56] LABS: Abs Immature Grans 0.12 10^3/uL (0.0-0.06); Absolute Basophil Count 0.05 10^3/uL (0.0-0.2); Absolute Eosinophil Count 0.39 10^3/uL (0.0-0.7); Absolute Lymphocyte Count 1.36 10^3/uL (1.2-3.4); Absolute Monocyte Count 0.73 10^3/uL (0.1-0.8); Absolute Neutrophil Count 6.32 10^3/uL (1.2-6.7); Basophils % 0.6 %; Eosinophils % 4.3 %; HCT 35.5 % (36.0-46.0); HGB 12.5 g/dL (11.2-15.7); Immature Grans % 1.3 %; Lymphocytes % 15.2 %; MCH 34.7 pg (27.0-33.0); MCHC 35.2 % (32.0-36.0); MCV 99 fL (80-95); MPV 9.2 fL (8.0-11.0); Monocytes % 8.1 %; Neutrophils % 70.5 %; Platelet Count 140 10^3/uL (130-400); RDW 16.9 % (11.7-14.6); RDW-SD 61.4 fL; WBC 8.97 10^3/uL (4.4-10.8)
[2024-12-21 08:22] LABS: ALT 19 U/L (14-59); AST 20 U/L (15-37); Albumin 3.3 g/dL (3.4-5.0); Alkaline Phosphatase 81 U/L (46-116); Anion Gap 10.4 mmol/L (3-11); BUN 24 mg/dL (7-18); Bilirubin, Total 1.1 mg/dL (0.2-1.0); CO2 27.6 mmol/L (21.0-32.0); CREATININE 1.5 mg/dL (0.55-1.02); Calcium 10.5 mg/dL (8.5-10.1); Chloride 99 mmol/L (98-107); Estimated GFR 33.73 (mL/min/1.73m2); FREE T4 1.51 ng/dL (0.76-1.46); Glucose 194 mg/dL (74-106); Magnesium 1.7 mg/dL (1.8-2.4); Potassium 3.9 mmol/L (3.5-5.1); Sodium 137 mmol/L (136-145); TSH 4.57 uIU/mL (0.36-3.74)
== END 2024-12-21 23:59 | disposition home or self-care (01) ==
LOC: INF 01:33
PROVIDERS: Nurse Practitioner Family; PCP Student in an Organized Health Care Education/Training Program; Visit Provider Internal Medicine Medical Oncology
DX: Z79.899 Other long term (current) drug therapy (principal); C34.91 Malignant neoplasm of unspecified part of right bronchus or lung; C50.919 Malignant neoplasm of unspecified site of unspecified female breast; Z17.31 Human epidermal growth factor receptor 2 positive status
CPT/HCPCS: 36591; 80053; 99211; 83735; 84439; 84443; 85025

== ENCOUNTER 2024-12-23 13:47 | Outpatient (REF) | payer MEDICARE, SELFPAY ==
--- NOTE | 2024-12-23 14:00 | SKI_PTH ---
PATIENT: Ammy Pepe LOC: [facility] U#:[id number] AGE/SX: 84/F ROOM: RE12/23/[address]: DANIELA Casarez : 1940 BED: DIS: 12/23/2024 SPEC #: [id number] RECD: 12/23/24 17:55 STATUS: PRASANTH REQ #: [id number] SHERI: 12/23/24 14:[address]: Sandra Mcmanus DEPT: Surgical Specimen RECD BY: Melanie Slade ENTERED: 12/23/24 17:56 SP TYPE: INDIGO WILKINS DR: Elmer Murphy Tissues: 1 - SKIN BIOPSY(SHAVE/PUNCH) Procedures: IMMUNOPEROXIDASE STAIN SKIN LEVEL 4 Comments: [id number]
== END 2024-12-23 13:48 | disposition home or self-care (01) ==
LOC: LBN 13:47
PROVIDERS: PCP Student in an Organized Health Care Education/Training Program; Referring Provider Physical Therapy Assistant; Visit Provider Physical Therapy Assistant
DX: C44.509 Unspecified malignant neoplasm of skin of other part of trunk (principal)
CPT/HCPCS: 88305; 88361

== ENCOUNTER → 2024-12-23 14:21 | Outpatient (BNVA) | payer MEDICARE, SELFPAY | PROVIDERS: PCP Student in an Organized Health Care Education/Training Program; Referring Provider Student in an Organized Health Care Education/Training Program; Visit Provider Physical Therapy Assistant | DX: S21.102D Unspecified open wound of left front wall of thorax without penetration into thoracic cavity, subsequent encounter; X58.XXXD Exposure to other specified factors, subsequent encounter; C50.912 Malignant neoplasm of unspecified site of left female breast | CPT/HCPCS: 11104; 99213 ==

== ENCOUNTER 2024-12-28 09:01 | Outpatient (CLI) | payer MEDICARE, SELFPAY ==
--- NOTE | 2024-12-28 09:00 | RT.EKG_ITS ---
APPROVED REPORT Exam: Resting ECG Reason for Exam: DYSPNEA Patient Location: O HR:88 bpm ECG Measurements Heart Rate 88 AXIS OH 150 P 67 QRSd 103 QRS 17 QT 378 T 45 QTc 458 Conclusion Sinus rhythm...normal P axis, V-rate 50- 99 Borderline low voltage, extremity leads...all extremity leads <0.6mV Otherwise normal ECG
== END 2024-12-28 09:02 | disposition home or self-care (01) ==
PROVIDERS: PCP Student in an Organized Health Care Education/Training Program; Visit Provider Internal Medicine Medical Oncology
DX: R06.00 Dyspnea, unspecified (principal)
CPT/HCPCS: 93005; 93010

== ENCOUNTER 2024-12-30 08:27 | Emergency (ER) | payer MEDICARE, SELFPAY ==
[2024-12-30] VITALS (7 sets, daily range): BP systolic 106–126; BP diastolic 60–71; PULSE 86–104; RESP 18; TEMP 36.9; O2SAT 93–95
--- NOTE | 2024-12-30 08:47 | ED.GENADUL_ITS ---
Discharge Plan Disposition Patient Disposition: Home Condition: Stable Discharge Details Clinical Impression: Constipation Primary Care Provider: Elmer Murphy ED Provider: Quincy Cortes Home Meds and New Rx's Prescriptions: Continued simvastatin 40 mg tablet 40 mg PO QPM ascorbate calcium (vitamin C) 500 mg tablet 1,000 mg PO DAILY Anoro Ellipta 62.5-25 mcg/actuation blister with device 1 inh inhalation DAILY ibuprofen 600 mg tablet 600 mg PO Q8H PRN levothyroxine 75 mcg capsule 75 mcg PO DAILY albuterol sulfate 90 mcg/actuation HFA aerosol inhaler 2 puff INHALATION PRN Patient Comments: INHALE TWO PUFFS BY MOUTH EVERY 4 HOURS NEEDED FOR WHEEZING - USE WITH SPACER mirtazapine 7.5 mg tablet 7.5 mg PO .bedtime Patient Comments: TAKE ONE TABLET BY MOUTH AT BEDTIME FOR SLEEP codeine-guaifenesin 10-100 mg/5 mL liquid 10 ml PO 3XD Patient Comments: TAKE 5 TO 10ML BY MOUTH THREE TIMES A DAY NEEDED FOR COUGH capecitabine 500 mg tablet 500 mg PO BID Patient Comments: 7 days on/ 7 days off losartan 50 mg tablet 50 mg PO QAM Patient Comments: TAKE 1 TABLET BY MOUTH EVERY DAY calcium carbonate 500 mg calcium (1,250 mg) Tablet 1,200 mg PO QPM ipratropium-albuterol 0.5 mg-3 mg(2.5 mg base)/3 mL Solution For Nebulization 3 ml UPD Q6H PRN PRNQty: 0 0RF metoprolol succinate 50 mg tablet extended release 24 hr 50 mg PO DAILY Patient Comments: Take 1 tablet by mouth once a day for blood pressure and tremor aspirin [Adult Low Dose Aspirin] 81 mg tablet,delayed release (DR/EC) 81 mg PO DAILY Discharge Instructions Instructions: Polyethylene Glycol 3350, Constipation, Adult ED Additional Instructions: You were seen in the emergency department for your abdominal pain with constipation, you had some diarrhea and took Imodium now have some evidence of significant amount of stool in the colon without any sign of obstruction, mesenteric ischemia, diverticulitis or other emergent abdominal pathology. Please drink lots of water to help move your bowel, please take MiraLAX and use regular stool softeners as we discussed, please return for any severe increase in pain especially with complete constipation and lack of passing any gas, intractable nausea or vomiting or other emergent concerns. These follow-up with the incidental 6 mm lung nodule with your oncology team for recommendations of surveillance imaging. Referrals: Elmer Murphy [Primary Care Provider] - Discharge Data Discharge Date/Time-TO BE ENTERED AT DEPARTURE: 12/30/24 10:54 HPI General Date/Time Provider Initiated Documentation: 12/30/24 08:46 . HPI Narrative: 84 year-old female presents to ED today by POV/ambulating with her daughter with a chief complaint of constipation for the past few days, after taking Imodium for 7 days of diarrhea, states chronically bleeding hemorroids, and abdominal pain with decreased appetite. Quality described as diffuse abdominal pain, no radiation to fever, flank pain, hematuria, cough, shortness of breath, chest pain, melena. Severity is described as moderate to severe. Palliating factors include nothing specific attempted. Provoking factors include nothing specific. Patient not anticoagulated. Related Data Home Medications ?Medication ?Instructions ?Recorded ?Confirmed ascorbate calcium (vitamin C) 500 1,000 mg PO DAILY 05/15/21 12/30/24 mg tablet simvastatin 40 mg tablet 40 mg PO QPM 05/15/21 12/30/24 calcium carbonate 1,200 mg PO QPM 10/08/21 12/30/24 losartan 50 mg tablet 50 mg PO QAM 10/08/21 12/30/24 ipratropium 0.5 mg-albuterol 3 mg 3 ml UPD Q6H PRN PRN #0 mL 10/13/21 12/30/24 (2.5 mg base)/3 mL nebulization soln aspirin 81 mg tablet,delayed 81 mg PO DAILY 06/16/24 12/30/24 release (Adult Low Dose Aspirin) metoprolol succinate 50 mg 50 mg PO DAILY 06/16/24 12/30/24 tablet,extended release 24 hr albuterol sulfate 90 mcg/actuation 2 puff inhalation PRN 11/16/24 12/30/24 aerosol inhaler codeine 10 mg-guaifenesin 100 mg/5 10 ml PO 3XD 11/16/24 12/30/24 mL oral liquid mirtazapine 7.5 mg tablet 7.5 mg PO .bedtime 11/16/24 12/30/24 ibuprofen 600 mg tablet 600 mg PO Q8H PRN 12/09/24 12/30/24 levothyroxine 75 mcg capsule 75 mcg PO DAILY 12/09/24 12/30/24 umeclidinium 62.5 mcg-vilanterol 1 inh inhalation DAILY 12/09/24 12/30/24 25 mcg/actuation powdr for inhalation (Anoro Ellipta) capecitabine 500 mg tablet 500 mg PO BID Cancer 12/30/24 12/30/24 Previous Rx's ?Medication ?Instructions ?Recorded ipratropium 0.5 mg-albuterol 3 mg 3 ml UPD Q6H PRN PRN #0 mL 10/13/21 (2.5 mg base)/3 mL nebulization soln Allergies Allergy/AdvReac Type Severity Reaction Status Date / Time clopidogrel Allergy Unknown Verified 12/30/24 08:47 bisulfate Allergy Unknown Uncoded 12/30/24 08:47 General Stated Complaint: Abd Prob HARPER: 3 Review of Systems All systems reviewed & are unremarkable except as noted in HPI and below Exam Narrative Exam Narrative: GENERAL APPEARANCE: Well-nourished, non-toxic, awake and alert, atraumatic, no acute distress. SKIN: Warm, pink, dry, intact, without rashes/lesions/ulcerations. HEAD: Normocephalic, atraumatic, normal hair distribution for gender/age. EYES: Normal conjunctiva, no exudates on lids/lashes. ENT: Nares patent, no circumoral cyanosis, no facial swelling NECK: Supple, trachea midline, painless cervical ROM. LUNGS/CHEST: Lungs CTA bilaterally, non-labored respirations, normal A/P diameter, symmetrical expansion, no chest wall deformity HEART (CV/PV): Regular rate and rhythm without murmur, no peripheral edema, no JVD. ABDOMEN: Normoactive bowel sounds, soft, non-distended, no guarding, diffuse tenderness without rebound tenderness, no CVA tenderness to percussion bilaterally. MSK: Normal ROM, no swelling/deformity to bilateral UEs or LEs, moving all extremities without weakness, no cyanosis, spine midline without tenderness, normal curvature. NEURO: Mental Status AAOx4 - alert to person, place, time, events No facial droop, no forehead involvement. Motor: No focal weakness - strength 5/5 in bilateral UEs and LEs, proximal and distal, symmetric. Sensory: sensation intact to light touch globally. Gait normal: patient ambulated without ataxia into ED room. PSYCH: euthymic, cooperative, pleasant, appropriate speech Course Vital Signs Vital signs: Vital Signs Temperature 36.9 C 12/30/24 08:43 Pulse 104 H 12/30/24 08:43 Respiratory Rate 18 12/30/24 08:43 Blood Pressure 126/70 12/30/24 08:43 Pulse Oximetry 93 12/30/24 08:43 Temperature 36.9 C 12/30/24 08:45 Temperature Source Oral 12/30/24 08:45 Pulse 104 H 12/30/24 08:45 Respiratory Rate 18 12/30/24 08:45 Blood Pressure 126/70 12/30/24 08:45 Blood Pressure Position Sitting 12/30/24 08:45 Pulse Oximetry 93 12/30/24 08:45 Oxygen Delivery Method Room Air 12/30/24 08:45 Oxygen Flow Rate 0 12/30/24 08:45 Pain Level 8 12/30/24 08:45 Medical Decision Making This dictation utilizes [id number] dictation software and may contain unedited grammatical errors. 84 year-old female presents to ED today by POV/ambulating with her daughter with a chief complaint of constipation for the past few days, after taking Imodium for 7 days of diarrhea, states chronically bleeding hemorroids, and abdominal pain with decreased appetite. Quality described as diffuse abdominal pain, no radiation to fever, flank pain, hematuria, cough, shortness of breath, chest pain, melena. Severity is described as moderate to severe. Palliating factors include nothing specific attempted. Provoking factors include nothing specific. Patients' medical history: Currently is metastatic cancer to lung, COPD, CKD, hypertension, hyperlipidemia, GERD, hemorrhoids, denies abdominal surgeries. Family and social history: Eats normal diet but decreased lately, lives independently, no EtOH or drug use. Pertinent exam findings / vital signs include benign cardiopulmonary status, nontoxic and afebrile, no respiratory distress or URI symptoms, diffuse abdominal tenderness without rebound tenderness, no CVA tenderness to percussion bilaterally. Differential / pathologies of concern include gastroenteritis, constipation, malignancy, IBD, colitis, mesenteric ischemia. Diagnostic studies of: - CBC, CMP, lactate, magnesium, lipase, UA, CTA abdomen/pelvis. - CBC shows no leukocytosis, no anemia do not suspect significant GI bleeding - Lactate is 2.8, question mesenteric ischemia - CMP shows baseline elevated creatinine with CKD, reasonable for CT contrast study - Magnesium within normal limits - Lipase negative - LFTs within normal limits - UA shows trace blood, proteinuria - CTA shows no evidence of mesenteric ischemia, no fat stranding Femi to the colon, does show a new 6 mm nodule in the right lower lobe, I discussed this with patient, it shows no evidence of bowel wall thickening or pneumatosis, shows no obstructive uropathy Interventions of: - MiraLAX to go. ED Course/Assessment/Plan: 84-year-old female has constipation for a few days after taking Imodium for diarrhea for 7 days, CT only reveals moderate amounts of stool, counseled on likely laxative to relief, she has chronically bleeding hemorrhoids but no anemia do not suspect any dangerous bleeding at this time, I recommend that she use stool softeners to help encourage a bowel movement, UA shows no evidence of UTI, lactate was elevated likely in setting of mild dehydration and poor p.o. intake, no evidence for mesenteric ischemia on CTA. Findings not consistent with evidence of new malignancy, bowel obstruction, obstructive uropathy, significant abdominal infection. Disposition of Constipation. Patient verbalized understanding of the plan and return to ED criteria and enga codi in shared decision making. Medical Records Medical records reviewed: Yes I reviewed the patient's medical records. Imaging Data Radiologic Study: Attestation: I personally reviewed and interpreted this imaging study as follows: Imaging: CT Scan Radiologist's impression: Exam(s) CT ABDOMEN PELVIS CTA Unexpected findings Dictated By: Momo Estrada M.D. 5 Momo Estrada M.D.12/30/24 1015 Transcribed By: Momo Estrada Exam(s) CT ABDOMEN PELVIS CTA EXAM: CT ABDOMEN PELVIS CTA CLINICAL HISTORY: SBO vs mesteric ischemia. TECHNIQUE: Imaging Protocol: Axial CT angiography was performed with multi- slice acquisition and multi-planar and/or 3D reconstructions. CONTRAST MATERIAL: Intravenous: Omnipaque 350 Contrast volume:65mL Oral: No COMPARISON: CT CT CHEST/ABD/PEL W from 06/05/2024 FINDINGS: ABDOMEN AND PELVIS: Abdomen: Celiac axis/mesenteric arteries: No evidence of occlusion or significant stenosis. Renal Arteries: No evidence of occlusion or significant stenosis. Atherosclerotic calcification is seen in the proximal left renal artery. Aorta: No evidence of occlusion or significant stenosis. There is again seen an endovascular stent extending from the level of the renal arteries into the iliac arteries. No evidence of an endovascular leak. There is extensive atherosclerosis present. The infrarenal abdominal aortic measurement is 3 cm. Pelvis: Iliac Arteries: No evidence of occlusion or significant stenosis. Atherosclerosis is present. Common Femoral Arteries: No evidence of occlusion or significant stenosis. Atherosclerosis is present. ABDOMEN: Lung bases: There is a small paraesophageal hernia. There is a new 6 mm peripheral nodule in the right lower lobe (series 26, image 19). Liver: Normal density. No measurable mass. There is again seen focal fatty infiltration in the liver adjacent to the gallbladder fossa. Portal, Superior Mesenteric, and Splenic Veins: Unremarkable. Gallbladder and Biliary Tract: Cholelithiasis. There is no biliary ductal dilatation. Pancreas: There is diffuse fatty infiltration of the pancreas. No pancreatic mass or peripancreatic fluid collection is seen. Spleen: Normal. Adrenals: No masses seen. Kidneys: Normal size, contour and axis. No radiodense stones or obstructive uropathy. There is a simple cyst on the right kidney. No follow-up is recommended. No suspicious renal masses. Bowel: The stomach is not distended limiting evaluation. There is no evidence of bowel wall thickening or obstruction. No pneumatosis is present. There is no portal venous gas. There is diverticulosis of the colon without evidence of acute diverticulitis. There is a moderate amount of stool in the colon. Appendix is unremarkable. Peritoneal Cavity: No ascites, collection or mesenteric inflammatory response. No free air. Lymph Nodes: Within normal limits. Bones: Unremarkable. There is an intramedullary sierra seen in the proximal right femur. There is grade 1 spondylolisthesis of L5 on S1. No spondylolysis is seen. Soft Tissues: Unremarkable. PELVIS: Bladder: Symmetric distention, no gross wall thickening. Reproductive Organs: Unremarkable as visualized. There is prominence of the parametrial vessels which can be seen with pelvic congestion syndrome. Lymph Nodes: Within normal limits. Bones: Within normal limits. IMPRESSION: 1. No evidence of abdominal aortic dissection. Extensive atherosclerosis is present. The superior mesenteric artery and veins are patent. No portal venous gas. 2. No CT evidence to suggest mesenteric ischemia is seen at this time. 3. New 6 mm nodule in the right lower lobe. For solitary solid noncalcified nodules measuring 6???8 mm in patients at high risk, an initial follow-up examination is recommended at 6???12 months and again at 18???24 months (grade 1B: strong recommendation, moderate quality evidence). (Horace et al., 2017) Solitary noncalcified solid nodules measuring 6???8 mm in patients with low clinical risk are recommended to undergo initial follow-up at 6???12 months depending on size, morphology, and patient preference (grade 1C: strong recommendation, low- or [id number] evidence). (Horace et al., 2017) 4. Colonic diverticulosis without evidence of acute diverticulitis. Lab Data Lab results reviewed: Yes I reviewed the patient's lab results. Labs: Laboratory Tests Range/Units 12/30/24 12/30/24 08:57 09:35 WBC (4.4-10.8) 10^3/uL 10.06 RBC (3.93-5.22) 10^6/uL 3.90 L Hgb (11.2-15.7) g/dL 12.9 Hct (36.0-46.0) % 39.0 MCV (80-95) fL 100 H MCH (27.0-33.0) pg 33.1 H MCHC (32.0-36.0) % 33.1 RDW (11.7-14.6) % 15.8 H Plt Count (130-400) 10^3/uL 202 MPV (8.0-11.0) fL 8.8 Immature Gran % % 5.0 Neutrophils % % 74.4 Lymphocytes % % 12.4 Monocytes % % 5.2 Eosinophils % % 2.5 Basophils % % 0.5 Nucleated RBC % (0.0-0.3) % 0.0 Absolute Neutrophils (1.2-6.7) 10^3/uL 7.49 H Absolute Lymphocytes (1.2-3.4) 10^3/uL 1.25 Absolute Monocytes (0.1-0.8) 10^3/uL 0.52 Absolute Eosinophils (0.0-0.7) 10^3/uL 0.25 Absolute Basophils (0.0-0.2) 10^3/uL 0.05 VBG Lactate (<or=2.0) mmol/L 2.8 H* Sodium (136-145) mmol/L 134 L Potassium (3.5-5.1) mmol/L 4.4 Chloride (98-107) mmol/L 98 Carbon Dioxide (21.0-32.0) mmol/L 25.3 Anion Gap (3-11) mmol/L 10.7 BUN (7-18) mg/dL 23 H Creatinine (0.55-1.02) mg/dL 1.3 H Est GFR (CKD-EPI 2020) (mL/min/1.73m2) 40.05 Glucose (74-106) mg/dL 166 H Calcium (8.5-10.1) mg/dL 9.1 Magnesium (1.8-2.4) mg/dL 2.0 Total Bilirubin (0.2-1.0) mg/dL 1.0 AST (15-37) U/L 23 ALT (14-59) U/L 38 Alkaline Phosphatase (46-116) U/L 81 Total Protein (6.4-8.2) g/dL 6.7 Albumin (3.4-5.0) g/dL 3.2 L Lipase (<78) U/L 10 Urine Color (Yellow) Yellow Urine Clarity (Clear) Clear Urine pH (5-8) 7.0 Ur Specific [place] (1.005-1.025) 1.020 Urine Protein (Neg-Trace) mg/dL 30 H Urine Ketones (Negative) mg/dL Negative Urine Blood (Negative) Trace-intact H Urine Nitrite (Negative) Negative Urine Bilirubin (Negative) Negative Urine Urobilinogen (Up to 0.2) mg/dL 0.2 Ur Leukocyte Esterase (Negative) Negative Urine RBC (0-2) HPF 0-2 Urine WBC (0-5) HPF 0-2 Ur Epithelial Cells (Negative) HPF Few Urine Crystals (Negative) HPF Negative Urine Bacteria (Negative) HPF Negative Urine Casts (Negative) LPF 0-2 Hyaline Urine Mucus (Negative) Trace Ur Culture Indicated? No Urine Glucose (Negative) mg/dL Negative Quality:SDOH Health Related Social Needs: No Data to Display PFSH All Active Problems (Updated 12/30/24 @ 10:36 by DANIELA Humphreys) Constipation (Acute) Metastatic cancer to lung (Acute) Encounter for wound care (Acute) Trochanteric bursitis, right hip (Acute) corticosteroid injection 01/15/23 No-show for appointment (Acute) Periprosthetic fracture of femur at tip of prosthesis (Acute) Basicervical fracture of neck of right femur (Acute 10/08/21) Chronic laryngitis (Acute) Thrush (Acute) COPD (chronic obstructive pulmonary disease) (Acute) Chronic cough (Acute) Globus sensation (Acute) Eczema (Acute) Impaired fasting glucose (Acute) Spondylisthesis (Acute) Insomnia (Acute) CKD (chronic kidney disease) (Chronic) Lesion of skin of scalp (Acute) Hearing impaired person (Acute) Abdominal pain (Acute) Lactose intolerance (Acute) Hiatal hernia (Chronic) Dysphagia (Acute) Hyperlipidemia (Acute) Hypertension (Chronic) Abdominal aortic aneurysm (Acute) GERD (gastroesophageal reflux disease) (Chronic) Hypothyroidism (Chronic) Arthritis (Acute) Osteoarthritis (Chronic) Medical History (Updated 12/30/24 @ 10:36 by DANIELA Humphreys) History of radiation therapy (~2021) 07/31/22-09/13/22 Palliative care patient Surgical History (Updated 11/19/24 @ 14:01 by Courtney Smith RN) History of mastectomy, total (~05/21/22) ER+ TN weakly +, Her2 neg Td4,cN1a, H/O colonoscopy History of esophagogastroduodenoscopy (EGD) History of renal stent H/O aortic aneurysm repair H/O hand surgery History of Nila fundoplication Family History Father Cancer Mother Aneurysm Pneumonia Son No problems noted. Social History Smoking/Tobacco Use Status: Former Tobacco Use Smoking risk assessment performed?: Yes Alcohol Intake: never Drug use: Never Substance use type: does not use Current gender identity: female Do you feel safe at home: Yes Do you feel safe in your relationship?: Yes
--- NOTE | 2024-12-30 09:00 | NUR.NOTE ---
Nursing Note: pt and daughter both said pt normally ambulates independently but at this time need a little more assistance than usual
[2024-12-30 09:14] LABS: Absolute Basophil Count 0.05 10^3/uL (0.0-0.2); Absolute Eosinophil Count 0.25 10^3/uL (0.0-0.7); Absolute Lymphocyte Count 1.25 10^3/uL (1.2-3.4); Absolute Monocyte Count 0.52 10^3/uL (0.1-0.8); Absolute Neutrophil Count 7.49 10^3/uL (1.2-6.7); Basophils % 0.5 %; Eosinophils % 2.5 %; HGB 12.9 g/dL (11.2-15.7); Lymphocytes % 12.4 %; MCH 33.1 pg (27.0-33.0); MCHC 33.1 % (32.0-36.0); MCV 100 fL (80-95); MPV 8.8 fL (8.0-11.0); Monocytes % 5.2 %; Neutrophils % 74.4 %; Platelet Count 202 10^3/uL (130-400); RDW 15.8 % (11.7-14.6); RDW-SD 58.3 fL; WBC 10.06 10^3/uL (4.4-10.8)
[2024-12-30 09:16] LABS: Lactate 2.8 mmol/L (<or=2.0)
--- NOTE | 2024-12-30 09:17 | DI.CT_ITS ---
Exam(s) CT ABDOMEN PELVIS CTA EXAM: CT ABDOMEN PELVIS CTA CLINICAL HISTORY: SBO vs mesteric ischemia. TECHNIQUE: Imaging Protocol: Axial CT angiography was performed with multi-slice acquisition and m ulti-planar and/or 3D reconstructions. CONTRAST MATERIAL: Intravenous: Omnipaque 350 Contrast volume:65mL Oral: No COMPARISON: CT CT CHEST/ABD/PEL W from 06/05/2024 FINDINGS: ABDOMEN AND PELVIS: Abdomen: Celiac axis/mesenteric arteries: No evidence of occlusion or significant stenosis. Renal Arteries: No evidence of occlusion or significant stenosis. Atherosclerotic calcification is se en in the proximal left renal artery. Aorta: No evidence of occlusion or significant stenosis. There is again seen an endovascular stent e xtending from the level of the renal arteries into the iliac arteries. No evidence of an endovascula r leak. There is extensive atherosclerosis present. The infrarenal abdominal aortic measurement is 3 cm. Pelvis: Iliac Arteries: No evidence of occlusion or significant stenosis. Atherosclerosis is present. Common Femoral Arteries: No evidence of occlusion or significant stenosis. Atherosclerosis is presen t. ABDOMEN: Lung bases: There is a small paraesophageal hernia. There is a new 6 mm peripheral nodule in the rig ht lower lobe (series 26, image 19). Liver: Normal density. No measurable mass. There is again seen focal fatty infiltration in the liver adjacent to the gallbladder fossa. Portal, Superior Mesenteric, and Splenic Veins: Unremarkable. Gallbladder and Biliary Tract: Cholelithiasis. There is no biliary ductal dilatation. Pancreas: There is diffuse fatty infiltration of the pancreas. No pancreatic mass or peripancreatic fluid collection is seen. Spleen: Normal. Adrenals: No masses seen. Kidneys: Normal size, contour and axis. No radiodense stones or obstructive uropathy. There is a simp le cyst on the right kidney. No follow-up is recommended. No suspicious renal masses. Bowel: The stomach is not distended limiting evaluation. There is no evidence of bowel wall thickeni ng or obstruction. No pneumatosis is present. There is no portal venous gas. There is diverticulos is of the colon without evidence of acute diverticulitis. There is a moderate amount of stool in the colon. Appendix is unremarkable. Peritoneal Cavity: No ascites, collection or mesenteric inflammatory response. No free air. Lymph Nodes: Within normal limits. Bones: Unremarkable. There is an intramedullary sierra seen in the proximal right femur. There is grade 1 spondylolisthesis of L5 on S1. No spondylolysis is seen. Soft Tissues: Unremarkable. PELVIS: Bladder: Symmetric distention, no gross wall thickening. Reproductive Organs: Unremarkable as visualized. There is prominence of the parametrial vessels which can be seen with pelvic congestion syndrome. Lymph Nodes: Within normal limits. Bones: Within normal limits. IMPRESSION: 1. No evidence of abdominal aortic dissection. Extensive atherosclerosis is present. The superior m esenteric artery and veins are patent. No portal venous gas. 2. No CT evidence to suggest mesenteric ischemia is seen at this time. 3. New 6 mm nodule in the right lower lobe. For solitary solid noncalcified nodules measuring 6???8 mm in patients at high risk, an initial follo w-up examination is recommended at 6???12 months and again at 18???24 months (grade 1B: strong recomm endation, moderate quality evidence). (Horace et al., 2017) Solitary noncalcified solid nodules measuring 6???8 mm in patients with low clinical risk are recomme nded to undergo initial follow-up at 6???12 months depending on size, morphology, and patient prefere nce (grade 1C: strong recommendation, low- or [id number] evidence). (Horace et al., 2017) 4. Colonic diverticulosis without evidence of acute diverticulitis. RADIATION DOSE DELIVERED: 731.19mGy.cm Total DLP DATA REPOSITORY: All CT scans at this facility are submitted to the National Radiology Data Registry (NRDR) Dose Index Registry (DIR) with the [employer] (A[employer]). RADIATION OPTIMIZATION: All CT scans at this facility use at least one of these dose optimization te chniques: automated exposure control; mA and/or kV adjustment per patient size (includes targeted exa ms where dose is matched to clinical indication); or iterative reconstruction.
[2024-12-30 09:33] LABS: ALT 38 U/L (14-59); AST 23 U/L (15-37); Albumin 3.2 g/dL (3.4-5.0); Alkaline Phosphatase 81 U/L (46-116); Anion Gap 10.7 mmol/L (3-11); BUN 23 mg/dL (7-18); CO2 25.3 mmol/L (21.0-32.0); CREATININE 1.3 mg/dL (0.55-1.02); Calcium 9.1 mg/dL (8.5-10.1); Chloride 98 mmol/L (98-107); Estimated GFR 40.05 (mL/min/1.73m2); Glucose 166 mg/dL (74-106); Lipase 10 U/L (<78); Potassium 4.4 mmol/L (3.5-5.1); Sodium 134 mmol/L (136-145); Total Protein 6.7 g/dL (6.4-8.2)
[2024-12-30] MEDS: Normal Saline - Diluent 50 ML VIAL IJ (09:44)
[2024-12-30 09:46] LABS: Bilirubin Negative (Negative); Blood Trace-intact (Negative); Clarity Clear (Clear); Glucose Negative (Negative); Ketones Negative (Negative); Leukocyte Esterase Negative (Negative); Nitrite Negative (Negative); Urobilinogen 0.2 mg/dL (Up to 0.2)
[2024-12-30] MEDS: Omnipaque 350 MG/ML 100 ML BTL IJ (09:50)
[2024-12-30 09:53] LABS: Bacteria Negative HPF (Negative); C & S Indicated? No; Casts 0-2 Hyaline LPF (Negative); Crystals Negative HPF (Negative); Epithelial Cells Few HPF (Negative); Mucus Trace (Negative); RBC 0-2 HPF (0-2); WBC 0-2 HPF (0-5)
[2024-12-30] MEDS: Polyethylene Glycol 3350 238 GM BTL PO (10:35)
== END 2024-12-30 10:54 | disposition home or self-care (01) ==
PROVIDERS: Emergency Provider Physician Assistant; PCP Student in an Organized Health Care Education/Training Program
DX: R19.7 Diarrhea, unspecified (principal); K59.00 Constipation, unspecified; C50.919 Malignant neoplasm of unspecified site of unspecified female breast; C78.00 Secondary malignant neoplasm of unspecified lung; J44.9 Chronic obstructive pulmonary disease, unspecified; I12.9 Hypertensive chronic kidney disease with stage 1 through stage 4 chronic kidney disease, or unspecified chronic kidney disease; N18.9 Chronic kidney disease, unspecified; E78.5 Hyperlipidemia, unspecified; E03.9 Hypothyroidism, unspecified; Z87.891 Personal history of nicotine dependence
CPT/HCPCS: 36415; 80053; 83690; 99285; 74174; 81003; 81015; 83605; 83735; 85025; 99284; J3490

== ENCOUNTER 2025-01-04 03:15 | Outpatient (CLI) | payer MEDICARE, SELFPAY ==
[2025-01-04 07:44] LABS: Absolute Basophil Count 0.06 10^3/uL (0.0-0.2); Absolute Eosinophil Count 0.14 10^3/uL (0.0-0.7); Absolute Monocyte Count 0.56 10^3/uL (0.1-0.8); Absolute Neutrophil Count 7.59 10^3/uL (1.2-6.7); Basophils % 0.6 %; Eosinophils % 1.4 %; HCT 37.6 % (36.0-46.0); HGB 12.7 g/dL (11.2-15.7); Lymphocytes % 12.2 %; MCH 32.9 pg (27.0-33.0); MCHC 33.8 % (32.0-36.0); MCV 97 fL (80-95); MPV 8.5 fL (8.0-11.0); Monocytes % 5.7 %; Neutrophils % 77.1 %; Platelet Count 186 10^3/uL (130-400); RBC 3.86 10^6/uL (3.93-5.22); RDW 15.6 % (11.7-14.6); RDW-SD 56.1 fL; WBC 9.85 10^3/uL (4.4-10.8)
[2025-01-04 08:12] LABS: ALT 22 U/L (14-59); AST 22 U/L (15-37); Albumin 2.9 g/dL (3.4-5.0); Alkaline Phosphatase 82 U/L (46-116); Anion Gap 10.6 mmol/L (3-11); BUN 19 mg/dL (7-18); CO2 25.4 mmol/L (21.0-32.0); CREATININE 1.6 mg/dL (0.55-1.02); Calcium 9.5 mg/dL (8.5-10.1); Chloride 95 mmol/L (98-107); Estimated GFR 31.21 (mL/min/1.73m2); FREE T4 1.62 ng/dL (0.76-1.46); Glucose 207 mg/dL (74-106); Sodium 131 mmol/L (136-145); TSH 3.27 uIU/mL (0.36-3.74); Total Protein 6.6 g/dL (6.4-8.2)
== END 2025-01-04 03:16 | disposition home or self-care (01) ==
PROVIDERS: PCP Student in an Organized Health Care Education/Training Program; Visit Provider Nurse Practitioner Family
DX: Z79.899 Other long term (current) drug therapy (principal); C34.91 Malignant neoplasm of unspecified part of right bronchus or lung; C50.912 Malignant neoplasm of unspecified site of left female breast; Z17.31 Human epidermal growth factor receptor 2 positive status
CPT/HCPCS: 36415; 80053; 83735; 84439; 84443; 85025

== ENCOUNTER 2025-01-12 02:34 | Outpatient (CLI) | payer MEDICARE, SELFPAY ==
--- NOTE | 2025-01-12 07:30 | DI.US_ITS ---
APPROVED REPORT EXAM: Comprehensive 2D, Doppler, and color-flow Echocardiogram Patient Location: Out-Patient Regulatory Attorney: Jose L Gilbert RDCS (AE) Indications: Dyspnea Other Information Study Quality: Technically Difficult. Technically limited study due to bandage covering chest. Conclusion Technically difficult and suboptimal study Normal left ventricular wall thickness and chamber size. EF is 55%. Wall motion is normal Normal right ventricular size and function Both atria are normal in size Aortic valve is mildly sclerotic and trileaflet without stenosis or regurgitation Mild mitral and tricuspid regurgitation Estimated right ventricular systolic pressure is 32 mmHg Wall motion Left Ventricle The left ventricle is normal size. The left ventricular systolic function is normal. The left ventric ular ejection fraction is within the normal range. There is normal left ventricular wall thickness. T here is normal LV segmental wall motion. There is no ventricular septal defect visualized. LVEF is 55 %. Right Ventricle The right ventricle is normal size. Right ventricular systolic function is grossly normal. Atria The left atrium size is normal. The right atrium size is normal. The interatrial septum is intact wit h no evidence for an atrial septal defect. Aortic Valve The aortic valve is mildly sclerotic. Aortic valve is probably trileaflet. There is no aortic valvula r stenosis. No aortic regurgitation is present. Mitral Valve Mitral valve is grossly normal in structure. No evidence of mitral valve stenosis. Mild mitral regurg itation. Tricuspid Valve The tricuspid valve is normal in structure. There is no tricuspid valve stenosis. Mild tricuspid regu rgitation. The RVSP is 32 mmHg. Pulmonic Valve The pulmonary valve is normal in structure. There is no pulmonic valvular stenosis. There is no pulmo jules valvular regurgitation. Great Vessels The aortic root is normal in size. Ascending aorta is not well visualized. IVC is normal in size and collapses >50% with inspiration. Pericardium There is no pericardial effusion. 2D Dimensions IVSD d PLAX 0.62 cm F: 0.6-1.0 Ao Root d 2.74 cm F: 2.7 - 3.3 LVPW d PLAX 0.63 cm F: 0.6 - 1.0 LVID d PLAX 4.26 cm F: 3.8 - 5.2 LVDs 3.06 cm F: 2.2 - 3.5 LV EF Teichholz 55.0 % FS 28.33 % LV EDV (Teich) 81.4 mL LV ESV (Teich) 36.6 mL Stroke Vol Index (Teich) 27.83 M-Mode TAPSE 1.49 cm (M/F) >1.7 LV Volumes - Method of Disks (Srivastava's) Single Plane 2D LV Volumes Biplane 2D LV Volumes LV EDV A4C 39.2 mL LV EDV BP 32.13 mL F: 46 - 106 LV ESV A4C 17.9 mL LV ESV BP 14.1 mL LVEF(%) A4C 54.5 % LVEF(%) BP 56.19 % F: 54 - 74 LV EDV A2C 21.9 mL LV EDV BP Index 19.95 mL/m2 F: 29 - 61 LV ESV A2C 9.5 mL SV BP LVEF(%) A2C 56.8 % SV Index LA Volume LA Length A4C 5.2 cm LA Length A2C LA Area A4C s 12.17 cm2 LA Area A2C s LA Vol A4C A-L 24.06 mL LA Vol A2C A-L LA Vol Biplane A-L LA Vol A4C MOD 23.2 mL LA Vol A2C MOD LA Vol BP MOD RA Volume RA Area A4C 7.1 cm2 RA ESV A4C (A-L) 10.9mL RA Vol/BSA A4C A-L RA Length A4C 4.0 cm RA ESV A4C (MOD) 10.3mL LV Diastology MV E' medial 0.056 (>0.07 m/s) MV E Vmax 1.13 (0.4-1.3 m/s) MV E' lateral 0.092 (>0.1 m/s) Aortic Valve AoV Vmax 1.23 m/s LVOT Vmax 1.10 m/s AoV Peak Grad 6.0 mmHg LVOT Peak Grad 4.8 mmHg AoV Area (Vmax) 2.31 cm2 LVOT VTI 0.191 m AoV VTI 0.145 m LVOT Mean Grad 2.4 mmHg AoV Mean Elder. 0.82 m/s LVOT SV 49.46 mL AoV Mean Grad 3.1 mmHg LVOT Diam s 1.80 cm AoV Area (VTI) 3.41 cm2 AV Regurg Peak Gr. 6.00 mmHg Velocity Ratio 0.89 Pulmonary Valve PV Vmax 1.00 (0.5-1.5 m/s) RVOT Vmax 0.57 m/s PV Peak Grad 4.0 mmHg RVOT Peak Gr. 1.3 mmHg PV Mean Elder 0.74 m/s RVOT VTI 0.103 m PV Mean Grad 2.5 mmHg RVOT Mean Gr. 0.8 mmHg Tricuspid Valve RA Pressure 3.00 mmHg TR Vmax 2.69 m/s TV S' 0.21 m/s TR Peak Grad 28.8 mmHg RVSP (TR) 31.9 mmHg
== END 2025-01-12 02:54 ==
LOC: DI 02:34
PROVIDERS: PCP Student in an Organized Health Care Education/Training Program; Visit Provider Internal Medicine Cardiovascular Disease
DX: R06.00 Dyspnea, unspecified (principal); I08.2 Rheumatic disorders of both aortic and tricuspid valves
CPT/HCPCS: 93306

== ENCOUNTER 2025-01-19 00:36 | Outpatient (CLI) | payer MEDICARE, SELFPAY ==
--- NOTE | 2025-01-25 21:11 | W.PFT ---
Date of service: 01/19/25 Time of Service: 07:57 Pulmonary Function Test Result Indications: TERRAZAS Interpretation Spirometry: Mild airflow limitation Diffusion Capacity: Reduced diffusion Impression Mild airflow obstruction with a reduced diffusion Clinical Correlation therefore is recommended.
== END 2025-01-19 00:37 | disposition home or self-care (01) ==
LOC: RT 00:37
PROVIDERS: PCP Student in an Organized Health Care Education/Training Program; Visit Provider Student in an Organized Health Care Education/Training Program
DX: R06.09 Other forms of dyspnea (principal)
CPT/HCPCS: 94010; 94729

== ENCOUNTER 2025-01-26 01:49 | Outpatient (CLI) | payer MEDICARE, SELFPAY ==
[2025-01-26 08:30] LABS: Abs Immature Grans 0.31 10^3/uL (0.0-0.06); Absolute Basophil Count 0.04 10^3/uL (0.0-0.2); Absolute Eosinophil Count 0.04 10^3/uL (0.0-0.7); Absolute Neutrophil Count 5.22 10^3/uL (1.2-6.7); Basophils % 0.6 %; Eosinophils % 0.6 %; HCT 32.4 % (36.0-46.0); HGB 10.8 g/dL (11.2-15.7); Immature Grans % 4.8 %; Lymphocytes % 7.8 %; MCHC 33.3 % (32.0-36.0); MCV 96 fL (80-95); MPV 8.7 fL (8.0-11.0); Monocytes % 4.7 %; Neutrophils % 81.5 %; Nucleated RBC 0.3 % (0.0-0.3); Platelet Count 147 10^3/uL (130-400); RBC 3.38 10^6/uL (3.93-5.22); RDW 16.9 % (11.7-14.6); RDW-SD 58.3 fL; WBC 6.41 10^3/uL (4.4-10.8)
[2025-01-26 08:58] LABS: ALT 22 U/L (14-59); AST 24 U/L (15-37); Albumin 2.7 g/dL (3.4-5.0); Alkaline Phosphatase 77 U/L (46-116); Anion Gap 5.1 mmol/L (3-11); BUN 21 mg/dL (7-18); Bilirubin, Total 0.7 mg/dL (0.2-1.0); CO2 30.9 mmol/L (21.0-32.0); CREATININE 1.8 mg/dL (0.55-1.02); Calcium 10.6 mg/dL (8.5-10.1); Chloride 99 mmol/L (98-107); Glucose 156 mg/dL (74-106); Magnesium 1.7 mg/dL (1.8-2.4); Potassium 3.5 mmol/L (3.5-5.1); Sodium 135 mmol/L (136-145); TSH 2.27 uIU/mL (0.36-3.74); Total Protein 5.8 g/dL (6.4-8.2)
== END 2025-01-26 01:50 | disposition home or self-care (01) ==
LOC: LBO 01:49
PROVIDERS: PCP Student in an Organized Health Care Education/Training Program; Visit Provider Nurse Practitioner Family
DX: Z79.899 Other long term (current) drug therapy (principal); C34.91 Malignant neoplasm of unspecified part of right bronchus or lung; C50.919 Malignant neoplasm of unspecified site of unspecified female breast; Z17.31 Human epidermal growth factor receptor 2 positive status
CPT/HCPCS: 36415; 80053; 83735; 84439; 84443; 85025

== ENCOUNTER 2025-02-16 02:35 | Outpatient (CLI) | payer MEDICARE, SELFPAY ==
[2025-02-16 10:02] LABS: Absolute Basophil Count 0.06 10^3/uL (0.0-0.2); Absolute Eosinophil Count 0.01 10^3/uL (0.0-0.7); Absolute Lymphocyte Count 0.58 10^3/uL (1.2-3.4); Absolute Monocyte Count 0.47 10^3/uL (0.1-0.8); Absolute Neutrophil Count 10.22 10^3/uL (1.2-6.7); Basophils % 0.5 %; Eosinophils % 0.1 %; HCT 37.5 % (36.0-46.0); HGB 12.4 g/dL (11.2-15.7); Immature Grans % 4.2 %; Lymphocytes % 4.9 %; MCH 32.5 pg (27.0-33.0); MCHC 33.1 % (32.0-36.0); MCV 98 fL (80-95); MPV 9.4 fL (8.0-11.0); Neutrophils % 86.3 %; Nucleated RBC 0.3 % (0.0-0.3); Platelet Count 133 10^3/uL (130-400); RBC 3.81 10^6/uL (3.93-5.22); RDW 19.9 % (11.7-14.6); RDW-SD 70.1 fL; WBC 11.84 10^3/uL (4.4-10.8)
[2025-02-16 10:38] LABS: ALT 40 U/L (14-59); AST 32 U/L (15-37); Albumin 3.3 g/dL (3.4-5.0); Alkaline Phosphatase 74 U/L (46-116); Anion Gap 8.3 mmol/L (3-11); BUN 34 mg/dL (7-18); Bilirubin, Total 1.2 mg/dL (0.2-1.0); CO2 28.7 mmol/L (21.0-32.0); CREATININE 2.2 mg/dL (0.55-1.02); Calcium 10.5 mg/dL (8.5-10.1); Chloride 97 mmol/L (98-107); FREE T4 1.07 ng/dL (0.76-1.46); Glucose 263 mg/dL (74-106); Potassium 4.5 mmol/L (3.5-5.1); Sodium 134 mmol/L (136-145); TSH 4.98 uIU/mL (0.36-3.74); Total Protein 6.3 g/dL (6.4-8.2)
== END 2025-02-16 02:36 | disposition home or self-care (01) ==
LOC: LBO 02:35
PROVIDERS: PCP Student in an Organized Health Care Education/Training Program; Visit Provider Nurse Practitioner Family
DX: Z79.899 Other long term (current) drug therapy (principal); C34.91 Malignant neoplasm of unspecified part of right bronchus or lung; C50.919 Malignant neoplasm of unspecified site of unspecified female breast; Z17.31 Human epidermal growth factor receptor 2 positive status
CPT/HCPCS: 36415; 80053; 83735; 84439; 84443; 85025

== ENCOUNTER 2025-02-19 12:55 | Emergency (ER) | payer MEDICARE, SELFPAY ==
[2025-02-19 12:58] VITALS: BP 96/64; PULSE 94; RESP 22; TEMP 36.8; O2SAT 91
[2025-02-19 13:00] VITALS: BP 96/64; PULSE 94; RESP 22; TEMP 36.8; O2SAT 91
--- NOTE | 2025-02-19 13:45 | RT.EKG_ITS ---
APPROVED REPORT Exam: Resting ECG Reason for Exam: weakness Patient Location: E HR:82 bpm ECG Measurements Heart Rate 82 AXIS MD 153 P 30 QRSd 72 QRS -22 QT 351 T 25 QTc 410 Conclusion Sinus rhythm...normal P axis, V-rate 60- 99
[2025-02-19 14:08] VITALS: BP 84/62; PULSE 82; RESP 19; O2SAT 97
[2025-02-19 14:14] VITALS: BP 82/46; PULSE 83; PULSE 85; RESP 17; O2SAT 97
[2025-02-19] MEDS: Lactated Ringers 500 ML 1000 ML IV (14:15)
[2025-02-19 14:16] LABS: Absolute Basophil Count 0.04 10^3/uL (0.0-0.2); Absolute Lymphocyte Count 0.47 10^3/uL (1.2-3.4); Absolute Monocyte Count 0.15 10^3/uL (0.1-0.8); Absolute Neutrophil Count 7.88 10^3/uL (1.2-6.7); Basophils % 0.4 %; HCT 33.9 % (36.0-46.0); HGB 11.4 g/dL (11.2-15.7); Immature Grans % 4.5 %; Lymphocytes % 5.3 %; MCH 32.8 pg (27.0-33.0); MCHC 33.6 % (32.0-36.0); MCV 97 fL (80-95); MPV 9.5 fL (8.0-11.0); Monocytes % 1.7 %; Neutrophils % 88.1 %; Nucleated RBC 0.4 % (0.0-0.3); Platelet Count 114 10^3/uL (130-400); RBC 3.48 10^6/uL (3.93-5.22); RDW 19.9 % (11.7-14.6); RDW-SD 69.6 fL; WBC 8.94 10^3/uL (4.4-10.8)
[2025-02-19 14:30] VITALS: BP 98/57; PULSE 82; RESP 16; O2SAT 94
[2025-02-19 14:36] LABS: ALT 39 U/L (14-59); AST 26 U/L (15-37); Albumin 2.9 g/dL (3.4-5.0); Alkaline Phosphatase 76 U/L (46-116); Anion Gap 10.4 mmol/L (3-11); BUN 34 mg/dL (7-18); Bilirubin, Total 0.9 mg/dL (0.2-1.0); CO2 26.6 mmol/L (21.0-32.0); CREATININE 2.3 mg/dL (0.55-1.02); Calcium 9.8 mg/dL (8.5-10.1); Chloride 94 mmol/L (98-107); Estimated GFR 20.19 (mL/min/1.73m2); Glucose 270 mg/dL (74-106); Potassium 4.8 mmol/L (3.5-5.1); Sodium 131 mmol/L (136-145); Total Protein 6.2 g/dL (6.4-8.2); Troponin I 32 ng/L (<or=51)
--- NOTE | 2025-02-19 14:41 | ED.GENADUL_ITS ---
Discharge Plan Disposition Patient Disposition: Home Condition: Stable Discharge Details Clinical Impression: Acute UTI, Tremor Primary Care Provider: Elmer Murphy ED Provider: Alex Garcia Home Meds and New Rx's Prescriptions: Continued simvastatin 40 mg tablet 40 mg PO QPM ascorbate calcium (vitamin C) 500 mg tablet 1,000 mg PO DAILY umeclidinium-vilanterol [Anoro Ellipta] 62.5-25 mcg/actuation blister with device 1 inh inhalation DAILY levothyroxine 75 mcg capsule 75 mcg PO DAILY albuterol sulfate 90 mcg/actuation HFA aerosol inhaler 2 puff INHALATION PRN Patient Comments: INHALE TWO PUFFS BY MOUTH EVERY 4 HOURS NEEDED FOR WHEEZING - USE WITH SPACER mirtazapine 7.5 mg tablet 7.5 mg PO .bedtime Patient Comments: TAKE ONE TABLET BY MOUTH AT BEDTIME FOR SLEEP codeine-guaifenesin 10-100 mg/5 mL liquid 10 ml PO 3XD Patient Comments: TAKE 5 TO 10ML BY MOUTH THREE TIMES A DAY NEEDED FOR COUGH losartan 50 mg tablet 50 mg PO QAM Patient Comments: TAKE 1 TABLET BY MOUTH EVERY DAY calcium carbonate 500 mg calcium (1,250 mg) Tablet 1,200 mg PO QPM metoprolol succinate 50 mg tablet extended release 24 hr 50 mg PO DAILY Patient Comments: Take 1 tablet by mouth once a day for blood pressure and tremor Discharge Instructions Instructions: Tremor, Urinary Tract Infection, Adult ED Additional Instructions: Please take full course of antibiotic as prescribed. Please follow-up with your primary care physician on Saturday for reassessment. Return to the emergency department immediately for any worsening or new concerning symptoms. Referrals: Elmer Murphy [Primary Care Provider] - Discharge Data Discharge Date/Time-TO BE ENTERED AT DEPARTURE: 02/19/25 16:42 HPI General Mode of arrival: ambulatory . Date/Time Provider Initiated Documentation: 02/19/25 13:28 . Limitations to Documentation: no limitations . Information obtained by: patient . HPI Narrative: HISTORY OF PRESENT ILLNESS The patient is an 84-year-old female with stage IV non-small cell lung cancer, left-sided breast cancer, COPD, and hypertension, presenting for evaluation of generalized tremors. She reports severe generalized tremors for several months. Tremors fluctuate in severity, with periods of calm followed by exacerbations. She sought medical attention today due to inability to remain still. Tremors affect both arms and legs. Brain imaging ruled out metastasis, and she undergoes regular PET scans. Referred by her oncologist. No fevers, pain (except minor discomfort from a healing wound), swelling, or rashes. No cough in recently. No dysuria or abdominal pain. Advised to increase fluid intake due to chronic dehydration. Currently undergoing treatment for lung and breast cancer. Lung cancer is stable, recently taken off breast cancer medication due to adverse effects. Related Data Home Medications ?Medication ?Instructions ?Recorded ?Confirmed ascorbate calcium (vitamin C) 500 1,000 mg PO DAILY 05/15/21 03/01/25 mg tablet simvastatin 40 mg tablet 40 mg PO QPM 05/15/21 03/01/25 calcium carbonate 1,200 mg PO QPM 10/08/21 03/01/25 losartan 50 mg tablet 50 mg PO QAM 10/08/21 03/01/25 metoprolol succinate 50 mg 50 mg PO DAILY 06/16/24 03/01/25 tablet,extended release 24 hr albuterol sulfate 90 mcg/actuation 2 puff inhalation PRN 11/16/24 03/01/25 aerosol inhaler codeine 10 mg-guaifenesin 100 mg/5 10 ml PO 3XD 11/16/24 03/01/25 mL oral liquid mirtazapine 7.5 mg tablet 7.5 mg PO .bedtime 11/16/24 03/01/25 levothyroxine 75 mcg capsule 75 mcg PO DAILY 12/09/24 03/01/25 umeclidinium 62.5 mcg-vilanterol 1 inh inhalation DAILY 12/09/24 03/01/25 25 mcg/actuation powdr for inhalation (Anoro Ellipta) Allergies Allergy/AdvReac Type Severity Reaction Status Date / Time clopidogrel Allergy Unknown Verified 03/01/25 10:04 bisulfate Allergy Unknown Uncoded 03/01/25 10:04 General Stated Complaint: GenMedical HARPER: 3 Review of Systems All systems reviewed & are unremarkable except as noted in HPI and below Constitutional Constitutional: Denies fever(s) Exam Const General: cooperative and no acute distress Other: Intermittent tremor more noticeable in hands HENMT Mouth: mucous membranes dry Eyes Conjunctivae: normal conjunctivae Sclera: normal sclerae Neck Neck: trachea midline and supple Resp Auscultation: clear to auscultation bilaterally, no rales, no rhonchi and no wheezes Cardio Rate: regular rate and not tachycardic Rhythm: regular rhythm GI Palpation: soft, not firm, no guarding, no masses, not rigid and nontender Skin Other: Healing wound left chest with no surrounding erythema Neuro General: patient alert, patient awake and tone normal Cranial Nerves: CN's II-XI intact bilaterally Cognition: normal cognition Speech: speech normal Motor: strength 5/5 throughout Sensory Exam: no sensory deficits noted Extrem General: no edema Psych Appearance: grossly normal Mental Status: mental status grossly normal Course Vital Signs Vital signs: Vital Signs Temperature 36.8 C 02/19/25 12:58 Pulse 94 H 02/19/25 12:58 Respiratory Rate 22 02/19/25 12:58 Blood Pressure 96/64 L 02/19/25 12:58 Pulse Oximetry 91 L 02/19/25 12:58 Temperature 36.8 C 02/19/25 13:00 Pulse 82 02/19/25 14:30 Pulse 82 02/19/25 14:30 Respiratory Rate 16 02/19/25 14:30 Respiratory Effort Normal 02/19/25 13:25 Blood Pressure 98/57 L 02/19/25 14:30 Blood Pressure Mean 69 02/19/25 14:30 Pulse Oximetry 94 02/19/25 14:30 Oxygen Delivery Method Room Air 02/19/25 13:00 Oxygen Flow Rate 0 02/19/25 13:00 Lab/Test Results Lab/Test Results: Laboratory Tests Range/Units 02/19/25 14:03 WBC (4.4-10.8) 10^3/uL 8.94 RBC (3.93-5.22) 10^6/uL 3.48 L Hgb (11.2-15.7) g/dL 11.4 Hct (36.0-46.0) % 33.9 L MCV (80-95) fL 97 H MCH (27.0-33.0) pg 32.8 MCHC (32.0-36.0) % 33.6 RDW (11.7-14.6) % 19.9 H Plt Count (130-400) 10^3/uL 114 L MPV (8.0-11.0) fL 9.5 Immature Gran % % 4.5 Neutrophils % % 88.1 Lymphocytes % % 5.3 Monocytes % % 1.7 Eosinophils % % 0.0 Basophils % % 0.4 Nucleated RBC % (0.0-0.3) % 0.4 H Absolute Neutrophils (1.2-6.7) 10^3/uL 7.88 H Absolute Lymphocytes (1.2-3.4) 10^3/uL 0.47 L Absolute Monocytes (0.1-0.8) 10^3/uL 0.15 Absolute Eosinophils (0.0-0.7) 10^3/uL 0.00 Absolute Basophils (0.0-0.2) 10^3/uL 0.04 Sodium (136-145) mmol/L 131 L Potassium (3.5-5.1) mmol/L 4.8 Chloride (98-107) mmol/L 94 L Carbon Dioxide (21.0-32.0) mmol/L 26.6 Anion Gap (3-11) mmol/L 10.4 BUN (7-18) mg/dL 34 H Creatinine (0.55-1.02) mg/dL 2.3 H Est GFR (CKD-EPI 2020) (mL/min/1.73m2) 20.19 Glucose (74-106) mg/dL 270 H Calcium (8.5-10.1) mg/dL 9.8 Magnesium (1.8-2.4) mg/dL 2.0 Total Bilirubin (0.2-1.0) mg/dL 0.9 AST (15-37) U/L 26 ALT (14-59) U/L 39 Alkaline Phosphatase (46-116) U/L 76 Troponin I (<or=51) ng/L 32 Total Protein (6.4-8.2) g/dL 6.2 L Albumin (3.4-5.0) g/dL 2.9 L Medical Decision Making ASSESSMENT AND PLAN Initial Assessment: Miss Pepe is an 84-year-old female with a history of stage IV non-small cell lung cancer, left-sided breast cancer, COPD, and hypertension. She presents with generalized tremors, which have been ongoing for a few months and have worsened recently. Dry mucous membranes and poor skin turgor concerning for hypovolemia. Differential Diagnosis: - Potential side effect of current or previous medications: Considered due to the timing of symptom onset and changes in medication. Plan for pt to discuss with oncologist. - Brain lesion: Unlikely due to bilateral symptoms. No imaging evidence of metastasis to the brain. - Hypovolemia - Acute infection ED Course: - Conduct comprehensive electrolyte panel for comparison with previous results. -Screening EKG was reviewed and interpreted by me please see report, sinus rhythm 82 bpm, nondiagnostic. - Administer bolus of crystalloid fluid. - Monitor post-fluid administration to assess response. - Labs reviewed and no leukocytosis. - Urinalysis concerning for UTI. Plan to start Keflex. - Patient reassessed and stable. Requesting discharge. Clinical Impression: - Generalized tremors - UTI Disposition: - Discharge MDM Components Evaluation: - Number of Differential Diagnoses or Management Options: Potential side effect of current or previous medications, brain lesion. - Amount and Complexity of Data Reviewed: Electrolyte panel, patient history, previous imaging results. - Risk of Complication and Morbidity or Mortality: Low risk of brain lesion, potential risk from medication side effects. This document was written with the assistance of HAYDEE Hernandez. The patient consented to its use. Quality:SDOH Health Related Social Needs: No Data to Display PFSH All Active Problems (Updated 03/02/25 @ 10:01 by Connie Herbert APRN) Hypotension (Acute) Severe sepsis (Acute) On deep vein thrombosis (DVT) prophylaxis (Acute) Acute hypoxic respiratory failure (Acute) Hypoxia (Acute) Pneumonia (Acute) Tremor (Acute) Acute UTI (Acute) Metastatic cancer to lung (Acute) Encounter for wound care (Acute) Trochanteric bursitis, right hip (Acute) corticosteroid injection 01/15/23 No-show for appointment (Acute) Periprosthetic fracture of femur at tip of prosthesis (Acute) Basicervical fracture of neck of right femur (Acute 10/08/21) Chronic laryngitis (Acute) Thrush (Acute) COPD (chronic obstructive pulmonary disease) (Acute) Chronic cough (Acute) Globus sensation (Acute) Eczema (Acute) Impaired fasting glucose (Acute) Spondylisthesis (Acute) Insomnia (Acute) CKD (chronic kidney disease) (Chronic) Lesion of skin of scalp (Acute) Hearing impaired person (Acute) Abdominal pain (Acute) Lactose intolerance (Acute) Hiatal hernia (Chronic) Dysphagia (Acute) Hyperlipidemia (Acute) Hypertension (Chronic) Abdominal aortic aneurysm (Acute) GERD (gastroesophageal reflux disease) (Chronic) Hypothyroidism (Chronic) Arthritis (Acute) Osteoarthritis (Chronic) Medical History History of radiation therapy (~2021) 07/31/22-09/13/22 Palliative care patient Surgical History History of mastectomy, total (~05/21/22) ER+ CA weakly +, Her2 neg Td4,cN1a, H/O colonoscopy History of esophagogastroduodenoscopy (EGD) History of renal stent H/O aortic aneurysm repair H/O hand surgery History of Nila fundoplication Family History Father Cancer Mother Aneurysm Pneumonia Son No problems noted. Social History Smoking/Tobacco Use Status: Former Tobacco Use Smoking risk assessment performed?: Yes Alcohol Intake: never Drug use: Never Substance use type: does not use Housing: house Current gender identity: female Do you feel safe at home: Yes Do you feel safe in your relationship?: Yes Additional Social history: lives with one daughter
[2025-02-19 14:42] LABS: TSH (W/Ref FT4) 1.62 uIU/mL (0.36-3.74)
[2025-02-19 15:01] VITALS: BP 113/55; PULSE 79; PULSE 80; RESP 17; O2SAT 96
[2025-02-19 15:46] LABS: Bilirubin Negative (Negative); Blood Moderate (Negative); Clarity Cloudy (Clear); Glucose 100 mg/dL (Negative); Ketones Negative (Negative); Leukocyte Esterase Large (Negative); Nitrite Negative (Negative); Specific Gravity 1.015 (1.005-1.025)
[2025-02-19 16:10] LABS: WBC >50 HPF (0-5)
[2025-02-19 16:11] LABS: Bacteria Many HPF (Negative); C & S Indicated? Yes
[2025-02-19] MEDS: Cephalexin 500 MG CAP PO (16:32)
--- NOTE | 2025-02-21 07:34 | NUR.NOTE ---
Accessed Pt chart to identify if Pt was prescribed an antibiotic at this visit. Pt was given Cephalexin. The document was given to Dr Nelson
--- NOTE | 2025-02-21 08:34 | ED.FU.B_ITS ---
Date of service: 02/21/25 Time of Service: 08:34 Follow Up Plan: Positive urine culture, E. coli, sensitive to cephalosporins. Was started on cephalexin twice daily, which should be appropriate coverage for this bacteria. I did contact the patient by phone, who states that she is feeling much better, and is working with her cancer doctors to adjust her medications for her shaking. I did elementary school counselor her to continue her antibiotics until they are gone, even if she starts to feel better, and she understands to do so and can return to the emergency department with any acute worsening or other concerns. The patient had an opportunity to have all questions answered. Rachael Vences MD
== END 2025-02-19 16:42 | disposition home or self-care (01) ==
PROVIDERS: Emergency Provider Student in an Organized Health Care Education/Training Program; PCP Student in an Organized Health Care Education/Training Program
DX: N39.0 Urinary tract infection, site not specified (principal); B96.20 Unspecified Escherichia coli [E. coli] as the cause of diseases classified elsewhere; R25.1 Tremor, unspecified; C50.912 Malignant neoplasm of unspecified site of left female breast; C78.02 Secondary malignant neoplasm of left lung; J44.9 Chronic obstructive pulmonary disease, unspecified; I10 Essential (primary) hypertension; Z79.899 Other long term (current) drug therapy
CPT/HCPCS: 80053; 87077; 93005; 96360; 99284; 81003; 81015; 83735; 84443; 84484; 85025; 87086; 87186; 93010

== ENCOUNTER 2025-02-26 00:45 | Outpatient (CLI) | payer MEDICARE, SELFPAY ==
--- NOTE | 2025-02-26 | DI.US_ITS ---
Exam(s) US RENAL EXAM: US RENAL CLINICAL HISTORY: Rising creatinine and lowering creatinine clearance, likely secondary to. TECHNIQUE: Abel scale, color and spectral Doppler were used. COMPARISON: CT CT ABDOMEN PELVIS CTA from 12/30/2024 FINDINGS: Renal size in cm: Right: 9.4. Left: 9.4. Echogenicity: Normal. Hydronephrosis: No. Cyst or mass: There is a 3.0 x 3.1 x 3.8 cm simple cyst in the superior pole of the right kidney whic h is unchanged. No follow-up is recommended. Nephrolithiasis: No. Other findings: Renal cortical thickness is within normal limits in size and echogenicity. Bladder:Normal. Ureteral jets: Right: The right ureteral jet was not visualized on this examination. Left: The left ureteral jet was not visualized on this examination. Prevoid vol:110 cc Postvoid vol:0 cc Renal color flow: Symmetric and within normal limits. IMPRESSION: No acute abnormality. Unremarkable kidneys except for a simple cyst on the right kidney. DATA REPOSITORY:
== END 2025-02-26 01:05 ==
LOC: DI 00:45
PROVIDERS: PCP Student in an Organized Health Care Education/Training Program; Visit Provider Nurse Practitioner Family
DX: C34.31 Malignant neoplasm of lower lobe, right bronchus or lung (principal); C50.812 Malignant neoplasm of overlapping sites of left female breast; Z17.31 Human epidermal growth factor receptor 2 positive status
CPT/HCPCS: 76770

== ENCOUNTER 2025-03-01 09:51 | Inpatient (IN) | payer MEDICARE, SELFPAY ==
[2025-03-01] VITALS (58 sets, daily range): BP systolic 58–106; BP diastolic 33–69; PULSE 75–107; RESP 5–27; TEMP 36.3–39.1; O2SAT 83–100
--- NOTE | 2025-03-01 10:00 | DI.RAD_ITS ---
Exam(s) XR PORTABLE CHEST AP EXAM: XR PORTABLE CHEST AP CLINICAL HISTORY: Weakness. TECHNIQUE: 2D digital imaging was performed. COMPARISON: CT CT CHEST W from 08/07/2023 CR XR CHEST 2V PA LATERAL from 11/16/[address] ABDOMEN PELVIS CTA from 12/30/2024 FINDINGS: Single AP portable view. Distal tip of right supra clavi in Port-A-Cath is at the cavoatrial junction. Heart size is upper normal. The mediastinum is not widened. Slightly increased markings in the right lung base noted. Probably atelectatic. There is also nodul ar density medially in the right lung base. This measures approximately 1.7 x [address] eural effusions. Incidentally noted is an aortic EVAR in the abdomen. IMPRESSION: Right lung base findings as above. If clinically indicated further study with CT can be performed. DATA REPOSITORY: RADIATION DOSE DELIVERED:
--- NOTE | 2025-03-01 10:00 | RT.EKG_ITS ---
APPROVED REPORT Exam: Resting ECG Reason for Exam: Weakness Patient Location: E HR:99 bpm ECG Measurements Heart Rate 99 AXIS SC 148 P 56 QRSd 73 QRS 22 QT 320 T 58 QTc 412 Conclusion Sinus rhythm, rate 99 No interval abnormalities No STEMI PVCs No significant changes from priors
--- NOTE | 2025-03-01 10:21 | ED.GENADUL_ITS ---
Discharge Plan Disposition Patient Disposition: Admit to [facility] Condition: Serious Discharge Details Clinical Impression: Pneumonia, Hypoxia Admit Date/Time: 03/01/25 14:32 Admit Provider: Carlos Trinidad Attending Provider: Carlos Trinidad Primary Care Provider: Elmer Murphy ED Provider: Ashlyn Garcia General Mode of arrival: wheelchair . Date/Time Provider Initiated Documentation: 03/01/25 10:07 . Limitations to Documentation: no limitations . Information obtained by: patient, family, RN notes reviewed and old records reviewed . HPI Narrative: 84-year-old female presents to the ER accompanied by her daughter with a chief complaint of progressing generalized weakness. Patient was recently treated for UTI on February 19 with cephalexin x 7 days, she does have a history of stage IV breast cancer and lung cancer, she has had a left mastectomy which she has a healing wound to her anterior chest wall. She has been being seen by general surgery for this. Daughter reports that it is looking better than it has in the past. Patient reports that this morning she has felt very wiped out. She is alert and oriented x 4, denies any pain anywhere. She is hypotensive upon arrival, tachycardic with a rate of 102 and satting 83% on room air. She denies any shortness of breath or cough. Other past medical history include hypertension which she takes metoprolol and losartan for she did take it this morning, hypothyroidism COPD aortic aneurysm repair and history of Fareed fund oplication. She was referred here by cancer center. Related Data Home Medications ?Medication ?Instructions ?Recorded ?Confirmed ascorbate calcium (vitamin C) 500 1,000 mg PO DAILY 05/15/21 03/01/25 mg tablet simvastatin 40 mg tablet 40 mg PO QPM 05/15/21 03/01/25 calcium carbonate 1,200 mg PO QPM 10/08/21 03/01/25 losartan 50 mg tablet 50 mg PO QAM 10/08/21 03/01/25 metoprolol succinate 50 mg 50 mg PO DAILY 06/16/24 03/01/25 tablet,extended release 24 hr albuterol sulfate 90 mcg/actuation 2 puff inhalation PRN 11/16/24 03/01/25 aerosol inhaler codeine 10 mg-guaifenesin 100 mg/5 10 ml PO 3XD 02/24/25 06/09/25 mL oral liquid mirtazapine 7.5 mg tablet 7.5 mg PO .bedtime 11/16/24 03/01/25 levothyroxine 75 mcg capsule 75 mcg PO DAILY 12/09/24 03/01/25 umeclidinium 62.5 mcg-vilanterol 1 inh inhalation DAILY 12/09/24 03/01/25 25 mcg/actuation powdr for inhalation (Anoro Ellipta) Allergies Allergy/AdvReac Type Severity Reaction Status Date / Time clopidogrel Allergy Unknown Verified 03/01/25 10:04 bisulfate Allergy Unknown Uncoded 03/01/25 10:04 General Stated Complaint: 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 Appears stated age. Normal body habitus. Patient febrile upon arrival, O2 sat 83% on room air. Head: Normocephalic, no trauma. Eyes: Pupils PERRL, Red reflex noted, EOM's intact. Eyelids symmetrical without lesions, discharge, or swelling. ENT: Bilateral TM's WNL, External ear normal to inspection, no mastoid TTP, swelling, or erythema, Nasal turbinates WNL, no nasal discharge. Normal dentition, Posterior pharynx WNL, no exudate. Chest: Left mastectomy, RRR, Normal S1, S2, distal pulses intact. Hypotensive upon arrival with a blood pressure of 73/41 heart rate irregular and slightly tachycardic at 107, Resp: Lungs diminished clear to auscultation bilaterally, no wheezes, rales, or rhonchi. Abdomen: Soft, non-distended, Normoactive bowel sounds all 4 quads. Musculoskeletal: Unable to assess gait, moves all 4 extremities without difficulty. Skin: Anterior chest wall lesion, mild yellow discharge on the bed, no surrounding significant induration daughter reports this looks much better than previous, capillary refill less than 2 sec. Neurologic: Cranial nerves II-XII intact. Alert and oriented x 3. Motor: No deficits noted. Sensory: Intact bilaterally all 4 extremities. Hematologic/Lymphatic: No ecchymosis, no lymphadenopathy. Course Vital Signs Vital signs: Vital Signs Temperature 37.7 C H 03/01/25 10:06 Pulse 105 H 03/01/25 10:06 Respiratory Rate 18 03/01/25 10:06 Blood Pressure 73/41 L 03/01/25 10:06 Pulse Oximetry 83 L 03/01/25 10:06 Temperature 37.7 C H 03/01/25 10:06 Temperature Source Oral 03/01/25 10:06 Pulse 105 H 03/01/25 10:06 Respiratory Rate 18 03/01/25 10:06 Blood Pressure 73/41 L 03/01/25 10:06 Blood Pressure Position Sitting 03/01/25 10:06 Pulse Oximetry 83 L 03/01/25 10:06 Oxygen Delivery Method Room Air 03/01/25 10:06 Oxygen Flow Rate 0 03/01/25 10:06 Pain Level 0 03/01/25 10:06 Lab/Test Results Lab/Test Results: 03/01/25 10:17 Blood Blood Culture - Pending 03/01/25 10:17 Blood Blood Culture - Pending Medical Decision Making 84-year-old female presents to the ER accompanied by her daughter with a chief complaint of progressing generalized weakness. Patient was recently treated for UTI on February 19 with cephalexin x 7 days, she does have a history of stage IV breast cancer and lung cancer, she has had a left mastectomy which she has a healing wound to her anterior chest wall. She has been being seen by general surgery for this. Daughter reports that it is looking better than it has in the past. Patient reports that this morning she has felt very wiped out. She is alert and oriented x 4, denies any pain anywhere. She is hypotensive upon arrival, tachycardic with a rate of 102 and satting 83% on room air. She denies any shortness of breath or cough. Other past medical history include hypertension which she takes metoprolol and losartan for she did take it this morning, hypothyroidism COPD aortic aneurysm repair and history of Fareed fundoplication. She was referred here by cancer center. EKG was reviewed by myself and Dr. Vences ER attending, old EKG available for review. No significant change, please see official report. Occasional PVCs. Workup ordered including CBC CMP, lipase, serial troponins, urinalysis, blood cultures and lactate. Chest x-ray. Ordered 500 cc normal saline initial bolus ordered. Patient was placed on 2 L nasal cannula O2 sat is 92-94% at this time. Differential diagnosis includes but to dehydration, pneumonia, COPD exacerbation, sepsis, PE,CAD, electrolyte abnormality, Chest x-ray shows some right lung base finding, will further eval with chest CT rule out PE. Patient does have a history of cancer and is not on any anticoagulation. Critical lab value of elevated troponin at 55 is resulted, 324 mg of aspirin ordered. Patient has no complaints of chest pain at this time. Lactate within normal limits at 1.9, no leukocytosis however on patient record review she was prescribed a prednisone taper on February 01 for 42 days. CMP shows 131 sodium, potassium 3.5 chloride 95 BUN 24 creatinine 1.7 GFR is 29 glucose 138 magnesium is 1.6 bilirubin 1.1 AST 39 lipase 8. Troponin is downtrending 1 hour troponin is at 47. CT shows no evidence of PE, questionable new nodular infiltrates in the right lower lobe and increasing size infiltrate in the lateral aspect of the left upper lobe. On patient reevaluation she reports feeling better than when she got here. She has had 500 cc normal saline, her blood pressure is maintained at 90/60 approximately, will give her nebulizer and do a room air trial. She is not normally on oxygen. I did discuss admission if she remains hypoxic on room air questionable pneumonia. No evidence of UTI. Discussed plan of care with patient and family who verbalized understanding. Negative rapid COVID and flu swab. Procalcitonin added onto labs which is pending at this time. After duo nebulizer, O2 sat down to 80% on room air. Will contact the hospitalist. 1408: Spoke with Dr. Deshpande and Brittany with hospitalist team regarding patient case in details they agreed to accept patient for admission he verbalized understanding will update family and patient with plan of care. I did order doxycycline IV piggyback. An additional 500 cc normal saline bolus ordered. Patient transported up to the floor in hemodynamically stable unit serious condition. Remained alert and oriented throughout remainder of stay. This text was generated using [employer] system, please disregard any oddities of phrase or misspellings. Medical Records Medical records reviewed: Yes I reviewed the patient's medical records. Imaging Data Radiologic Study: Imaging: X-Ray Radiologist's impression: FINDINGS: Single AP portable view. Distal tip of right supra clavi in Port-A-Cath is at the cavoatrial junction. Heart size is upper normal. The mediastinum is not widened. Slightly increased markings in the right lung base noted. Probably atelectatic. There is also nodular density medially in the right lung base. This measures approximately 1.7 x 1.0 cm. No obvious pleural effusions. Incidentally noted is an aortic EVAR in the abdomen. IMPRESSION: Right lung base findings as above. If clinically indicated further study with CT can be performed. Radiologic Study #2: Imaging: CT Scan Radiologist's impression: IMPRESSION: 1. No evidence of acute pulmonary emboli. No evidence of pulmonary infarction.No pleural effusions. 2. Increasing size infiltrate in lateral aspect of the left upper lobe. There is also a new 18 x 10 mm nodular density in the posterior basal segment of the right lower lobe and, this corresponding to finding on chest x-ray earlier today. 3. 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 Lab Data Lab results reviewed: Yes I reviewed the patient's lab results. Labs: 03/01/25 10:55 Blood Blood Culture - Pending 03/01/25 10:18 Blood Blood Culture - Pending Laboratory Tests Range/Units 03/01/25 03/01/25 03/01/25 10:18 11:25 12:56 WBC (4.4-10.8) 10^3/uL 6.52 RBC (3.93-5.22) 10^6/uL 3.72 L Hgb (11.2-15.7) g/dL 11.9 Hct (36.0-46.0) % 35.7 L MCV (80-95) fL 96 H MCH (27.0-33.0) pg 32.0 MCHC (32.0-36.0) % 33.3 RDW (11.7-14.6) % 20.4 H Plt Count (130-400) 10^3/uL 147 MPV (8.0-11.0) fL 9.6 Immature Gran % % 1.5 Neutrophils % % 73.1 Lymphocytes % % 20.4 Monocytes % % 4.1 Eosinophils % % 0.3 Basophils % % 0.6 Nucleated RBC % (0.0-0.3) % 0.0 Absolute Neutrophils (1.2-6.7) 10^3/uL 4.76 Absolute Lymphocytes (1.2-3.4) 10^3/uL 1.33 Absolute Monocytes (0.1-0.8) 10^3/uL 0.27 Absolute Eosinophils (0.0-0.7) 10^3/uL 0.02 Absolute Basophils (0.0-0.2) 10^3/uL 0.04 RBC Morphology See Below Anisocytosis 2+ PT (9.1-11.1) sec 10.3 INR (0.9-1.1) 1.0 APTT (20.6-30.2) sec 22.9 VBG pH (7.31-7.41) 7.43 H VBG pCO2 (41-51) mmHg 38 L VBG pO2 mmHg 28 VBG HCO3 (23-28) mmol/L 25 VBG Total CO2 (24-29) mmol/L 23 L VBG O2 Saturation % 51 VBG Base Excess (-2-3) mmol/L 0 VBG Lactate (<or=2.0) mmol/L 1.9 Sodium (136-145) mmol/L 131 L Potassium (3.5-5.1) mmol/L 3.5 Chloride (98-107) mmol/L 95 L Carbon Dioxide (21.0-32.0) mmol/L 25.6 Anion Gap (3-11) mmol/L 10.4 BUN (7-18) mg/dL 24 H Creatinine (0.55-1.02) mg/dL 1.7 H Est GFR (CKD-EPI 2020) (mL/min/1.73m2) 29.02 Glucose (74-106) mg/dL 138 H Calcium (8.5-10.1) mg/dL 9.9 Magnesium (1.8-2.4) mg/dL 1.6 L Total Bilirubin (0.2-1.0) mg/dL 1.1 H AST (15-37) U/L 39 H ALT (14-59) U/L 35 Alkaline Phosphatase (46-116) U/L 75 Troponin I (<or=51) ng/L 55 H* 47 Total Protein (6.4-8.2) g/dL 6.4 Albumin (3.4-5.0) g/dL 2.8 L Lipase (<78) U/L 8 Procalcitonin ng/mL < 0.10 Urine Color (Yellow) Yellow Urine Clarity (Clear) Sl Cloudy Urine pH (5-8) 6.0 Ur Specific [place] (1.005-1.025) 1.015 Urine Protein (Neg-Trace) mg/dL 30 H Urine Ketones (Negative) mg/dL Trace H Urine Blood (Negative) Moderate H Urine Nitrite (Negative) Negative Urine Bilirubin (Negative) Negative Urine Urobilinogen (Up to 0.2) mg/dL 0.2 Ur Leukocyte Esterase (Negative) Negative Urine RBC (0-2) HPF 10-20 H Urine WBC (0-5) HPF 0-2 Ur Epithelial Cells (Negative) HPF Rare Urine Crystals (Negative) HPF Mod Calcium Oxalate Urine Bacteria (Negative) HPF Negative Urine Casts (Negative) LPF 0-2 Hyaline Urine Mucus (Negative) Negative Ur Culture Indicated? No Urine Glucose (Negative) mg/dL Negative Add-On Test Request DONE Quality:SDOH Health Related Social Needs: No Data to Display PFSH All Active Problems On deep vein thrombosis (DVT) prophylaxis (Acute) Acute hypoxic respiratory failure (Acute) Hypoxia (Acute) Pneumonia (Acute) Tremor (Acute) Acute UTI (Acute) Metastatic cancer to lung (Acute) Encounter for wound care (Acute) Trochanteric bursitis, right hip (Acute) corticosteroid injection 01/15/23 No-show for appointment (Acute) Periprosthetic fracture of femur at tip of prosthesis (Acute) Basicervical fracture of neck of right femur (Acute 10/08/21) Chronic laryngitis (Acute) Thrush (Acute) COPD (chronic obstructive pulmonary disease) (Acute) Chronic cough (Acute) Globus sensation (Acute) Eczema (Acute) Impaired fasting glucose (Acute) Spondylisthesis (Acute) Insomnia (Acute) CKD (chronic kidney disease) (Chronic) Lesion of skin of scalp (Acute) Hearing impaired person (Acute) Abdominal pain (Acute) Lactose intolerance (Acute) Hiatal hernia (Chronic) Dysphagia (Acute) Hyperlipidemia (Acute) Hypertension (Chronic) Abdominal aortic aneurysm (Acute) GERD (gastroesophageal reflux disease) (Chronic) Hypothyroidism (Chronic) Arthritis (Acute) Osteoarthritis (Chronic) Medical History History of radiation therapy (~2021) 07/31/22-09/13/22 Palliative care patient Surgical History History of mastectomy, total (~05/21/22) ER+ [place] weakly +, Her2 neg Td4,cN1a, H/O colonoscopy History of esophagogastroduodenoscopy (EGD) History of renal stent H/O aortic aneurysm repair H/O hand surgery History of Nila fundoplication Family History Father Cancer Mother Aneurysm Pneumonia Son No problems noted. Social History Smoking/Tobacco Use Status: Former Tobacco Use Smoking risk assessment performed?: Yes Alcohol Intake: never Drug use: Never Substance use type: does not use Housing: house Current gender identity: female Do you feel safe at home: Yes Do you feel safe in your relationship?: Yes Additional Social history: lives with one daughter
[2025-03-01 10:24] LABS: BE (Venous) 0 mmol/L (-2-3); HCO3 (Venous) 25 mmol/L (23-28); O2 Sat (Venous) 51 %; TCO2 (Venous) 23 mmol/L (24-29); pCO2 (Venous) 38 mmHg (41-51); pH (Venous) 7.43 (7.31-7.41); pO2 (Venous) 28 mmHg
[2025-03-01 10:25] LABS: Absolute Basophil Count 0.04 10^3/uL (0.0-0.2); Absolute Eosinophil Count 0.02 10^3/uL (0.0-0.7); Absolute Lymphocyte Count 1.33 10^3/uL (1.2-3.4); Absolute Monocyte Count 0.27 10^3/uL (0.1-0.8); Absolute Neutrophil Count 4.76 10^3/uL (1.2-6.7); Basophils % 0.6 %; Eosinophils % 0.3 %; HCT 35.7 % (36.0-46.0); HGB 11.9 g/dL (11.2-15.7); Immature Grans % 1.5 %; Lymphocytes % 20.4 %; MCHC 33.3 % (32.0-36.0); MCV 96 fL (80-95); MPV 9.6 fL (8.0-11.0); Monocytes % 4.1 %; Neutrophils % 73.1 %; Platelet Count 147 10^3/uL (130-400); RBC 3.72 10^6/uL (3.93-5.22); RDW 20.4 % (11.7-14.6); RDW-SD 71.2 fL; WBC 6.52 10^3/uL (4.4-10.8)
[2025-03-01 10:26] LABS: Lactate 1.9 mmol/L (<or=2.0)
[2025-03-01 10:40] LABS: PTT Activated 22.9 sec (20.6-30.2); Prothrombin Time 10.3 sec (9.1-11.1)
[2025-03-01 10:43] LABS: Anisocytosis 2+; Diff Comment RBC Morph Reviewed
--- NOTE | 2025-03-01 10:45 | DI.CT_ITS ---
Exam(s) CT CHEST PE CTA EXAM: CT CHEST PE CTA CLINICAL HISTORY: Hypoxia, Fever. TECHNIQUE: Imaging Protocol: CT angiography of the chest was performed using pulmonary embolus al col. Multi planar reconstructions were performed. CONTRAST MATERIAL: Intravenous: Omnipaque 350 Contrast volume: 100 cc COMPARISON: CT CT CHEST/ABD/PEL W from 03/10/2024 CR XR PORTABLE CHEST AP from 03/01/2025 FINDINGS: CHEST: LUNGS: Again noted is left mastectomy and persistent subpleural infiltrate in the anterior segment of the left upper lobe subjacent to the mastectomy site which is most probably related to post radiatio n pneumonitis. There is no rib destruction over this area. Just posterior to this in the left upper lobe there is an area of infiltrate which has slightly increased in size from 1 year ago. Mild incr eased subpleural markings in left lower lobe ower noted. There is no associated pleural effusion. In the opposite-right lung the previously described spiculated nodular density is again noted measuri ng 7-8 mm, similar to previous. Atelectasis and scarring in the right lung base is also unchanged. However, there does appear to be a new nodular infiltrate in the posterior basal segment of the right lower lobe and this most probably corresponds to the finding described on today's chest x-ray, this measuring 1.8 cm AP by 1.0 cm wide. There are no pleural effusions. PULMONARY ARTERIES: There are no intraluminal filling defects to suggest acute pulmonary emboli. MEDIASTINUM: There is no hilar nor mediastinal adenopathy. Mild-moderate size retrocardiac hiatal he rnia noted. CARDIAC: Heart size is upper normal. There is no pericardial effusion.Caliber of the thoracic aorta is within normal limits. No evidence of dissection. There is no significant shift of the interventri cular septum. PARTIALLY VISUALIZED UPPERMOST ABDOMEN: Abdominal aortic EVAR noted. OSSEOUS: No significant osseous lesions.No fractures.. IMPRESSION: 1. No evidence of acute pulmonary emboli. No evidence of pulmonary infarction.No pleural effusions. 2. Increasing size infiltrate in lateral aspect of the left upper lobe. There is also a new 18 x 10 mm nodular density in the posterior basal segment of the right lower lobe and, this corresponding to finding on chest x-ray earlier today. 3. Stable appearance of 7-8 mm right upper lobe nodule and stable appearance of left upper lobe anter ior segment post radiation pneumonitis in this patient has had left mastectomy. Report called by myself to ER provider 03/01/2025 at 12:40 p.m. RADIATION DOSE DELIVERED: 62.23mGy.cm Total DLP DATA REPOSITORY: All CT scans at this facility are submitted to the National Radiology Data Registry (NRDR) Dose Index Registry (DIR) with the [employer] (ACR). RADIATION OPTIMIZATION: All CT scans at this facility use at least one of these dose optimization te chniques: automated exposure control; mA and/or kV adjustment per patient size (includes targeted exa ms where dose is matched to clinical indication); or iterative reconstruction.
[2025-03-01 10:48] LABS: ALT 35 U/L (14-59); AST 39 U/L (15-37); Albumin 2.8 g/dL (3.4-5.0); Alkaline Phosphatase 75 U/L (46-116); Anion Gap 10.4 mmol/L (3-11); BUN 24 mg/dL (7-18); Bilirubin, Total 1.1 mg/dL (0.2-1.0); CO2 25.6 mmol/L (21.0-32.0); CREATININE 1.7 mg/dL (0.55-1.02); Calcium 9.9 mg/dL (8.5-10.1); Chloride 95 mmol/L (98-107); Estimated GFR 29.02 (mL/min/1.73m2); Glucose 138 mg/dL (74-106); Lipase 8 U/L (<78); Magnesium 1.6 mg/dL (1.8-2.4); Potassium 3.5 mmol/L (3.5-5.1); Sodium 131 mmol/L (136-145); Total Protein 6.4 g/dL (6.4-8.2)
[2025-03-01 10:50] LABS: Troponin I 55 ng/L (<or=51)
[2025-03-01] MEDS: Normal Saline 500 ML IV ×2 (10:54→14:23)
[2025-03-01] MEDS: ACETAMINOPHEN 500 MG/50 ML BAG 200 MG IVPB (10:54)
[2025-03-01] MEDS: Aspirin 81 MG CHEW 324 MG CH (11:11)
[2025-03-01] MEDS: Magnesium Oxide 400 MG TAB PO (11:13)
[2025-03-01 12:03] LABS: Troponin I 47 ng/L (<or=51)
[2025-03-01] MEDS: Normal Saline - Diluent 50 ML VIAL IJ (12:11)
[2025-03-01] MEDS: Omnipaque 350 MG/ML 100 ML BTL 70 ML IJ (12:17)
[2025-03-01 13:08] LABS: Bilirubin Negative (Negative); Blood Moderate (Negative); Clarity Sl Cloudy (Clear); Glucose Negative (Negative); Ketones Trace mg/dL (Negative); Leukocyte Esterase Negative (Negative); Nitrite Negative (Negative); Specific Gravity 1.015 (1.005-1.025); Urobilinogen 0.2 mg/dL (Up to 0.2)
[2025-03-01 13:17] LABS: Bacteria Negative HPF (Negative); Epithelial Cells Rare HPF (Negative); WBC 0-2 HPF (0-5)
[2025-03-01 13:18] LABS: C & S Indicated? No; Casts 0-2 Hyaline LPF (Negative); Crystals Mod Calcium Oxalate HPF (Negative); Mucus Negative (Negative)
[2025-03-01 13:21] LABS: Lab Add On Test DONE
[2025-03-01] MEDS: Albuterol/Ipratropium 3 ML UPD VIAL UPD ×2 (13:37→18:20)
[2025-03-01] MEDS: cefTRIAXone 1 GM/50 ML BAG IVPB (13:39)
[2025-03-01 14:01] LABS: Procalcitonin < 0.10 ng/mL
--- NOTE | 2025-03-01 14:14 | HPE_ITS ---
Date of service: 03/01/25 Time of Service: 14:15 Assessment and Plan Assessment and plan (1) Acute hypoxic respiratory failure: Status: Acute Assessment and plan: No o2 at home New requirement of 2l/minute in the ED Wean O2 as tolerated (2) Pneumonia: Status: Acute Assessment and plan: Doxycylcline and ceftriaxone CTA IMPRESSION: 1. No evidence of acute pulmonary emboli. No evidence of pulmonary infarction.No pleural effusions. 2. Increasing size infiltrate in lateral aspect of the left upper lobe. There is also a new 18 x 10 mm nodular density in the posterior basal segment of the right lower lobe and, this corresponding to finding on chest x-ray earlier today. 3. 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 (3) Metastatic cancer to lung: Status: Acute Assessment and plan: Outpatient f/u Might not want to pursue Tx (4) COPD (chronic obstructive pulmonary disease): Status: Acute Assessment and plan: Continue home medicine regimen (5) Palliative care patient: Assessment and plan: Established patient DNR/DNI (6) History of mastectomy, total: Assessment and plan: Left sided Ongoing wound dressing daily (7) CKD (chronic kidney disease): Status: Chronic Assessment and plan: At baseline Cr 1.7 BMP in AM (8) Hyperlipidemia: Status: Acute Assessment and plan: On home meds (9) Hypertension: Status: Chronic Assessment and plan: Hold home meds d/t hypotension (10) GERD (gastroesophageal reflux disease): Status: Chronic Assessment and plan: Pepcid 10 mg po BID PRN (11) Hypothyroidism: Status: Chronic Assessment and plan: On home meds (12) On deep vein thrombosis (DVT) prophylaxis: Status: Acute Assessment and plan: ON LMWH Discussed with Dr. Trinidad History of Present Illness History of Present Illness Chief Complaint: Weakness Narrative: This 84 years old female patient with a PMHx of breast CA with lung mets, left mastectomy with healing wound to the [facility] hypertension, hypothyroidism, COPD aortic aneurysm repair and Fareed fundoplication presented to the ED for evaluation of feeling wiped out and weakness s/p referral by the cancer center. Reported to be hypotensive with SBP 70-80's upon arrival, tachycardic with a rate of 102 and satting 83% on room air. She denies any shortness of breath or cough, fever, chills, chest pain hemoptysis, nause, vomiting, recent diarrhea or dysuria. Work-up in the ED was psoitive for new nodular infiltrates in the right lower lobe and increasing size infiltrate in the lateral aspect of the left upper lobe suspicious for pneumonia;PE negative as per CTA, ACS negative as per troponins of 55 with administration of ASA 324mg , then 47 and negative EKG. CBC and CMP unremarkable except for Mg at 1.6, Na at 131. The patient received IVF, ceftriaxone and doxyxycline in the ED and was admitted to the medical surgical floor for acute hypoxic respiratory failure, severe sepsis in the setting of pneumonia. DNR/DNI confirmed. Review of Systems All systems reviewed & are unremarkable except as noted in HPI and below PFSH All Active Problems On deep vein thrombosis (DVT) prophylaxis (Acute) Acute hypoxic respiratory failure (Acute) Hypoxia (Acute) Pneumonia (Acute) Tremor (Acute) Acute UTI (Acute) Metastatic cancer to lung (Acute) Encounter for wound care (Acute) Trochanteric bursitis, right hip (Acute) corticosteroid injection 01/15/23 No-show for appointment (Acute) Periprosthetic fracture of femur at tip of prosthesis (Acute) Basicervical fracture of neck of right femur (Acute 10/08/21) Chronic laryngitis (Acute) Thrush (Acute) COPD (chronic obstructive pulmonary disease) (Acute) Chronic cough (Acute) Globus sensation (Acute) Eczema (Acute) Impaired fasting glucose (Acute) Spondylisthesis (Acute) Insomnia (Acute) CKD (chronic kidney disease) (Chronic) Lesion of skin of scalp (Acute) Hearing impaired person (Acute) Abdominal pain (Acute) Lactose intolerance (Acute) Hiatal hernia (Chronic) Dysphagia (Acute) Hyperlipidemia (Acute) Hypertension (Chronic) Abdominal aortic aneurysm (Acute) GERD (gastroesophageal reflux disease) (Chronic) Hypothyroidism (Chronic) Arthritis (Acute) Osteoarthritis (Chronic) Medical History History of radiation therapy (~2021) 07/31/22-09/13/22 Palliative care patient Surgical History History of mastectomy, total (~05/21/22) ER+ [place] weakly +, Her2 neg Td4,cN1a, H/O colonoscopy History of esophagogastroduodenoscopy (EGD) History of renal stent H/O aortic aneurysm repair H/O hand surgery History of Nila fundoplication Family History Father Cancer Mother Aneurysm Pneumonia Son No problems noted. Social History Smoking/Tobacco Use Status: Former Tobacco Use Smoking risk assessment performed?: Yes Alcohol Intake: never Drug use: Never Substance use type: does not use Housing: house Current gender identity: female Do you feel safe at home: Yes Do you feel safe in your relationship?: Yes Additional Social history: lives with one daughter Meds Allergies and Home Medications Allergies Allergy/AdvReac Type Severity Reaction Status Date / Time clopidogrel Allergy Unknown Verified 03/01/25 10:04 bisulfate Allergy Unknown Uncoded 03/01/25 10:04 Home Medications ?Medication ?Instructions ?Recorded ?Confirmed ?Type ascorbate calcium (vitamin C) 500 1,000 mg PO DAILY 05/15/21 03/01/25 History mg tablet simvastatin 40 mg tablet 40 mg PO QPM 05/15/21 03/01/25 History calcium carbonate 1,200 mg PO QPM 10/08/21 03/01/25 History losartan 50 mg tablet 50 mg PO QAM 10/08/21 03/01/25 History metoprolol succinate 50 mg 50 mg PO DAILY 06/16/24 03/01/25 History tablet,extended release 24 hr albuterol sulfate 90 mcg/actuation 2 puff inhalation PRN 11/16/24 03/01/25 History aerosol inhaler codeine 10 mg-guaifenesin 100 mg/5 10 ml PO 3XD 11/16/24 03/01/25 History mL oral liquid mirtazapine 7.5 mg tablet 7.5 mg PO .bedtime 11/16/24 03/01/25 History levothyroxine 75 mcg capsule 75 mcg PO DAILY 12/09/24 03/01/25 History umeclidinium 62.5 mcg-vilanterol 1 inh inhalation DAILY 12/09/24 03/01/25 History 25 mcg/actuation powdr for inhalation (Anoro Ellipta) Exam Narrative Exam Narrative: Constitutional The patient is in bed comfortable without acute distress Neuro:alert and oriented to self, person, place time and situation. No neurological focal deficit Chest:Left chest wall :wound covered by Telfa- minimal serous drainage- slough and granulation tissue seen; port to R ACW Resp:Diffused left sided inspiratory wheezing -unlabored breathing, clear lung bilaterally decreased Left base Cardio: regular rhythm, S1, S2, no murmur, capillary refill<3 sec., bilateral radial and dorsalis pedis pulses are positive GI: Abdomen is not distended, soft and non tender, bowel sounds are present : Negative Costovertebral angle tenderness Back/spine/Pelvis: No back tenderness, normal alignment Extremities:moves all 4 ext. Psych: RASS 0, congruent mood and normal affect. Results Labs 03/01/25 10:18 03/01/25 10:18 Labs: Laboratory Results - last 24 hr 03/01/25 03/01/25 03/01/25 10:18 11:25 12:56 WBC 6.52 RBC 3.72 L Hgb 11.9 Hct 35.7 L MCV 96 H MCH 32.0 MCHC 33.3 RDW 20.4 H Plt Count 147 MPV 9.6 Immature Gran % 1.5 Neutrophils % 73.1 Lymphocytes % 20.4 Monocytes % 4.1 Eosinophils % 0.3 Basophils % 0.6 Nucleated RBC % 0.0 Absolute Neutrophils 4.76 Absolute Lymphocytes 1.33 Absolute Monocytes 0.27 Absolute Eosinophils 0.02 Absolute Basophils 0.04 RBC Morphology See Below Anisocytosis 2+ PT 10.3 INR 1.0 APTT 22.9 VBG pH 7.43 H VBG pCO2 38 L VBG pO2 28 VBG HCO3 25 VBG Total CO2 23 L VBG O2 Saturation 51 VBG Base Excess 0 VBG Lactate 1.9 Sodium 131 L Potassium 3.5 Chloride 95 L Carbon Dioxide 25.6 Anion Gap 10.4 BUN 24 H Creatinine 1.7 H Est GFR (CKD-EPI 2020) 29.02 Glucose 138 H Calcium 9.9 Magnesium 1.6 L Total Bilirubin 1.1 H AST 39 H ALT 35 Alkaline Phosphatase 75 Troponin I 55 H* 47 Total Protein 6.4 Albumin 2.8 L Lipase 8 Procalcitonin < 0.10 Urine Color Yellow Urine Clarity Sl Cloudy Urine pH 6.0 Ur Specific [place] 1.015 Urine Protein 30 H Urine Ketones Trace H Urine Blood Moderate H Urine Nitrite Negative Urine Bilirubin Negative Urine Urobilinogen 0.2 Ur Leukocyte Esterase Negative Urine RBC 10-20 H Urine WBC 0-2 Ur Epithelial Cells Rare Urine Crystals Mod Calcium Oxalate Urine Bacteria Negative Urine Casts 0-2 Hyaline Urine Mucus Negative Ur Culture Indicated? No Urine Glucose Negative Add-On Test Request DONE Last Vital Signs Temp 37.7 C H 03/01/25 10:06 Pulse 77 03/01/25 13:37 Resp 18 03/01/25 13:37 BP 94/61 L 03/01/25 11:00 Pulse Ox 94 03/01/25 13:37 Time Spent Time spent with Patient: >75 minutes Time was spent: preparing to see the patient(eg.review tests), obtaining and/or reviewing separately otained hiistory, ordering medications,tests, procedures, referring, communicating with other health medicare specialist, indepentently interpreting results, counseling the patient and care coordination
[2025-03-01] MEDS: DOXYCYCLINE 100 MG in Normal Saline 100 ML IVPB (14:17)
--- NOTE | 2025-03-01 17:12 | W.PC.ACHO ---
Registration Status: Primary Language: Preferred Language: ED Information & Data Chief Complaint GenMedical 03/01/25 10:22 Triage Note pt with recent d/c from 03/01/25 10:06 cancer tx presents with increased weakness, BP on arrival 73/41 and O2 83. Medical / Surgical History (Last Reviewed 03/01/25 @ 15:53 by Ashlyn Garcia NP) History of radiation therapy (~2021) Palliative care patient (Last Reviewed 03/01/25 @ 15:53 by Ashlyn Garcia NP) History of mastectomy, total (~05/21/22) H/O colonoscopy History of esophagogastroduodenoscopy (EGD) History of renal stent H/O aortic aneurysm repair H/O hand surgery History of Nila fundoplication Most Recent Vital Signs Temperature 36.8 C 03/01/25 15:40 Temperature Source Oral 03/01/25 10:06 Pulse 79 03/01/25 15:40 Pulse Rhythm Regular 03/01/25 15:40 Pulse 79 03/01/25 15:20 Respiratory Rate 16 03/01/25 15:40 Respiratory Effort Normal 03/01/25 15:40 Respiratory Depth Normal 03/01/25 15:40 Respiratory Pattern Normal 03/01/25 15:40 Blood Pressure 96/66 L 03/01/25 15:40 Blood Pressure Mean 66 03/01/25 15:16 Blood Pressure Position Sitting 03/01/25 10:06 Pulse Oximetry 94 03/01/25 15:40 Oxygen Delivery Method Nasal Cannula 03/01/25 15:40 Oxygen Flow Rate 4 03/01/25 15:40 Pain Level 0 03/01/25 15:40 Allergies clopidogrel Allergy (Verified 03/01/25 10:04) Unknown bisulfate Allergy (Uncoded 03/01/25 10:04) Unknown Precautions Isolation Standard precaution 03/01/25 10:09 IV IV Catheter Type [Right Saline Lock Antecubital] IV Catheter Gauge [Right 18 Antecubital] Diet Orders Category Date Time Status Heart Healthy Eating [DIET] Nutrition 03/01/25 Lunch Active Diagnostics 03/01/25 03/01/25 03/01/25 Range/Units 13:23 12:56 11:25 WBC (4.4-10.8) 10^3/uL RBC (3.93-5.22) 10^6/uL Hgb (11.2-15.7) g/dL Hct (36.0-46.0) % MCV (80-95) fL MCH (27.0-33.0) pg MCHC (32.0-36.0) % RDW (11.7-14.6) % Plt Count (130-400) 10^3/uL MPV (8.0-11.0) fL Immature Gran % % Neutrophils % % Lymphocytes % % Monocytes % % Eosinophils % % Basophils % % Nucleated RBC % (0.0-0.3) % Absolute Neutrophils (1.2-6.7) 10^3/uL Absolute Lymphocytes (1.2-3.4) 10^3/uL Absolute Monocytes (0.1-0.8) 10^3/uL Absolute Eosinophils (0.0-0.7) 10^3/uL Absolute Basophils (0.0-0.2) 10^3/uL RBC Morphology Anisocytosis PT (9.1-11.1) sec INR (0.9-1.1) APTT (20.6-30.2) sec VBG pH (7.31-7.41) VBG pCO2 (41-51) mmHg VBG pO2 mmHg VBG HCO3 (23-28) mmol/L VBG Total CO2 (24-29) mmol/L VBG O2 Saturation % VBG Base Excess (-2-3) mmol/L VBG Lactate (<or=2.0) mmol/L Sodium (136-145) mmol/L Potassium (3.5-5.1) mmol/L Chloride (98-107) mmol/L Carbon Dioxide (21.0-32.0) mmol/L Anion Gap (3-11) mmol/L BUN (7-18) mg/dL Creatinine (0.55-1.02) mg/dL Est GFR (CKD-EPI 2020) (mL/min/1.73m2) Glucose (74-106) mg/dL Calcium (8.5-10.1) mg/dL Magnesium (1.8-2.4) mg/dL Total Bilirubin (0.2-1.0) mg/dL AST (15-37) U/L ALT (14-59) U/L Alkaline Phosphatase (46-116) U/L Troponin I Pending 47 (<or=51) ng/L Total Protein (6.4-8.2) g/dL Albumin (3.4-5.0) g/dL Lipase (<78) U/L Procalcitonin < 0.10 ng/mL Urine Color Yellow (Yellow) Urine Clarity Sl Cloudy (Clear) Urine pH 6.0 (5-8) Ur Specific [place] 1.015 (1.005-1.025) Urine Protein 30 H (Neg-Trace) mg/dL Urine Ketones Trace H (Negative) mg/dL Urine Blood Moderate H (Negative) Urine Nitrite Negative (Negative) Urine Bilirubin Negative (Negative) Urine Urobilinogen 0.2 (Up to 0.2) mg/dL Ur Leukocyte Esterase Negative (Negative) Urine RBC 10-20 H (0-2) HPF Urine WBC 0-2 (0-5) HPF Ur Epithelial Cells Rare (Negative) HPF Urine Crystals Mod Calcium Oxalate (Negative) HPF Urine Bacteria Negative (Negative) HPF Urine Casts 0-2 Hyaline (Negative) LPF Urine Mucus Negative (Negative) Ur Culture Indicated? No Urine Glucose Negative (Negative) mg/dL Add-On Test Request DONE 03/01/25 Range/Units 10:18 WBC 6.52 (4.4-10.8) 10^3/uL RBC 3.72 L (3.93-5.22) 10^6/uL Hgb 11.9 (11.2-15.7) g/dL Hct 35.7 L (36.0-46.0) % MCV 96 H (80-95) fL MCH 32.0 (27.0-33.0) pg MCHC 33.3 (32.0-36.0) % RDW 20.4 H (11.7-14.6) % Plt Count 147 (130-400) 10^3/uL MPV 9.6 (8.0-11.0) fL Immature Gran % 1.5 % Neutrophils % 73.1 % Lymphocytes % 20.4 % Monocytes % 4.1 % Eosinophils % 0.3 % Basophils % 0.6 % Nucleated RBC % 0.0 (0.0-0.3) % Absolute Neutrophils 4.76 (1.2-6.7) 10^3/uL Absolute Lymphocytes 1.33 (1.2-3.4) 10^3/uL Absolute Monocytes 0.27 (0.1-0.8) 10^3/uL Absolute Eosinophils 0.02 (0.0-0.7) 10^3/uL Absolute Basophils 0.04 (0.0-0.2) 10^3/uL RBC Morphology See Below Anisocytosis 2+ PT 10.3 (9.1-11.1) sec INR 1.0 (0.9-1.1) APTT 22.9 (20.6-30.2) sec VBG pH 7.43 H (7.31-7.41) VBG pCO2 38 L (41-51) mmHg VBG pO2 28 mmHg VBG HCO3 25 (23-28) mmol/L VBG Total CO2 23 L (24-29) mmol/L VBG O2 Saturation 51 % VBG Base Excess 0 (-2-3) mmol/L VBG Lactate 1.9 (<or=2.0) mmol/L Sodium 131 L (136-145) mmol/L Potassium 3.5 (3.5-5.1) mmol/L Chloride 95 L (98-107) mmol/L Carbon Dioxide 25.6 (21.0-32.0) mmol/L Anion Gap 10.4 (3-11) mmol/L BUN 24 H (7-18) mg/dL Creatinine 1.7 H (0.55-1.02) mg/dL Est GFR (CKD-EPI 2020) 29.02 (mL/min/1.73m2) Glucose 138 H (74-106) mg/dL Calcium 9.9 (8.5-10.1) mg/dL Magnesium 1.6 L (1.8-2.4) mg/dL Total Bilirubin 1.1 H (0.2-1.0) mg/dL AST 39 H (15-37) U/L ALT 35 (14-59) U/L Alkaline Phosphatase 75 (46-116) U/L Troponin I 55 H* (<or=51) ng/L Total Protein 6.4 (6.4-8.2) g/dL Albumin 2.8 L (3.4-5.0) g/dL Lipase 8 (<78) U/L Procalcitonin ng/mL Urine Color (Yellow) Urine Clarity (Clear) Urine pH (5-8) Ur Specific [place] (1.005-1.025) Urine Protein (Neg-Trace) mg/dL Urine Ketones (Negative) mg/dL Urine Blood (Negative) Urine Nitrite (Negative) Urine Bilirubin (Negative) Urine Urobilinogen (Up to 0.2) mg/dL Ur Leukocyte Esterase (Negative) Urine RBC (0-2) HPF Urine WBC (0-5) HPF Ur Epithelial Cells (Negative) HPF Urine Crystals (Negative) HPF Urine Bacteria (Negative) HPF Urine Casts (Negative) LPF Urine Mucus (Negative) Ur Culture Indicated? Urine Glucose (Negative) mg/dL Add-On Test Request 03/01/25 10:55 Blood Culture - Pending Blood 03/01/25 10:18 Blood Culture - Pending Blood Intake and Output - 24 Hour Total 03/01/25 09:51 thru 03/01/25 16:19 Intake Total 1200 Balance 1200 Weight 55.792 kg Intake: IV 1200 Other: Urine Appearance Clear Falls Risk Assessment History of Falls No History 03/01/25 15:40 Contributing Factors Impairments 03/01/25 15:40 Ambulatory Aids Independent 03/01/25 15:40 Tubes/Lines W/no contributing factors 03/01/25 15:40 Gait Evaluation W/no contributing factors 03/01/25 15:40 Cognition No cognitive impairment 03/01/25 15:40 Fall Total Score 23 03/01/25 15:40 Level of Risk Standard/Low Risk 03/01/25 15:40 Problems (Last Reviewed 03/01/25 @ 15:53 by Ashlyn Garcia NP) On deep vein thrombosis (DVT) prophylaxis (Acute) Acute hypoxic respiratory failure (Acute) Pneumonia (Acute) Metastatic cancer to lung (Acute) COPD (chronic obstructive pulmonary disease) (Acute) CKD (chronic kidney disease) (Chronic) Abdominal pain (Acute) Hyperlipidemia (Acute) Hypertension (Chronic) GERD (gastroesophageal reflux disease) (Chronic) Hypothyroidism (Chronic) v v v v v v v v v Sending and/or Receiving Nurses: Please use comment section below to note any information pertinent to the patient hand-off not included above. Information / Comments: Pt arrived to floor and settled into room. VS performed and pt oriented to room. Call alvarez within reach. All questions answered for pt. fall risk sign applied to door and yellow socks on. Pt aware to ring for assistance before ambulating. Pt will call for assitance Report received from: Anyi STRANGE, ED
[2025-03-01] MEDS: Enoxaparin 30 MG/0.3 ML SYR SC (18:20)
[2025-03-01] MEDS: guaiFENesin 600 MG TABCR PO (21:12)
[2025-03-01] MEDS: Mirtazapine 15 MG TAB 7.5 MG PO (21:13)
[2025-03-01] MEDS: Calcium Carbonate 1.25 GM TAB PO (21:13)
[2025-03-01] MEDS: Simvastatin 40 MG TAB PO (21:13)
[2025-03-01] MEDS: Normal Saline Flush 10 ML SYR IVP (21:14)
[2025-03-01] MEDS: ACETAMINOPHEN 1,000 MG/100 ML BAG 400 MG IV (21:32)
[2025-03-01 23:30] LABS: Troponin I 47 ng/L (<or=51)
[2025-03-02] VITALS (17 sets, daily range): BP systolic 84–107; BP diastolic 50–90; PULSE 91–113; RESP 5–20; TEMP 36.5–38.5; O2SAT 81–95
[2025-03-02] MEDS: Lactated Ringers 500 ML IV ×2 (00:04→10:14)
[2025-03-02] MEDS: Albuterol/Ipratropium 3 ML UPD VIAL UPD ×3 (00:27→11:16)
[2025-03-02] MEDS: DOXYCYCLINE 100 MG in Normal Saline 100 ML IVPB ×2 (01:38→12:55)
[2025-03-02] MEDS: ACETAMINOPHEN 1,000 MG/100 ML BAG 1000 MG IV (05:27)
[2025-03-02] MEDS: Levothyroxine 75 MCG TAB PO (05:27)
[2025-03-02 07:03] LABS: Abs Immature Grans 0.12 10^3/uL (0.0-0.06); Absolute Basophil Count 0.03 10^3/uL (0.0-0.2); Absolute Eosinophil Count 0.03 10^3/uL (0.0-0.7); Absolute Lymphocyte Count 1.06 10^3/uL (1.2-3.4); Absolute Monocyte Count 0.14 10^3/uL (0.1-0.8); Absolute Neutrophil Count 3.78 10^3/uL (1.2-6.7); Basophils % 0.6 %; Eosinophils % 0.6 %; HCT 31.2 % (36.0-46.0); HGB 10.5 g/dL (11.2-15.7); Immature Grans % 2.3 %; Lymphocytes % 20.5 %; MCH 32.5 pg (27.0-33.0); MCHC 33.7 % (32.0-36.0); MCV 97 fL (80-95); MPV 9.5 fL (8.0-11.0); Monocytes % 2.7 %; Neutrophils % 73.3 %; Platelet Count 131 10^3/uL (130-400); RBC 3.23 10^6/uL (3.93-5.22); RDW 20.6 % (11.7-14.6); RDW-SD 72.3 fL; WBC 5.16 10^3/uL (4.4-10.8)
[2025-03-02 07:19] LABS: Anion Gap 11.3 mmol/L (3-11); BUN 23 mg/dL (7-18); CO2 23.7 mmol/L (21.0-32.0); CREATININE 1.5 mg/dL (0.55-1.02); Calcium 9.4 mg/dL (8.5-10.1); Chloride 100 mmol/L (98-107); Estimated GFR 33.73 (mL/min/1.73m2); Glucose 132 mg/dL (74-106); Magnesium 1.6 mg/dL (1.8-2.4); Potassium 3.5 mmol/L (3.5-5.1); Sodium 135 mmol/L (136-145)
[2025-03-02] MEDS: Tiotropium/Olodaterol 10 PUFF INHALER 2 PUFF IH (08:34)
--- NOTE | 2025-03-02 08:39 | IN_ITS ---
PT Notes Visit Reasons: acute hypoxic resp fail,pneumonia,severe sepsis Physical Therapy Inpatient Initial Evaluation Date: 03/02/2025 Referring Doctor: Connie Herbert NP PT Orders: PT CONSULT: Safety Consult for D/C. Fall Safety Assessment Precautions: Fall. Standard. Activity as tolerated. DNR/DNI. Patient Profile/Admitting Diagnosis: Ammy is a an 84-year-old female patient on palliative care admitted to the ED with complaints of generalized weakness and fatigue referred from cancer center on 03/01/2025. 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 PMHX: All Active Problems On deep vein thrombosis (DVT) prophylaxis (Acute) Acute hypoxic respiratory failure (Acute) Hypoxia (Acute) Pneumonia (Acute) Tremor (Acute) Acute UTI (Acute) Metastatic cancer to lung (Acute) Encounter for wound care (Acute) Trochanteric bursitis, right hip (Acute) corticosteroid injection 01/15/23 No-show for appointment (Acute) Periprosthetic fracture of femur at tip of prosthesis (Acute) Basicervical fracture of neck of right femur (Acute 10/08/21) Chronic laryngitis (Acute) Thrush (Acute) COPD (chronic obstructive pulmonary disease) (Acute) Chronic cough (Acute) Globus sensation (Acute) Eczema (Acute) Impaired fasting glucose (Acute) Spondylisthesis (Acute) Insomnia (Acute) CKD (chronic kidney disease) (Chronic) Lesion of skin of scalp (Acute) Hearing impaired person (Acute) Abdominal pain (Acute) Lactose intolerance (Acute) Hiatal hernia (Chronic) Dysphagia (Acute) Hyperlipidemia (Acute) Hypertension (Chronic) Abdominal aortic aneurysm (Acute) GERD (gastroesophageal reflux disease) (Chronic) Hypothyroidism (Chronic) Arthritis (Acute) Osteoarthritis (Chronic) Medical History History of radiation therapy (~2021) 07/31/22-09/13/22 Palliative care patient Surgical History History of mastectomy, total (~05/21/22) ER+ [place] weakly +, Her2 neg Td4,cN1a, H/O colonoscopy History of esophagogastroduodenoscopy (EGD) History of renal stent H/O aortic aneurysm repair H/O hand surgery History of Nila fundoplication Social History/Home Situation: Lives in a private home with daughter who has been a great support for patient. Independent household ambulator with her 4WW. Equipment Owned/DME: Wheelchair, 4WW, SPC Subjective: Did not want her breakfast, said that she is not a breakfast person. Short of breath after walking from her room to the nurse's station. Did not have oxygen supplementation prior to admission. Objective: General Observation: IV through R antecubital fossa. Resting on her bed whne Pt came in. Mental Status: Alert and oriented as to person, place, time, and purpose. Able to pay attention, focus, and respond appropriately. Pain: []/10 in [] [] Vital Signs: [] ROM: Right Upper Extremity: Shoulder Flexion WFL. Shoulder abduction WFL. Elbow flexion WFL. Wrist flexion WFL. Functional opening and closing of hand WFL. Left Upper Extremity: Shoulder Flexion WFL. Shoulder abduction WFL. Elbow flexion WFL. Wrist flexion WFL. Functional opening and closing of hand WFL. Right Lower Extremity: Hip flexion WFL. Hip abduction WFL. Knee flexion WFL. Ankle dorsiflexion WFL. Ankle plantarflexion WFL. Left Lower Extremity: Hip flexion WFL. Hip abduction WFL. Knee flexion WFL. Ankle dorsiflexion WFL. Ankle plantarflexion WFL. Strength: Right Upper Extremity: Shoulder flexors 4-/5. Shoulder abductors 4-/5. Elbow flexors 4-/5. Elbow extensors 4-/5. Overhead Door Technician strong. Left Upper Extremity: Shoulder flexors 4-/5. Shoulder abductors 4-/5. Elbow flexors 4-/5. Elbow extensors 4-/5. Overhead Door Technician strong. Right Lower Extremity: Hip flexors 4-/5. Hip abductors 4-/5. Knee flexors 4-/5. Knee extensors 4-/5. Ankle dorsiflexors 4-/5. Ankle plantarflexors 4-/5. Left Lower Extremity: Hip flexors 4-/5. Hip abductors 4-/5. Knee flexors 4-/5. Knee extensors 4-/5. Ankle dorsiflexors 4-/5. Ankle plantarflexors 4-/5. Bed Mobility/Transfers: Minimal cueing provided for use of B hands as needed for support, movement sequence, AD management, and posture to reduce fall risk and minimize pain report Supine to sit stand by assist with HOB at 30 degrees Sit to stand contact guard assist with FWW Stand to sit contact guard assist with FWW Bed to reclining chair contact guard assist with FWW Gait: 50 feet + 10 feet + 10 feet + 50 feet with FWW with contact guard assist requiring only minimal verbal cueing for walker management, self-pacing, and directional changes to minimize SOB and fatigue. Reported minimal shortness of breath needing seated rests. Stairs: Provided minimal verbal cueing for hand placement, limb movement sequence, and self pacing to minimize SOB and fatigue to negotiate 6 x 4-inch steps and 4 x 6-inch steps while holding onto B rails for support. Balance: Static Sitting: Normal Dynamic Sitting: Normal Static Standing: Fair Dynamic Standing: Fair Special Tests: Mobility Limitations Standardized Measure [facility] 6 clicks Basic Mobility Inpatient Short Form: Raw Score: 21 CMS Score: 29% deficit 4-Stage balance test: Feet together 10 seconds Semi tandem 10 seconds Full tandem unable One-;egged stance unable Informed Consent/Education: Patient was instructed in purpose of PT consult and plan of care. Agreeable to proceed with established PT POC to achieve personal goals. Assessment: Short of breath after walking about 50 feet with on 1 L of oxygen per minute with SaO2 decreased down to 85% but increase back to 90% with increase to 2 L/minute. Patient requires the use of FWW for all mobility ADL performance to maximize independence and reduce fall risk. Patient only needs to navigate bout 15-20 feet of indoor ambulation at a time. She will have the assistance of her daughter during the day and her son at night. Patient presents with clinical signs and symptoms consistent with current/admitting diagnoses that have resulted to mobility limitations, gait instability, generalized weakness, and overall ADL decline as demonstrated by the following impairment level findings: 1. Decreased strength to B UE/LE major muscle groups 2. Impaired sitting/standing balance 3. Impaired activity tolerance 4. Shortness of breath 5. Fatigue Impairments are contributing to the following functional limitations: 1. Decline in bed mobility skills 2. Decline in transfer skills 3. Difficulty with ambulation without assistive device 4. Increased completion time for mobility ADL performance 5. Increased risk for falls 6. Difficulty with managing steps alone safely Patient is assessed as a 89743 moderate complexity based on the following: History: 84-year-old female with past medical history as indicated above Examination: Demonstrable impairment in strength, balance, and mobility level with underlying impairments and functional limitations as exhibited above as well as deficit score of 29% utilizing the [facility] Mobility Inpatient Short Form Presentation: Evolving Decision Makin moderate complexity Goals: Goals X1 week 1. Supine-Sit independent 2. Sit-Supine independent 3. Sit-Stand independent 4. Stand-Sit independent with FWW 5. Bed-Chair independent with FWW 6. Chair-Bed independent with FWW 7. Independent gait on level surface with use of FWW for at least 150 feet without report of pain nor dyspnea 8. Independent stair negotiation while holding onto B rails for at least 5 steps without report of pain nor dyspnea 9. Independent with home exercise program 10. Good static and dynamic standing balance/tolerance Plan of Care/Treatment Plan: 1-2x/day, 7 days/week x 1 week. Plan of care has been reviewed with the FUR FINISHER TAILOR providing the service under Physical Therapy direction. Initiate Physical Therapy intervention for pain management as needed, strengthening, bed mobility, transfers, gait, stairs, balance training, and use of assistive device. DISCHARGE RECOMMENDATIONS: [] Home with no services [] [X] Home with services. Patient will benefit from home health PT services in order to progress mobility level using least restrictive assistive ambulatory device, assess home safety, identify additional equipment needs, and establish a functional maintenance program that will increase ability of patient to remain at home. [] Home with outpatient PT [] [] SNF for continued rehabilitation [] [] [facility] [] [] SNF versus LTC based on ability to participate and progress [] TREATMENT CODE/TIME: 14487 x 20 minutes for 1 unit, 01531 x 16 minutes for 1 unit (8:39-9:15). Thank you for the opportunity to participate in the care of this patient. Josette Moffett PT, DPT, CLT [facility] [place], [place]
--- NOTE | 2025-03-02 09:03 | INITIAL_ITS ---
Date of service: 03/02/25 Time of Service: 09:03 Care Management Initial Assmt Initial Assessment Reason for Hospitalization: Pneumonia Functional Status/Living Situation Patient Presentation: Ammy was sitting up in bed visiting with her daughter Yoly when met with her. She appeared fatigued and was a bit short of breath at the time. Ammy was admitted with pneumonia and hypoxic respiratory failure. She remains hypotensive and tachycardic today and is requiring 3-4 L/min of nasal oxygen to maintain her saturation in the 90s. Ammy lives in a single family home in [place] with her daughter Tisha and son-in-law Grayson. She has one other daughter, Gay, who lives close by. Ammy also has 4 grandchildren and 6 great grandchildren. 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 Ammy uses a walker for ambulatory assistance but is not very mobile according to Gay. She does need some assistance with ADLs such as bathing and dressing, which is provided by Tisha Town of Residence: [place], [place] Resides with: Child (lives with daughter Shena and son-in-law Grayson) Significant Other/Family: [facility] Employment Status: Retired Instrumental Activities of Daily Living (ADLs): Requires support with Dishes/food prep, Groceries, Transportation and Other (bathing and dressing) Medications Medication Management: No Issues/Barriers identified Physical Functioning/Mobility Assistive Device: FWW Advance Directives Advance Directives: Do you have an Advance Directive: Y 10/09/21 10:28 AD On File at [facility]: Y 10/09/21 10:28 Date Asked 10/20/19 10/09/21 10:28 AD Date Reviewed 03/01/25 03/01/25 15:32 COLST On File at [facility] Yes 02/26/25 21:01 COLST Date Scanned Code Status Resuscitation Status DNR/DNI Insurance Coverage/Financial Issues Insurance: Medicare [facility] Medicare Supplement Care Team Visit Care Team Role Provider Type Connie Herbert APRN MD [facility] STAFF PHYSICIAN Elmer Murphy Primary Care Provider NON-[facility] STAFF PHYSICIAN Napoleon Jones Other Providers OTHER Ashlyn Garcia NP Emergency Provider NURSE PRACTITIONER Carlos Trinidad Admit Provider [facility] STAFF PHYSICIAN Attending Provider Discharge Potential Discharge Needs: PCP F/U Appt Anticipated Barriers to Discharge: None Identified Patient/Family Education Needs: Review discharge instructions, discuss Ask Me Three Transportation: Private vehicle Plan: Anticipate Ammy will be discharged home, likely with new home health services, when medically cleared. She will follow up with her PCP and plan of care and transport with family. CM will follow and continue to support discharge planning. Social Determinants of Health Screening Social Determinants of health last assessed in clinic: 03/02/25 Will the Patient Participate in the Screening?: Yes Do you worry about having a steady place to live?: no Problems where you live: no known problems In the past 12 months, have you had to go without electric, gas, oil or water in your home?: no 1. Within the past 12 months, we worried whether our food would run out before we got money to buy more.: Never true 2. Within the past 12 months, the food we bought just didn't last and we didn't have money to get more.: Never true Has lack of transportation kept you from medical appointments or from doing things needed for daily living?: no Has anyone in your life made you feel unsafe or unsupported?: no How hard is it for you to pay for the very basics like food, housing, medical care, and heating? Would you say it is:: Not hard at all Do you want help finding or keeping work or a job?: I do not need or want help If for any reason you need help with day-to-day activities such as bathing, preparing meals, shopping, managing finances, etc., do you get the help you need?: I don?t need any help How often do you feel lonely or isolated from those around you?: Never Do you speak a language other than Luxembourgish at home?: No Does the patient want assistance with any of the above?: No PFSH All Active Problems (Updated 03/02/25 @ 10:01 by Connie Herbert APRN) Hypotension (Acute) Severe sepsis (Acute) On deep vein thrombosis (DVT) prophylaxis (Acute) Acute hypoxic respiratory failure (Acute) Hypoxia (Acute) Pneumonia (Acute) Tremor (Acute) Acute UTI (Acute) Metastatic cancer to lung (Acute) Encounter for wound care (Acute) Trochanteric bursitis, right hip (Acute) corticosteroid injection 01/15/23 No-show for appointment (Acute) Periprosthetic fracture of femur at tip of prosthesis (Acute) Basicervical fracture of neck of right femur (Acute 10/08/21) Chronic laryngitis (Acute) Thrush (Acute) COPD (chronic obstructive pulmonary disease) (Acute) Chronic cough (Acute) Globus sensation (Acute) Eczema (Acute) Impaired fasting glucose (Acute) Spondylisthesis (Acute) Insomnia (Acute) CKD (chronic kidney disease) (Chronic) Lesion of skin of scalp (Acute) Hearing impaired person (Acute) Abdominal pain (Acute) Lactose intolerance (Acute) Hiatal hernia (Chronic) Dysphagia (Acute) Hyperlipidemia (Acute) Hypertension (Chronic) Abdominal aortic aneurysm (Acute) GERD (gastroesophageal reflux disease) (Chronic) Hypothyroidism (Chronic) Arthritis (Acute) Osteoarthritis (Chronic) Medical History History of radiation therapy (~2021) 07/31/22-09/13/22 Palliative care patient Surgical History History of mastectomy, total (~05/21/22) ER+ [place] weakly +, Her2 neg Td4,cN1a, H/O colonoscopy History of esophagogastroduodenoscopy (EGD) History of renal stent H/O aortic aneurysm repair H/O hand surgery History of Nila fundoplication Family History Father Cancer Mother Aneurysm Pneumonia Son No problems noted. Social History Smoking/Tobacco Use Status: Former Tobacco Use Smoking risk assessment performed?: Yes Alcohol Intake: never Drug use: Never Substance use type: does not use Housing: house Current gender identity: female Do you feel safe at home: Yes Do you feel safe in your relationship?: Yes Additional Social history: lives with one daughter
[2025-03-02] MEDS: Metoprolol CR 50 MG TABCR PO (09:29)
[2025-03-02] MEDS: guaiFENesin 600 MG TABCR PO ×2 (09:29→20:09)
[2025-03-02] MEDS: Ascorbic Acid 500 MG TAB 1000 MG PO (09:29)
[2025-03-02] MEDS: Normal Saline Flush 10 ML SYR IVP (09:30)
[2025-03-02] MEDS: cefTRIAXone 2 GM/50 ML BAG IVPB (09:30)
--- NOTE | 2025-03-02 09:51 | PGE_ITS ---
Date of Service Date of service: 03/02/25 Time of Service: 09:51 Assessment and Plan Assessment and plan (1) Severe sepsis: Status: Acute Assessment and plan: Criteria met on admission with tachycardia with HR 102 -106, RR 27 w/o leukocytosis or objective fevers Source : Pneumonia Severity : hypotension responding to IV fluid resuscitation Blood C&S negative this PM but febrile this AM and as per point 3 (2) Acute hypoxic respiratory failure: Status: Acute Assessment and plan: No O2 at home New requirement of 2l/minute in the ED - now on 1l/min Wean O2 as tolerated (3) Pneumonia: Status: Acute Assessment and plan: Doxycylcline and ceftriaxone IV - now on oral equivalent as she is refusing IV insertion CTA IMPRESSION: 1. No evidence of acute pulmonary emboli. No evidence of pulmonary infarction.No pleural effusions. 2. Increasing size infiltrate in lateral aspect of the left upper lobe. There is also a new 18 x 10 mm nodular density in the posterior basal segment of the right lower lobe and, this corresponding to finding on chest x-ray earlier today. 3. 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 (4) Metastatic cancer to lung: Status: Acute Assessment and plan: Outpatient f/u Might have just decided to stop Tx (5) COPD (chronic obstructive pulmonary disease): Status: Acute Assessment and plan: Ongoing home medicine regimen (6) Palliative care patient: Assessment and plan: Established patient continue to f/u s/p discharge DNR/DNI (7) History of mastectomy, total: Assessment and plan: Left sided Continue wound dressing daily (8) CKD (chronic kidney disease): Status: Chronic Assessment and plan: At baseline Cr 1.7 now 1.5 BMP in AM (9) Hyperlipidemia: Status: Acute Assessment and plan: continue home meds (10) Hypertension: Status: Chronic Assessment and plan: continue to hold home meds d/t hypotension - resolving but remains soft with SBP around 95 this AM (11) Hypotension: Status: Acute Assessment and plan: IVF small boluses overnight and in the ED Resolving and as above (12) GERD (gastroesophageal reflux disease): Status: Chronic Assessment and plan: Continue pepcid 10 mg po BID PRN (13) Hypothyroidism: Status: Chronic Assessment and plan: Ongoing home meds (14) On deep vein thrombosis (DVT) prophylaxis: Status: Acute Assessment and plan: Continue LMWH Discussed with Subjective Subjective Patient reports: feels better, tolerating liquids well, tolerating a regular diet, voiding w/o difficulty, bowel movement and fever; denies diarrhea, blood in stool, nausea, vomiting or shortness of breath Exam Narrative Exam Narrative: Constitutional The patient is in bed comfortable without acute distress Neuro:alert and oriented X4, non-focal Chest:Left chest wall :wound covered by Telfa-port to R ACW Resp:Diffused left sided inspiratory wheezing -unlabored breathing, clear lung bilaterally decreased Left base Cardio: regular rhythm, S1, S2, no murmur, GI: Abdomen is not distended, soft and non tender, bowel sounds are present Extremities:moves all 4 ext. Psych: RASS 0, congruent mood and normal affect. Objective Last Vital Signs Temp 36.5 C 03/02/25 08:07 Pulse 103 H 03/02/25 08:07 Resp 20 03/02/25 07:38 BP 84/54 L 03/02/25 08:07 Pulse Ox 88 L 03/02/25 08:32 Laboratory Results - last 24 hr 03/01/25 03/01/25 03/01/25 10:18 11:25 12:56 WBC 6.52 RBC 3.72 L Hgb 11.9 Hct 35.7 L MCV 96 H MCH 32.0 MCHC 33.3 RDW 20.4 H Plt Count 147 MPV 9.6 Immature Gran % 1.5 Neutrophils % 73.1 Lymphocytes % 20.4 Monocytes % 4.1 Eosinophils % 0.3 Basophils % 0.6 Nucleated RBC % 0.0 Absolute Neutrophils 4.76 Absolute Lymphocytes 1.33 Absolute Monocytes 0.27 Absolute Eosinophils 0.02 Absolute Basophils 0.04 RBC Morphology See Below Anisocytosis 2+ PT 10.3 INR 1.0 APTT 22.9 VBG pH 7.43 H VBG pCO2 38 L VBG pO2 28 VBG HCO3 25 VBG Total CO2 23 L VBG O2 Saturation 51 VBG Base Excess 0 VBG Lactate 1.9 Sodium 131 L Potassium 3.5 Chloride 95 L Carbon Dioxide 25.6 Anion Gap 10.4 BUN 24 H Creatinine 1.7 H Est GFR (CKD-EPI 2020) 29.02 Glucose 138 H Calcium 9.9 Magnesium 1.6 L Total Bilirubin 1.1 H AST 39 H ALT 35 Alkaline Phosphatase 75 Troponin I 55 H* 47 Total Protein 6.4 Albumin 2.8 L Lipase 8 Procalcitonin < 0.10 Urine Color Yellow Urine Clarity Sl Cloudy Urine pH 6.0 Ur Specific Willits 1.015 Urine Protein 30 H Urine Ketones Trace H Urine Blood Moderate H Urine Nitrite Negative Urine Bilirubin Negative Urine Urobilinogen 0.2 Ur Leukocyte Esterase Negative Urine RBC 10-20 H Urine WBC 0-2 Ur Epithelial Cells Rare Urine Crystals Mod Calcium Oxalate Urine Bacteria Negative Urine Casts 0-2 Hyaline Urine Mucus Negative Ur Culture Indicated? No Urine Glucose Negative Add-On Test Request DONE 03/01/25 03/02/25 13:23 06:07 WBC 5.16 RBC 3.23 L Hgb 10.5 L Hct 31.2 L MCV 97 H MCH 32.5 MCHC 33.7 RDW 20.6 H Plt Count 131 MPV 9.5 Immature Gran % 2.3 Neutrophils % 73.3 Lymphocytes % 20.5 Monocytes % 2.7 Eosinophils % 0.6 Basophils % 0.6 Nucleated RBC % 0.0 Absolute Neutrophils 3.78 Absolute Lymphocytes 1.06 L Absolute Monocytes 0.14 Absolute Eosinophils 0.03 Absolute Basophils 0.03 RBC Morphology Anisocytosis PT INR APTT VBG pH VBG pCO2 VBG pO2 VBG HCO3 VBG Total CO2 VBG O2 Saturation VBG Base Excess VBG Lactate Sodium 135 L Potassium 3.5 Chloride 100 Carbon Dioxide 23.7 Anion Gap 11.3 H BUN 23 H Creatinine 1.5 H Est GFR (CKD-EPI 2020) 33.73 Glucose 132 H Calcium 9.4 Magnesium 1.6 L Total Bilirubin AST ALT Alkaline Phosphatase Troponin I 47 Total Protein Albumin Lipase Procalcitonin Urine Color Urine Clarity Urine pH Ur Specific Willits Urine Protein Urine Ketones Urine Blood Urine Nitrite Urine Bilirubin Urine Urobilinogen Ur Leukocyte Esterase Urine RBC Urine WBC Ur Epithelial Cells Urine Crystals Urine Bacteria Urine Casts Urine Mucus Ur Culture Indicated? Urine Glucose Add-On Test Request Time Spent with Patient Time Spent with Patient: >50 minutes Time was spent: preparing to see the patient(eg.review tests), obtaining and/or reviewing separately otained hiistory, ordering medications,tests, procedures, referring, communicating with other health regular senior care provider, indepentently interpreting results, counseling the patient and care coordination
[2025-03-02] MEDS: MAGNESIUM SULFATE 2 GM/50 ML BAG IV_INF (10:53)
--- NOTE | 2025-03-02 11:23 | CHAPLAIN ---
Ammy was sitting up in the chair when I visited. She said she's comfortable but hopes to go home today as she believes that she'll heal better and feel better at home. She lives in [place] and is a PC patient. I explained my role and offered support.
[2025-03-02] MEDS: Simvastatin 40 MG TAB PO (20:09)
[2025-03-02] MEDS: Mirtazapine 15 MG TAB 7.5 MG PO (20:09)
[2025-03-02] MEDS: Calcium Carbonate 1.25 GM TAB PO (20:09)
[2025-03-02] MEDS: Doxycycline Hyclate 100 MG CAP PO (21:28)
[2025-03-03 03:45] VITALS: BP 112/56; PULSE 72; RESP 18; TEMP 37.1; O2SAT 95
[2025-03-03] MEDS: Levothyroxine 75 MCG TAB PO (05:45)
[2025-03-03 07:52] VITALS: BP 107/64; PULSE 101; RESP 18; TEMP 38.3; O2SAT 90
[2025-03-03] MEDS: Tiotropium/Olodaterol 10 PUFF INHALER 2 PUFF IH (08:30)
[2025-03-03 08:31] VITALS: O2SAT 91
--- NOTE | 2025-03-03 08:56 | PDOC.CMPRO ---
Date of service: 03/03/25 Time of Service: 08:56 Care Management Progress Note Discharge Potential Discharge Needs: PCP F/U Appt Anticipated Barriers to Discharge: None Identified Patient/Family Education Needs: Review discharge instructions, discuss Ask Me Three Transportation: Private vehicle Plan: Anticipate Ammy will be discharged home, likely with new home health services, when medically cleared. She will follow up with her PCP and plan of care and transport with family. CM will follow and continue to support discharge planning. Social Determinants of Health Screening Social Determinants of health last assessed in clinic: 03/02/25 Will the Patient Participate in the Screening?: Yes Do you worry about having a steady place to live?: no Problems where you live: no known problems In the past 12 months, have you had to go without electric, gas, oil or water in your home?: no Has lack of transportation kept you from medical appointments or from doing things needed for daily living?: no Has anyone in your life made you feel unsafe or unsupported?: no How hard is it for you to pay for the very basics like food, housing, medical care, and heating? Would you say it is:: Not hard at all Do you want help finding or keeping work or a job?: I do not need or want help If for any reason you need help with day-to-day activities such as bathing, preparing meals, shopping, managing finances, etc., do you get the help you need?: I don?t need any help How often do you feel lonely or isolated from those around you?: Never Do you speak a language other than German at home?: No Does the patient want assistance with any of the above?: No
[2025-03-03] MEDS: Cefpodoxime 200 MG TAB PO (09:02)
[2025-03-03] MEDS: Acetaminophen 325 MG TAB 650 MG PO (09:03)
[2025-03-03] MEDS: Metoprolol CR 50 MG TABCR PO (09:03)
[2025-03-03] MEDS: Ascorbic Acid 500 MG TAB 1000 MG PO (09:03)
[2025-03-03] MEDS: guaiFENesin 600 MG TABCR PO (09:04)
--- NOTE | 2025-03-03 09:45 | W.PM.DS.N ---
Date of service: 03/03/25 Time of Service: 15:15 DS: Diagnosis Discharge Diagnosis (1) Severe sepsis: Status: Acute (2) Acute hypoxic respiratory failure: Status: Acute (3) Pneumonia: Status: Acute (4) Metastatic cancer to lung: Status: Acute (5) COPD (chronic obstructive pulmonary disease): Status: Acute (6) Palliative care patient: (7) History of mastectomy, total: (8) CKD (chronic kidney disease): Status: Chronic (9) Hyperlipidemia: Status: Acute (10) Hypertension: Status: Chronic (11) Hypotension: Status: Acute (12) GERD (gastroesophageal reflux disease): Status: Chronic (13) Hypothyroidism: Status: Chronic (14) On deep vein thrombosis (DVT) prophylaxis: Status: Acute Discharge Plan Disposition Patient Disposition: Home W/Home Health Services Condition: Improving Discharge Details Reason For Visit: acute hypoxic resp fail,pneumonia,severe sepsis Admit Date/Time: 03/01/25 14:32 Admit Provider: Carlos Trinidad Attending Provider: Carlos Trinidad Primary Care Provider: Elmer Murphy Hospital Course Hospital Course: This 84 years old female patient with a PMHx of breast CA with lung metastasis, left mastectomy with healing wound to the ACW ,hypertension, hypothyroidism, COPD aortic aneurysm repair and Fareed fundoplication presented to the ED for evaluation of feeling wiped out and weakness s/p referral by the cancer center. Hypotensive , tachycardic and hypoxic on presentation demonstrating with improvement with IV crystalloid and oxygen supplementation. Work-up in the ED was positive for new nodular infiltrates in the right lower lobe and increasing size infiltrate in the lateral aspect of the left upper lobe suspicious for pneumonia;PE negative as per CTA, ACS negative. CBC and CMP unremarkable except for Mg at 1.6, Na at 131. The patient received ceftriaxone and doxycycline in the ED and was admitted to the medical surgical floor for acute hypoxic respiratory failure, severe sepsis in the setting of pneumonia. IV access lost on the floor and ongoing persistent refusal for new IV access despite education regarding poor possible outcome w/o IV antibiotics. The patient remained febrile on oral antibiotics. Blood cultures were negative at 48 hours. Palliative care consult completed and patient will make a decision regarding hospice care once follow-up completed with oncology. The patient will require oxygen on discharge 1L at rest, 4L with ambulation (continuous flow for both) , home health nursing, physical and occupational therapy and hospital medical assistant on discharge. Follow-up with PCP within 7 days of discharge, please. Electronic script for outpatient antibiotics sent. Discussed with Dr. Nunn Home Meds and New Rx's Prescriptions: New acetaminophen 325 mg Tablet 650 mg PO Q6H PRN PRNQty: 30 0RF cefpodoxime 200 mg Tablet 200 mg PO Q24H Qty: 7 0RF doxycycline hyclate 100 mg Capsule 100 mg PO Q12H Qty: 10 0RF guaifenesin [Mucus Relief ER] 600 mg Tablet Extended Release 12hr 600 mg PO BID Qty: 10 0RF Continued simvastatin 40 mg tablet 40 mg PO QPM ascorbate calcium (vitamin C) 500 mg tablet 1,000 mg PO DAILY umeclidinium-vilanterol [Anoro Ellipta] 62.5-25 mcg/actuation blister with device 1 inh inhalation DAILY levothyroxine 75 mcg capsule 75 mcg PO DAILY albuterol sulfate 90 mcg/actuation HFA aerosol inhaler 2 puff INHALATION PRN Patient Comments: INHALE TWO PUFFS BY MOUTH EVERY 4 HOURS NEEDED FOR WHEEZING - USE WITH SPACER mirtazapine 7.5 mg tablet 7.5 mg PO .bedtime Patient Comments: TAKE ONE TABLET BY MOUTH AT BEDTIME FOR SLEEP codeine-guaifenesin 10-100 mg/5 mL liquid 10 ml PO 3XD Patient Comments: TAKE 5 TO 10ML BY MOUTH THREE TIMES A DAY NEEDED FOR COUGH losartan 50 mg tablet 50 mg PO QAM Patient Comments: TAKE 1 TABLET BY MOUTH EVERY DAY calcium carbonate 500 mg calcium (1,250 mg) Tablet 1,200 mg PO QPM metoprolol succinate 50 mg tablet extended release 24 hr 50 mg PO DAILY Patient Comments: Take 1 tablet by mouth once a day for blood pressure and tremor Discharge Instructions Referrals: Elmer Murphy [Primary Care Provider] - (Follow-up within 7 days of discharge please ) Activity:: Activity as Tolerated Equipment/Supplies:: Walker Diet:: heart healthy Discharge Orders Discharge Orders: Discharge Order (Routine); Ordered 03/03/25 Ordered By: Connie Herbert DS: Summary Time Spent with Patient providing and/or coordinating discharge services: Greater than 30 minutes Status at Discharge Functional status at discharge: uses cane/walker Overall status at discharge: patient is not back to baseline Mental Status: mental status grossly normal Speech and Movement: speech and movement normal Mood: congruent mood Affect: normal affect Quality:SDOH Health Related Social Needs: No Data to Display Exam Narrative Exam Narrative: Constitutional Frail appearing, without acute distress, comfortable without acute distress Neuro:alert and oriented X4, non-focal Chest:Left chest wall :wound covered by Telfa-port to R ACW Resp:Coarse left base, no wheezing -unlabored breathing Cardio: regular rhythm, S1, S2, no murmur, GI: Abdomen is not distended, soft and non tender, bowel sounds are present Extremities:moves all 4 ext. Psych: RASS 0, congruent mood and normal affect. Psych Mental Status: mental status grossly normal Speech and Movement: speech and movement normal Mood: congruent mood Affect: normal affect DS: Data Vitals/I&O Vitals and I&O: Vital Signs Temperature 38.3 C H 03/03/25 07:52 Temperature Source Tympanic 03/03/25 07:52 Pulse 101 H 03/03/25 07:52 Pulse Rhythm Regular 03/01/25 15:40 Pulse 79 03/01/25 15:20 Respiratory Rate 18 03/03/25 07:52 Respiratory Effort Normal 03/01/25 15:40 Respiratory Depth Normal 03/01/25 15:40 Respiratory Pattern Normal 03/01/25 15:40 Blood Pressure 107/64 03/03/25 07:52 Blood Pressure Mean 78 03/03/25 07:52 Blood Pressure Position Sitting 03/01/25 10:06 Pulse Oximetry 91 L 03/03/25 08:31 Oxygen Delivery Method Nasal Cannula 03/03/25 08:31 Oxygen Flow Rate 3.5 03/03/25 08:31 Pain Level 0 03/03/25 09:03 Comment RN notified 03/02/25 17:20 Intake & Output 03/02/25 03/02/25 03/03/25 11:59 23:59 11:59 Intake Total 700 / 796.667 96.667 / 796.667 Output Total 200 / 200 Balance 700 / 796.667 96.667 / 796.667 -200 / -200 Intake: IV 700 / 796.667 96.667 / 796.667 Output: Urine 200 / 200 Other: Urine Color Yellow Light Rachel Urine Appearance Clear Clear Urine Odor Strong Strong Comment unknown void amount into commode mixed with stool voided patient was dry Stool Size Small Stool Characteristics Formed Hard Brown Data Completed and Pending Labs on day of discharge: Labs from last 24 hours 03/03/25 09:37 Magnesium Pending Preliminary micro results at discharge 03/01/25 10:55 Blood Blood Culture - Preliminary NO GROWTH 24 HOURS 03/01/25 10:18 Blood Blood Culture - Preliminary NO GROWTH 24 HOURS PFSH All Active Problems (Updated 03/03/25 @ 13:34 by Vickie Roth NP) Encounter for hospice care discussion (Acute) ACP (advance care planning) (Acute) Metastatic malignant neoplasm to breast (Acute) Metastatic lung cancer (metastasis from lung to other site) (Acute) Hypotension (Acute) Severe sepsis (Acute) On deep vein thrombosis (DVT) prophylaxis (Acute) Acute hypoxic respiratory failure (Acute) Hypoxia (Acute) Pneumonia (Acute) Tremor (Acute) Acute UTI (Acute) Metastatic cancer to lung (Acute) Encounter for wound care (Acute) Trochanteric bursitis, right hip (Acute) corticosteroid injection 01/15/23 No-show for appointment (Acute) Periprosthetic fracture of femur at tip of prosthesis (Acute) Basicervical fracture of neck of right femur (Acute 10/08/21) Chronic laryngitis (Acute) Thrush (Acute) COPD (chronic obstructive pulmonary disease) (Acute) Chronic cough (Acute) Globus sensation (Acute) Eczema (Acute) Impaired fasting glucose (Acute) Spondylisthesis (Acute) Insomnia (Acute) CKD (chronic kidney disease) (Chronic) Lesion of skin of scalp (Acute) Hearing impaired person (Acute) Abdominal pain (Acute) Lactose intolerance (Acute) Hiatal hernia (Chronic) Dysphagia (Acute) Hyperlipidemia (Acute) Hypertension (Chronic) Abdominal aortic aneurysm (Acute) GERD (gastroesophageal reflux disease) (Chronic) Hypothyroidism (Chronic) Arthritis (Acute) Osteoarthritis (Chronic) Medical History History of radiation therapy (~2021) 07/31/22-09/13/22 Palliative care patient Surgical History History of mastectomy, total (~05/21/22) ER+ [place] weakly +, Her2 neg Td4,cN1a, H/O colonoscopy History of esophagogastroduodenoscopy (EGD) History of renal stent H/O aortic aneurysm repair H/O hand surgery History of Nila fundoplication Family History Father Cancer Mother Aneurysm Pneumonia Son No problems noted. Social History Smoking/Tobacco Use Status: Former Tobacco Use Smoking risk assessment performed?: Yes Alcohol Intake: never Drug use: Never Substance use type: does not use Housing: house Current gender identity: female Do you feel safe at home: Yes Do you feel safe in your relationship?: Yes Additional Social history: lives with one daughter Time Spent with Patient Time Spent with Patient: 70-84 minutes4 Time was spent: preparing to see the patient(eg.review tests), obtaining and/or reviewing separately otained hiistory, ordering medications,tests, procedures, referring, communicating with other health nursing care attendant, indepentently interpreting results, counseling the patient and care coordination
[2025-03-03 10:22] LABS: Magnesium 1.8 mg/dL (1.8-2.4)
[2025-03-03] MEDS: Doxycycline Hyclate 100 MG CAP PO (11:12)
[2025-03-03 12:17] VITALS: BP 89/54; PULSE 88; RESP 24; TEMP 36.6; O2SAT 88
[2025-03-03 12:27] VITALS: PULSE 81; PULSE 85; PULSE 91; RESP 20; RESP 22; O2SAT 83; O2SAT 88; O2SAT 92
[2025-03-03 12:45] LABS: MRSA PCR Negative (Negative)
[2025-03-03 13:13] VITALS: BP 94/54; PULSE 86; RESP 22; TEMP 36.8; O2SAT 90
--- NOTE | 2025-03-03 13:15 | W.PALLCONSUL ---
Date of service: 03/03/25 Time of Service: 10:45 History of Present Illness Narrative: Ms. Gimenez is an 84 y/o F currently hospitalized 2/2 sepsis c/b PNA; PMHx sig for stage 4 metastatic breast/lung cancer, HTN, hypothyroid, COPD, h/o aortic aneurysm repair; present at bedside Gay, daughter/[facility] Hospital Course: presented to [facility] ED on 03/01 w/CC of feeling wiped out and weakness, hypotensive, desatting to 83%, tachycardia, CT lungs w/new infiltrates, including ENRIKE suspicious of PNA, started on doxycycline and ceftriaxone, admitted for acute resp failure and sepsis c/b PNA, on 3.5L of O2 - PT walk eval, w/desats to 86% on stairs on 3L; qualifies for O2 on discharge; she felt strong on stairs, no concerns w/strength Oncology chart review: dx 2021 w/breast cancer, mastectomy 05/14 started on letrozole, radiation from 08/14-09/13; 2022 thought primary lung cancer, started on pembro 10/15, added herceptin, faslodex 10/16, w/progression noted 08/16, continued pembro, switch to capcetiabine; 12/15 PET scans stable; d/t poor QoL and reduced performance switched to ocaparib; last visit 02/16/25, next PET scheduled 03/05, f/u visit w/onc 03/08 - per report stopped tx a couple of weeks ago after January visit; since stopping has had an improved function, feeling and moving better Ammy lives in [place] w/daughter Shena [facility]; stairs to get into home, she feels confident she can get into home. feels comfortable and safe and home Ammy would like to see what PET scan on Saturday and f/u to hear what Dr Cortez's team has to say on Saturday. She is happy to be off treatments currently, but does want to stay open minded to Saturday potentially an alternative treatment option, was told previously no alternative treatments. She is not overly bothered by this has hospital bed, does not need additional equipment, outside of oxygen to return home today. preference to go home today preference to avoid IVs in future as able Assessment and Plan Assessment and plan (1) Severe sepsis: Status: Acute Assessment and plan: improving met criteria on admission, PNA source Blood Cx/S negative continue oral abx (2) Acute hypoxic respiratory failure: Status: Acute Assessment and plan: qualifies for home O2 per walking test today 1L-3L h/o COPD (3) Pneumonia: Status: Acute Assessment and plan: continue oral abx refusing IV insertion (4) COPD (chronic obstructive pulmonary disease): Status: Acute Assessment and plan: need for further review, certainly contributing to new O2 demand (5) History of mastectomy, total: Assessment and plan: 2021 breast primary w/rad tx h/o and letrozole hx not currently on any treatments (6) Metastatic lung cancer (metastasis from lung to other site): Status: Acute Assessment and plan: thought to have lung primary around 09/2022, see HPI for history not currently on any treatments x2 wks, improved QoL and PPS f/u PET on 03/05 and OV w/oncology ([facility], Chris Cortez,Bakari) on 03/08 reviewed hospice eligible if determines would not want to pursue any of the above or if no further options to palliate her cancer are available encourage team to place referral to hospice pending Saturday's meeting (7) Metastatic malignant neoplasm to breast: Status: Acute (8) Encounter for hospice care discussion: Status: Acute Assessment and plan: add to watch list hospice eligible at any time, encouraged call sooner for referral per Ammy's preferences DME needs: would need O2, however appears to qualify for this today, so no DME identified at this time; already has hospital bed (9) ACP (advance care planning): Status: Acute Assessment and plan: reviewed palliative care and philosophy of care reviewed hospice program, eligibility, benefit and referral options reviewed oncology course, current preferences, next steps reviewed discharge plans for today, RASHAAD, she feels ready to return home spent 30m w/ACP Review of Systems Narrative: as per HPI PFSH All Active Problems (Updated 03/03/25 @ 13:34 by Vickie Roth NP) Encounter for hospice care discussion (Acute) ACP (advance care planning) (Acute) Metastatic malignant neoplasm to breast (Acute) Metastatic lung cancer (metastasis from lung to other site) (Acute) Hypotension (Acute) Severe sepsis (Acute) On deep vein thrombosis (DVT) prophylaxis (Acute) Acute hypoxic respiratory failure (Acute) Hypoxia (Acute) Pneumonia (Acute) Tremor (Acute) Acute UTI (Acute) Metastatic cancer to lung (Acute) Encounter for wound care (Acute) Trochanteric bursitis, right hip (Acute) corticosteroid injection 01/15/23 No-show for appointment (Acute) Periprosthetic fracture of femur at tip of prosthesis (Acute) Basicervical fracture of neck of right femur (Acute 10/08/21) Chronic laryngitis (Acute) Thrush (Acute) COPD (chronic obstructive pulmonary disease) (Acute) Chronic cough (Acute) Globus sensation (Acute) Eczema (Acute) Impaired fasting glucose (Acute) Spondylisthesis (Acute) Insomnia (Acute) CKD (chronic kidney disease) (Chronic) Lesion of skin of scalp (Acute) Hearing impaired person (Acute) Abdominal pain (Acute) Lactose intolerance (Acute) Hiatal hernia (Chronic) Dysphagia (Acute) Hyperlipidemia (Acute) Hypertension (Chronic) Abdominal aortic aneurysm (Acute) GERD (gastroesophageal reflux disease) (Chronic) Hypothyroidism (Chronic) Arthritis (Acute) Osteoarthritis (Chronic) Medical History History of radiation therapy (~2021) 07/31/22-09/13/22 Palliative care patient Surgical History History of mastectomy, total (~05/21/22) ER+ [place] weakly +, Her2 neg Td4,cN1a, H/O colonoscopy History of esophagogastroduodenoscopy (EGD) History of renal stent H/O aortic aneurysm repair H/O hand surgery History of Nila fundoplication Family History Father Cancer Mother Aneurysm Pneumonia Son No problems noted. Social History Smoking/Tobacco Use Status: Former Tobacco Use Smoking risk assessment performed?: Yes Alcohol Intake: never Drug use: Never Substance use type: does not use Housing: house Current gender identity: female Do you feel safe at home: Yes Do you feel safe in your relationship?: Yes Additional Social history: lives with one daughter Exam Narrative Exam Narrative: General: w/PT initially, returns to room w/smile and conversative, transitions sit to stand, pivot to chair, ind w/no assist; cooperative HEENT: normocephalic, atraumatic, hearing grossly WNL, MMM Resp: even and unlabored, NC in place at 3L, speaks full sentences w/limited SOB, recovers quickly; no cough, no audible wheeze Psych: pleasant, engages in conversation, thought process clear, thought content WNL; some loose association w/oncology care plan; insight/judgment good Results Last Vital Signs Temp 98.2 F 03/03/25 13:13 Pulse 86 03/03/25 13:13 Resp 22 03/03/25 13:13 BP 94/54 L 03/03/25 13:13 Pulse Ox 90 L 03/03/25 13:13 Labs 03/02/25 06:07 03/02/25 06:07 Labs: Laboratory Results - last 24 hr 03/03/25 03/03/25 09:56 11:17 Magnesium 1.8 MRSA (TEM-PCR) Negative Time Spent Time Spent with Patient Time Spent(min): 60
--- NOTE | 2025-03-03 13:40 | PT.INTREAT ---
PT Notes Visit Reasons: acute hypoxic resp fail,pneumonia,severe sepsis Inpatient Physical Therapy Treatment Note [facility] Date: 03/03/2025 PRECAUTIONS:oxygen at 3L via NC, telemetry SUBJECTIVE: Pt reports I am going home today OBJECTIVE: pt presents semireclined in bed with oxygen at 3l via NC and her daughter visiting? PAIN: denies VITALS: ? Pre-Treatment: 91% on 3 L with activity: 86% on 3L without pacing ? Post-Treatment: 93% on 3L Therapeutic Activities (79648): Direct one-on-one instruction in dynamic activities to improve functional performance. ?? Provided skilled cues and instruction on performance and technique throughout. Patient education regarding pacing and breathing techniques to maximize activity tolerance? BED MOBILITY/TRANSFERS? Rolling L/R: CGA Supine-sit: CGA ?for trunk ? Sit-supine: CGA for LEs ? Sit-stand: SBA with cues for hand placement? Stand-sit: SBA with cues for hand placement ? Bed-Chair: SBA and cues for safe approach ? Chair-bed: SBA and cues for safe approach ambulation: Facilitated safe and correct performance of level surface ambulation covering a distance of 25 feet x 1 50 feet x 3 feet using use front wheeled walker with SBA and wheelchair follow for safety. Did not report of any increased pain. Denied headache, chest pain, and lightheadedness throughout activity. Minimal verbal cueing provided for breath control/ pacing directional changes, and posture.? STAIRS: 3 4 steps? and 2 6 steps with rails SBA with continuous cues for sequencing step to pattern cues for pacing breath control ? ASSESSMENT:? pt tolerate session well. She remains limited by poor breath control and pacing strategies. She needs cues for PLB . Pt education provided on in through nose where the oxygen is coming from and out through mouth in slow prolonged exhale. PLAN:Cont POC until medically appropriate for discharge TREATMENT CODE/TIME:19561/ [id number] DISCHARGE RECOMMENDATION: home with HHPT
--- NOTE | 2025-03-03 13:53 | RESPIRATORY ---
Pt being discharged home today with new home O2 through [facility]. New prescription is for 1L at rest, 4L with ambulation (continuous flow for both). Of note, it was difficult to get accurate readings with good pleth on patient, the best reading was found to be on her left pinky finger, with other extremities to show falsely lower by up to 10%.
--- NOTE | 2025-03-03 14:22 | CMDISCH_ITS ---
Date of service: 03/03/25 Time of Service: 14:22 LACE Index Scoring Tool Questions: Length of Stay (in days): 2 Was the patient admitted via the E.D.?: Yes Comorbidities: Chronic Pulmonary Disease, Liver or Renal Disease and Metastatic Solid Tumor E.D. Visits: 4 Answers: Total Score: 14 Risk of Readmission: High Risk Care Management Discharge Plan Reason for Hospitalization: Pneumonia Discharge Plan: Ammy will be discharged home with new home health services for nursing, PT, OT and [employer]GER. She will also have new home oxygen through [facility]: 1L/min at rest and 4L/min with activity. She has a PET scan scheduled for Saturday and a follow up appointment with her Oncologist at [facility] on Saturday. Depending on the outcome of the testing and meeting that follows, Ammy may decide to go on hospice. She will follow up with her community providers and plan of care and transport with her daughter. Patient/Family Education Needs: review of discharge instructions, limitations, follow up plan and discuss Ask Me Three Services Needed at Discharge: Home Health Care Services, Occupational Therapy and Oxygen Therapy (new home oxygen through [facility] 1L/min at rest and 4L/min with activity) SDOH Health Related Social Needs: No Data to Display
--- NOTE | 2025-03-03 14:22 | PT.INTREAT ---
PT Notes Visit Reasons: acute hypoxic resp fail,pneumonia,severe sepsis Date: 03/03/2025 PRECAUTIONS:oxygen at 1L via NC, telemetry SUBJECTIVE: pt in recliner waiting for daughter to arrive, pt reports she is ready to go home, pt agreed to participating with therapy session as long as daughter is informed of where pt is when she arrives. OBJECTIVE: pt presents semireclined in bed with oxygen at 1L via NC ? PAIN: denies VITALS: ? Pre-Treatment: 86% on 1L with activity: 80% on 1L without pacing ? Post-Treatment: 90% on 1L Therapeutic Activities (10970): Direct one-on-one instruction in dynamic activities to improve functional performance. ?? Provided skilled cues and instruction on performance and technique throughout. Patient education regarding pacing and breathing techniques to maximize activity tolerance? BED MOBILITY/TRANSFERS? Rolling L/R: supervision Supine-sit: supervision ? Sit-supine: supervision ? Sit-stand: supervision ? Stand-sit: supervision ? Bed-Chair: supervision? Chair-bed: supervision ambulation: Facilitated safe and correct performance of level surface ambulation covering a distance of 100feet x 100 feet x 200 feet using use front wheeled walker with SBA 1L 02 support NC. Did not report of any increased pain. Denied headache, chest pain, and lightheadedness throughout activity. Minimal verbal cueing provided for breath control/ pacing directional changes, and posture.? STAIRS: 6 4 steps? with rails SBA step over step ? ASSESSMENT:? pt tolerated activity well, DBE as well as PLB during standing rest break in between distances to prevent SOB. PLAN:Cont POC until medically appropriate for discharge TREATMENT CODE/TIME: [id number] 25mins (2:01-2:26pm) DISCHARGE RECOMMENDATION: home with HHPT
--- NOTE | 2025-03-03 15:34 | PDOC.HHF2F_ITS ---
Home Health Referral Home Health Orders Clinical synopsis of why skilled professionals are needed: This 84 years old female patient with a PMHx of breast CA with lung metastasis, left mastectomy with healing wound to the ACW ,hypertension, hypothyroidism, COPD aortic aneurysm repair and Fareed fundoplication presented to the ED for evaluation of feeling wiped out and weakness s/p referral by the cancer center. Hypotensive , tachycardic and hypoxic on presentation demonstrating with improvement with IV crystalloid and oxygen supplementation. Work-up in the ED was positive for new nodular infiltrates in the right lower lobe and increasing size infiltrate in the lateral aspect of the left upper lobe suspicious for pneumonia;PE negative as per CTA, ACS negative. CBC and CMP unremarkable except for Mg at 1.6, Na at 131. The patient received ceftriaxone and doxycycline in the ED and was admitted to the medical surgical floor for acute hypoxic respiratory failure, severe sepsis in the setting of pneumonia. IV access lost on the floor and ongoing persistent refusal for new IV access despite education regarding poor possible outcome w/o IV antibiotics. The patient remained febrile on oral antibiotics. Blood cultures were negative at 48 hours. Palliative care consult completed and patient will make a decision regarding hospice care once follow-up completed with oncology. The patient will require oxygen on discharge 1L at rest, 4L with ambulation (continuous flow for both) , home health nursing, physical and occupational therapy and medical scientific officer on discharge. Follow-up with PCP within 7 days of discharge, please. Electronic script for outpatient antibiotics sent. Discussed with Dr. Nunn Registered Nurse: Check all that apply Instruct on new or changed medication(s)/assess compliance: Ordered Assess for exacerbation of medical condition, instruct patient/caregivers on signs and symptoms to report for early detection: Ordered Physical Therapist: Check all that apply Increase strength & endurance for safe mobility at home: Ordered To design/establish home maintenance program: Ordered Fall reduction therapy program for patient with history of frequent falls: Ordered Home safety evaluation and teaching/gait training including stair management (if applicable): Ordered Better Breathing Program: Ordered Occupational Therapist: Evaluate and treat for patient unable to perform ADL/IADL/self-care: Ordered Upper extremity strengthening, range and motion: Ordered Biochemical Development Engineer: Assist with community resources: Ordered Assist with local company intermodal truck driver care planning: Ordered Home Bound Status Requires the aid of supportive device (check all that apply): Walker Describe why leaving home would require a considerable and taxing effort: Requires frequent rest periods and Oxygen Encounter Date and Reason: I certify that a FTF encounter for this patient was performed on March 03, 2025 and that such encounter was related to the primary reason the patient requires home health services. The encounter was conducted in the following manner: * By me as the certifying physician, ASSOCIATE PROFESSOR OF COUNSELING, PA or * By an inpatient physician, ASSOCIATE PROFESSOR OF COUNSELING or PA during an inpatient stay who communicated findings to me, Certification And Authentication I certify that I composed the above information based on my clinical judgment relating to this patient's medical condition and, if applicable, clinical findings communicated to me by the NPP or inpatient physician who performed the FTF encounter. Name of Provider that will be monitoring home health services: Elmer Murphy
== END 2025-03-03 16:03 | disposition home health service (06) | DRG 871 ==
LOC: ER 14:10 → MS 15:32
PROVIDERS: Admitting Provider Family Medicine; Emergency Provider Registered Nurse Emergency; PCP Student in an Organized Health Care Education/Training Program; Responsible Provider Nurse Practitioner Acute Care; Visit Provider Family Medicine
DX: J96.01 Acute respiratory failure with hypoxia (principal); J18.9 Pneumonia, unspecified organism; J44.0 Chronic obstructive pulmonary disease with (acute) lower respiratory infection; Z90.12 Acquired absence of left breast and nipple; N18.9 Chronic kidney disease, unspecified; E78.5 Hyperlipidemia, unspecified; I12.9 Hypertensive chronic kidney disease with stage 1 through stage 4 chronic kidney disease, or unspecified chronic kidney disease; K21.9 Gastro-esophageal reflux disease without esophagitis; E03.9 Hypothyroidism, unspecified; Z79.899 Other long term (current) drug therapy; A41.9 Sepsis, unspecified organism; R65.20 Severe sepsis without septic shock; C78.02 Secondary malignant neoplasm of left lung; C78.01 Secondary malignant neoplasm of right lung; R05.3 Chronic cough; R73.01 Impaired fasting glucose; K44.9 Diaphragmatic hernia without obstruction or gangrene; Z95.828 Presence of other vascular implants and grafts; Z87.891 Personal history of nicotine dependence; Z66 Do not resuscitate; I95.9 Hypotension, unspecified
CPT/HCPCS: 00123; 36415; 71275; 80048; 80053; 82805; 83690; 84145; 87040; 87641; 93005; 94618; 94640; 94761; 96361; 96365; 96366; 96368; 96375; 97162; 97530; 99285; 71045; 81003; 81015; 83605; 83735; 84484; 85025; 85610; 85730; 93010; 94664; 94760; 99223; 99233; 99239; J0131; J0696; J1650; J3475; J3490; J7620

== ENCOUNTER 2025-05-19 18:19 | Emergency (ER) | payer MEDICARE, SELFPAY ==
[2025-05-19 18:25] VITALS: BP 128/78; PULSE 88; RESP 18; TEMP 36.5; O2SAT 93
--- NOTE | 2025-05-19 18:45 | W.ED.GENAD ---
Discharge Plan Disposition Patient Disposition: Home Condition: Good Discharge Details Clinical Impression: Subarachnoid hemorrhage following injury, Laceration of face Primary Care Provider: Elmer Murphy ED Provider: Melodie De Oliveira Home Meds and New Rx's Prescriptions: Continued simvastatin 40 mg tablet 40 mg PO QPM ascorbate calcium (vitamin C) 500 mg tablet 1,000 mg PO DAILY levothyroxine 75 mcg capsule 75 mcg PO DAILY morphine concentrate 100 mg/5 mL (20 mg/mL) solution See Rx Instructions PO Q1H MDD 24 ml PRN (Reason: pain or dyspnea) Qty: 30 0RF Rx Instructions: 0.25-1.0 ml orally every 1 hour PRN; HOSPICE codeine-guaifenesin 10-100 mg/5 mL liquid 10 ml PO TID PRN PRN (Reason: cough) Qty: 473 0RF umeclidinium-vilanterol [Anoro Ellipta] 62.5-25 mcg/actuation blister with device 1 inh inhalation DAILY Qty: 60 0RF Rx Instructions: Patient would like to check chen before filling prochlorperazine maleate [Compazine] 10 mg tablet 10 mg PO Q6H PRN (Reason: nausea and vomiting) Qty: 30 3RF Rx Instructions: hospice hydroxyzine HCl 25 mg tablet 25 mg PO TID PRN (Reason: itching) Qty: 30 3RF Rx Instructions: hospice ondansetron 8 mg tablet,disintegrating 8 mg PO Q8H PRN (Reason: nausea and vomiting) Qty: 14 0RF lorazepam 0.5 mg tablet 0.5 mg PO Q4H PRN (Reason: anxiety) Qty: 6 0RF propranolol 10 mg tablet 10 mg PO BID Qty: 28 0RF hydrocortisone 2.5 % lotion 1 applic topical BID PRN (Reason: skin irritation) Qty: 59 0RF Rx Instructions: hospice patient triamcinolone acetonide 0.1 % cream 1 applic topical BID Qty: 30 2RF Rx Instructions: hospice albuterol sulfate 90 mcg/actuation HFA aerosol inhaler 2 puff INHALATION PRN Patient Comments: INHALE TWO PUFFS BY MOUTH EVERY 4 HOURS NEEDED FOR WHEEZING - USE WITH SPACER mirtazapine 7.5 mg tablet 7.5 mg PO .bedtime Patient Comments: TAKE ONE TABLET BY MOUTH AT BEDTIME FOR SLEEP losartan 50 mg tablet 50 mg PO QAM Patient Comments: TAKE 1 TABLET BY MOUTH EVERY DAY calcium carbonate 500 mg calcium (1,250 mg) Tablet 1,200 mg PO QPM metoprolol succinate 50 mg tablet extended release 24 hr 50 mg PO DAILY Patient Comments: Take 1 tablet by mouth once a day for blood pressure and tremor acetaminophen 325 mg Tablet 650 mg PO Q6H PRN PRNQty: 30 0RF cefpodoxime 200 mg Tablet 200 mg PO Q24H Qty: 7 0RF doxycycline hyclate 100 mg Capsule 100 mg PO Q12H Qty: 10 0RF guaifenesin [Mucus Relief ER] 600 mg Tablet Extended Release 12hr 600 mg PO BID Qty: 10 0RF Discharge Instructions Additional Instructions: Please call your hospice team first thing tomorrow morning to kyle today's emergency department visit. I recommend that you hold off on taking your aspirin tomorrow morning, ask your team when you should restart taking it. You were found to have a trace acute subarachnoid hemorrhage in the right temporal cortical sulci this. This is a very small bleed in the brain. There is no need for specialist follow-up, you can follow-up with your medical team as scheduled. Keep your facial laceration clean and dry. Wash daily with antibacterial soap and water. Do not apply ointment over it as it may degrade the glue. Keep an eye out for signs of infection such as redness, swelling, pus drainage, foul odor. If notice any of these, please seek care immediately. Turn to emergency care if you note any signs of infection, develop severe headache, vision changes, uncontrollable vomiting, balance problems, behavior change, or if you are very worried you need to be rechecked again immediately Discharge Data Discharge Date/Time-TO BE ENTERED AT DEPARTURE: 05/19/25 21:27 HPI General Date/Time Provider Initiated Documentation: 05/19/25 18:35. HPI Narrative: Ammy is an 84-year-old female on hospice who presents to the emergency department for evaluation of head injury. She is accompanied by her daughter. Fell in garage at 1530 hours, tripped and hit head on the corner of the stairs. No loss of consciousness. Denies headache, dizziness, vision changes, neck pain, chest pain, back pain, or extremity injury. Sustained an abrasion to her left knee, no other complaints. She is on aspirin daily. Unable to wear glasses due to breakage. No history of stroke/brain bleeding, or bleeding disorders. Medical history significant for metastatic cancer to lungs and breast, COPD, O2 use at baseline, CKD, GERD, HTN, HLD, hypothyroidism. Related Data Home Medications ?Medication ?Instructions ?Recorded ?Confirmed ascorbate calcium (vitamin C) 500 1,000 mg PO DAILY 05/15/21 05/19/25 mg tablet simvastatin 40 mg tablet 40 mg PO QPM 05/15/21 05/19/25 calcium carbonate 1,200 mg PO QPM 10/08/21 05/19/25 losartan 50 mg tablet 50 mg PO QAM 10/08/21 05/19/25 metoprolol succinate 50 mg 50 mg PO DAILY 06/16/24 05/19/25 tablet,extended release 24 hr albuterol sulfate 90 mcg/actuation 2 puff inhalation PRN 11/16/24 05/19/25 aerosol inhaler mirtazapine 7.5 mg tablet 7.5 mg PO .bedtime 11/16/24 05/19/25 levothyroxine 75 mcg capsule 75 mcg PO DAILY 12/09/24 05/19/25 acetaminophen 325 mg tablet 650 mg (2 x 325 mg) PO Q6H PRN PRN 03/03/25 05/19/25 #30 tabs cefpodoxime 200 mg tablet 200 mg PO Q24H #7 tabs 03/03/25 05/19/25 doxycycline hyclate 100 mg capsule 100 mg PO Q12H #10 caps 03/03/25 05/19/25 guaifenesin 600 mg tablet, 600 mg PO BID #10 tabs 03/03/25 05/19/25 extended release 12 hr (Mucus Relief ER) morphine concentrate 100 mg/5 mL See Rx Instructions PO Q1H PRN 03/09/25 05/19/25 (20 mg/mL) oral solution pain or dyspnea #30 mL codeine 10 mg-guaifenesin 100 mg/5 10 ml PO TID PRN PRN cough #473 mL 03/29/25 05/19/25 mL oral liquid umeclidinium 62.5 mcg-vilanterol 1 inh inhalation DAILY #60 ea 03/30/25 05/19/25 25 mcg/actuation powdr for inhalation (Anoro Ellipta) hydroxyzine HCl 25 mg tablet 25 mg PO TID PRN itching #30 tabs 04/21/25 05/19/25 prochlorperazine maleate 10 mg 10 mg PO Q6H PRN nausea and 04/21/25 05/19/25 tablet (Compazine) vomiting #30 tabs lorazepam 0.5 mg tablet 0.5 mg PO Q4H PRN anxiety #6 tabs 05/03/25 05/19/25 ondansetron 8 mg disintegrating 8 mg PO Q8H PRN nausea and 05/03/25 05/19/25 tablet vomiting #14 tabs propranolol 10 mg tablet 10 mg PO BID #28 tabs 05/03/25 05/19/25 hydrocortisone 2.5 % lotion 1 applic topical BID PRN skin 05/10/25 05/19/25 irritation #59 mL triamcinolone acetonide 0.1 % 1 applic topical BID #30 grams 05/19/25 05/19/25 topical cream Previous Rx's ?Medication ?Instructions ?Recorded acetaminophen 325 mg tablet 650 mg (2 x 325 mg) PO Q6H PRN PRN 03/03/25 #30 tabs cefpodoxime 200 mg tablet 200 mg PO Q24H #7 tabs 03/03/25 doxycycline hyclate 100 mg capsule 100 mg PO Q12H #10 caps 03/03/25 guaifenesin 600 mg tablet, 600 mg PO BID #10 tabs 03/03/25 extended release 12 hr (Mucus Relief ER) morphine concentrate 100 mg/5 mL See Rx Instructions PO Q1H PRN 03/09/25 (20 mg/mL) oral solution pain or dyspnea #30 mL codeine 10 mg-guaifenesin 100 mg/5 10 ml PO TID PRN PRN cough #473 mL 03/29/25 mL oral liquid umeclidinium 62.5 mcg-vilanterol 1 inh inhalation DAILY #60 ea 03/30/25 25 mcg/actuation powdr for inhalation (Anoro Ellipta) hydroxyzine HCl 25 mg tablet 25 mg PO TID PRN itching #30 tabs 04/21/25 prochlorperazine maleate 10 mg 10 mg PO Q6H PRN nausea and 04/21/25 tablet (Compazine) vomiting #30 tabs lorazepam 0.5 mg tablet 0.5 mg PO Q4H PRN anxiety #6 tabs 05/03/25 ondansetron 8 mg disintegrating 8 mg PO Q8H PRN nausea and 05/03/25 tablet vomiting #14 tabs propranolol 10 mg tablet 10 mg PO BID #28 tabs 05/03/25 hydrocortisone 2.5 % lotion 1 applic topical BID PRN skin 05/10/25 irritation #59 mL triamcinolone acetonide 0.1 % 1 applic topical BID #30 grams 05/19/25 topical cream Allergies Allergy/AdvReac Type Severity Reaction Status Date / Time clopidogrel Allergy Unknown Verified 05/19/25 18:29 bisulfate Allergy Unknown Uncoded 05/19/25 18:29 General Stated Complaint: HeadInjury HARPER: 3 Exam Const General: cooperative, healthy appearing, comfortable and no acute distress Nutritional Appearance: average body habitus and well nourished Orientation: alert and oriented x3 [facility] Head: normal to inspection, no palpable skull fracture, normocephalic, no Fitzpatrick's sign, no palpable skull fracture and no raccoon eyes Ears: hearing grossly normal bilaterally and external ears normal General nose exam: external nose normal Face and sinus: normal facial exam Face images:  1. approx 1.5 cm Y shaped laceration w surrounding ecchymosis Mouth: oral mucosae normal, lip normal and tongue normal Skin Trauma: abrasion (L knee) Neuro General: patient alert, patient oriented x3, tone normal, moves all extremities and no focal motor deficits Cranial Nerves: CN's II-XI intact bilaterally, PERRL, EOM intact bilaterally, no nystagmus and facial strength normal Cognition: normal cognition Speech: speech normal Gait: normal gait Motor: muscle tone normal throughout and strength 5/5 throughout Sensory Exam: no sensory deficits noted Coordination: [id number] test normal, awdx-ga-[id number] test normal, Romberg test normal, Does not sway with eyes open and rapid alternating movement UE normal Extrem General: normal to inspection, full ROM and capillary refill normal Course Vital Signs Vital signs: Vital Signs Temperature 36.5 C 05/19/25 18:25 Pulse 88 05/19/25 18:25 Respiratory Rate 18 05/19/25 18:25 Blood Pressure 128/78 05/19/25 18:25 Pulse Oximetry 93 05/19/25 18:25 Temperature 36.5 C 05/19/25 18:25 Temperature Source Tympanic 05/19/25 18:25 Pulse 88 05/19/25 18:25 Respiratory Rate 18 05/19/25 18:25 Blood Pressure 128/78 05/19/25 18:25 Blood Pressure Position Sitting 05/19/25 18:25 Pulse Oximetry 93 05/19/25 18:25 Oxygen Delivery Method Nasal Cannula 05/19/25 18:25 Oxygen Flow Rate 2 05/19/25 18:25 Pain Level 0 05/19/25 18:25 Medical Decision Making Assessment: - Head injury: Fell and hit head on stairs. No loss of consciousness. Physical exam very reassuring. Plan: Head and neck scan to rule out internal bleeding or complications. - Laceration: Small cut on eyebrow. Plan: Nurse to clean wound, apply glue. - Abrasion to left knee, no concern for bony abnormality ED Course: - Ordered head and neck scan. - Nurse cleaned wound on eyebrow after application of let, wound closure performed with Dermabond CT remarkable for trace acute subarachnoid hemorrhage within a right temporal cortical sulcus; consulted with [facility] trauma surgeon Dr Lawson, reviewed patient presentation and CT. As this is a very small subarachnoid hemorrhage and nearly 6 hours has passed since incident without change in neurological status, repeat imaging not indicated. He reports that he did discuss with [facility] neurosurgery, no specific neurosurgery follow-up recommended, PCP follow-up advised. Reviewed discharge instructions with patient and her daughter, including the chills recommendations, symptomatic management, red flags concerning for infection/worsening intracranial hemorrhage, and importance of follow-up with PCP. They are agreeable with plan of care, will follow-up with hospice as scheduled. I did advise holding aspirin until advised to restart by hospice. Disposition: - Discharge: Home. Return if experiencing headache, dizziness, vision changes, or worsening symptoms. Patient Education: - Monitor for headache, dizziness, or vision changes. - Advised on wound care for eyebrow laceration. Patient consented to the use of [facility] Imaging Data Radiologic Study: Radiologist's impression: Exam(s) CT HEAD CERVICAL SPINE WO EXAM: CT HEAD CERVICAL SPINE WO CLINICAL HISTORY: head injury, fall, on ASA. TECHNIQUE: Imaging Protocol: Axial computed tomography images with coronal and sagittal reformatted images were created and reviewed COMPARISON: No exams were available for comparison FINDINGS: CT Head: Ventricles and Extra axial spaces: Normal in size and morphology for the patient's age. Hemorrhage: There is hyperdense material in the region of the right temporal lobe. It appears to be subarachnoid blood layering within a sulcus in the temporal lobe. (Series 4 images 31-33 and series 3 images 40 through 43 and series 2 images 32-39). Cerebral parenchyma: There are areas of decreased attenuation in the white matter consistent with chronic microvascular ischemic disease. There is no evidence to suggest an acute territorial infarct. There is no mass effect. Midline shift: None. Brainstem/Cerebellum: Normal. Calvarium: Normal. Visualized Paranasal sinuses/Mastoids: Clear. Soft Tissues: Unremarkable. CT Cervical Spine: Bones: No acute fracture or subluxation. There are degenerative changes seen in the cervical spine. There is 4 mm anterolisthesis of C7 on T1. There is also a 3 mm anterolisthesis of C2 over C3. Soft Tissues: Unremarkable. Lung Apices: Clear. IMPRESSION: 1. Acute right temporal sulcal subarachnoid hemorrhage. 2. No acute fracture of the cervical spine is present. 3. No calvarial fracture is identified. 4. The preliminary [facility] report was reviewed. [facility] All Active Problems (Updated 05/19/25 @ 21:15 by Melodie Mendez) Laceration of face (Acute) Subarachnoid hemorrhage following injury (Acute) Metastatic malignant neoplasm to breast (Acute) Metastatic lung cancer (metastasis from lung to other site) (Acute) Acute hypoxic respiratory failure (Acute) Hypoxia (Acute) Tremor (Acute) Acute UTI (Acute) Metastatic cancer to lung (Acute) Encounter for wound care (Acute) Trochanteric bursitis, right hip (Acute) corticosteroid injection 01/15/23 No-show for appointment (Acute) Periprosthetic fracture of femur at tip of prosthesis (Acute) Basicervical fracture of neck of right femur (Acute 10/08/21) Chronic laryngitis (Acute) Thrush (Acute) COPD (chronic obstructive pulmonary disease) (Acute) Chronic cough (Acute) Globus sensation (Acute) Eczema (Acute) Impaired fasting glucose (Acute) Spondylisthesis (Acute) Insomnia (Acute) CKD (chronic kidney disease) (Chronic) Lesion of skin of scalp (Acute) Hearing impaired person (Acute) Abdominal pain (Acute) Lactose intolerance (Acute) Hiatal hernia (Chronic) Dysphagia (Acute) Hyperlipidemia (Acute) Hypertension (Chronic) Abdominal aortic aneurysm (Acute) GERD (gastroesophageal reflux disease) (Chronic) Hypothyroidism (Chronic) Arthritis (Acute) Osteoarthritis (Chronic) Medical History History of radiation therapy (~2021) 07/31/22-09/13/22 Palliative care patient Surgical History History of mastectomy, total (~05/21/22) ER+ MO weakly +, Her2 neg Td4,cN1a, H/O colonoscopy History of esophagogastroduodenoscopy (EGD) History of renal stent H/O aortic aneurysm repair H/O hand surgery History of Nila fundoplication Family History Father Cancer Mother Aneurysm Pneumonia Son No problems noted. Social History Smoking/Tobacco Use Status: Former Tobacco Use Smoking risk assessment performed?: Yes Alcohol Intake: never Drug use: Never Substance use type: does not use Housing: house Current gender identity: female Do you feel safe at home: Yes Do you feel safe in your relationship?: Yes Additional Social history: lives with one daughter
[2025-05-19] MEDS: Lidocaine/Epinephri/Tetracaine Topical Gel 3 ML TP (18:51)
--- NOTE | 2025-05-19 19:21 | DI.CT_ITS ---
Exam(s) CT HEAD CERVICAL SPINE WO EXAM: CT HEAD CERVICAL SPINE WO CLINICAL HISTORY: head injury, fall, on ASA. TECHNIQUE: Imaging Protocol: Axial computed tomography images with coronal and sagittal reformatted images were created and reviewed COMPARISON: No exams were available for comparison FINDINGS: CT Head: Ventricles and Extra axial spaces: Normal in size and morphology for the patient's age. Hemorrhage: There is hyperdense material in the region of the right temporal lobe. It appears to be subarachnoid blood layering within a sulcus in the temporal lobe. (Series 4 images 31-33 and series 3 images 40 through 43 and series 2 images 32-39). Cerebral parenchyma: There are areas of decreased attenuation in the white matter consistent with chronic microvascular ischemic disease. There is no evidence to suggest an acute territorial infarct. There is no mass effect. Midline shift: None. Brainstem/Cerebellum: Normal. Calvarium: Normal. Visualized Paranasal sinuses/Mastoids: Clear. Soft Tissues: Unremarkable. CT Cervical Spine: Bones: No acute fracture or subluxation. There are degenerative changes seen in the cervical spine. There is 4 mm anterolisthesis of C7 on T1. There is also a 3 mm anterolisthesis of C2 over C3. Soft Tissues: Unremarkable. Lung Apices: Clear. IMPRESSION: 1. Acute right temporal sulcal subarachnoid hemorrhage. 2. No acute fracture of the cervical spine is present. 3. No calvarial fracture is identified. 4. The preliminary [facility] report was reviewed. RADIATION DOSE DELIVERED: 1,026.69mGy.cm Total DLP DATA REPOSITORY: All CT scans at this facility are submitted to the National Radiology Data Registry (NRDR) Dose Index Registry (DIR) with the [employer] ([employer]). RADIATION OPTIMIZATION: All CT scans at this facility use at least one of these dose optimization techniques: automated exposure control; mA and/or kV adjustment per patient size (includes targeted exams where dose is matched to clinical indication); or iterative reconstruction.
--- NOTE | 2025-05-19 19:35 | DI.VRAD_ITS ---
Addendum created by South Landin MD on 05/19/2025 7:38:56 PM EDT: This case was discussed personally with LENA SOLANO at 7:38 PM EDT on 05/19/2025. Initial report created on 05/19/2025 7:35:00 PM EDT: PROCEDURE INFORMATION: Exam: CT Head Without Contrast Exam date and time: 05/19/2025 7:06 PM Age: 84 years old Clinical indication: Injury or trauma; Blunt trauma (contusions or hematomas); Consciousness not specified; Injury date: 05/19/25; Head injury, fall, on asa TECHNIQUE: Imaging protocol: Computed tomography of the head without contrast. Radiation optimization: All CT scans at this facility use at least one of these dose optimization techniques: automated exposure control; mA and/or kV adjustment per patient size (includes targeted exams where dose is matched to clinical indication); or iterative reconstruction. COMPARISON: NM BONE SCAN WHOLE BODY GRP 01/14/2024 1:42 PM FINDINGS: Brain: There is trace acute subarachnoid hemorrhage layering within a right temporal cortical sulcus on images 30-34 of series 4, 39-43 of series 3, and 33-40 of series 2. There is no gross associated mass effect or midline shift. No large space-occupying extra-axial collection is seen. The zamudio white matter differentiation appears preserved. There is symmetric parenchymal volume loss. There is patchy white matter hypoattenuation, nonspecific but commonly seen as a chronic sequela of small vessel ischemic disease. Cerebral ventricles: The ventricular system and basilar cisterns appear appropriate in size and configuration. Paranasal sinuses: The visualized paranasal sinuses appear well-aerated. Mastoid air cells: The visualized mastoid air cells appear well aerated. Auditory system: The middle ear cavities appear clear. Soft tissue density material within the left external auditory canal probably represents cerumen; however, direct inspection is recommended for definitive evaluation. Bones: The bony calvarium appears intact. No depressed skull fracture is seen. Soft tissues: No gross focal scalp hematoma is seen. Vasculature: There is atherosclerotic calcification within the intracranial portion of the internal carotid arteries bilaterally. IMPRESSION: Trace acute subarachnoid hemorrhage layering within a right temporal cortical sulcus. No gross mass effect or acute skull fracture. PROCEDURE INFORMATION: Exam: CT Cervical Spine Without Contrast Exam date and time: 05/19/2025 7:06 PM Age: 84 years old Clinical indication: Injury or trauma; Blunt trauma (contusions or hematomas); Consciousness not specified; Injury date: 05/19/25; Head injury, fall, on asa TECHNIQUE: Imaging protocol: Computed tomography of the cervical spine without contrast. Radiation optimization: All CT scans at this facility use at least one of these dose optimization techniques: automated exposure control; mA and/or kV adjustment per patient size (includes targeted exams where dose is matched to clinical indication); or iterative reconstruction. COMPARISON: NM BONE SCAN WHOLE BODY GRP 01/14/2024 1:42 PM FINDINGS: Bones/joints: No acute cervical fracture is seen. There is grade 1 anterolisthesis of C2 on C3 and grade 2 anterolisthesis of C7 on T1. C2-C3: Disc height preserved. Mild anterolisthesis of C2 on C3. Moderate bilateral facet arthrosis. No central canal narrowing or significant foraminal narrowing. C3-C4: Loss of disc height with endplate irregularity, anterior osteophyte formation, and posterior osteophytic ridging. Moderate bilateral facet arthrosis. Mild central canal narrowing. No significant left-sided foraminal narrowing. Mild right-sided foraminal narrowing. C4-C5: Loss of disc height with endplate irregularity, anterior osteophyte formation, posterior osteophytic ridging, and bilateral uncovertebral hypertrophy. Mild central canal narrowing. Mild bilateral foraminal narrowing. C5-C6: Loss of disc height with endplate irregularity, anterior osteophyte formation, posterior osteophytic ridging, and bilateral uncovertebral hypertrophy. No central canal narrowing. Mild bilateral foraminal narrowing. C6-C7: Loss of disc height with endplate irregularity, anterior osteophyte formation, posterior osteophytic ridging, and bilateral uncovertebral hypertrophy. No central canal narrowing. Mild bilateral foraminal narrowing. C7-T1: Loss of disc height. Grade 2 anterolisthesis of C7 on T1. Moderate bilateral facet arthrosis. Mild central canal narrowing. Mild left-sided foraminal narrowing. Moderate right-sided foraminal narrowing. Lungs: The extreme lung apices appear grossly clear. Vasculature: There is atherosclerotic calcification at the carotid bifurcations bilaterally. Soft tissues: Within the limits of the exam, no gross soft tissue fluid collection is seen in the neck. IMPRESSION: 1. No acute cervical fracture is seen. 2. Degenerative changes, as detailed level by level above. Dictated and Authenticated by: South Landin MD. Orderin Brianna Sewell MD
== END 2025-05-19 21:27 | disposition home or self-care (01) ==
PROVIDERS: Emergency Provider Nurse Practitioner Family; PCP Student in an Organized Health Care Education/Training Program
DX: S06.6XAA Traumatic subarachnoid hemorrhage with loss of consciousness status unknown, initial encounter (principal); S01.81XA Laceration without foreign body of other part of head, initial encounter; W10.8XXA Fall (on) (from) other stairs and steps, initial encounter
CPT/HCPCS: 99284 ×2; 70450; 72125